=== PATIENT | male | born 1945 | race Caucasian/White ===

== ENCOUNTER 2018-02-04 16:03 | Outpatient (REF) | payer MEDICARE, SELFPAY, MEDICAID ==
[2018-02-04 16:42] LABS: HCT 38.8 % (40.0-50.0); HGB 13.2 g/dL (13.5-17.5); Mean Corpuscular Hemoglobin 33.8 pg (27.0-33.0); Mean Corpuscular Volume 99.5 fL (80-95); Mean Platelet Volume 11.8 fL (8.0-11.0); Platelet Count 159 x1000/uL (130-400); RBC Distribution Width 13.7 % (11.8-14.1); White Blood Cell Count 6.81 k/cumm (4.4-10.8)
[2018-02-04 17:08] LABS: ALT 32 U/L (12-78); AST 31 U/L (15-37); Albumin 3.7 g/dL (3.4-5.0); Alkaline Phosphatase 123 U/L (46-116); Anion Gap 11.8 mmol/L (3-11); BUN 21 mg/dL (7-18); Bilirubin, Total 0.4 mg/dL (0.2-1.0); CO2 23.2 mmol/L (21.0-32.0); CREATININE 1.23 mg/dL (0.70-1.30); Calcium 8.9 mg/dL (8.5-10.1); Chloride 101 mmol/L (98-107); Estimated GFR 58.01 (mL/min/1.73m2); Glucose 160 mg/dL (70-100); Magnesium 1.7 mg/dL (1.8-2.4); Potassium 4.3 mmol/L (3.5-5.1); Sodium 136 mmol/L (136-145)
[2018-02-04 17:47] LABS: Iron 99 ug/dL (50-175); Total Iron Binding Capacity 260 ug/dL (250-450); Transferrin Sat 38 % (20-55)
[2018-02-04 18:00] LABS: Ferritin 224 ng/mL (8-388)
== END 2018-02-04 16:23 ==
LOC: LBN 16:03
PROVIDERS: PCP Family Medicine; Visit Provider Family Medicine
DX: I10 Essential (primary) hypertension (principal); D50.9 Iron deficiency anemia, unspecified; E83.42 Hypomagnesemia; E43 Unspecified severe protein-calorie malnutrition; I48.1 Persistent atrial fibrillation; Z79.01 Long term (current) use of anticoagulants
CPT/HCPCS: 80053; 85027; 82728; 83540; 83550; 83735

== ENCOUNTER 2019-12-16 11:04 | Emergency (ER) | payer MEDICARE, SELFPAY ==
[2019-12-16] VITALS (14 sets, daily range): BP systolic 161–218; BP diastolic 56–116; PULSE 65–100; RESP 10–22; TEMP 36.5; O2SAT 96–100
--- NOTE | 2019-12-16 10:45 | RT.EKG_ITS ---
APPROVED REPORT Exam: Resting ECG Patient Location: E HR:80 bpm ECG Measurements Heart Rate 80 AXIS NH [id number] P [id number] QRSd 83 QRS 56 QT 373 T 33 QTc 429 Conclusion Atrial fibrillation...V-rate 64-113, irreg A-activity
[2019-12-16 12:03] LABS: Abs Immature Grans 0.02 10^3/uL (0.0-0.06); Absolute Basophil Count 0.03 10^3/uL (0.0-0.2); Absolute Eosinophil Count 0.27 10^3/uL (0.0-0.7); Absolute Lymphocyte Count 0.64 10^3/uL (1.2-3.4); Absolute Monocyte Count 0.76 10^3/uL (0.1-0.8); Absolute Neutrophil Count 7.33 10^3/uL (1.2-6.7); Basophils % 0.3; HCT 35.8 % (40.0-50.0); HGB 11.9 g/dL (13.5-17.5); Immature Grans % 0.2; Lymphocytes % 7.1; MCH 32.2 pg (27.0-33.0); MCHC 33.2 % (32.0-36.0); MCV 96.8 fL (80-95); MPV 10.5 fL (8.0-11.0); Monocytes % 8.4; Nucleated RBC 0 %; Platelet Count 238 10^3/uL (130-400); RDW 13.1 % (11.8-14.1); RDW-SD 46.7 fL; WBC 9.05 10^3/uL (4.4-10.8)
[2019-12-16 12:18] LABS: ALT 24 U/L (16-63); AST 30 U/L (15-37); Albumin 3.2 g/dL (3.4-5.0); Alkaline Phosphatase 119 U/L (46-116); Anion Gap 9.5 mmol/L (3-11); BUN 22 mg/dL (7-18); Bilirubin, Total 0.6 mg/dL (0.2-1.0); CO2 24.5 mmol/L (21.0-32.0); CREATININE 1.32 mg/dL (0.70-1.30); Calcium 9.5 mg/dL (8.5-10.1); Chloride 96 mmol/L (98-107); Estimated GFR 53.17 (mL/min/1.73m2); Glucose 100 mg/dL (74-106); Magnesium 2.1 mg/dL (1.8-2.4); Sodium 130 mmol/L (136-145); Total Protein 7.7 g/dL (6.4-8.2)
[2019-12-16 12:19] LABS: Troponin I < 0.05 ng/mL (<0.06)
--- NOTE | 2019-12-16 12:23 | W.ED.GENAD ---
Discharge Plan Disposition Patient Disposition: HOME Condition: Fair Discharge Details Clinical Impression: Weakness, Hyponatremia, Dehydration Primary Care Provider: Syeda Gayle ED Provider: Ashley Ascencio Home Meds and New Rx's Prescriptions: Continued oxycodone 5 MG tablet 5 mg PO Q4H PRN RF: 0 Allergy Relief (cetirizine) 10 mg capsule 10 mg PO DAILY Qty: 90 RF: 4 allopurinol [Zyloprim] 300 mg tablet 300 mg PO DAILY Qty: 90 RF: 4 pramipexole [Mirapex] 0.25 mg tablet 0.25 mg PO HS Qty: 90 RF: 4 pantoprazole 40 mg tablet,delayed release (DR/EC) 40 mg PO DAILY Qty: 90 RF: 4 tamsulosin 0.4 mg capsule 0.8 mg PO DAILY Qty: 60 RF: 6 finasteride 5 mg tablet 5 mg PO DAILY Qty: 90 RF: 4 metoprolol succinate 25 mg tablet extended release 24 hr 25 mg PO BID Qty: 60 RF: 12 metoprolol succinate 100 mg tablet extended release 24 hr 100 mg PO BID Qty: 60 RF: 12 lorazepam 1 mg tablet 1 mg PO HS PRN (Reason: anxiety) Qty: 30 RF: 2 fluticasone propionate 50 mcg/actuation spray,suspension 2 spray NS DAILY Qty: 1 RF: 6 aspirin [[place] Aspirin] 81 mg tablet,delayed release (DR/EC) 81 mg PO DAILY Qty: 90 RF: 1 penicillin V potassium 500 mg tablet 500 mg PO BID Qty: 60 RF: 6 Eliquis 5 mg tablet 5 mg PO BID Qty: 60 RF: 8 magnesium oxide 400 mg (241.3 mg magnesium) tablet 400 mg PO BID Qty: 90 RF: 4 Discharge Instructions Instructions: Dehydration (ED), Hyponatremia (ED), Weakness (ED) Additional Instructions: You are declining admission. You may return at any time for continued evaluation and continued treatment for your low sodium and dehydration. Please follow up this week with your primary care this week for reevaluation. If you develop fevers/chills, chest pain, shortness of breath, pain, increased weakness or other new/worsening sympoms please seek care urgently once again. Please follow up with podiatry. Please keep your feet as clean and protected as possible. Referrals: Syeda Gayle MD [Primary Care Provider] - Renato Chávez DPM [[facility] STAFF PHYSICIAN] - Discharge Data Discharge Date/Time-TO BE ENTERED AT DEPARTURE: 12/16/19 16:56 Medical Decision Making Patient is a pleasant 74 year old brought in via EMS with c/c of weakness. Patient reports that he fell yestreday but states that he, lowered myself to the floor and did not get injured. He did have to call EMS to assist him up. He denies striking his head. No loss of conscious. Has not fallen frequently. Patient reports he is unclear as to why he is here. States he did not call EMS but rather his family did. He states that he is here to appease them. On exam, patient appears disheveled and chronically ill. However, did not note any acute changes. Lungs are clear, normal cardiac exam. Abdominal exam reveals nontender abdomen. Does have some erythema over the right foot which patient reports is chronic. No tenderness outpatient, pulses. Patient would benefit from supervisor malted milk. Patient does appear disheveled and reports he often does not want to cleanse itself. Labs are reviewed. No leukocytosis. Patient hemoglobin is 11.9 patient's baseline anemic. His sodium is low at 130, he has been like this historically. His creatinine is elevated at 1.32 but she seems to be baseline for the patient. No evidence of chest urinary tract infection this point. Spoke with the patients daughter, Yolanda [phone], she reports that she and her siblings have been estranged x 15 years. just recently started to speak with him more. She does not sound to be clear about the change today. She did advise that her broth, Cristofer [phone], call the patiet this AM. It was Cristofer that called EMS after the patient reported he could not get out of bed. Patient was able to ambulate with walker. Ambulates with walker at baseline. He feels like he is at hisbaseline and is unclear why he is here today. Patient is requesting discharge home. I do remain concerned as the patient seems fairly limited with his responses and seems to be guarding against any real medical care. Unclear how compliant patient is at his baseline medical regimen. Therefore, I did discuss moving forward with imaging which she is in agreement with to rule out any other pathology particularly as he did fall yesterday. FINDINGS: Brain: Marked diffuse parenchymal atrophy has progressed since the prior exam. Stable periventricular low density areas consistent with chronic ischemic change. Stable large area of low density maira and left cerebellum consistent old infarct. Cerebral ventricles: No ventriculomegaly. Bones/joints: Degenerative arthritis visualized upper cervical spine at C1-C2 hypertrophic change. Paranasal sinuses: Visualized sinuses are unremarkable. No fluid levels. Mastoid air cells: Visualized mastoid air cells are well aerated. Vasculature: Dense intracranial arterial calcifications. Soft tissues: Unremarkable. IMPRESSION: 1. No acute findings. 2. Progression of marked diffuse parenchymal atrophy since 11/06/2016. 3. 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 FINDINGS: Lungs: Slight atelectasis or scarring in the left lung base. Pleural space: Unremarkable. No pleural effusion. No pneumothorax. Heart/Mediastinum: Unremarkable. No cardiomegaly. Vasculature: Very dense vascular calcifications. Bones/joints: Degenerative arthritis in the spine and shoulders. The bones are demineralized. IMPRESSION: 1. No acute findings. 2. Slight atelectasis or scarring in the left lung base. Chest findings with the patient. He and I discussed inpatient versus outpatient care and patient would prefer to go home. He feels like he continued to manage at home. His girlfriend is able to see him on a nightly basis. I did speak with her again as well and she does report that they have good set up at home to include a shower chair which she does not want to use. He is seen by his primary care routinely and I have asked that he see them within the next week for reevaluation. Return precautions were discussed. All of their questions and concerns were addressed and he is in agreement this plan. Patient's son will bring him home. Signficant other will be there nightly. He sounds to have good famililal support. FINDINGS: Brain: Marked diffuse parenchymal atrophy has progressed since the prior exam. Stable periventricular low density areas consistent with chronic ischemic change. Stable large area of low density maira and left cerebellum consistent old infarct. Cerebral ventricles: No ventriculomegaly. Bones/joints: Degenerative arthritis visualized upper cervical spine at C1-C2 hypertrophic change. Paranasal sinuses: Visualized sinuses are unremarkable. No fluid levels. Mastoid air cells: Visualized mastoid air cells are well aerated. Vasculature: Dense intracranial arterial calcifications. Soft tissues: Unremarkable. IMPRESSION: 1. No acute findings. 2. Progression of marked diffuse parenchymal atrophy since 11/06/2016. 3. 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 FINDINGS: Lungs: Slight atelectasis or scarring in the left lung base. Pleural space: Unremarkable. No pleural effusion. No pneumothorax. Heart/Mediastinum: Unremarkable. No cardiomegaly. Vasculature: Very dense vascular calcifications. Bones/joints: Degenerative arthritis in the spine and shoulders. The bones are demineralized. IMPRESSION: 1. No acute findings. 2. Slight atelectasis or scarring in the left lung base. HPI General Mode of arrival: EMS. Date/Time Provider Initiated Documentation: 12/16/19 11:30. Limitations to Documentation: no limitations. Information obtained by: patient, family (spoke with daughter, son, signiifcant other) and RN notes reviewed. HPI Narrative: Patient is a pleasant 74 year old male brought in via EMS with c/c of weakness. Patient states that he is feeling fine and that family called EMS because he was noted to have decreased energy and has been staying in bed more. He reports that he has just been tired and I dont work, so why do I need to get up?. He reports that he lives alone, unassisted. His significant other visits him daily which seems to make him happy. He denies any pain, headache, focal weakness, rashes, abdominal pain, decreased appetite. He has not taken his morning medications as of yet. Ambulates with a walker at baseline. Has deformities to bilateral hands at baseline. Related Data Home Medications Medication Instructions Recorded Confirmed oxycodone 5 mg PO Q4H PRN tab-cap 03/24/17 08/28/19 cetirizine 10 mg capsule 10 mg PO DAILY #90 cap 12/16/17 08/28/19 allopurinol 300 mg tablet 300 mg PO DAILY #90 tab 01/06/19 08/28/19 pramipexole 0.25 mg tablet 0.25 mg PO HS #90 tab 03/18/19 08/28/19 pantoprazole 40 mg tablet,delayed 40 mg PO DAILY #90 tab 04/25/19 08/28/19 release tamsulosin 0.4 mg capsule 0.8 mg PO DAILY #60 tab-cap 07/07/19 08/28/19 finasteride 5 mg tablet 5 mg PO DAILY #90 tab 07/26/19 08/28/19 metoprolol succinate 100 mg 100 mg PO BID #60 tab-cap 09/06/19 tablet,extended release 24 hr metoprolol succinate 25 mg 25 mg PO BID #60 tab 09/06/19 tablet,extended release 24 hr lorazepam 1 mg tablet 1 mg PO HS PRN #30 tab 10/06/19 fluticasone propionate 50 2 spray NS DAILY #1 script 10/15/19 mcg/actuation nasal spray,suspension aspirin 81 mg tablet,delayed 81 mg PO DAILY #90 tab-cap 11/10/19 release penicillin V potassium 500 mg 500 mg PO BID #60 tab 11/17/19 tablet apixaban 5 mg tablet 5 mg PO BID #60 tab 11/22/19 magnesium oxide 400 mg (241.3 mg 400 mg PO BID #90 tab-cap 12/07/19 magnesium) tablet Previous Rx's Medication Instructions Recorded cetirizine 10 mg capsule 10 mg PO DAILY #90 cap 12/16/17 allopurinol 300 mg tablet 300 mg PO DAILY #90 tab 01/06/19 pramipexole 0.25 mg tablet 0.25 mg PO HS #90 tab 03/18/19 pantoprazole 40 mg tablet,delayed 40 mg PO DAILY #90 tab 04/25/19 release tamsulosin 0.4 mg capsule 0.8 mg PO DAILY #60 tab-cap 07/07/19 finasteride 5 mg tablet 5 mg PO DAILY #90 tab 07/26/19 metoprolol succinate 100 mg 100 mg PO BID #60 tab-cap 09/06/19 tablet,extended release 24 hr metoprolol succinate 25 mg 25 mg PO BID #60 tab 09/06/19 tablet,extended release 24 hr lorazepam 1 mg tablet 1 mg PO HS PRN #30 tab 10/06/19 fluticasone propionate 50 2 spray NS DAILY #1 script 10/15/19 mcg/actuation nasal spray,suspension aspirin 81 mg tablet,delayed 81 mg PO DAILY #90 tab-cap 11/10/19 release penicillin V potassium 500 mg 500 mg PO BID #60 tab 11/17/19 tablet apixaban 5 mg tablet 5 mg PO BID #60 tab 11/22/19 magnesium oxide 400 mg (241.3 mg 400 mg PO BID #90 tab-cap 12/07/19 magnesium) tablet Allergies Allergy/AdvReac Type Severity Reaction Status Date / Time pravastatin AdvReac Severe MUSCLE Unverified 01/31/18 10:21 PAIN AND WEAKNESS lisinopril AdvReac HYPERKALEMI Unverified 01/31/18 10:21 A General Stated Complaint: GenMedical TOMEKA: 2 Review of Systems Constitutional Constitutional: Reports as per HPI, Denies chills, Denies fever(s), Denies frequent falls and Denies headache(s) ENT Ears, Nose, Mouth, and Throat: Denies abnormal hearing, Denies vertigo, Denies dizziness and Denies headache(s) Cardiovascular Cardiovascular: Reports as per HPI, Denies chest pain, Denies lightheadedness, Denies dyspnea and Denies dyspnea on exertion Respiratory Respiratory: Reports as per HPI, Denies cough, Denies dyspnea and Denies dyspnea on exertion Gastrointestinal Gastrointestinal: Denies abdominal pain, Denies change in bowel habits, Denies nausea and Denies vomiting Genitourinary Genitourinary: Denies oliguria, Denies dysuria, Denies testicular pain, Denies urinary frequency and Denies urinary urgency Integumentary/Breasts Skin/Breast: Reports erythema (chronic to right foot, he reports no recent change) Neurologic Neurologic: Denies abnormal hearing, Denies abnormal speech, Denies confusion, Denies vertigo, Denies dizziness, Denies frequent falls, Denies headache(s) and Denies paresthesias Psychiatric Psychiatric: Denies confusion [facility] Medical History (Updated 12/16/19 @ 15:44 by SHAUNA Quinones) Alcohol intake above recommended sensible limits 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) left great toe transmetatarsal amputation 05-02-2017 by - 05-12-2017 [facility] [place] Vasc.Sx.: site with large necrotic/scabbed area: tx above knee amputation but pt declines - fup with wound care until pt decides to proceed (Dr.Goodney Cisco Chiang [facility]) Benign prostatic hyperplasia with lower urinary tract symptoms PSA: 1.5 in Critical lower limb ischemia RIGHT [facility] [place] SHAUNA Parsons/ status post right iliofemoral endarterectomy and patch angioplasty/right EIA stenting/ stent graft to distal SFA and popliteal/ COMPLICATED BY INFECTION: # debridements - w LEFT ILIOFEMORAL ENDATERECTOMY WITH LEFT EXTERNAL ILIAC STENT - [facility] [place] Essential hypertension (11/16/12) Gastroesophageal reflux disease Gout Hyperlipidemia Hypomagnesemia Hyponatremia (09/06/13) serum electrophoresis normal 2009/ cortisol level normal: 2009 Osteomyelitis of right lower extremity 08/13/15- GREAT RIGHT TOE S/P AMPUTAION Osteomyelitis of toe Paroxysmal atrial fibrillation ADONIS score: 1/ on asa Peripheral vascular disease critical lower limb ischemia - [facility] [place]- 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 Restless leg syndrome, uncontrolled Sciatica Vitamin D deficiency (09/06/13) Surgical History Amputation 08/13/15-GREAT RIGHT TOE Status post amputation of great toe (08/13/15) (post osteomyelitis) Social History Smoking/Tobacco Use Status: Former Tobacco Use Smoking risk assessment performed?: Yes Drug use: Never Do you feel safe at home: Yes Do you feel safe in your relationship?: Yes Exam Const General: cooperative, comfortable, no acute distress, disheveled and ill appearing chronically Nutritional Appearance: average body habitus and well nourished Orientation: alert, awake and oriented x3 [facility] Head: normal to inspection, no palpable skull fracture, normocephalic and atraumatic Ears: hearing grossly normal bilaterally Face and sinus: normal facial exam and sinuses nontender Mouth: oral mucosae normal and mucous membranes dry Eyes General: appearance normal, both eyes and all related structures Neck Neck: normal visual inspection, full ROM, no lymphadenopathy and no meningeal signs Resp Effort & Inspection: normal respiratory effort, able to speak in complete sentences and no respiratory distress Auscultation: clear to auscultation bilaterally Cardio Rate: regular rate Rhythm: regular rhythm Heart Sounds: S1 normal and S2 normal GI Inspection: normal to inspection Palpation: soft, not rigid and nontender Percussion: normal to percussion Auscultation: normal bowel sounds Back/Spine/Pelvis Back: no CVA tenderness Cervical Spine: normal cervical lordosis, cervical ROM normal, No cervical spinal tenderness and No step off deformity Thoracic/Lumbar Spine: thoracic and lumbar spine normal to inspection, No thoracic spinal tenderness and No lumbar spinal tenderness Skin General skin exam: erythema (distal lateral right foot, he reports baseline) Neuro General: patient alert and patient awake Cognition: normal cognition Speech: speech normal Gait: gait assisted Method: walker (this is baseline for the patient) Motor: muscle tone normal throughout Sensory Exam: no sensory deficits noted Extrem General: no pedal edema, no calf tenderness and other (2+ distal pulses in all extremites) Ankle/foot/toe images: 1. Patient has resection of multiple toes, well healed incisions. He has erythema on dorsal lateral aspect which he states is normal. This is not warm or tender. Over area marked on drawing, he has a blistered area that is firm and dirty. Poorly cared for feet. Psych Appearance: grossly normal and well kempt Mental Status: mental status grossly normal Speech and Movement: speech and movement normal Course Vital Signs Vital signs: Vital Signs Temperature 36.5 C 12/16/19 11:05 Pulse 79 12/16/19 11:05 Respiratory Rate 20 12/16/19 11:05 Blood Pressure 161/88 H 12/16/19 11:05 Pulse Oximetry 98 12/16/19 11:05 Temperature 36.5 C 12/16/19 11:05 Temperature Source Temporal Artery Scan 12/16/19 11:05 Pulse 77 12/16/19 12:01 Pulse 82 12/16/19 12:10 Respiratory Rate 12 12/16/19 12:10 Respiratory Effort 12/16/19 11:58 Respiratory Depth Normal 12/16/19 11:15 Respiratory Pattern Normal 12/16/19 11:15 Blood Pressure 202/99 H 12/16/19 12:01 Blood Pressure Mean 124 12/16/19 12:01 Pulse Oximetry 97 12/16/19 12:10 Oxygen Delivery Method Room Air 12/16/19 11:05 Oxygen Flow Rate 0 12/16/19 11:05 Pain Level 0 12/16/19 11:05 Lab/Test Results Lab/Test Results: Laboratory Tests Range/Units 12/16/19 12/16/19 11:50 11:50 WBC (4.4-10.8) 10^3/uL 9.05 RBC (4.36-5.78) 10^6/uL 3.70 L Hgb (13.5-17.5) g/dL 11.9 L Hct (40.0-50.0) % 35.8 L MCV (80-95) fL 96.8 H MCH (27.0-33.0) pg 32.2 MCHC (32.0-36.0) % 33.2 RDW (11.8-14.1) % 13.1 Plt Count (130-400) 10^3/uL 238 MPV (8.0-11.0) fL 10.5 Immature Gran % 0.2 Neutrophils % 81.0 Lymphocytes % 7.1 Monocytes % 8.4 Eosinophils % 3.0 Basophils % 0.3 Nucleated RBC % % 0 Absolute Neutrophils (1.2-6.7) 10^3/uL 7.33 H Absolute Lymphocytes (1.2-3.4) 10^3/uL 0.64 L Absolute Monocytes (0.1-0.8) 10^3/uL 0.76 Absolute Eosinophils (0.0-0.7) 10^3/uL 0.27 Absolute Basophils (0.0-0.2) 10^3/uL 0.03 Sodium (136-145) mmol/L 130 L Potassium (3.5-5.1) mmol/L 4.0 Chloride (98-107) mmol/L 96 L Carbon Dioxide (21.0-32.0) mmol/L 24.5 Anion Gap (3-11) mmol/L 9.5 BUN (7-18) mg/dL 22 H Creatinine (0.70-1.30) mg/dL 1.32 H Estimated GFR/1.73 m2 (mL/min/1.73m2) 53.17 Glucose (74-106) mg/dL 100 Calcium (8.5-10.1) mg/dL 9.5 Magnesium (1.8-2.4) mg/dL 2.1 Total Bilirubin (0.2-1.0) mg/dL 0.6 AST (15-37) U/L 30 ALT (16-63) U/L 24 Alkaline Phosphatase (46-116) U/L 119 H Troponin I (<0.06) ng/mL < 0.05 Total Protein (6.4-8.2) g/dL 7.7 Albumin (3.4-5.0) g/dL 3.2 L
--- NOTE | 2019-12-16 12:30 | DI.CT_ITS ---
EXAM: CT HEAD WO CLINICAL HISTORY: weakness. TECHNIQUE: Imaging Protocol: Axial computed tomography images with coronal and sagittal reformatted images were created and reviewed COMPARISON: CT HEAD AND CSPINE W/O CONTRAST from 11/06/2016 FINDINGS: Ventricles and Extra axial spaces: Normal in size and morphology for the patient's age. Hemorrhage: None. Cerebral parenchyma: There are areas of decreased attenuation in the white matter most consistent wit h small vessel ischemic disease. No acute territorial infarct. Midline shift: None. Brainstem/Cerebellum: Normal. Calvarium: Normal. Visualized Paranasal sinuses/Mastoids: Clear. Soft Tissues: Unremarkable. IMPRESSION: No acute intracranial process. RADIATION DOSE DELIVERED: 747.15mGy.cm Total DLP DATA REPOSITORY: All CT scans at this facility are submitted to the National Radiology Data Registry (NRDR) Dose Index Registry (DIR) with the [employer] (ACR). RADIATION OPTIMIZATION: All CT scans at this facility use at least one of these dose optimization te chniques: automated exposure control; mA and/or kV adjustment per patient size (includes targeted exa ms where dose is matched to clinical indication); or iterative reconstruction.
--- NOTE | 2019-12-16 12:30 | DI.RAD_ITS ---
EXAM: XR CHEST 2V PA LATERAL CLINICAL HISTORY: weakness TECHNIQUE: 2D digital imaging was performed. COMPARISON: CR PORTABLE CHEST ONE VIEW from 05/11/2016 FINDINGS: MEDIASTINUM: Normal. HEART: Normal. PULMONARY VASCULATURE: Normal. LUNGS: Atelectasis or scarring in the left lung base. No focal consolidating infiltrates. PLEURAL SPACE: No pleural effusion or pneumothorax. BONE:Within normal limits for the patient's age. Degenerative changes in the shoulders right greater than left. OTHER FINDINGS:Atherosclerosis. IMPRESSION: No acute pulmonary findings. DATA REPOSITORY: RADIATION DOSE DELIVERED:
--- NOTE | 2019-12-16 12:54 | NUR.NOTE ---
ambulated pt with walker and gait belt. states he feels fine and doesnt need to be here. state he want to go home. provider aware:
[2019-12-16] MEDS: Metoprolol 25 MG TAB PO (13:20)
[2019-12-16] MEDS: Normal Saline 500 ML IV (13:20)
[2019-12-16] MEDS: Metoprolol 50 MG TAB 100 MG PO (13:20)
--- NOTE | 2019-12-16 14:55 | DI.VRAD_ITS ---
PROCEDURE INFORMATION: Exam: CT Head Without Contrast Exam date and time: 12/16/2019 12:31 PM Age: 74 years old Clinical indication: Other: Weakness TECHNIQUE: Imaging protocol: Computed tomography of the head without contrast. COMPARISON: CT HEAD AND CSPINE W/O CONTRAST 11/06/2016 9:10 AM FINDINGS: Brain: Marked diffuse parenchymal atrophy has progressed since the prior exam. Stable periventricular low density areas consistent with chronic ischemic change. Stable large area of low density maira and left cerebellum consistent old infarct. Cerebral ventricles: No ventriculomegaly. Bones/joints: Degenerative arthritis visualized upper cervical spine at C1-C2 hypertrophic change. Paranasal sinuses: Visualized sinuses are unremarkable. No fluid levels. Mastoid air cells: Visualized mastoid air cells are well aerated. Vasculature: Dense intracranial arterial calcifications. Soft tissues: Unremarkable. IMPRESSION: 1. No acute findings. 2. Progression of marked diffuse parenchymal atrophy since 11/06/2016. 3. 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 Dictated and Authenticated by: Danika Mccabe MD. Ordering:MARION Ramirez MD
--- NOTE | 2019-12-16 14:58 | DI.VRAD_ITS ---
PROCEDURE INFORMATION: Exam: XR Chest, 2 Views Exam date and time: 12/16/2019 2:36 PM Age: 74 years old Clinical indication: Other: Weakness TECHNIQUE: Imaging protocol: XR of the chest Views: 2 views. COMPARISON: No relevant prior studies available. FINDINGS: Lungs: Slight atelectasis or scarring in the left lung base. Pleural space: Unremarkable. No pleural effusion. No pneumothorax. Heart/Mediastinum: Unremarkable. No cardiomegaly. Vasculature: Very dense vascular calcifications. Bones/joints: Degenerative arthritis in the spine and shoulders. The bones are demineralized. IMPRESSION: 1. No acute findings. 2. Slight atelectasis or scarring in the left lung base. Dictated and Authenticated by: Danika Mccabe MD. Ordering:MARION Ramirez MD
[2019-12-16 15:11] LABS: Bilirubin Negative (Negative); Blood Negative (Negative); Clarity Clear (Clear); Glucose Negative (Negative); Ketones Negative (Negative); Leukocyte Esterase Negative (Negative); Nitrite Negative (Negative); Urobilinogen 0.2 EU/dL (Up TO 0.2)
[2019-12-16 15:25] LABS: Bacteria Negative HPF (Negative); C & S Indicated? No; Casts Negative LPF (Negative); Crystals Negative HPF (Negative); Epithelial Cells Rare HPF (Negative); Mucus Trace (Negative); RBC 0-2 HPF (0-2); WBC 0-2 HPF (0-5)
== END 2019-12-16 16:56 | disposition home or self-care (01) ==
PROVIDERS: Emergency Provider Physician Assistant; PCP Family Medicine
DX: R53.1 Weakness (principal); E87.1 Hypo-osmolality and hyponatremia; E86.0 Dehydration; I10 Essential (primary) hypertension
CPT/HCPCS: 80053; 93005; 96360; 99285; 70450; 71046; 81003; 81015; 83735; 84484; 85025; 93010; 99284

== ENCOUNTER 2020-06-09 09:21 | Emergency (ER) | payer MEDICARE, SELFPAY ==
[2020-06-09] VITALS (54 sets, daily range): BP systolic 127–208; BP diastolic 64–195; PULSE 52–84; RESP 9–23; TEMP 36.6; O2SAT 88–99
--- NOTE | 2020-06-09 09:30 | DI.CT_ITS ---
EXAM: CT HEAD WO CLINICAL HISTORY: fall, anticoagulated. TECHNIQUE: Imaging Protocol: Axial computed tomography images with coronal and sagittal reformatted images were created and reviewed COMPARISON: CT CT HEAD WO from 12/16/2019 FINDINGS: There are no skull fractures. Mucosal thickening right maxillary sinus is noted. No fluid level. Also some mucosal thickening in the sphenoid sinuses. There is no evidence of intracranial hemorrhage, mass effect, or shift of midline structures. No ext ra-axial fluid collections. Atrophy noted which is relatively symmetrical. There is moderate amount of bilateral periventricular hypodensity consistent with chronic small vessel disease. IMPRESSION: No acute intracranial findings on this noninfused CT scan of the brain. Atrophy noted. No intracranial hemorrhage. RADIATION DOSE DELIVERED: 721.81mGy.cm Total DLP DATA REPOSITORY: All CT scans at this facility are submitted to the National Radiology Data Registry (NRDR) Dose Index Registry (DIR) with the [employer] (ACR). RADIATION OPTIMIZATION: All CT scans at this facility use at least one of these dose optimization te chniques: automated exposure control; mA and/or kV adjustment per patient size (includes targeted exa ms where dose is matched to clinical indication); or iterative reconstruction.
--- NOTE | 2020-06-09 09:30 | RT.EKG_ITS ---
APPROVED REPORT Exam: Resting ECG Patient Location: E HR:70 bpm ECG Measurements Heart Rate 70 AXIS [place] [id number] P [id number] QRSd 83 QRS 55 QT 432 T 48 QTc 466 Conclusion Atrial fibrillation...V-rate 66- 74, irreg A-activity Physician: no stemi, peaked t waves are unchanged from prior EKG's
--- NOTE | 2020-06-09 09:33 | DI.RAD_ITS ---
EXAM: XR CHEST 1V IN DI DEPT CLINICAL HISTORY: fall. TECHNIQUE: 2D digital imaging was performed. COMPARISON: CR,XR XR CHEST 2V PA LATERAL from 12/16/2019 FINDINGS: Heart size is normal. The mediastinum is not widened. Lungs are clear. No infiltrates nor obvious pleural effusions. IMPRESSION: No acute pulmonary findings on this single AP portable view of the chest. DATA REPOSITORY: RADIATION DOSE DELIVERED: All CT scans at this facility use at least one of these dose optimization techniques: automated exposure control; mA and/or kV adjustment per patient size (includes targeted e xams where dose is matched to clinical indication); or iterative reconstruction.
[2020-06-09] MEDS: Normal Saline 250 ML 500 ML IV (10:41)
[2020-06-09 10:47] LABS: Bilirubin Negative (Negative); Blood Small (Negative); Clarity Clear (Clear); Glucose Negative (Negative); Ketones Negative (Negative); Leukocyte Esterase Negative (Negative); Nitrite Negative (Negative); Specific Gravity 1.025 (1.005-1.025); Urobilinogen 0.2 EU/dL (Up TO 0.2)
--- NOTE | 2020-06-09 10:47 | ED.GENADUL_ITS ---
Discharge Plan Disposition Patient Disposition: AGAINST MEDICAL ADVICE Condition: Serious Discharge Details Clinical Impression: Elevated troponin, Weakness, Fall, Elevated brain natriuretic peptide (BNP) level Primary Care Provider: Syeda Gayle ED Provider: Dann Awad Home Meds and New Rx's Prescriptions: Continued oxycodone 5 MG tablet 5 mg PO Q4H PRN RF: 0 Allergy Relief (cetirizine) 10 mg capsule 10 mg PO DAILY Qty: 90 RF: 4 pantoprazole 40 mg tablet,delayed release (DR/EC) 40 mg PO DAILY Qty: 90 RF: 4 finasteride 5 mg tablet 5 mg PO DAILY Qty: 90 RF: 4 metoprolol succinate 25 mg tablet extended release 24 hr 25 mg PO BID Qty: 60 RF: 12 metoprolol succinate 100 mg tablet extended release 24 hr 100 mg PO BID Qty: 60 RF: 12 penicillin V potassium 500 mg tablet 500 mg PO BID Qty: 60 RF: 6 Eliquis 5 mg tablet 5 mg PO BID Qty: 60 RF: 8 magnesium oxide 400 mg (241.3 mg magnesium) tablet 400 mg PO BID Qty: 90 RF: 4 aspirin [[place] Aspirin] 81 mg tablet,delayed release (DR/EC) 81 mg PO DAILY Qty: 90 RF: 1 tamsulosin 0.4 mg capsule 0.8 mg PO DAILY Qty: 60 RF: 6 pramipexole [Mirapex] 0.25 mg tablet 0.25 mg PO HS Qty: 90 RF: 4 lorazepam 0.5 mg tablet 0.5 - 1 mg PO DAILY PRN (Reason: anxiety) Qty: 60 RF: 0 allopurinol [Zyloprim] 300 mg tablet 300 mg PO DAILY Qty: 90 RF: 4 fluticasone propionate 50 mcg/actuation spray,suspension 2 spray NS DAILY Qty: 1 RF: 6 Discharge Instructions Instructions: Weakness (ED), High Troponin Levels (ED) Additional Instructions: At this time your troponin and BNP, cardiac enzymes, are both elevated. As I have discussed with you multiple times this is highly concerning for a cardiac event and I do not recommend you going home. Typically I would contact a toll operator at [facility] for their recommendation which you have declined. I have talked with your son Cristofer multiple times to make them aware of the situation and my concern that you are signing out AGAINST MEDICAL ADVICE. You are aware that this may lead to serious injury, permanent disability, and/or . You still wish to leave AGAINST MEDICAL ADVICE. Please return to the ER if you decide you would like to have medical treatment. I did reach out to the physician education nurse, I wanted them to be in touch with your primary care provider. Please contact your primary care provider tomorrow as well Medical Decision Making This is a chronically ill-appearing 74-year-old gentleman, reporting increased fall, generalized weakness, most recently falling this morning requiring him to press his Lifeline and presents to the ER via EMS. He denies any specific injuries from the fall today. He does report chronic low back pain which is no different than his baseline. He tells me he has been taking his medications as directed. This does mean that he takes apixaban daily. Given his multiple falls, I will obtain a CT imaging of his head. Given his generalized weakness, I will initiate a cardiac work-up as well with gentle hydration. Initial laboratory values reveal minimal nonspecific leukocytosis at 11.23 hemoglobin 14.4 hematocrit 42.6 platelet count 186. INR 1.1, D-dimer 7328. Sodium 134 potassium 4.1 creatinine 1.2 GFR 59.35 glucose 107 LFTs unremarkable. CK is not indicative of rhabdomyolysis at 255. Troponin 0.09. BNP 2371. Urinalysis without signs of obvious infection. Alcohol level less than 3. Negative rapid Covid. Chest x-ray negative per radiology. We will pursue CTA given his elevated D-dimer. Patient was given full dose aspirin. Patient continues to run hypertensive, will give 10 IV labetalol. He denies any chest pain whatsoever. I have made him aware of his initial elevated troponin and he tells me he does not want to stay in the hospital. He is agreeable to obtaining CTA, repeat troponin and EKG, and reassessment CTA of the chest is negative. Repeat EKG performed at 1413. Please see official report by Dr. Grullon. Atrial fibrillation, ventricular of 78. Prolonged QT interval with continuation of peaked T waves. No dynamic changes from previous EKG Repeat troponin is 0.15. I did discuss the case with Dr. Grullon. I had a very candid conversation with the patient regarding his elevated troponin, trending upward, typical standard of care and consultation with cardiology. Based upon that conversation we would then either transfer the patient or admit to our facility. Patient does not want any additional medications, cardiology int ervention, and would like his son contacted so he may go home. Patient denied discussed that he is likely having a cardiac event, NSTEMI, and this may result in . Patient has capacity to make his own decisions and continues to want to sign out AMA. I will contact his son and attempt to contact his primary care provider. Patient's son contacted the ER and spoke with RN regarding patient visit. He is the patient's ride home. I personally spoke with the patient's son Cristofer at 1445 and again at 1525. He agrees that his daughter has capacity and his father wants to go home and understands that he may he will take him home in his current condition. He does wonder if hospice will be appropriate for him. I reached out to the provider education nurse, Dr. Browning and made her aware of the situation. I also placed the patient on the care management list to make them aware of him leaving AMA, and the importance of outpatient follow-up and likely need for hospice. Patient appears clinically sober, is of sound mind, and based upon my clinical examination has the capacity to make their own decisions. We have offered treatment options and discussed the the risks and benefits of these options and refusing these options, including and/or disability specific to the patient's pathology. Pt is able to discuss and understands the risks and benefits and alternatives of treatment and refusing treatment. We have tried to involve the patient's family or support group that was present here or by contacting them on the phone. I had the patient's son Cristofer talk to his father on the phone and also relay his concerns and attempt to have him stay here in the hospital for admission. The patient still chooses to leave before evaluation and treatment can be completed AGAINST MEDICAL ADVICE. Medical Records Medical records reviewed: Yes I reviewed the patient's medical records. Imaging Data Radiologic Study: Attestation: I personally reviewed and interpreted this imaging study as follows: Imaging: X-Ray Radiologist's impression: Chest x-ray no acute findings Radiologic Study #2: Attestation: I personally reviewed and interpreted this imaging study as follows: Imaging: CT Scan Radiologist's impression: Head CT no acute findings. Diffuse parenchymal atrophy and chronic ischemic changes Radiologic Study #3: Attestation: I personally reviewed and interpreted this imaging study as follows: Imaging: CT Scan Radiologist's impression: Chest CTA read by radiology as no pulmonary embolism identified. Severe arthritic changes in the shoulder and sternoclavicular joints with bulky chondrocalcinosis. Diffuse vascular calcifications with cardiomegaly. Cirrhotic liver. Lab Data Lab results reviewed: Yes I reviewed the patient's lab results. Labs: Laboratory Tests Range/Units 06/09/20 06/09/20 06/09/20 10:00 10:00 10:00 WBC RBC Hgb Hct MCV MCH MCHC RDW Plt Count MPV Immature Gran % Neutrophils % Band Neutrophils % Lymphocytes % Atypical Lymphs % Monocytes % Eosinophils % Basophils % Metamyelocytes % Myelocytes % Promyelocytes % Other Cells % Nucleated RBC % Absolute Neutrophils Absolute Lymphocytes Absolute Monocytes Absolute Eosinophils Absolute Basophils RBC Morphology Polychromasia Hypochromasia Poikilocytosis Basophilic Stippling Anisocytosis Microcytosis Macrocytosis Spherocytes Tear Drop Cells Ovalocytes Stomatocytes [place] Bodies [place] Cells/Echinocytes Acanthocytes (Spur) Schistocytes PT Cancelled INR Cancelled APTT Cancelled D-Dimer (<500) ng/mlFEU Sodium Cancelled Potassium Cancelled Chloride Cancelled Carbon Dioxide Cancelled Anion Gap Cancelled BUN Cancelled Creatinine Cancelled Estimated GFR/1.73 m2 Cancelled Glucose Cancelled Calcium Cancelled Magnesium Cancelled Total Bilirubin Cancelled AST Cancelled ALT Cancelled Alkaline Phosphatase Cancelled Creatine Kinase Cancelled Troponin I Cancelled NT-Pro-B Natriuret Pep (<300) pg/mL Total Protein Cancelled Albumin Cancelled Urine Color (Yellow) Urine Clarity (Clear) Urine pH (5-8) Ur Specific [place] (1.005-1.025) Urine Protein (Negative) mg/dL Urine Ketones (Negative) mg/dL Urine Blood (Negative) Urine Nitrite (Negative) Urine Bilirubin (Negative) Urine Urobilinogen (Up TO 0.2) EU/dL Ur Leukocyte Esterase (Negative) Urine RBC (0-2) HPF Urine WBC (0-5) HPF Ur Epithelial Cells (Negative) HPF Urine Crystals (Negative) HPF Urine Bacteria (Negative) HPF Urine Casts (Negative) LPF Urine Mucus (Negative) Ur Culture Indicated? Urine Glucose (Negative) mg/dL Ethyl Alcohol (<3) mg/dL COVID-19 Source SARS-CoV-2 (PCR) (Negative) Range/Units 06/09/20 06/09/20 06/09/20 10:00 10:10 10:10 WBC Cancelled RBC Cancelled Hgb Cancelled Hct Cancelled MCV Cancelled MCH Cancelled MCHC Cancelled RDW Cancelled Plt Count Cancelled MPV Cancelled Immature Gran % Cancelled Neutrophils % Cancelled Band Neutrophils % Cancelled Lymphocytes % Cancelled Atypical Lymphs % Cancelled Monocytes % Cancelled Eosinophils % Cancelled Basophils % Cancelled Metamyelocytes % Cancelled Myelocytes % Cancelled Promyelocytes % Cancelled Other Cells % Cancelled Nucleated RBC % Cancelled Absolute Neutrophils Cancelled Absolute Lymphocytes Cancelled Absolute Monocytes Cancelled Absolute Eosinophils Cancelled Absolute Basophils Cancelled RBC Morphology Cancelled Polychromasia Cancelled Hypochromasia Cancelled Poikilocytosis Cancelled Basophilic Stippling Cancelled Anisocytosis Cancelled Microcytosis Cancelled Macrocytosis Cancelled Spherocytes Cancelled Tear Drop Cells Cancelled Ovalocytes Cancelled Stomatocytes Cancelled [place] Bodies Cancelled Lukasz Cells/Echinocytes Cancelled Acanthocytes (Spur) Cancelled Schistocytes Cancelled PT INR APTT D-Dimer (<500) ng/mlFEU Sodium 134 L Potassium 4.1 Chloride 97 L Carbon Dioxide 26.2 Anion Gap 10.8 BUN 13 Creatinine 1.2 Estimated GFR/1.73 m2 59.35 Glucose 107 H Calcium 9.7 Magnesium 1.8 Total Bilirubin 0.9 AST 26 ALT 24 Alkaline Phosphatase 115 Creatine Kinase 255 Troponin I 0.09 H* NT-Pro-B Natriuret Pep (<300) pg/mL Total Protein 7.5 Albumin 3.8 Urine Color (Yellow) Yellow Urine Clarity (Clear) Clear Urine pH (5-8) 8.0 Ur Specific [place] (1.005-1.025) 1.025 Urine Protein (Negative) mg/dL >=300 H Urine Ketones (Negative) mg/dL Negative Urine Blood (Negative) Small H Urine Nitrite (Negative) Negative Urine Bilirubin (Negative) Negative Urine Urobilinogen (Up TO 0.2) EU/dL 0.2 Ur Leukocyte Esterase (Negative) Negative Urine RBC (0-2) HPF 3-5 H Urine WBC (0-5) HPF 0-2 Ur Epithelial Cells (Negative) HPF Rare Urine Crystals (Negative) HPF Negative Urine Bacteria (Negative) HPF Rare Urine Casts (Negative) LPF Negative Urine Mucus (Negative) Negative Ur Culture Indicated? No Urine Glucose (Negative) mg/dL Negative Ethyl Alcohol (<3) mg/dL COVID-19 Source SARS-CoV-2 (PCR) (Negative) Range/Units 06/09/20 06/09/20 06/09/20 10:10 10:10 10:10 WBC 11.23 H RBC 4.36 Hgb 14.4 Hct 42.6 MCV 97.7 H MCH 33.0 MCHC 33.8 RDW 13.6 Plt Count 186 MPV 10.6 Immature Gran % 0.7 Neutrophils % 89.0 Band Neutrophils % Lymphocytes % 4.5 Atypical Lymphs % Monocytes % 4.7 Eosinophils % 0.6 Basophils % 0.5 Metamyelocytes % Myelocytes % Promyelocytes % Other Cells % Nucleated RBC % 0 Absolute Neutrophils 9.99 H Absolute Lymphocytes 0.51 L Absolute Monocytes 0.53 Absolute Eosinophils 0.07 Absolute Basophils 0.06 RBC Morphology Polychromasia Hypochromasia Poikilocytosis Basophilic Stippling Anisocytosis Microcytosis Macrocytosis Spherocytes Tear Drop Cells Ovalocytes Stomatocytes [place] Bodies Lukasz Cells/Echinocytes Acanthocytes (Spur) Schistocytes PT 11.0 INR 1.1 APTT 25.5 D-Dimer (<500) ng/mlFEU Sodium Potassium Chloride Carbon Dioxide Anion Gap BUN Creatinine Estimated GFR/1.73 m2 Glucose Calcium Magnesium Total Bilirubin AST ALT Alkaline Phosphatase Creatine Kinase Troponin I NT-Pro-B Natriuret Pep (<300) pg/mL Total Protein Albumin Urine Color (Yellow) Urine Clarity (Clear) Urine pH (5-8) Ur Specific [place] (1.005-1.025) Urine Protein (Negative) mg/dL Urine Ketones (Negative) mg/dL Urine Blood (Negative) Urine Nitrite (Negative) Urine Bilirubin (Negative) Urine Urobilinogen (Up TO 0.2) EU/dL Ur Leukocyte Esterase (Negative) Urine RBC (0-2) HPF Urine WBC (0-5) HPF Ur Epithelial Cells (Negative) HPF Urine Crystals (Negative) HPF Urine Bacteria (Negative) HPF Urine Casts (Negative) LPF Urine Mucus (Negative) Ur Culture Indicated? Urine Glucose (Negative) mg/dL Ethyl Alcohol (<3) mg/dL < 3.0 COVID-19 Source SARS-CoV-2 (PCR) (Negative) Range/Units 06/09/20 06/09/20 06/09/20 10:10 10:10 12:44 WBC RBC Hgb Hct MCV MCH MCHC RDW Plt Count MPV Immature Gran % Neutrophils % Band Neutrophils % Lymphocytes % Atypical Lymphs % Monocytes % Eosinophils % Basophils % Metamyelocytes % Myelocytes % Promyelocytes % Other Cells % Nucleated RBC % Absolute Neutrophils Absolute Lymphocytes Absolute Monocytes Absolute Eosinophils Absolute Basophils RBC Morphology Polychromasia Hypochromasia Poikilocytosis Basophilic Stippling Anisocytosis Microcytosis Macrocytosis Spherocytes Tear Drop Cells Ovalocytes Stomatocytes [place] Bodies Lukasz Cells/Echinocytes Acanthocytes (Spur) Schistocytes PT INR APTT D-Dimer (<500) ng/mlFEU 7328 H Sodium Potassium Chloride Carbon Dioxide Anion Gap BUN Creatinine Estimated GFR/1.73 m2 Glucose Calcium Magnesium Total Bilirubin AST ALT Alkaline Phosphatase Creatine Kinase Troponin I NT-Pro-B Natriuret Pep (<300) pg/mL 2371 H Total Protein Albumin Urine Color (Yellow) Urine Clarity (Clear) Urine pH (5-8) Ur Specific [place] (1.005-1.025) Urine Protein (Negative) mg/dL Urine Ketones (Negative) mg/dL Urine Blood (Negative) Urine Nitrite (Negative) Urine Bilirubin (Negative) Urine Urobilinogen (Up TO 0.2) EU/dL Ur Leukocyte Esterase (Negative) Urine RBC (0-2) HPF Urine WBC (0-5) HPF Ur Epithelial Cells (Negative) HPF Urine Crystals (Negative) HPF Urine Bacteria (Negative) HPF Urine Casts (Negative) LPF Urine Mucus (Negative) Ur Culture Indicated? Urine Glucose (Negative) mg/dL Ethyl Alcohol (<3) mg/dL COVID-19 Source Nasal/nares SARS-CoV-2 (PCR) (Negative) Negative Range/Units 06/09/20 13:35 WBC RBC Hgb Hct MCV MCH MCHC RDW Plt Count MPV Immature Gran % Neutrophils % Band Neutrophils % Lymphocytes % Atypical Lymphs % Monocytes % Eosinophils % Basophils % Metamyelocytes % Myelocytes % Promyelocytes % Other Cells % Nucleated RBC % Absolute Neutrophils Absolute Lymphocytes Absolute Monocytes Absolute Eosinophils Absolute Basophils RBC Morphology Polychromasia Hypochromasia Poikilocytosis Basophilic Stippling Anisocytosis Microcytosis Macrocytosis Spherocytes Tear Drop Cells Ovalocytes Stomatocytes [place] Bodies [place] Cells/Echinocytes Acanthocytes (Spur) Schistocytes PT INR APTT D-Dimer (<500) ng/mlFEU Sodium Potassium Chloride Carbon Dioxide Anion Gap BUN Creatinine Estimated GFR/1.73 m2 Glucose Calcium Magnesium Total Bilirubin AST ALT Alkaline Phosphatase Creatine Kinase Troponin I 0.15 H* NT-Pro-B Natriuret Pep (<300) pg/mL Total Protein Albumin Urine Color (Yellow) Urine Clarity (Clear) Urine pH (5-8) Ur Specific [place] (1.005-1.025) Urine Protein (Negative) mg/dL Urine Ketones (Negative) mg/dL Urine Blood (Negative) Urine Nitrite (Negative) Urine Bilirubin (Negative) Urine Urobilinogen (Up TO 0.2) EU/dL Ur Leukocyte Esterase (Negative) Urine RBC (0-2) HPF Urine WBC (0-5) HPF Ur Epithelial Cells (Negative) HPF Urine Crystals (Negative) HPF Urine Bacteria (Negative) HPF Urine Casts (Negative) LPF Urine Mucus (Negative) Ur Culture Indicated? Urine Glucose (Negative) mg/dL Ethyl Alcohol (<3) mg/dL COVID-19 Source SARS-CoV-2 (PCR) (Negative) ECG Data Attestation: I personally reviewed and interpreted this ECG (s) as follows: Interpretation: Please see official report by Dr. Grullon. Atrial fibrillation, ventricular of 70. No STEMI. Peak T waves HPI General Mode of arrival: EMS . Date/Time Provider Initiated Documentation: 06/09/20 09:32 . Limitations to Documentation: no limitations . Information obtained by: patient and EMS . HPI Narrative: This is a 74-year-old gentleman, past that includes hypertension, GERD, hypomagnesemia, hyponatremia, proximal atrial fibrillation, PVD, takes apixaban daily, reports drinking alcohol couple of beers 3 times a week, chronic back pain, presents to the ER today via EMS. Unfortunately he is a rather vague and poor historian. Patient states that sometime this morning, unsure exactly what time he was ambulating, not using his walker like he should be, his legs gave out, and he fell to the ground. He denies any injury. He reports generally over the past year increasing generalized weakness and falls. Patient states that he could not get up on his own so EMS was contacted. Patient denies any trauma from the fall or recent illness. He denies headache, neck pain, visual changes, chest pain, shortness of breath abdominal pain, nausea, vomiting, urinary, bowel incontinence or retention, numbness, tingling, focal weakness. He does report chronic back pain worse with movement. Patient states that he lives at home with his girlfriend, she has cancer, he is very concerned about her and plans to be discharged regardless of what his diagnosis is. Related Data Home Medications Medication Instructions Recorded Confirmed oxycodone 5 mg PO Q4H PRN tab-cap 03/24/17 08/28/19 cetirizine 10 mg capsule 10 mg PO DAILY #90 cap 12/16/17 08/28/19 pantoprazole 40 mg tablet,delayed 40 mg PO DAILY #90 tab 04/25/19 08/28/19 release finasteride 5 mg tablet 5 mg PO DAILY #90 tab 07/26/19 08/28/19 metoprolol succinate 100 mg 100 mg PO BID #60 tab-cap 09/06/19 tablet,extended release 24 hr metoprolol succinate 25 mg 25 mg PO BID #60 tab 09/06/19 tablet,extended release 24 hr penicillin V potassium 500 mg 500 mg PO BID #60 tab 11/17/19 tablet apixaban 5 mg tablet 5 mg PO BID #60 tab 11/22/19 magnesium oxide 400 mg (241.3 mg 400 mg PO BID #90 tab-cap 12/07/19 magnesium) tablet aspirin 81 mg tablet,delayed 81 mg PO DAILY #90 tab-cap 02/12/20 release tamsulosin 0.4 mg capsule 0.8 mg PO DAILY #60 tab-cap 02/13/20 lorazepam 0.5 mg tablet 0.5 - 1 mg PO DAILY PRN #60 tab 04/01/20 pramipexole 0.25 mg tablet 0.25 mg PO HS #90 tab 04/01/20 allopurinol 300 mg tablet 300 mg PO DAILY #90 tab 04/05/20 fluticasone propionate 50 2 spray NS DAILY #1 script 05/29/20 mcg/actuation nasal spray,suspension Previous Rx's Medication Instructions Recorded cetirizine 10 mg capsule 10 mg PO DAILY #90 cap 12/16/17 pantoprazole 40 mg tablet,delayed 40 mg PO DAILY #90 tab 04/25/19 release finasteride 5 mg tablet 5 mg PO DAILY #90 tab 07/26/19 metoprolol succinate 100 mg 100 mg PO BID #60 tab-cap 09/06/19 tablet,extended release 24 hr metoprolol succinate 25 mg 25 mg PO BID #60 tab 09/06/19 tablet,extended release 24 hr penicillin V potassium 500 mg 500 mg PO BID #60 tab 11/17/19 tablet apixaban 5 mg tablet 5 mg PO BID #60 tab 11/22/19 magnesium oxide 400 mg (241.3 mg 400 mg PO BID #90 tab-cap 12/07/19 magnesium) tablet aspirin 81 mg tablet,delayed 81 mg PO DAILY #90 tab-cap 02/12/20 release tamsulosin 0.4 mg capsule 0.8 mg PO DAILY #60 tab-cap 02/13/20 lorazepam 0.5 mg tablet 0.5 - 1 mg PO DAILY PRN #60 tab 04/01/20 pramipexole 0.25 mg tablet 0.25 mg PO HS #90 tab 04/01/20 allopurinol 300 mg tablet 300 mg PO DAILY #90 tab 04/05/20 fluticasone propionate 50 2 spray NS DAILY #1 script 05/29/20 mcg/actuation nasal spray,suspension Allergies Allergy/AdvReac Type Severity Reaction Status Date / Time pravastatin AdvReac Severe MUSCLE Unverified 06/09/20 09:41 PAIN AND WEAKNESS lisinopril AdvReac HYPERKALEMI Unverified 06/09/20 09:41 A General Stated Complaint: GenMedical TOMEKA: 3 Review of Systems Constitutional Constitutional: Reports fatigue, Denies fever(s) and Denies headache(s) Eyes Eyes: Denies change in vision ENT Ears, Nose, Mouth, and Throat: Denies headache(s) and Denies neck pain Cardiovascular Cardiovascular: Denies chest pain and Denies dyspnea Respiratory Respiratory: Denies cough and Denies dyspnea Gastrointestinal Gastrointestinal: Denies abdominal pain, Denies nausea and Denies vomiting Genitourinary Genitourinary: Denies dysuria Musculoskeletal Musculoskeletal: Reports back pain, Denies neck pain, Denies numbness and Denies tingling Integumentary/Breasts Skin/Breast: Denies rash Neurologic Neurologic: Denies headache(s), Denies numbness, Denies tingling and Reports weakness (General) Endocrine Endocrine: Reports fatigue Hematologic/Lymphatic Hematologic/Lymphatic: Reports easy bleeding and Reports easy bruising [facility] Medical History Alcohol intake above recommended sensible limits 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) left great toe transmetatarsal amputation 05-02-2017 by - 05-12-2017 [facility] Vasc.Sx.: site with large necrotic/scabbed area: tx above knee amputation but pt declines - fup with wound care until pt decides to proceed ( - 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 [employer]) Benign prostatic hyperplasia with lower urinary tract symptoms PSA: 1.5 in Critical lower limb ischemia RIGHT [facility] SHAUNA Parsons/ status post right iliofemoral endarterectomy and patch angioplasty/right EIA stenting/ stent graft to distal SFA and popliteal/ COMPLICATED BY INFECTION: # debridements - w LEFT ILIOFEMORAL ENDATERECTOMY WITH LEFT EXTERNAL ILIAC STENT - [facility] [place] Essential hypertension (11/16/12) Gastroesophageal reflux disease Gout Hyperlipidemia Hypomagnesemia Hyponatremia (09/06/13) serum electrophoresis normal 2009/ cortisol level normal: 2009 Osteomyelitis of right lower extremity 08/13/15- GREAT RIGHT TOE S/P AMPUTAION Osteomyelitis of toe Paroxysmal atrial fibrillation ADONIS score: 1/ on asa Peripheral vascular disease critical lower limb ischemia - [facility]- 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 Restless leg syndrome, uncontrolled Sciatica Vitamin D deficiency (09/06/13) Surgical History Amputation 08/13/15-GREAT RIGHT TOE Status post amputation of great toe (08/13/15) (post osteomyelitis) Social History Smoking/Tobacco Use Status: Former Tobacco Use Smoking risk assessment performed?: Yes Drug use: Never Do you feel safe at home: Yes Do you feel safe in your relationship?: Yes Exam Const General: cooperative, comfortable, no acute distress, disheveled and ill appearing (Chronic) Orientation: alert, awake and oriented x3 HENMT Head: normal to inspection, normocephalic and atraumatic Face and sinus: normal facial exam Mouth: moist mucous membranes abnormal (Slightly dry) Eyes General: appearance normal, both eyes and all related structures Alignment and Position: alignment normal Periorbital: periorbital findings normal Eyelids: eyelids normal Conjunctivae: conjunctivae normal Sclera: sclerae normal Cornea: corneas normal Pupils: PERRL EOM: EOM intact bilaterally Direct ophthalmoscopy: normal light reflex Neck Neck: normal visual inspection, full ROM, no meningeal signs, trachea midline, supple and nontender Chest Chest: normal palpation of entire chest wall Chest/axillae images: 1. Skin intact. What appears to be old, healing areas of ecchymosis. No crepitus, deformity, bony point tenderness. Diffuse mild discomfort Resp Effort & Inspection: normal respiratory effort and able to speak in complete sentences Auscultation: clear to auscultation bilaterally Cardio Rate: regular rate Rhythm: abnormal rhythm irregularly irregular GI Inspection: normal to inspection Palpation: soft, not firm, no guarding, no pulsatile masses and nontender Auscultation: normal bowel sounds Back/Spine/Pelvis Back: no CVA tenderness and back tenderness (Lumbar, diffuse, mild. No ecchymosis or midline tenderness) Skin General skin exam: no rashes or lesions noted Neuro General: patient alert, patient awake, patient oriented x3, moves all extremities and no focal motor deficits Cranial Nerves: CN's II-XI intact bilaterally Cognition: normal cognition Speech: speech normal Motor: muscle tone normal throughout Sensory Exam: no sensory deficits noted Extrem General: normal to inspection, full ROM, capillary refill normal, no pedal edema and no calf tenderness Psych Appearance: grossly normal Mental Status: mental status grossly normal Course Vital Signs Vital signs: Vital Signs Temperature 36.6 C 06/09/20 09:28 Pulse 72 06/09/20 09:28 Respiratory Rate 16 06/09/20 09:28 Blood Pressure 147/84 H 06/09/20 09:28 Pulse Oximetry 96 06/09/20 09:28 Temperature 36.6 C 06/09/20 09:28 Temperature Source Skin 06/09/20 09:28 Pulse 69 06/09/20 10:31 Pulse 73 06/09/20 10:40 Respiratory Rate 12 06/09/20 10:40 Respiratory Effort Non-Labored 06/09/20 09:40 Blood Pressure 185/89 H 06/09/20 10:31 Blood Pressure Mean 111 06/09/20 10:31 Blood Pressure Position Supine 06/09/20 09:28 Pulse Oximetry 97 06/09/20 10:40 Oxygen Delivery Method Room Air 06/09/20 09:28 Oxygen Flow Rate 0 06/09/20 09:28 Pain Level 9 06/09/20 09:28 Critical Care Time Critical Care Time Critical Care Time: Yes Total Critical Care Time: 35 Attestation: Upon my evaluation, this patient had a high probability of clinically significant, life-threatening deterioration due to their current medical conditions, which required my direct attention, intervention, and personal management. I have personally provided greater than 30 minutes of critical care time exclusive of the time spend on separately billable procedures. Time includes obtaining a history, examining the patient, pulse oximetry, review of laboratory data, radiology results, discussion with consultants, arranging urgent treatment with development of a management plan, evaluation of patient's response to treatment, and monitoring for potential decompensation. Interventions were performed as documented above.
[2020-06-09 11:07] LABS: Abs Immature Grans 0.08 10^3/uL (0.0-0.06); Absolute Basophil Count 0.06 10^3/uL (0.0-0.2); Absolute Eosinophil Count 0.07 10^3/uL (0.0-0.7); Absolute Lymphocyte Count 0.51 10^3/uL (1.2-3.4); Absolute Monocyte Count 0.53 10^3/uL (0.1-0.8); Basophils % 0.5; Eosinophils % 0.6; HCT 42.6 % (40.0-50.0); HGB 14.4 g/dL (13.5-17.5); Immature Grans % 0.7; Lymphocytes % 4.5; MCHC 33.8 % (32.0-36.0); MCV 97.7 fL (80-95); MPV 10.6 fL (8.0-11.0); Monocytes % 4.7; Nucleated RBC 0 %; Platelet Count 186 10^3/uL (130-400); RBC 4.36 10^6/uL (4.36-5.78); RDW 13.6 % (11.8-14.1); RDW-SD 49.5 fL; WBC 11.23 10^3/uL (4.4-10.8)
[2020-06-09 11:08] LABS: Absolute Neutrophil Count 9.99 10^3/uL (1.2-6.7)
[2020-06-09 11:09] LABS: Bacteria Rare HPF (Negative); C & S Indicated? No; Casts Negative LPF (Negative); Crystals Negative HPF (Negative); Epithelial Cells Rare HPF (Negative); Mucus Negative (Negative); WBC 0-2 HPF (0-5)
[2020-06-09 11:24] LABS: INR 1.1 (0.9-1.1); PTT Activated 25.5 sec (21.0-27.5)
[2020-06-09 11:25] LABS: ALT 24 U/L (16-63); AST 26 U/L (15-37); Albumin 3.8 g/dL (3.4-5.0); Alkaline Phosphatase 115 U/L (46-116); Anion Gap 10.8 mmol/L (3-11); BUN 13 mg/dL (7-18); Bilirubin, Total 0.9 mg/dL (0.2-1.0); CO2 26.2 mmol/L (21.0-32.0); CREATININE 1.2 mg/dL (0.70-1.30); Calcium 9.7 mg/dL (8.5-10.1); Chloride 97 mmol/L (98-107); Creatine Kinase 255 U/L (39-308); Estimated GFR 59.35 (mL/min/1.73m2); Glucose 107 mg/dL (74-106); Magnesium 1.8 mg/dL (1.8-2.4); Potassium 4.1 mmol/L (3.5-5.1); Sodium 134 mmol/L (136-145); Total Protein 7.5 g/dL (6.4-8.2)
[2020-06-09 11:26] LABS: Troponin I 0.09 ng/mL (<0.06)
--- NOTE | 2020-06-09 11:27 | DI.VRAD_ITS ---
PROCEDURE INFORMATION: Exam: CT Head Without Contrast Exam date and time: 06/09/2020 11:08 AM Age: 74 years old Clinical indication: Other: Fall, anticoagulated TECHNIQUE: Imaging protocol: Computed tomography of the head without contrast. Radiation optimization: All CT scans at this facility use at least one of these dose optimization techniques: automated exposure control; mA and/or kV adjustment per patient size (includes targeted exams where dose is matched to clinical indication); or iterative reconstruction. COMPARISON: CT HEAD WO 12/16/2019 2:21 PM FINDINGS: Brain: Diffuse parenchymal atrophy. Areas of low-density in the periventricular and deep white matter of both cerebral hemispheres and in the maira in a pattern consistent with chronic small vessel ischemic change. Areas of encephalomalacia in frontal parietal lobes. No intra-axial or extra-axial mass or hemorrhage. No midline shift. Cerebral ventricles: No ventriculomegaly. Bones/joints: Unremarkable. No acute fracture. Paranasal sinuses: Fluid and membrane thickening in the paranasal sinuses. Mastoid air cells: Visualized mastoid air cells are well aerated. Vasculature: Vascular calcifications. Soft tissues: Unremarkable. IMPRESSION: 1. No acute findings. 2. Diffuse parenchymal atrophy and chronic ischemic changes Dictated and Authenticated by: Danika Mccabe MD. Ordering:MICHELLE Quigley MD
--- NOTE | 2020-06-09 11:28 | DI.VRAD_ITS ---
PROCEDURE INFORMATION: Exam: XR Chest Exam date and time: 06/09/2020 11:16 AM Age: 74 years old Clinical indication: Other: Fall TECHNIQUE: Imaging protocol: XR of the chest. Views: 1 view. COMPARISON: CR XR CHEST 2V PA LATERAL 12/16/2019 2:30 PM FINDINGS: Lungs: Atelectasis or fibrosis in the lung base. Pleural spaces: Unremarkable. No pleural effusion. No pneumothorax. Heart/Mediastinum: Unremarkable. No cardiomegaly. Vasculature: Vascular calcifications. Bones/joints: Severe arthritic changes in both shoulders. IMPRESSION: No acute findings. Dictated and Authenticated by: Danika Mccabe MD. Ordering:MICHELLE Quigley MD
[2020-06-09] MEDS: Aspirin 325 MG TAB PO (11:34)
[2020-06-09 11:52] LABS: ETHANOL BLOOD < 3.0 mg/dL (<3)
[2020-06-09 12:13] LABS: D-Dimer 7328 ng/mlFEU (<500)
[2020-06-09 12:51] LABS: Source Nasal/Nares
[2020-06-09 13:09] LABS: NT-proBNP 2371 pg/mL (<300)
--- NOTE | 2020-06-09 13:30 | RT.EKG_ITS ---
APPROVED REPORT Exam: Resting ECG Patient Location: E HR:78 bpm ECG Measurements Heart Rate 78 [place] [id number] P [id number] QRSd 95 QRS 58 QT 441 T 48 QTc 503 Conclusion Atrial fibrillation...V-rate 63- 96, irreg A-activity Prolonged QT interval...QTc >500mS Physician: peaking t waves, unchanged from earlier today
[2020-06-09 13:48] LABS: COVID-19 PCR Negative (Negative)
[2020-06-09] MEDS: Normal Saline - Diluent 50 ML VIAL IV (13:48)
--- NOTE | 2020-06-09 13:54 | DI.CT_ITS ---
EXAM: CT CHEST PE CTA CLINICAL HISTORY: elevated trop and dimer. TECHNIQUE: Imaging Protocol: CT angiography of the chest was performed using pulmonary embolus amaya col. Multi planar reconstructions were performed. CONTRAST MATERIAL: Intravenous: Omnipaque 350 Contrast volume: 100 cc COMPARISON: CT ABD PELVIS WITH CONTRAST from 11/06/2016 FINDINGS: CHEST: PULMONARY ARTERIES: There are no intraluminal filling defects to suggest acute pulmonary emboli. LUNGS: There are no infiltrates nor evidence of pulmonary infarction.. There are no pleural effusions . MEDIASTINUM: There is no hilar nor mediastinal adenopathy. Visualized thyroid unremarkable. CARDIAC: Heart size is slightly prominent. There is no pericardial effusion.Caliber of the thoracic aorta is within normal limits. There is no significant shift of the interventricular septum. PARTIALLY VISUALIZED UPPERMOST ABDOMEN: No obvious findings OSSEOUS: No significant osseous lesions.T12 compression fracture age indeterminate. Also slight loss of height of the superior endplate of T9. IMPRESSION: 1. No evidence of acute pulmonary emboli. No evidence of pulmonary infarction.No pleural effusions. 2. Mild cardiomegaly. No pericardial effusion. No aortic dissection. RADIATION DOSE DELIVERED: 418.8mGy.cm Total DLP DATA REPOSITORY: All CT scans at this facility are submitted to the National Radiology Data Registry (NRDR) Dose Index Registry (DIR) with the [employer] (ACR). RADIATION OPTIMIZATION: All CT scans at this facility use at least one of these dose optimization te chniques: automated exposure control; mA and/or kV adjustment per patient size (includes targeted exa ms where dose is matched to clinical indication); or iterative reconstruction.
[2020-06-09 14:01] LABS: Troponin I 0.15 ng/mL (<0.06)
--- NOTE | 2020-06-09 14:44 | DI.VRAD_ITS ---
PROCEDURE INFORMATION: Exam: CTA Chest With Contrast Exam date and time: 06/09/2020 1:46 PM Age: 74 years old Clinical indication: Abnormal findings; Other: Pos d-dimer TECHNIQUE: Imaging protocol: Computed tomographic angiography of the chest with contrast. 3D rendering (Not supervised by radiologist): MIP and/or 3D reconstructed images were created by the technologist. Radiation optimization: All CT scans at this facility use at least one of these dose optimization techniques: automated exposure control; mA and/or kV adjustment per patient size (includes targeted exams where dose is matched to clinical indication); or iterative reconstruction. Contrast material: VISIPAQUE; Contrast volume: 100 ml; Contrast route: INTRAVENOUS (IV); COMPARISON: CT CHEST/ABD WO 11/06/2016 9:16 AM FINDINGS: Pulmonary arteries: Normal. No pulmonary emboli. Aorta: Unremarkable. No aortic aneurysm. No aortic dissection. Lungs: Unremarkable. No consolidation. No masses. Pleural spaces: Unremarkable. No pneumothorax. No pleural effusion. Heart: Vascular calcifications including coronary artery calcifications. Cardiomegaly. Lymph nodes: Unremarkable. No enlarged lymph nodes. Liver: Cirrhotic liver. Bones/joints: Advanced arthritic changes in the shoulders and sternoclavicular joints with bulky chondrocalcinosis. Bones are demineralized. Stable benign compression deformities of several thoracic vertebral bodies. Soft tissues: Unremarkable. IMPRESSION: 1. No pulmonary embolism identified. 2. 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 Diffuse vascular calcifications with cardiomegaly. 4. Cirrhotic liver Dictated and Authenticated by: Danika Mccabe MD. Ordering:MICHELLE Quigley MD
--- NOTE | 2020-06-09 15:35 | NUR.NOTE ---
Nursing Note: Notified CM of AMA, MG,
[2020-06-09] MEDS: Labetalol 100 MG/20 ML VIAL 10 MG IVP (15:46)
== END 2020-06-09 16:22 | disposition left against medical advice (07) ==
PROVIDERS: Emergency Provider Physician Assistant; PCP Family Medicine
DX: R79.89 Other specified abnormal findings of blood chemistry (principal); R29.6 Repeated falls; R53.1 Weakness; Z53.29 Procedure and treatment not carried out because of patient's decision for other reasons; Z20.822 Contact with and (suspected) exposure to COVID-19; I10 Essential (primary) hypertension
CPT/HCPCS: 71275; 80053; 82550; 87635; 93005; 96360; 96374; 99291; 70450; 71045; 80320; 81003; 81015; 83735; 83880; 84484; 85025; 85379; 85610; 85730; 93010

== ENCOUNTER 2020-07-07 21:42 | Inpatient (IN) | payer MEDICARE, SELFPAY ==
[2020-07-07] VITALS (20 sets, daily range): BP systolic 107–169; BP diastolic 64–109; PULSE 70–192; RESP 10–21; TEMP 36.6–37.3; O2SAT 94–99
--- NOTE | 2020-07-07 21:30 | RT.EKG_ITS ---
APPROVED REPORT Exam: Resting ECG Reason for Exam: weakness Patient Location: E HR:80 bpm ECG Measurements Heart Rate 80 [place] [id number] P [id number] QRSd 88 QRS 30 QT 426 T 26 QTc 493 Conclusion Atrial fibrillation...V-rate 66- 89, irreg A-activity Physician: Rate 80, atrial fibrillation, no significant ST elevation or depression, Q waves present in leads III . No significant changes from prior EKG on 06/09/2020 aside for the Q-wave in lead III which is now n ew
--- NOTE | 2020-07-07 21:45 | DI.CT_ITS ---
Exam(s) CT HEAD NECK WO EXAM: CT HEAD NECK WO CLINICAL HISTORY: multiple falls, on blood thinners, bruised face. TECHNIQUE: Imaging Protocol: Axial computed tomography images with coronal and sagittal reformatted images were created and reviewed COMPARISON: No exams were available for comparison FINDINGS: CT Head: There is mild atrophy. Again noted are white matter changes consistent with small vessel disease. there are small old left frontal and parietal infarcts. Ventricles are normal in size and unchanged. There is no evidence of skull fracture, intracranial hemorrhage or mass. There is mild mucosal thi ckening in the left sphenoid sinus. The mastoid air cells are clear. CT Cervical Spine: The exam is limited by patient motion. There is hardware seen in the upper cervical spine posteriorl y. Severe degenerative changes are noted inferior to this level. Bones: No acute fracture or subluxation. Soft Tissues: Unremarkable. Lung Apices: Clear. IMPRESSION: 1. No acute intracranial process. 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 2. No acute fracture or subluxation in the cervical spine. Upper cervical fusion. Degenerative callejas es. RADIATION DOSE DELIVERED: 1,940.97mGy.cm Total DLP DATA REPOSITORY: All CT scans at this facility are submitted to the National Radiology Data Registry (NRDR) Dose Index Registry (DIR) with the [employer] (ACR). RADIATION OPTIMIZATION: All CT scans at this facility use at least one of these dose optimization te chniques: automated exposure control; mA and/or kV adjustment per patient size (includes targeted exa ms where dose is matched to clinical indication); or iterative reconstruction.
--- NOTE | 2020-07-07 21:45 | DI.CT_ITS ---
Exam(s) CT CHEST/ABD/PEL WO EXAM: CT CHEST/ABD/PEL WO CLINICAL HISTORY: multiple falls, bruise over chest/abd, on thinners. TECHNIQUE: Imaging Protocol: Axial computed tomography images with coronal and sagittal reformatted images were created and reviewed CONTRAST MATERIAL: Intravenous: none Oral: None COMPARISON: CT scan 06/09/2020 FINDINGS: CHEST: Study degraded by respiratory motion artifact. LUNGS: No confluent infiltrates nor pleural effusions. No obvious concerning pulmonary nodules. There is density in the right side of the trachea which is probably mucus. No findings in the mainstem bro nchi. MEDIASTINUM: No obvious hilar nor mediastinal adenopathy. Visualized thyroid unremarkable. CARDIAC: Heart size upper normal. No pericardial effusion. Prominent coronary artery calcification is noted.Caliber of the thoracic aorta is within normal limits. OSSEOUS: Degenerative changes in glenohumeral joint right side more so than left.. ABDOMEN: Study degraded by motion artifact. There is no ascites. LIVER: There are no obvious focal hepatic lesions evident of this noninfused study. GALLBLADDER/BILIARY: No obvious gallbladder pathology. CBD is not dilated. PANCREAS: No evidence of obvious pancreatic mass nor dilatation of the pancreatic duct. SPLEEN: Spleen is not enlarged. No obvious intrasplenic lesions. ADRENALS: There are no significant adrenal masses. KIDNEYS: No calculi nor hydronephrosis. No obvious solid renal masses. No cysts evident. ABDOMINAL AORTA: Heavily calcified but not enlarged. Common iliac arteries are also heavily calcified . Endovascular stents are seen in the external iliac arteries. LYMPH NODES: There is no retroperitoneal nor para-aortic adenopathy. ABDOMINAL WALL/GI: No evidence of signature anterior abdominal wall hernia. No bowel obstruction. PELVIS: LYMPH NODES: There is no intrapelvic nor inguinal adenopathy. GI: No evidence of appendicitis.No evidence of sigmoid diverticulitis. URINARY BLADDER: Bladder wall thickening either due to under distension or pathology such as chronic cystitis. REPRODUCTIVE: Prostate is slightly enlarged. OSSEOUS: No significant osseous lesions. IMPRESSION: 1. There is density in the trachea which is probably mucus. No other intrathoracic findings realize i n the at the quality is study is limited by motion artifact. 2. Possible urinary bladder cystitis. 3. Endovascular stents are noted in both external iliac arteries. RADIATION DOSE DELIVERED: 1,468.83mGy.cm Total DLP DATA REPOSITORY: All CT scans at this facility are submitted to the National Radiology Data Registry (NRDR) Dose Index Registry (DIR) with the [employer] (ACR). RADIATION OPTIMIZATION: All CT scans at this facility use at least one of these dose optimization te chniques: automated exposure control; mA and/or kV adjustment per patient size (includes targeted exa ms where dose is matched to clinical indication); or iterative reconstruction.
[2020-07-07 21:59] LABS: Abs Immature Grans 0.06 10^3/uL (0.0-0.06); Absolute Basophil Count 0.04 10^3/uL (0.0-0.2); Absolute Eosinophil Count 0.26 10^3/uL (0.0-0.7); Absolute Lymphocyte Count 0.78 10^3/uL (1.2-3.4); Absolute Monocyte Count 0.65 10^3/uL (0.1-0.8); Absolute Neutrophil Count 8.35 10^3/uL (1.2-6.7); Basophils % 0.4; Eosinophils % 2.6; HCT 38.4 % (40.0-50.0); HGB 12.9 g/dL (13.5-17.5); Immature Grans % 0.6; Lymphocytes % 7.7; MCH 32.7 pg (27.0-33.0); MCHC 33.6 % (32.0-36.0); MCV 97.2 fL (80-95); Monocytes % 6.4; Neutrophils % 82.3; Nucleated RBC 0 %; Platelet Count 206 10^3/uL (130-400); RBC 3.95 10^6/uL (4.36-5.78); RDW 13.6 % (11.8-14.1); RDW-SD 49.1 fL; WBC 10.14 10^3/uL (4.4-10.8)
--- NOTE | 2020-07-07 22:06 | W.ED.GENAD ---
Discharge Plan Disposition Patient Disposition: [facility] INPATIENT Condition: Stable Discharge Details Clinical Impression: Adult failure to thrive, Skin breakdown, Skin yeast infection, REYNA (acute kidney injury), Acute dehydration, Weakness Primary Care Provider: Syeda Gayle ED Provider: Dilip Grullon Home Meds and New Rx's Prescriptions: No Action oxycodone 5 MG tablet 5 mg PO Q4H PRN RF: 0 Allergy Relief (cetirizine) 10 mg capsule 10 mg PO DAILY Qty: 90 RF: 4 pantoprazole 40 mg tablet,delayed release (DR/EC) 40 mg PO DAILY Qty: 90 RF: 4 finasteride 5 mg tablet 5 mg PO DAILY Qty: 90 RF: 4 metoprolol succinate 25 mg tablet extended release 24 hr 25 mg PO BID Qty: 60 RF: 12 metoprolol succinate 100 mg tablet extended release 24 hr 100 mg PO BID Qty: 60 RF: 12 Eliquis 5 mg tablet 5 mg PO BID Qty: 60 RF: 8 aspirin [Dixie Aspirin] 81 mg tablet,delayed release (DR/EC) 81 mg PO DAILY Qty: 90 RF: 1 tamsulosin 0.4 mg capsule 0.8 mg PO DAILY Qty: 60 RF: 6 pramipexole [Mirapex] 0.25 mg tablet 0.25 mg PO HS Qty: 90 RF: 4 allopurinol [Zyloprim] 300 mg tablet 300 mg PO DAILY Qty: 90 RF: 4 fluticasone propionate 50 mcg/actuation spray,suspension 2 spray NS DAILY Qty: 1 RF: 6 lorazepam 0.5 mg tablet 0.5 - 1 mg PO DAILY PRN (Reason: anxiety) Qty: 60 RF: 0 penicillin V potassium 500 mg tablet 500 mg PO BID Qty: 60 RF: 6 magnesium oxide 400 mg (241.3 mg magnesium) tablet 400 mg PO BID Qty: 90 RF: 4 Medical Decision Making This is a 74-year-old male with a past medical history of a chronically elevated troponin, paroxysmal A. fib on Eliquis anticoagulation, BPH, GERD, hypertension, peripheral vascular disease, COPD, who presents today for failure to thrive. Patient lives at home alone, and has been to the ER a few times recently in the past few months, for generalized weakness and failure to thrive. Multiple attempts have been made to admit the patient, get home health, or have the patient spend some time at a rehab facility. All of which she has refused. He has maintained a sound mind and continues to live alone at home with assistance from his family. EMS has been visiting his home weekly for falls, however today EMS was again called for fall but they noticed a notable decline in both the patient's capabilities, and also the status and cleanliness of the home. Patient did agree to come to the ER for further assessment. Aside from multiple falls the patient has been noncompliant with his medications, and admits to worsening weakness. He denies any focal pain. He denies any focal dizziness. No other complaints at this time. No other modifying factors. Exam demonstrates dry mucous membranes, bruises over the chest and shoulders, but no focal tenderness. Notable yeast infection among the panel folds of his abdomen and his groin. Patient has stooled himself. Weakness throughout but the patient is able to move all extremities well otherwise and demonstrates 4-5 strength in all extremities. No focal neurologic deficits. Patient is notably aware of the date time and location. EKG shows no acute changes, Q waves are present in lead III. Suspect that his troponin will be elevated as it previously has been. In a change of normal perspective, the patient is agreeable to admission here, but refuses transfer to an outlying facility including [facility]. We will gently rehydrate the patient, get a CT scan to evaluate for acute fractures, intercranial bleeds, or infectious etiology. We will monitor closely evaluate for rhabdo and electrolyte abnormalities, apply barrier cream to his groin, monitor closely and reassess. Anticipate need for admission for failure to thrive. 12:03 AM Laboratory work-up has returned, does demonstrate an acute kidney injury, troponin normal, proBNP is at the patient's baseline, not suggestive of new heart strain. Electrolytes stable. No white count. CPK stable at 577, not suggestive of true rhabdomyolysis. Thyroid function normal. Urinalysis shows no infection. Symptoms at this time are concerning for dehydration, failure to thrive, and generalized weakness secondary to it. In addition to notable skin breakdown on his panel folds secondary to a yeast infection. Discussed the case with the patient and he agrees on admission, discussed the case with the hospitalist Dr. Fitzgerald, and he agrees. I will place bridging orders on his behalf. CT scans negative for acute process otherwise. I did try contacting the patient's son Cristofer, no one picked up. I did leave a message. I have extensively reviewed the treatment plan with the patient. I have addressed all patient concerns at this time. I have also discussed the plan with the admitting physician and they agree with the current assessment and plan and have agreed to assume responsibility for the patient. All parties demonstrate verbal understanding and agreement with our assessment and plan at this time. The documentation in this chart was dictated using [employer] dictation software. Please excuse any dictation errors. EKG 21: 53 Rate 80, atrial fibrillation, no significant ST elevation or depression, Q waves present in leads III. 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 There are areas of diminished density in the white matter bilaterally consistent with chronic small vessel ischemic changes. Generalized atrophy. Cerebral ventricles: No ventriculomegaly. Bones/joints: Unremarkable. No acute fracture. Paranasal sinuses: Mild mucosal thickening in left sphenoid sinus. No fluid levels. Mastoid air cells: Visualized mastoid air cells are well aerated. Soft tissues: Unremarkable. IMPRESSION: 1. 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 2. Chronic ischemic changes bilaterally. 3. Generalized atrophy. 4. No evidence of acute pathology FINDINGS: Bones/joints: No fracture or dislocation. Significant chronic callus formations at bilateral sternoclavicular joints. Discs/Spinal canal/Neural foramina: Surgical changes for posterior fusion at C2-C4 level. Significant degenerative changes at C4-C7 level. Lungs: Lung apices are normal. Soft tissues: Unremarkable. IMPRESSION: No fracture or dislocation. Surgical changes with significant chronic degenerative changes in cervical spine. Thank you for allowing us to participate in the care of your patient. Dictated and Authenticated by: Silvia Danielle MD 07/07/2020 11:09 PM Eastern Time ([place] & [place]) FINDINGS: Liver: Normal. No mass. Gallbladder and bile ducts: Normal. No calcified stones. No ductal dilation. Pancreas: Normal. No ductal dilation. Spleen: Normal. No splenomegaly. Adrenal glands: Normal. No mass. Kidneys and ureters: Normal. No hydronephrosis. Stomach and bowel: Unremarkable. No obstruction. No mucosal thickening. Appendix: No evidence of appendicitis. Intraperitoneal space: Unremarkable. No free air. No significant fluid collection. Vasculature: Unremarkable. No abdominal aortic aneurysm. Lymph nodes: Unremarkable. No enlarged lymph nodes. Urinary bladder: The urinary bladder is questionably thickwalled. This may reflect incomplete distention. However correlation with UA is recommended to exclude cystitis. Reproductive: Unremarkable as visualized. Bones/joints: Unremarkable. No acute fracture. Soft tissues: Unremarkable. IMPRESSION: Equivocal cystitis. Thank you for allowing us to participate in the care of your patient. Dictated and Authenticated by: Remigio Interiano MD 07/07/2020 11:20 PM Eastern Time ([place] & [place]) FINDINGS: Lungs: Unremarkable. No consolidation. No masses. Pleural spaces: Unremarkable. No pneumothorax. No pleural effusion. Heart: Unremarkable. No cardiomegaly. No pericardial effusion. Aorta: Unremarkable. No aortic aneurysm. Lymph nodes: Unremarkable. No enlarged lymph nodes. Bones/joints: Extensive bilateral shoulder region and sternoclavicular calcifications may reflect adhesive capsulitis. Old T12 compression fracture deformity Soft tissues: Unremarkable IMPRESSION: Extensive bilateral shoulder region and sternoclavicular calcifications may reflect adhesive capsulitis. HPI General Date/Time Provider Initiated Documentation: 07/07/20 21:47. HPI Narrative: This is a 74-year-old male with a past medical history of a chronically elevated troponin, paroxysmal A. fib on Eliquis anticoagulation, BPH, GERD, hypertension, peripheral vascular disease, COPD, who presents today for failure to thrive. Patient lives at home alone, and has been to the ER a few times recently in the past few months, for generalized weakness and failure to thrive. Multiple attempts have been made to admit the patient, get home health, or have the patient spend some time at a rehab facility. All of which she has refused. He has maintained a sound mind and continues to live alone at home with assistance from his family. EMS has been visiting his home weekly for falls, however today EMS was again called for fall but they noticed a notable decline in both the patient's capabilities, and also the status and cleanliness of the home. Patient did agree to come to the ER for further assessment. Aside from multiple falls the patient has been noncompliant with his medications, and admits to worsening weakness. He denies any focal pain. He denies any focal dizziness. No other complaints at this time. No other modifying factors. Related Data Home Medications Medication Instructions Recorded Confirmed oxycodone 5 mg PO Q4H PRN tab-cap 03/24/17 07/07/20 cetirizine 10 mg capsule 10 mg PO DAILY #90 cap 12/16/17 07/07/20 pantoprazole 40 mg tablet,delayed 40 mg PO DAILY #90 tab 04/25/19 07/07/20 release finasteride 5 mg tablet 5 mg PO DAILY #90 tab 07/26/19 07/07/20 metoprolol succinate 100 mg 100 mg PO BID #60 tab-cap 09/06/19 07/07/20 tablet,extended release 24 hr metoprolol succinate 25 mg 25 mg PO BID #60 tab 09/06/19 07/07/20 tablet,extended release 24 hr apixaban 5 mg tablet 5 mg PO BID #60 tab 11/22/19 07/07/20 aspirin 81 mg tablet,delayed 81 mg PO DAILY #90 tab-cap 02/12/20 07/07/20 release tamsulosin 0.4 mg capsule 0.8 mg PO DAILY #60 tab-cap 02/13/20 07/07/20 pramipexole 0.25 mg tablet 0.25 mg PO HS #90 tab 04/01/20 07/07/20 allopurinol 300 mg tablet 300 mg PO DAILY #90 tab 04/05/20 07/07/20 fluticasone propionate 50 2 spray NS DAILY #1 script 05/29/20 07/07/20 mcg/actuation nasal spray,suspension lorazepam 0.5 mg tablet 0.5 - 1 mg PO DAILY PRN #60 tab 06/10/20 07/07/20 penicillin V potassium 500 mg 500 mg PO BID #60 tab 06/28/20 07/07/20 tablet magnesium oxide 400 mg (241.3 mg 400 mg PO BID #90 tab-cap 07/05/20 07/07/20 magnesium) tablet Previous Rx's Medication Instructions Recorded cetirizine 10 mg capsule 10 mg PO DAILY #90 cap 12/16/17 pantoprazole 40 mg tablet,delayed 40 mg PO DAILY #90 tab 04/25/19 release finasteride 5 mg tablet 5 mg PO DAILY #90 tab 07/26/19 metoprolol succinate 100 mg 100 mg PO BID #60 tab-cap 09/06/19 tablet,extended release 24 hr metoprolol succinate 25 mg 25 mg PO BID #60 tab 09/06/19 tablet,extended release 24 hr apixaban 5 mg tablet 5 mg PO BID #60 tab 11/22/19 aspirin 81 mg tablet,delayed 81 mg PO DAILY #90 tab-cap 02/12/20 release tamsulosin 0.4 mg capsule 0.8 mg PO DAILY #60 tab-cap 02/13/20 pramipexole 0.25 mg tablet 0.25 mg PO HS #90 tab 04/01/20 allopurinol 300 mg tablet 300 mg PO DAILY #90 tab 04/05/20 fluticasone propionate 50 2 spray NS DAILY #1 script 05/29/20 mcg/actuation nasal spray,suspension lorazepam 0.5 mg tablet 0.5 - 1 mg PO DAILY PRN #60 tab 06/10/20 penicillin V potassium 500 mg 500 mg PO BID #60 tab 06/28/20 tablet magnesium oxide 400 mg (241.3 mg 400 mg PO BID #90 tab-cap 07/05/20 magnesium) tablet Allergies Allergy/AdvReac Type Severity Reaction Status Date / Time pravastatin AdvReac Severe MUSCLE Unverified 07/07/20 21:50 PAIN AND WEAKNESS lisinopril AdvReac HYPERKALEMI Unverified 07/07/20 21:50 A General Stated Complaint: [employer] TOMEKA: 3 Review of Systems All systems reviewed & are unremarkable except as noted in HPI and below PFSH Medical History Alcohol intake above recommended sensible limits 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) left great toe transmetatarsal amputation 05-02-2017 by - 05-12-2017 [facility] [place] Vasc.Sx.: site with large necrotic/scabbed area: tx above knee amputation but pt declines - fup with wound care until pt decides to proceed (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) Benign prostatic hyperplasia with lower urinary tract symptoms PSA: 1.5 in Critical lower limb ischemia RIGHT [facility] Alice RodriguezPA/ status post right iliofemoral endarterectomy and patch angioplasty/right EIA stenting/ stent graft to distal SFA and popliteal/ COMPLICATED BY INFECTION: # debridements - w LEFT ILIOFEMORAL ENDATERECTOMY WITH LEFT EXTERNAL ILIAC STENT - [facility] [place] Essential hypertension (11/16/12) Gastroesophageal reflux disease Gout Hyperlipidemia Hypomagnesemia Hyponatremia (09/06/13) serum electrophoresis normal 2009/ cortisol level normal: 2009 Osteomyelitis of right lower extremity 08/13/15- GREAT RIGHT TOE S/P AMPUTAION Osteomyelitis of toe Paroxysmal atrial fibrillation ADONIS score: 1/ on asa Peripheral vascular disease critical lower limb ischemia - [facility]- 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 Restless leg syndrome, uncontrolled Sciatica Vitamin D deficiency (09/06/13) Surgical History Amputation 08/13/15-GREAT RIGHT TOE Status post amputation of great toe (08/13/15) (post osteomyelitis) Social History Smoking/Tobacco Use Status: Former Tobacco Use Smoking risk assessment performed?: Yes Drug use: Never Do you feel safe at home: Yes Do you feel safe in your relationship?: Yes Exam Narrative Exam Narrative: 1.Const: Well-nourished, Well-developed, appearing stated age 2.Eyes: PERRL, no conjunctival injection, and symmetrical lids. 3.ENT: Atraumatic external nose and ears. Dry MM. Neck: Symmetric, trachea midline, No thyromegaly. There is no evidence of raccoon eyes, roper sign, CSF rhinorrhea, mastoid tenderness, cranial crepitus, hemotympanum, exophthalmos, or hyphema. Patient demonstrates intact dentition with no signs of tooth avulsion or fracture, no signs of jaw deformity, no evidence of a LeFort's fracture, with an intact palate, nose and orbital region. There is no evidence of a nasal septal hematoma. No proptosis. Jaw closes symmetrically. Airway is clear. 4.CVS: +S1/S2, No murmurs or gallops. Peripheral pulses 2+ and equal in all extremities. Brisk capillary refill in all extremities. 5.RESP: Unlabored respiratory effort. Clear to auscultation bilaterally. No wheezes rales or rhonchi 6.GI: Soft, Nontender/Nondistended, No hepatosplenomegaly. No guarding or rebound. Bruises noted just below the ribs. No abdominal tenderness though. Notable yeast rash below the patient's pannus in his groin and abdominal panel folds. Redness extends down towards his groin to the genitals however the genitals have no redness or tenderness. No evidence of foreign years gangrene. Buttocks demonstrates no large pressure ulcer, the patient has stooled himself. 7.MSK: Bruises over the patient's face is present. Extremities w/o deformity or ttp, however bruises are present. Patient is missing some toes from previous amputations, no redness to suggest cellulitis though. No cyanosis or clubbing, Normal movement of all extremities however the patient does demonstrate some mild weakness in all extremities. Muscle strength is about 4 out of 5 in all extremities. No midline cervical thoracic or lumbar spine tenderness. 8.Skin: Warm, Dry. Patient demonstrates bruises noted on the chest, below the ribs bilaterally, and on the shoulders bilaterally. No reproducible rib or abdominal tenderness. 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 Sensation grossly intact, no focal neurologic deficits. 10.Psych: (AAO) x3. Appropriate mood and affect, he is well aware of the date, time and location. Course Vital Signs Vital signs: Vital Signs Temperature 36.6 C 07/07/20 21:39 Pulse 75 07/07/20 21:39 Respiratory Rate 21 07/07/20 21:39 Blood Pressure 169/109 H 07/07/20 21:39 Pulse Oximetry 99 07/07/20 21:39 Temperature 36.6 C 07/07/20 21:39 Temperature Source Skin 07/07/20 21:39 Pulse 75 07/07/20 21:39 Respiratory Rate 21 07/07/20 21:39 Blood Pressure 169/109 H 07/07/20 21:39 Pulse Oximetry 99 07/07/20 21:39 Pain Level 0 07/07/20 21:39 Lab/Test Results Lab/Test Results: Laboratory Tests Range/Units 07/07/20 21:50 WBC (4.4-10.8) 10^3/uL 10.14 RBC (4.36-5.78) 10^6/uL 3.95 L Hgb (13.5-17.5) g/dL 12.9 L Hct (40.0-50.0) % 38.4 L MCV (80-95) fL 97.2 H MCH (27.0-33.0) pg 32.7 MCHC (32.0-36.0) % 33.6 RDW (11.8-14.1) % 13.6 Plt Count (130-400) 10^3/uL 206 MPV (8.0-11.0) fL 10.0 Immature Gran % 0.6 Neutrophils % 82.3 Lymphocytes % 7.7 Monocytes % 6.4 Eosinophils % 2.6 Basophils % 0.4 Nucleated RBC % % 0 Absolute Neutrophils (1.2-6.7) 10^3/uL 8.35 H Absolute Lymphocytes (1.2-3.4) 10^3/uL 0.78 L Absolute Monocytes (0.1-0.8) 10^3/uL 0.65 Absolute Eosinophils (0.0-0.7) 10^3/uL 0.26 Absolute Basophils (0.0-0.2) 10^3/uL 0.04
[2020-07-07 22:16] LABS: INR 1.2 (0.9-1.1); PTT Activated 35.4 sec (21.0-27.5); Prothrombin Time 12.4 sec (9.3-11.0)
[2020-07-07 22:21] LABS: Bilirubin Small (Negative); Blood Negative (Negative); Clarity Clear (Clear); Glucose Negative (Negative); Ketones Trace mg/dL (Negative); Leukocyte Esterase Negative (Negative); Nitrite Negative (Negative); pH 5.5 (5-8)
[2020-07-07 22:23] LABS: ALT 26 U/L (16-63); AST 44 U/L (15-37); Albumin 3.5 g/dL (3.4-5.0); Alkaline Phosphatase 199 U/L (46-116); Anion Gap 10.3 mmol/L (3-11); BUN 30 mg/dL (7-18); Bilirubin, Total 0.7 mg/dL (0.2-1.0); CO2 26.7 mmol/L (21.0-32.0); CREATININE 1.9 mg/dL (0.70-1.30); Calcium 9.3 mg/dL (8.5-10.1); Chloride 98 mmol/L (98-107); Estimated GFR 34.92 (mL/min/1.73m2); Glucose 126 mg/dL (74-106); NT-proBNP 2882 pg/mL (<300); Potassium 3.8 mmol/L (3.5-5.1); Sodium 135 mmol/L (136-145); Total Protein 7.6 g/dL (6.4-8.2)
[2020-07-07 22:24] LABS: Creatine Kinase 577 U/L (39-308); TSH (W/Ref FT4) 0.64 uIU/mL (0.36-3.74); Troponin I < 0.05 ng/mL (<0.06)
[2020-07-07 22:25] LABS: Source Nasal/Nares
[2020-07-07 22:28] LABS: Bacteria Rare HPF (Negative); C & S Indicated? No; Crystals Negative HPF (Negative); Epithelial Cells Few HPF (Negative); Mucus Heavy (Negative); RBC 0-2 HPF (0-2); WBC 0-2 HPF (0-5)
[2020-07-07 22:29] LABS: Casts 3-5 Hyaline LPF (Negative)
[2020-07-07] MEDS: Normal Saline 500 ML IV (22:46)
--- NOTE | 2020-07-07 23:09 | DI.VRAD_ITS ---
PROCEDURE INFORMATION: Exam: CT Head Without Contrast Exam date and time: 07/07/2020 9:50 PM Age: 74 years old Clinical indication: Pain; Other: On blood thinners; Other: Bruise over chest abd TECHNIQUE: Imaging protocol: Computed tomography of the head without contrast. 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 There are areas of diminished density in the white matter bilaterally consistent with chronic small vessel ischemic changes. Generalized atrophy. Cerebral ventricles: No ventriculomegaly. Bones/joints: Unremarkable. No acute fracture. Paranasal sinuses: Mild mucosal thickening in left sphenoid sinus. No fluid levels. Mastoid air cells: Visualized mastoid air cells are well aerated. Soft tissues: Unremarkable. IMPRESSION: 1. 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 2. Chronic ischemic changes bilaterally. 3. Generalized atrophy. 4. No evidence of acute pathology. PROCEDURE INFORMATION: Exam: CT Cervical Spine Without Contrast Exam date and time: 07/07/2020 9:50 PM Age: 74 years old Clinical indication: Pain; Other: On blood thinners; Other: Bruise over chest abd TECHNIQUE: Imaging protocol: Computed tomography images of the cervical spine without contrast. COMPARISON: CT HEAD WO 06/09/2020 10:29 AM FINDINGS: Bones/joints: No fracture or dislocation. Significant chronic callus formations at bilateral sternoclavicular joints. Discs/Spinal canal/Neural foramina: Surgical changes for posterior fusion at C2-C4 level. Significant degenerative changes at C4-C7 level. Lungs: Lung apices are normal. Soft tissues: Unremarkable. IMPRESSION: No fracture or dislocation. Surgical changes with significant chronic degenerative changes in cervical spine. Dictated and Authenticated by: Silvia Danielle MD. Ordering:GEORGE Cherry MD
--- NOTE | 2020-07-07 23:20 | DI.VRAD_ITS ---
Addendum created by Remigio Interiano MD on 07/07/2020 11:46:04 PM EDT: S1 superior endplate fracture noted. This fracture is age indeterminate and clinical correlation recommended to assess for upper sacral pain/tenderness. Initial report created on 07/07/2020 11:20:03 PM EDT: PROCEDURE INFORMATION: Exam: CT Chest Without Contrast; Diagnostic Exam date and time: 07/07/2020 10:41 PM Age: 74 years old Clinical indication: Pain; Other: Multiple falls bruise over abd; Other: Multiple falls on blood thinners TECHNIQUE: Imaging protocol: Diagnostic computed tomography of the chest without contrast. Radiation optimization: All CT scans at this facility use at least one of these dose optimization techniques: automated exposure control; mA and/or kV adjustment per patient size (includes targeted exams where dose is matched to clinical indication); or iterative reconstruction. COMPARISON: CT CHEST PE CTA 06/09/2020 1:45 PM FINDINGS: Lungs: Unremarkable. No consolidation. No masses. Pleural spaces: Unremarkable. No pneumothorax. No pleural effusion. Heart: Unremarkable. No cardiomegaly. No pericardial effusion. Aorta: Unremarkable. No aortic aneurysm. Lymph nodes: Unremarkable. No enlarged lymph nodes. Bones/joints: Extensive bilateral shoulder region and sternoclavicular calcifications may reflect adhesive capsulitis. Old T12 compression fracture deformity Soft tissues: Unremarkable. IMPRESSION: Extensive bilateral shoulder region and sternoclavicular calcifications may reflect adhesive capsulitis. PROCEDURE INFORMATION: Exam: CT Abdomen And Pelvis Without Contrast Exam date and time: 07/07/2020 10:41 PM Age: 74 years old Clinical indication: Pain; Other: Multiple falls bruise over abd; Other: Multiple falls on blood thinners TECHNIQUE: Imaging protocol: Computed tomography of the abdomen and pelvis without contrast. COMPARISON: CT CHEST PE CTA 06/09/2020 1:45 PM FINDINGS: Liver: Normal. No mass. Gallbladder and bile ducts: Normal. No calcified stones. No ductal dilation. Pancreas: Normal. No ductal dilation. Spleen: Normal. No splenomegaly. Adrenal glands: Normal. No mass. Kidneys and ureters: Normal. No hydronephrosis. Stomach and bowel: Unremarkable. No obstruction. No mucosal thickening. Appendix: No evidence of appendicitis. Intraperitoneal space: Unremarkable. No free air. No significant fluid collection. Vasculature: Unremarkable. No abdominal aortic aneurysm. Lymph nodes: Unremarkable. No enlarged lymph nodes. Urinary bladder: The urinary bladder is questionably thickwalled. This may reflect incomplete distention. However correlation with UA is recommended to exclude cystitis. Reproductive: Unremarkable as visualized. Bones/joints: Unremarkable. No acute fracture. Soft tissues: Unremarkable. IMPRESSION: Equivocal cystitis. Dictated and Authenticated by: Remigio Interiano MD. Ordering:GEORGE Cherry MD
[2020-07-07 23:54] LABS: COVID-19 PCR Negative (Negative)
[2020-07-08] VITALS (7 sets, daily range): BP systolic 162–182; BP diastolic 79–98; PULSE 60–82; RESP 12–19; TEMP 35.6–36.9; O2SAT 95–99
[2020-07-08] MEDS: Normal Saline 500 ML IV (00:23)
[2020-07-08 01:01] LABS: Troponin I < 0.05 ng/mL (<0.06)
[2020-07-08] MEDS: Nystatin POWDER 60 GM JAR TP ×3 (02:02→19:24)
[2020-07-08] MEDS: Acetaminophen 325 MG TAB 650 MG PO (02:02)
--- NOTE | 2020-07-08 06:36 | W.PM.HP.N ---
Date of service: 07/08/20 Time of Service: 06:36 Assessment and Plan Assessment and plan (1) Weakness: Status: Acute Assessment and plan: this is an ongoing problem. It appears he needs to be in another environment for his living situation. (2) Fall: Status: Acute Assessment and plan: He has had recurrent falls. (3) Adult failure to thrive: Status: Acute Assessment and plan: We will have palliative care consult done. (4) Skin yeast infection: Status: Acute (5) REYNA (acute kidney injury): Status: Acute Assessment and plan: He was given hydration in the emergency department. He still appears dry. We will give him IV fluids and recheck his labs this morning. History of Present Illness History of Present Illness Chief Complaint: Weakness Narrative: this 74-year-old male came to the emergency department because of weakness. He was found down and brought to the emergency department. He was unable to get up by himself. He had a full evaluation in the emergency department including a head and neck CT, abdominal chest and pelvic CT, and labs. The emergency doctor attempted to contact his son Cristofer but that was not successful. He has had multiple ED visits and frequent visits by EMS. It has been noticed that there has been a general decline in his condition and he agreed to come to the emergency department. It is not clear if he is compliant with his medical regimen. He has multiple medical problems listed in his record. I did have a bit of difficulty waking him up this morning and he said he felt confused. He denies any pain at the present time. Review of Systems Constitutional Constitutional: Denies body ache(s), Denies chills, Denies fever(s), Reports frequent falls, Denies headache(s) and Reports weakness Eyes Eyes: Denies change in vision ENT Ears, Nose, Mouth, and Throat: Denies headache(s) Cardiovascular Cardiovascular: Denies chest pain with activity, Denies leg edema and Denies dyspnea on exertion Respiratory Respiratory: Denies cough and Denies dyspnea on exertion Gastrointestinal Gastrointestinal: Denies change in bowel habits and Denies vomiting Neurologic Neurologic: Reports frequent falls, Denies headache(s), Denies tremor(s) and Reports weakness [facility] Medical History Alcohol intake above recommended sensible limits 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) left great toe transmetatarsal amputation 05-02-2017 by - 05-12-2017 [facility] [place] Vasc.Sx.: site with large necrotic/scabbed area: tx above knee amputation but pt declines - fup with wound care until pt decides to proceed ( - 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) Benign prostatic hyperplasia with lower urinary tract symptoms PSA: 1.5 in Critical lower limb ischemia RIGHT [facility] [place] SHAUNA Parsons/ status post right iliofemoral endarterectomy and patch angioplasty/right EIA stenting/ stent graft to distal SFA and popliteal/ COMPLICATED BY INFECTION: # debridements - w LEFT ILIOFEMORAL ENDATERECTOMY WITH LEFT EXTERNAL ILIAC STENT - [facility] [place] Essential hypertension (11/16/12) Gastroesophageal reflux disease Gout Hyperlipidemia Hypomagnesemia Hyponatremia (09/06/13) serum electrophoresis normal 2009/ cortisol level normal: 2009 Osteomyelitis of right lower extremity 08/13/15- GREAT RIGHT TOE S/P AMPUTAION Osteomyelitis of toe Paroxysmal atrial fibrillation ADONIS score: 1/ on asa Peripheral vascular disease critical lower limb ischemia - [facility] [place]- 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 Restless leg syndrome, uncontrolled Sciatica Vitamin D deficiency (09/06/13) Surgical History Amputation 08/13/15-GREAT RIGHT TOE Status post amputation of great toe (08/13/15) (post osteomyelitis) Social History Smoking/Tobacco Use Status: Former Tobacco Use Smoking risk assessment performed?: Yes Drug use: Never Do you feel safe at home: Yes Do you feel safe in your relationship?: Yes Meds Allergies and Home Medications Allergies Allergy/AdvReac Type Severity Reaction Status Date / Time pravastatin AdvReac Severe MUSCLE Unverified 07/07/20 21:50 PAIN AND WEAKNESS lisinopril AdvReac HYPERKALEMI Unverified 07/07/20 21:50 A Home Medications Medication Instructions Recorded Confirmed Type oxycodone 5 mg PO Q4H PRN tab-cap 03/24/17 07/07/20 History cetirizine 10 mg capsule 10 mg PO DAILY #90 cap 12/16/17 07/07/20 Rx pantoprazole 40 mg tablet,delayed 40 mg PO DAILY #90 tab 04/25/19 07/07/20 Rx release finasteride 5 mg tablet 5 mg PO DAILY #90 tab 07/26/19 07/07/20 Rx metoprolol succinate 100 mg 100 mg PO BID #60 tab-cap 09/06/19 07/07/20 Rx tablet,extended release 24 hr metoprolol succinate 25 mg 25 mg PO BID #60 tab 09/06/19 07/07/20 Rx tablet,extended release 24 hr apixaban 5 mg tablet 5 mg PO BID #60 tab 11/22/19 07/07/20 Rx aspirin 81 mg tablet,delayed 81 mg PO DAILY #90 tab-cap 02/12/20 07/07/20 Rx release tamsulosin 0.4 mg capsule 0.8 mg PO DAILY #60 tab-cap 02/13/20 07/07/20 Rx pramipexole 0.25 mg tablet 0.25 mg PO HS #90 tab 04/01/20 07/07/20 Rx allopurinol 300 mg tablet 300 mg PO DAILY #90 tab 04/05/20 07/07/20 Rx fluticasone propionate 50 2 spray NS DAILY #1 script 05/29/20 07/07/20 Rx mcg/actuation nasal spray,suspension lorazepam 0.5 mg tablet 0.5 - 1 mg PO DAILY PRN #60 tab 06/10/20 07/07/20 Rx penicillin V potassium 500 mg 500 mg PO BID #60 tab 06/28/20 07/07/20 Rx tablet magnesium oxide 400 mg (241.3 mg 400 mg PO BID #90 tab-cap 07/05/20 07/07/20 Rx magnesium) tablet Exam Narrative Exam Narrative: I saw him this morning at 6:30 AM. He was a bit difficult to arouse. He does seem confused. He did not know the president but did say it was summer. I asked him where he was he says I think I presume I am in [facility]. He did not know the day of the week, year, or month. Const General: cooperative and no acute distress Nutritional Appearance: average body habitus Orientation: awake and confused HENIN Head: normal to inspection Face and sinus: dry mucous membranes Eyes General: appearance normal, both eyes and all related structures Eyelids: eyelids normal EOM: EOM intact bilaterally Neck Neck: normal visual inspection and no lymphadenopathy Chest Chest: normal inspection of the chest Other: There is an ecchymosis of his left lateral lower chest which is nontender. It measures about 5 x 3 cm in size. Resp Effort & Inspection: normal respiratory effort Auscultation: no rales, no rhonchi and no wheezes Cardio Rate: regular rate Heart Sounds: murmur (There is a 3/6 murmur at the left lateral sternal border) systolic GI Inspection: normal to inspection, no abdominal wall ecchymosis and non-distended Palpation: soft and no hepatosplenomegaly Skin General skin exam: no jaundice Neuro General: patient awake and moves all extremities Extrem Other: There is a mass of the left volar wrist which is nontender. It is about 3 x 3 cm in size. It has a consistency of a benign lipoma. Results Labs Result diagrams: 07/07/20 21:50 07/07/20 21:50 Labs: Laboratory Results - last 24 hr 07/07/20 07/07/20 07/07/20 21:50 21:50 21:50 WBC 10.14 RBC 3.95 L Hgb 12.9 L Hct 38.4 L MCV 97.2 H MCH 32.7 MCHC 33.6 RDW 13.6 Plt Count 206 MPV 10.0 Immature Gran % 0.6 Neutrophils % 82.3 Lymphocytes % 7.7 Monocytes % 6.4 Eosinophils % 2.6 Basophils % 0.4 Nucleated RBC % 0 Absolute Neutrophils 8.35 H Absolute Lymphocytes 0.78 L Absolute Monocytes 0.65 Absolute Eosinophils 0.26 Absolute Basophils 0.04 PT INR APTT Sodium 135 L Potassium 3.8 Chloride 98 Carbon Dioxide 26.7 Anion Gap 10.3 BUN 30 H Creatinine 1.9 H Estimated GFR/1.73 m2 34.92 Glucose 126 H Calcium 9.3 Total Bilirubin 0.7 AST 44 H ALT 26 Alkaline Phosphatase 199 H Creatine Kinase 577 H Troponin I < 0.05 NT-Pro-B Natriuret Pep 2882 H Total Protein 7.6 Albumin 3.5 TSH 0.64 Urine Color Urine Clarity Urine pH Ur Specific [place] Urine Protein Urine Ketones Urine Blood Urine Nitrite Urine Bilirubin Urine Urobilinogen Ur Leukocyte Esterase Urine RBC Urine WBC Ur Epithelial Cells Urine Crystals Urine Bacteria Urine Casts Urine Mucus Ur Culture Indicated? Urine Glucose COVID-19 Source SARS-CoV-2 (PCR) 07/07/20 07/07/20 07/07/20 21:50 22:10 22:20 WBC RBC Hgb Hct MCV MCH MCHC RDW Plt Count MPV Immature Gran % Neutrophils % Lymphocytes % Monocytes % Eosinophils % Basophils % Nucleated RBC % Absolute Neutrophils Absolute Lymphocytes Absolute Monocytes Absolute Eosinophils Absolute Basophils PT 12.4 H INR 1.2 H APTT 35.4 H Sodium Potassium Chloride Carbon Dioxide Anion Gap BUN Creatinine Estimated GFR/1.73 m2 Glucose Calcium Total Bilirubin AST ALT Alkaline Phosphatase Creatine Kinase Troponin I NT-Pro-B Natriuret Pep Total Protein Albumin TSH Urine Color Yellow Urine Clarity Clear Urine pH 5.5 Ur Specific [place] 1.020 Urine Protein 30 H Urine Ketones Trace H Urine Blood Negative Urine Nitrite Negative Urine Bilirubin Small H Urine Urobilinogen 1.0 H Ur Leukocyte Esterase Negative Urine RBC 0-2 Urine WBC 0-2 Ur Epithelial Cells Few Urine Crystals Negative Urine Bacteria Rare Urine Casts 3-5 hyaline Urine Mucus Heavy Ur Culture Indicated? No Urine Glucose Negative COVID-19 Source Nasal/nares SARS-CoV-2 (PCR) Negative 07/07/20 07/08/20 23:35 00:40 WBC RBC Hgb Hct MCV MCH MCHC RDW Plt Count MPV Immature Gran % Neutrophils % Lymphocytes % Monocytes % Eosinophils % Basophils % Nucleated RBC % Absolute Neutrophils Absolute Lymphocytes Absolute Monocytes Absolute Eosinophils Absolute Basophils PT INR APTT Sodium Potassium Chloride Carbon Dioxide Anion Gap BUN Creatinine Estimated GFR/1.73 m2 Glucose Calcium Total Bilirubin AST ALT Alkaline Phosphatase Creatine Kinase Troponin I < 0.05 NT-Pro-B Natriuret Pep Total Protein Albumin TSH Urine Color Urine Clarity Urine pH Ur Specific [place] Urine Protein Urine Ketones Urine Blood Urine Nitrite Urine Bilirubin Urine Urobilinogen Ur Leukocyte Esterase Urine RBC Urine WBC Ur Epithelial Cells Urine Crystals Urine Bacteria Urine Casts Urine Mucus Ur Culture Indicated? Urine Glucose COVID-19 Source Cancelled SARS-CoV-2 (PCR) Cancelled Last Vital Signs Temp 36.2 C L 07/08/20 01:08 Pulse 65 07/08/20 01:08 Resp 12 07/08/20 01:08 BP 167/84 H 07/08/20 01:08 Pulse Ox 98 07/08/20 01:08 COVID-19 Screening Have you, or household traveled for leisure in last 14 days?: No Had IN PERSON contact w/suspected or confirmed C-19 person: No
[2020-07-08 07:14] LABS: Anion Gap 11.1 mmol/L (3-11); BUN 22 mg/dL (7-18); CO2 23.9 mmol/L (21.0-32.0); CREATININE 1.4 mg/dL (0.70-1.30); Calcium 8.9 mg/dL (8.5-10.1); Chloride 102 mmol/L (98-107); Creatine Kinase 275 U/L (39-308); Estimated GFR 49.68 (mL/min/1.73m2); Glucose 95 mg/dL (74-106); Potassium 3.7 mmol/L (3.5-5.1); Sodium 137 mmol/L (136-145)
--- NOTE | 2020-07-08 08:35 | W.PALLCONSUL ---
Date of service: 07/08/20 Time of Service: 08:35 History of Present Illness Narrative: From H and P: History of Present Illness History of Present Illness?Chief Complaint: Weakness?Narrative:? this 74-year-old male came to the emergency department because of weakness.? He was found down and brought to the emergency department.? He was unable to get up by himself.? He had a full evaluation in the emergency department including a head and neck CT, abdominal chest and pelvic CT, and labs.? The emergency doctor attempted to contact his son Cristofer but that was not successful.? He has had multiple ED visits and frequent visits by EMS.? It has been noticed that there has been a general decline in his condition and he agreed to come to the emergency department.? It is not clear if he is compliant with his medical regimen.? He has multiple medical problems listed in his record.? I did have a bit of difficulty waking him up this morning and he said he felt confused.? He denies any pain at the present time. Interim Hx: I went to see Denton in the a.m. and he was obtunded. I was not able to speak to him and have him respond. His breathing was normal and his blood pressure etc. were acceptable. I went back in the p.m. and abdomen was sitting in his chair. I talked to him and he was giving responses but not always to the questions I asked. He did not know where he was. I had spoken with staff and his son Cristofer who both state that he has been going downhill rapidly for the last 2 weeks. Consults Consult date: 07/08/20 Requesting physician: Mark Dumont Assessment and Plan Assessment and plan (1) Weakness: Status: Acute (2) Fall: Status: Acute (3) Adult failure to thrive: Status: Acute (4) Alcohol intake above recommended sensible limits: Status: Acute (5) Paroxysmal atrial fibrillation: Status: Acute (6) Primary malignant neoplasm of glottis: Status: Acute (7) Chronic back pain: Status: Acute (8) Palliative care encounter: Status: Acute Assessment and plan: I spoke with son Cristofer who is on his Advanced Directive form. Cristofer stated that he and his sister have discussed his father's wishes and that his dad would not want CPR or a feeding tube at this time. This is in keeping with his AD. Recommended not have capacity to make the decision regarding his CODE STATUS when I saw him either in the morning or in the evening. I am concerned with his most recent numerous falls and being on anticoagulation. I think that the risk of anticoagulation is now greater than the benefit. I would recommend discontinuing this ALso sister Hilda is not on Denton's Hippa, but when I went to see Denton this evening he stated that it was fine for Hilda to discuss his health with the Hospitalist team. Unfortunately Cristofer didn't have her number when we spoke, but will call [employer] in the AM with Hilda's number. 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 Denton was obtunded this AM when I saw him and was not clear this evening to discuss his illness and plans after discharge. He has refused penitentiary placement in the past. 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) Benign prostatic hyperplasia with lower urinary tract symptoms PSA: 1.5 in Critical lower limb ischemia RIGHT [facility] [place] SHAUNA Parsons/ status post right iliofemoral endarterectomy and patch angioplasty/right EIA stenting/ stent graft to distal SFA and popliteal/ COMPLICATED BY INFECTION: # debridements - w LEFT ILIOFEMORAL ENDATERECTOMY WITH [place] [facility] [place] hypertension (11/16/12) Gastroesophageal reflux disease Gout Hyperlipidemia Hypomagnesemia Hyponatremia (09/06/13) serum electrophoresis normal 2009/ cortisol level normal: 2009 Osteomyelitis of right lower extremity 08/13/15- GREAT RIGHT TOE S/P AMPUTAION Osteomyelitis of toe Paroxysmal atrial fibrillation ADONIS score: 1/ on asa Peripheral vascular disease critical lower limb ischemia - [facility] [place]- 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 Restless leg syndrome, uncontrolled Sciatica Vitamin D deficiency (09/06/13) Surgical History Amputation 08/13/15-GREAT RIGHT TOE Status post amputation of great toe (08/13/15) (post osteomyelitis) Social History Smoking/Tobacco Use Status: Former Tobacco Use Smoking risk assessment performed?: Yes Drug use: Never Do you feel safe at home: Yes Do you feel safe in your relationship?: Yes Exam Narrative Exam Narrative: Laboratory Tests 06/09/20 07/07/20 07/07/20 10:10 21:50 21:50 Hct 38.4 L BUN 30 H Creatinine Creatine Kinase Troponin I Ethyl Alcohol < 3.0 SARS-CoV-2 (PCR) 07/07/20 07/08/20 07/08/20 22:20 00:40 06:58 Hct BUN 22 H D Creatinine 1.4 H Creatine Kinase 275 Troponin I < 0.05 Ethyl Alcohol SARS-CoV-2 (PCR) Negative C/A/P CT CT:CT chest/abd/pel wo Exam(s) CT CHEST/ABD/PEL WO EXAM: ? CT CHEST/ABD/PEL WO? CLINICAL HISTORY: ? multiple falls, bruise over chest/abd, on thinners. ? TECHNIQUE:? Imaging Protocol: Axial computed tomography images with coronal and sagittal reformatted images were created and reviewed CONTRAST MATERIAL:? Intravenous: none Oral: None COMPARISON:? CT scan 06/09/2020 FINDINGS: CHEST: Study degraded by respiratory motion artifact. LUNGS: No confluent infiltrates nor pleural effusions. No obvious concerning pulmonary nodules. There is density in the right side of the trachea which is probably mucus. No findings in the mainstem bronchi. MEDIASTINUM: No obvious hilar nor mediastinal adenopathy. Visualized thyroid unremarkable. CARDIAC: Heart size upper normal. No pericardial effusion. Prominent coronary artery calcification is noted.Caliber of the thoracic aorta is within normal limits. OSSEOUS: Degenerative changes in glenohumeral joint right side more so than left.. ABDOMEN: Study degraded by motion artifact. There is no ascites. LIVER: There are no obvious focal hepatic lesions evident of this noninfused study.? GALLBLADDER/BILIARY: No obvious gallbladder pathology.? CBD is not dilated. PANCREAS: No evidence of obvious pancreatic mass nor dilatation of the pancreatic duct.? SPLEEN: Spleen is not enlarged.? No obvious intrasplenic lesions.? ADRENALS: There are no significant adrenal masses. KIDNEYS: No calculi nor hydronephrosis. No obvious solid renal masses. No cysts evident. ABDOMINAL AORTA: Heavily calcified but not enlarged. Common iliac arteries are also heavily calcified. Endovascular stents are seen in the external iliac arteries. LYMPH NODES: There is no retroperitoneal nor para-aortic adenopathy. ABDOMINAL WALL/GI: No evidence of signature anterior abdominal wall hernia.? No bowel obstruction. PELVIS:? LYMPH NODES: There is no intrapelvic nor inguinal adenopathy. GI: No evidence of appendicitis.No evidence of sigmoid diverticulitis. URINARY BLADDER: Bladder wall thickening either due to under distension or pathology such as chronic cystitis. REPRODUCTIVE: Prostate is slightly enlarged. OSSEOUS: No significant osseous lesions. IMPRESSION: 1. There is density in the trachea which is probably mucus. No other intrathoracic findings realize in the at the quality is study is limited by motion artifact. 2. Possible urinary bladder cystitis. 3. Endovascular stents are noted in both external iliac arteries. CT Head and Neck FINDINGS: CT Head: There is mild atrophy.? Again noted are white matter changes consistent with small vessel disease. ? there are small old left frontal and parietal infarcts.? Ventricles are normal in size and unchanged.? There is no evidence of skull fracture, intracranial hemorrhage or mass.? There is mild mucosal thickening in the left sphenoid sinus.? The mastoid air cells are clear. CT Cervical Spine: The exam is limited by patient motion.? There is hardware seen in the upper cervical spine posteriorly.? Severe degenerative changes are noted inferior to this level. Bones: No acute fracture or subluxation. Soft Tissues: Unremarkable. Lung Apices: Clear. IMPRESSION: 1. No acute intracranial process.? 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 2. No acute fracture or subluxation in the cervical spine. Upper cervical fusion.? Degenerative changes. Eyes Pupils: PERRL Resp Effort & Inspection: normal respiratory effort Auscultation: abnormal I/E ratio and diminished lung sounds Cardio Rate: regular rate Results Last Vital Signs Temp 96.1 F L 07/08/20 08:04 Pulse 63 07/08/20 08:04 Resp 16 07/08/20 08:04 BP 182/98 H 07/08/20 08:04 Pulse Ox 98 07/08/20 08:04 Labs Result diagrams: 07/07/20 21:50 07/08/20 06:58 Labs: Laboratory Results - last 24 hr 07/07/20 07/07/20 07/07/20 21:50 21:50 21:50 WBC 10.14 RBC 3.95 L Hgb 12.9 L Hct 38.4 L MCV 97.2 H MCH 32.7 MCHC 33.6 RDW 13.6 Plt Count 206 MPV 10.0 Immature Gran % 0.6 Neutrophils % 82.3 Lymphocytes % 7.7 Monocytes % 6.4 Eosinophils % 2.6 Basophils % 0.4 Nucleated RBC % 0 Absolute Neutrophils 8.35 H Absolute Lymphocytes 0.78 L Absolute Monocytes 0.65 Absolute Eosinophils 0.26 Absolute Basophils 0.04 PT INR APTT Sodium 135 L Potassium 3.8 Chloride 98 Carbon Dioxide 26.7 Anion Gap 10.3 BUN 30 H Creatinine 1.9 H Estimated GFR/1.73 m2 34.92 Glucose 126 H Calcium 9.3 Total Bilirubin 0.7 AST 44 H ALT 26 Alkaline Phosphatase 199 H Creatine Kinase 577 H Troponin I < 0.05 NT-Pro-B Natriuret Pep 2882 H Total Protein 7.6 Albumin 3.5 TSH 0.64 Urine Color Urine Clarity Urine pH Ur Specific [place] Urine Protein Urine Ketones Urine Blood Urine Nitrite Urine Bilirubin Urine Urobilinogen Ur Leukocyte Esterase Urine RBC Urine WBC Ur Epithelial Cells Urine Crystals Urine Bacteria Urine Casts Urine Mucus Ur Culture Indicated? Urine Glucose COVID-19 Source SARS-CoV-2 (PCR) 07/07/20 07/07/20 07/07/20 21:50 22:10 22:20 WBC RBC Hgb Hct MCV MCH MCHC RDW Plt Count MPV Immature Gran % Neutrophils % Lymphocytes % Monocytes % Eosinophils % Basophils % Nucleated RBC % Absolute Neutrophils Absolute Lymphocytes Absolute Monocytes Absolute Eosinophils Absolute Basophils PT 12.4 H INR 1.2 H APTT 35.4 H Sodium Potassium Chloride Carbon Dioxide Anion Gap BUN Creatinine Estimated GFR/1.73 m2 Glucose Calcium Total Bilirubin AST ALT Alkaline Phosphatase Creatine Kinase Troponin I NT-Pro-B Natriuret Pep Total Protein Albumin TSH Urine Color Yellow Urine Clarity Clear Urine pH 5.5 Ur Specific [place] 1.020 Urine Protein 30 H Urine Ketones Trace H Urine Blood Negative Urine Nitrite Negative Urine Bilirubin Small H Urine Urobilinogen 1.0 H Ur Leukocyte Esterase Negative Urine RBC 0-2 Urine WBC 0-2 Ur Epithelial Cells Few Urine Crystals Negative Urine Bacteria Rare Urine Casts 3-5 hyaline Urine Mucus Heavy Ur Culture Indicated? No Urine Glucose Negative COVID-19 Source Nasal/nares SARS-CoV-2 (PCR) Negative 07/07/20 07/08/20 07/08/20 23:35 00:40 06:58 WBC RBC Hgb Hct MCV MCH MCHC RDW Plt Count MPV Immature Gran % Neutrophils % Lymphocytes % Monocytes % Eosinophils % Basophils % Nucleated RBC % Absolute Neutrophils Absolute Lymphocytes Absolute Monocytes Absolute Eosinophils Absolute Basophils PT INR APTT Sodium 137 Potassium 3.7 Chloride 102 Carbon Dioxide 23.9 Anion Gap 11.1 H BUN 22 H D Creatinine 1.4 H Estimated GFR/1.73 m2 49.68 Glucose 95 Calcium 8.9 Total Bilirubin AST ALT Alkaline Phosphatase Creatine Kinase 275 Troponin I < 0.05 NT-Pro-B Natriuret Pep Total Protein Albumin TSH Urine Color Urine Clarity Urine pH Ur Specific [place] Urine Protein Urine Ketones Urine Blood Urine Nitrite Urine Bilirubin Urine Urobilinogen Ur Leukocyte Esterase Urine RBC Urine WBC Ur Epithelial Cells Urine Crystals Urine Bacteria Urine Casts Urine Mucus Ur Culture Indicated? Urine Glucose COVID-19 Source Cancelled SARS-CoV-2 (PCR) Cancelled
[2020-07-08] MEDS: Apixaban 5 MG TAB PO ×2 (09:05→19:23)
[2020-07-08] MEDS: Aspirin E.C. 81 MG TABEC PO (09:05)
[2020-07-08] MEDS: Metoprolol CR 25 MG TABCR PO ×2 (09:05→19:23)
[2020-07-08] MEDS: Cetirizine 10 MG TAB PO (09:05)
[2020-07-08] MEDS: Pantoprazole 40 MG TABCR PO (09:05)
[2020-07-08] MEDS: Finasteride 5 MG TAB PO (09:05)
[2020-07-08] MEDS: Metoprolol CR 100 MG TABCR PO ×2 (09:06→19:23)
[2020-07-08] MEDS: Normal Saline Flush 10 ML SYR IVP ×2 (09:06→18:31)
[2020-07-08] MEDS: Tamsulosin 0.4 MG CAPCR 0.8 MG PO (09:06)
[2020-07-08] MEDS: Magnesium Oxide 400 MG TAB PO ×2 (09:06→19:23)
[2020-07-08] MEDS: Allopurinol 300 MG TAB PO (09:06)
--- NOTE | 2020-07-08 09:25 | PDOC.CMIN ---
- If Service Date Differs Date of service: 07/08/20 Time of Service: 09:25 Care Management Initial Assess REASON FOR HOSPITALIZATION:: Failure to Thrive PAST MEDICAL HISTORY/PAST SURGICAL HISTORY:: Alcohol intake above recommended sensible limits. 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). left great toe transmetatarsal amputation 05-02-2017 by -. 05-12-2017 [facility] [place] Vasc.Sx.: site with large necrotic/scabbed area: tx above knee amputation but pt declines - fup with wound care until pt decides to proceed ( - 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 REGISTERED NURSE MATERNITY). Benign prostatic hyperplasia with lower urinary tract symptoms. PSA: 1.5 in . Critical lower limb ischemia. RIGHT. [facility] [place] SHAUNA Parsons/ status post right iliofemoral endarterectomy and patch angioplasty/right EIA stenting/ stent graft to distal SFA and popliteal/ COMPLICATED BY INFECTION: # debridements - w. LEFT. ILIOFEMORAL ENDATERECTOMY WITH LEFT EXTERNAL [place]IAC STENT - [facility] [place]. Essential hypertension (11/16/12). Gastroesophageal reflux disease. Gout. Hyperlipidemia. Hypomagnesemia. Hyponatremia (09/06/13). serum electrophoresis normal 2009/. cortisol level normal: 2009. Osteomyelitis of right lower extremity. 08/13/15- GREAT RIGHT TOE S/P AMPUTAION. Osteomyelitis of toe. Paroxysmal atrial fibrillation. ADONIS score: 1/ on asa. Peripheral vascular disease. critical lower limb ischemia - [facility] [place] . 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 surgery/ radiation/ no chemo. Restless leg syndrome, uncontrolled. Sciatica. Vitamin D deficiency (09/06/13). Amputation. 08/13/15-GREAT RIGHT TOE. Status post amputation of great toe (08/13/15). (post osteomyelitis) PREVIOUS FUNCTIONAL STATUS/SOCIAL/FAMILY SUPPORTS:: Ed resides alone in [place], [place]. He is and has a significant other, but she is dealing with her own health issues at this time. His son, Cristofer is his main support person and resides in [place], but Cristofer is employed daytime caregiver and unable to provide daytime caregiver support. Ed's daughters, Yolanda and, Hilda also reside locally and are supportive. Denton has been failing for some time at home and presents to [facility] with multiple bruises and wounds, per reports, appears that he refuses additional supports. CURRENT FUNCTIONAL STATUS:: Denton is lying in bed when CM meets with him, he has garbled speech but is fully engaged and pleasant in interaction; laughing at communication difficulties and joking with staff consultant present in room. He states no rehab sharing that he has been there before and does not wish to return. He agrees to this keno writer speaking with his son, Cristofer regarding discharge planning. He is tired and closes his eyes; consistent with RN reports that he is weak and sleepy. ADVANCE DIRECTIVES:: [employer] on file; Cristofer listed as agent. Has patient been provided with info about the portal/API?: No Did the patient sign up for the portal?: No CODE STATUS:: DNR/DNI INSURANCE COVERAGE / FINANCIAL ISSUES:: Medicare. Medicaid CURRENT HOME/COMMUNITY SERVICES/EQUIPMENT:: [facility] as CM at [facility]. Her direct line was not accepting messages at this time, CM spoke with Paul of [facility] who reported [facility], and prior to that in March. No additional services noted at this time. PRIMARY CARE PHYSICIAN:: Randa Gayle POTENTIAL DISCHARGE NEEDS:: Consults: PT/OT/Nutrition/Palliative/Wound RN PATIENT/FAMILY EDUCATION NEEDS:: Review of discharge instructions, barriers to placement including patient self determination, discussion central to self care needs and recommended services upon discharge. ANTICIPATED BARRIERS TO DISCHARGE:: Patient willingness to discharge to SNF in relation to current level of functioning. TRANSPORTATION:: TBD by disposition. PLAN:: Denton will be evaluated by wound nurse, PT/OT/nutrition and will be followed by Palliative Care. Anticipate he will require SNF or SWB1 due to unwillingness to transfer to rehab. CM will continue to attempt to connect with community resources to support increased services in home setting prior to discharge, and continue to follow and support discharge planning considerations.
[2020-07-08 09:27] LABS: Magnesium 1.7 mg/dL (1.8-2.4)
[2020-07-08] MEDS: Lactated Ringers 1,000 ML 100 ML IV ×2 (10:47→22:48)
[2020-07-08] MEDS: amLODIPine 5 MG TAB PO (11:03)
--- NOTE | 2020-07-08 14:45 | IN_ITS ---
Date of service: 07/08/20 Time of Service: 14:45 PT Notes Visit Reasons: FAILURE TO THRIVE Physical Therapy Inpatient Initial Evaluation Date: 07/08/2020 Referring Doctor: Lamin Barnes MD PT Orders: PT CONSULT: Eval/treat. Precautions: Fall. Standard. Activity as tolerated. Patient Profile/Admitting Diagnosis: Denton is a 74-year-old male who presented to the ED on 07/08/2019 122 adult failure to thrive, medication none compliance, and falls. Patient fall, failure to thrive, skin knees cute kidney, and EtOH intake above commended sensible limits, PAF, neoplasm of glottis, and chronic low back pain. PMHX: Medical History? Alcohol intake above recommended sensible limits 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) left great toe transmetatarsal amputation 05-02-2017 by - 05-12-2017 [facility] [place] Vasc.Sx.: site with large necrotic/scabbed area: tx above knee amputation but pt declines - fup with wound care until pt decides to proceed ( - 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 PROCESS DEVELOPMENT CHEMIST) Benign prostatic hyperplasia with lower urinary tract symptoms PSA: 1.5 in Critical lower limb ischemia RIGHT ? [facility] [place] SHAUNA Parsons/ status post right iliofemoral endarterectomy and patch angioplasty/right EIA stenting/ stent graft to distal SFA and popliteal/ COMPLICATED BY INFECTION: # debridements - w LEFT ? ? 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 Restless leg syndrome, uncontrolled Sciatica Vitamin D deficiency (09/06/13) Surgical History?(Reviewed 05/23/21 @ 22:09 by GINA Mccall Amputation 08/13/15-GREAT RIGHT TOEStatus post amputation of great toe (08/13/15) ? (post osteomyelitis) Social History/Home Situation: Lives alone in a private home. Has been receiving support from family and home health personnel. 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 Equipment Owned/DME: Front-wheeled walker Subjective: Reports discomfort and weakness in B LE. Agreeable to transferring out of bed despite feeling unsure of how much he is going to do. Objective: General Observation: IV in the left ureter. Bilateral amputation great toes. Patient seen in right lumbar and lateral trunk area over the right side. Inflamed right groin area. Fixed flexion deformity of fingers. Mental Status: Alert. Able to pay attention, focus, and respond appropriately but speech not fully discernible everytime. Pain:Reported discomfort on the low back area Vital Signs: WNL as taken by CHRISTINA Campos prior to mobility assessment ROM: Right Upper Extremity: Unable to flex at the shoulder beyond 90 degrees with empty end feel. Unable to abduct beyond 80 degrees due to discomfort. Elbows flexion WFL. Elbow extension WFL. Wrist flexion about 10 degrees. Wrist extension 10 degrees. Fixed wrist flexion contracture in the IP joints. Left Upper Extremity: Unable to flex at the shoulder beyond 80 degrees with empty end feel. Unable to abduct beyond 60 degrees due to discomfort. Elbows flexion WFL. Elbow extension WFL. Wrist flexion about 20 degrees. Finger flexion Right Lower Extremity: Hip flexion lacking the last 45 degrees. Hip abduction limited to 10 degrees. Knee flexion WFL. Knee extension. Ankle dorsiflexion/eversion to neutral only. Ankle plantarflexion/inversion WFL. Left Lower Extremity: Hip flexion lacking the last 45 degrees. Hip abduction limited to 10 degrees. Knee flexion WFL. Knee extension. Ankle dorsiflexion/eversion to neutral only. Ankle plantarflexion/inversion WFL. Strength: Right Upper Extremity: Shoulder flexors 3-/5. Shoulder abductors 3-/5. Shoulder ER 3-/5. Elbow flexors 4-/5. Elbow extensors 4-/5. Executive Cyber Leader weakn but functional. Left Upper Extremity: Shoulder flexors 3-/5. Shoulder abductors 3-/5. Shoulder ER 3-/5. Elbow flexors 4-/5. Elbow extensors 4-/5. Executive Cyber Leader absent. Right Lower Extremity: Hip flexors 3-/5. Hip abductors 3-/5. Hip external rotators 3-/5. Knee flexors 4-/5. Knee extensors 4-/5. Ankle dorsiflexors/evertors 3-/5. Ankle plantarflexors/invertors 4-/5. Left Lower Extremity: Hip flexors 3-/5. Hip abductors 3-/5. Hip external rotators 3-/5. Knee flexors 4-/5. Knee extensors 4-/5. Ankle dorsiflexors/evertors 3-/5. Ankle plantarflexors/invertors 4-/5. Bed Mobility/Transfers: Rolling moderate assist to Supine to sit minimal assist of 2 with HOB at 45 degrees Sit to supine minimal assist of 2 Sit to stand minimal assist of 2 Stand to sit minimal assist of 2 Bed to chair minimal assist of 2 Gait: Distance of 6 steps requiring minimal assist of 2 and having for safety. Decreased dorsiflexion bilaterally. Wide BUS. Excessive trunk flexion. Absent deputy fire chief on left side due to chronic finger flexion contracture. Balance: Static Sitting: Good Dynamic Sitting: Fair Static Standing: Poor Dynamic Standing: Poor Special Tests: Mobility Limitations Standardized Measure [facility] 6 clicks Basic Mobility Inpatient Short Form: Raw Score: 11 CMS Score: 73% deficit Informed Consent/Education: Patient was instructed in purpose of PT consult and plan of care. Agreeable to proceed with established PT POC to achieve personal goals. Assessment: Denton demonstrates significant functional mobility decline requiring assistance of 2 people for all transfer and ambulation task performance, generalized weakness to bilateral lower extremities, decreased activity tolerance, and high risk for falls and the skin breakdown due to admitting diagnoses and comorbidities. Patient will benefit from penitentiary facility placement for continued skilled physical therapy services in order to progress mobility level, strength, and balance in preparation for a safe discharge to home. Patient presents with clinical signs and symptoms consistent with current/admitting diagnoses that have resulted to mobility limitations, gait instability, generalized weakness, and impairment of motor control as demonstrated by the following impairment level findings: 1. Decreased strength to B UE/LE major muscle groups 2. Impaired sitting/standing balance 3. Impaired activity tolerance 4. Limitation of joint range of motion in B shoulders and B ankles Impairments are contributing to the following functional limitations: 1. Dependent bed mobility skills 2. Increased dependence with transfers 3. Inability to safely ambulate without assistive device and physical assistance 4. Increase completion time for mobility ADL performance 5. Increased fall risk 6. Inability to negotiate steps alone safely 7. Inability to return to prior living environment at this time Patient is assessed as a 12854 moderate complexity based on the following: History: 74-year-old male with past medical history as indicated above Examination: Demonstrable impairment in strength, balance, and mobility level with underlying impairments and functional limitations as exhibited above as well as deficit score of 73% utilizing the [facility] Mobility Inpatient Short Form Presentation: Evolving Decision Makin moderate complexity Goals: Goals X1 week 1. Supine-Sit independent 2. Sit-Supine independent 3. Sit-Stand standby assist 4. Stand-Sit standby assist 5. Bed-Chair standby assist 6. Chair-Bed standby assist 7. Standby assist gait on level surface with use of [] for at least [] feet without report of pain nor dyspnea 9. Fair static and dynamic standing balance/tolerance Plan of Care/Treatment Plan: 1-2x/day, 7 days/week x 1 week. Plan of care has been reviewed with the PERSONAL BANKING OFFICER providing the service under Physical Therapy direction. Initiate Physical Therapy intervention for pain management as needed, strengthening, bed mobility, transfers, gait, stairs, balance training, and use of assistive device. DISCHARGE RECOMMENDATIONS: Patient will benefit from penitentiary facility placement for continued skilled physical therapy services in order to progress mobility level, strength, and balance in preparation for a safe discharge to home. TREATMENT CODE/TIME: 9716 2 x 20 minutes, 9753 0 x 25 minutes beginning at 14:45 PM. Thank you for the opportunity to participate in the care of this patient. Mariann Murray PT, DPT, CLT [facility] [place], [place]
[2020-07-08] MEDS: Pramipexole 0.25 MG TAB PO (21:15)
[2020-07-09] MEDS: LORazepam 0.5 MG TAB PO (00:09)
[2020-07-09] MEDS: Acetaminophen 325 MG TAB 650 MG PO (00:09)
[2020-07-09] MEDS: Lactated Ringers 1,000 ML 100 ML IV ×2 (06:05→17:01)
--- NOTE | 2020-07-09 07:47 | OTIE_ITS ---
Occupational Therapy Notes Inpatient Occupational Therapy Evaluation Date: 07/09/20 Referring Doctor: Lamin Barnes MD OT Orders: Non Urgent Precautions: Fall, standard, DNR/DNI PATIENT PROFILE/ADMITTING DIAGNOSIS: Pt is a 74 year old male who presented through the ED and was admitted to Med Surg with the following dx elevated troponin, weakness, fall, elevated brain natriuretic peptide, adult failure to thrive, skin breakdown, skin yeast infection, REYNA, essential HTN, benign prostatic hyperlasia with lower urinary tract symptoms, alcohol intake above recommended sensible limits, gout, hyperlipidemia, primary malignant neoplasm of glottis, restless leg syndrome, vitamin D deficiency, chronic back pain. Past Medical History: Medical History? Alcohol intake above recommended sensible limits 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) left great toe transmetatarsal amputation 05-02-2017 by - 05-12-2017 [facility] [place] Vasc.Sx.: site with large necrotic/scabbed area: tx above knee amputation but pt declines - fup with wound care until pt decides to proceed ( - 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 GLOBAL VP CREATIVE + CONTENT MARKETING) Benign prostatic hyperplasia with lower urinary tract symptoms PSA: 1.5 in Critical lower limb ischemia RIGHT ? [facility] [place] SHAUNA Parsons/ status post right iliofemoral endarterectomy and patch angioplasty/right EIA stenting/ stent graft to distal SFA and popliteal/ COMPLICATED BY INFECTION: # debridements - w LEFT ? ? 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 Restless leg syndrome, uncontrolled Sciatica Vitamin D deficiency (09/06/13) Surgical History? Amputation 08/13/15-GREAT RIGHT TOEStatus post amputation of great toe (08/13/15) ? (post osteomyelitis) Social History/Home Situation: Pt states that he lives alone, he does not that he has services come in to (A) With laundry and grocery shopping. He reports that prior he was (I) with his ADLs and reports that he has family that checks in on him every once in a while. He states that he is discouraged that he has to live alone but that he does his best. SUBJECTIVE: Pt was sitting in bed when OT arrived, he notes that he is agreeable to OT consult. OBJECTIVE: General Observation: Pt is pleasant and agreeable to OT session. Mental Status: A&Ox3 Pain: pain in pannus and nba area due to wounds ROM: RUE digits decreased ROM, elbow WNL, shoulder limitations L UE digits decreased ROM, elbow WNL, shoulder limitations STRENGTH: RUE 3-/5 throughout LUE 2+/5 throughout FUNCTIONAL MOBILITY/ADLS: BATHING sitting in bed with mod vc Bathing UE Able to wash face, (B) UE and abdomen but requires (A) as he has decreased strength with minimal control of digits. Bathing LE Max (A) DRESSING sitting in bed Dressing UE Mod (A) [facility] gown Dressing LE Max (A) GROOMING Pt is able to perform ROM enough to touch top of head but with decreased strength is unable to perform his grooming (I). TOILETING Use of urinal with max (A) from RN EATING NT BALANCE: Static sitting Good Dynamic Sitting Good SPECIAL TESTS: Daily Activity Limitations Standardized Measure [facility] AM -PAC ?6 clicks? Daily Activity Inpatient Short Form: Raw score: 11 Standardized score: 29.04 CMS score: 70.42% INFORMED CONSENT/EDUCATION: Pt instructed in purpose of OT Consult and plan of care. ASSESSMENT: Patient is a 74-year-old male referred to occupational therapy services with diagnosis of elevated troponin, weakness, fall, elevated brain natriuretic peptide, adult failure to thrive, skin breakdown, skin yeast infection, REYNA, essential HTN, benign prostatic hyperlasia with lower urinary tract symptoms, alcohol intake above recommended sensible limits, gout, hyperlipidemia, primary malignant neoplasm of glottis, restless leg syndrome, vitamin D deficiency, chronic back pain . Patient presents with clinical signs and symptoms consistent with dx, as demonstrated by the following impairment level findings/functional limitations: Impairment in ADL/IADL and leisure activities, decreased gross motor ROM, decreased fine motor ROM, infection to nba area, decreased (I) in hygiene, decreased UE hygiene, decreased functional activity tolerance, decreased (B) UE use, inability to perform LE dressing and bathing. AMPAC score 11 Patient is assessed as a high 48790 complexity based on the following: History: see above Examination: see functional limitations as noted above Presentation: evolving Decision Making: AMPAC score 11 GOALS Goals x1 week 1. Grooming- sitting in chair (I) brushing hair, min (A) brushing teeth 2. Dressing- sitting in chair mod (A) UE and mod (I) LE 3. Bathing- sitting in chair (I) UE and mod (A) LE 4. Toileting- on commode min (A) 5. Eating- (I) PLAN OF CARE/TREATMENT PLAN: 1x/day, 5 days/ week x 1week Initiate Occupational Therapy Services for bathing, dressing, grooming, lorenzo leting, eating, transfer training. DISCHARGE RECOMMENDATIONS Based on pts functional impairments and limitations, OT recommends that go SNF when medically cleared by MD. TREATMENT TIME/MINUTES/CODES 58695, 32138, 20 minutes (07:15) Veronique Almaguer OTR/[facility]
[2020-07-09 08:04] VITALS: BP 190/82; PULSE 59; RESP 14; TEMP 36.7; O2SAT 98
[2020-07-09] MEDS: Fluticasone NASAL SPRAY 16 GM BTL NS (08:42)
[2020-07-09] MEDS: Allopurinol 300 MG TAB PO (08:45)
[2020-07-09] MEDS: Magnesium Oxide 400 MG TAB PO ×2 (08:45→21:10)
[2020-07-09] MEDS: Pantoprazole 40 MG TABCR PO (08:45)
[2020-07-09] MEDS: Aspirin E.C. 81 MG TABEC PO (08:45)
[2020-07-09] MEDS: Tamsulosin 0.4 MG CAPCR 0.8 MG PO (08:45)
[2020-07-09] MEDS: amLODIPine 5 MG TAB PO (08:46)
[2020-07-09] MEDS: Finasteride 5 MG TAB PO (08:46)
[2020-07-09] MEDS: Metoprolol CR 25 MG TABCR PO ×2 (08:46→21:10)
[2020-07-09] MEDS: Cetirizine 10 MG TAB PO (08:47)
[2020-07-09] MEDS: Metoprolol CR 100 MG TABCR PO ×2 (08:47→21:10)
[2020-07-09] MEDS: Nystatin POWDER 60 GM JAR TP ×3 (08:47→21:18)
--- NOTE | 2020-07-09 09:07 | NS.NUTBLAN_ITS ---
Date of service: 07/09/20 Time of Service: 09:08 Nutritional Consult ASSESSMENT: 74 year old male admitted with weakness, decline with REYNA, Adult Failure to Thrive with PMH: PVD, HLD, HTN, hx of amputation of great toe. Following regular diet and meeting nutrient and fluid needs at this time. BMI indicates overweight, stable > 1 year. Attempted to meet with [place] today but he was asleep at this time. Estimated Needs: [id number] kcal, 60-70 g protein At nutritional risk in view of poor self care abilities in home setting Per chart review, does not wish for aggressive nutrition therapy or nutrition support NUTRITIONAL DIAGNOSIS: Inability or lack of desire to manage self care INTERVENTION: continue regular meal plan and monitor po intake MONITORING AND EVALUATION: labs, po intake, weight Time Spent in Nutritional Counseling and Treatment: 0
--- NOTE | 2020-07-09 10:37 | PT.INTREAT ---
PT Notes Visit Reasons: FAILURE TO THRIVE Inpatient Physical Therapy Treatment Note [facility] Date: 07/09/2020 PRECAUTIONS: Fall SUBJECTIVE: Denton is pleasant and agreeable to participating in PT. He indicates that he does not want to go to a SNF because he has had a previous negative experience. He does state that he does not feel that he can function at home at his current level of function. OBJECTIVE: PAIN: No c/o pain BED MOBILITY/TRANSFERS Sit-stand: Min A x2 in a.m.; CGA x2 in p.m. Stand-sit: Min A x2 in a.m.; Min A + CGA in p.m. GAIT Assistive Device: FWW Weight bearing: Full Assist: Min A x2 in a.m.; CGA + Min A in p.m. Distance: 10' in a.m.; 15' in p.m. Deviation: Minimal DF in B ankles, wide ALAN, excessive trunk flexion, assist with FWW mechanics THEREX: Patient was instructed in a seated LE strengthening program in a.m., and a seated UE and LE strengthening program in p.m., as per flow sheet. ASSESSMENT: Patient demonstrates significant weakness and fall risk, requiring Min A x2 for all transfers and ambulation with FWW at this time. PLAN: PT recommends patient discharge to SNF for continued functional progression for improved safety and ability, upon discharge from acute medical facility. TREATMENT CODE/TIME: Session 1: 30 minutes; 37968, 54157 (09:50) Session 2: 30 minutes; 08538, 01705 (13:10)
[2020-07-09 11:20] VITALS: BP 173/75; PULSE 53; RESP 17; TEMP 37.7; O2SAT 97
--- NOTE | 2020-07-09 11:30 | WOUNDCONS ---
- If Service Date Differs Date of service: 07/09/20 Time of Service: 11:30 Wound Initial Evaluation Narrative: Pt seen at bedside, agreeable to consult. Pt is A&Ox3. H&P, labs and pertinent information r/t wound care reviewed. PMH includes 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), Benign prostatic hyperplasia with lower urinary tract symptoms, Critical lower limb ischemia RIGHT [facility] [place] Alice RodriguezPA/ status post right iliofemoral endarterectomy and patch angioplasty/right EIA stenting/ stent graft to distal SFA and popliteal/ COMPLICATED BY INFECTION: # debridements - w LEFT ILIOFEMORAL ENDATERECTOMY WITH LEFT EXTERNAL ILIAC STENT - [facility] [place] Essential hypertension (11/16/12) Gastroesophageal reflux disease Gout Hyperlipidemia Hypomagnesemia Hyponatremia (09/06/13) serum electrophoresis normal 2009/ cortisol level normal: 2009 Osteomyelitis of right lower extremity 08/13/15- GREAT RIGHT TOE S/P AMPUTAION Osteomyelitis of toe Paroxysmal atrial fibrillation ADONIS score: 1/ on asa Peripheral vascular disease critical lower limb ischemia - [facility] – [place]- 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 Restless leg syndrome, uncontrolled Sciatica Vitamin D deficiency (09/06/13) Surgical History Amputation 08/13/15-GREAT RIGHT TOE Status post amputation of great toe (08/13/15) (post osteomyelitis) Pt has full thickness abrasions to bilateral knees from self reported fall at home in bathroom. Bleeds easily. Pt was on eliquis (d/c'd by provider this AM) Wounds cleansed, skin prep applied to amanda wound, Anasept gel applied, covered with Mepilex w/border. Right 2nd toe has scab, no fluctuation noted. Erythema noted to edges, warm, not hot to touch. D/t Hx of non-healing wounds and amputation of toes as well as impaired vascular status I do not recommend removing scab @ this time. Leave in place @ this time. Will watch for increasing redness and signs of infection. severe yeast infection present on pannus and groin d/t self care deficit. Pt is very limited in his ability to clean his amanda area (deformities to hands). Nursing reports improvement overnight with hygine, use of nystatin and interdry sheets. slit to right and left groin, Pt reports pain @ times. Area at time of assessment dry, no open areas aside from groin slits. Pt will need amanda care TID along with Nystatin powder application and interdry sheet to pannus and groin folds. Gluteal cleft has blanchable redness and linear slit. Pt incontinent of stool @ times. Unable to reach area to cleanse on his own. Ryan applied @ this time vs mepilex d/t fecal incontinence. (no measurement taken @ this time d/t Pt unable to stand long enough to measure.) Left mid back has partial thickness wound, eitology unknown, possibly from fall given pt's Hx. Wound bleeds easily. Difficult to tell from photo but wound is raised about 0.2 cm from skin surface, with slightly irregular shape. Pt does have CA Hx. notified. Wound cleansed and covered w/Mepilex. - Wound Right knee Wound Length: 2.5 cm Wound Width: 2.5 cm Wound Depth: 0.1 cm Left Knee Wound Length: 2.8 cm Wound Width: 1.5 cm Wound Depth: 0.1 cm right 2nd toe Wound Length: 0.5 cm Wound Width: 0.6 cm Wound Depth: 0 cm Amanda Area Wound Type: Other (yeast rash) Gluteal cleft Wound Type: Partial Thickness (slit) Left back Wound Type: Partial Thickness Wound Length: 2 cm Wound Width: 1 cm Wound Depth: 0 cm (raised 0.2 cm) - Circulation, Sensation, Motion Peripheral Pulse Strength: Absent (unable to palpate pedal pulses, heard with doppler) Sensation Description: Numbness - Recomendation Recomendation:: Recommendations: Bilateral knees- Cleanse wounds with wound cleanser, apply skin prep to amanda wound, apply anasept gel to wound bed, cover with Mepilex w/border. Change every 3 days and PRN. Right 2nd toe- Assess Q shift for increasing redness, S/Sx of infection. Pannus/Groin- Wash area with soap and water and dry thoroughly prior to nystatin powder application, TID.Apply interdry sheets to pannus and groin folds. Change when soiled and PRN. Gluteal cleft- Apply Ryan to buttocks and gluteal cleft after incontinent episodes. Left mid back-Cleanse wound with wound cleanser. Cover w/Mepilex. Change every 3 days and PRN.
--- NOTE | 2020-07-09 12:38 | W.PM.PROGNOT ---
Date of Service Date of service: 07/09/20 Time of Service: 12:38 Assessment and Plan Assessment and plan (1) Adult failure to thrive: Status: Acute Assessment and plan: Lives alone. EMS reports they have been in his home intermittently and the living conditions have deteriorated. His son states he has been declining. Appears to be unsafe to d/c back to his home w/o significant oversight / in-home help (2) Skin breakdown: Status: Acute Assessment and plan: See wound care evaluation. Areas of breakdown: Dorsum of R great toe, proximal gluteal cleft. Follow recommendations. (3) Skin yeast infection: Status: Acute Assessment and plan: nystatin poweder to groin and skin folds that are affected. Diminish moisture of effective areas. (4) REYNA (acute kidney injury): Status: Acute Assessment and plan: Creatinine 1.9 > 1.4 > pending. Maintain adequate hydration. (5) Hypomagnesemia: Status: Acute Assessment and plan: Oral replacement. Monitor. (6) Essential hypertension: Status: Acute Assessment and plan: BP elevated. Cont current metoprolol dosing. Added amlodipine 5 mg daily. PRN clonidine for SBP >180. Subjective Subjective Patient reports: tolerating a regular diet and afebrile; denies nausea, vomiting and shortness of breath Interval history since last seen: When asked if he feels better he stated I guess so. Exam Const General: cooperative and no acute distress Nutritional Appearance: overweight Orientation: alert, oriented to person and oriented to place [facility] Head: normocephalic and atraumatic Resp Effort & Inspection: normal respiratory effort Auscultation: clear to auscultation bilaterally Cardio Rate: regular rate Rhythm: regular rhythm Heart Sounds: S1 normal, S2 normal and murmur GI Palpation: soft and nontender Neuro General: patient awake and no focal motor deficits Speech: speech normal Extrem General: no calf tenderness Objective Last Vital Signs Temp 37.7 C H 07/09/20 11:20 Pulse 53 L 07/09/20 11:20 Resp 17 07/09/20 11:20 BP 173/75 H 07/09/20 11:20 Pulse Ox 97 07/09/20 11:20
[2020-07-09 14:30] VITALS: BP 166/76; PULSE 60; TEMP 37.4; O2SAT 94
[2020-07-09 15:48] VITALS: BP 153/71; PULSE 64; RESP 17; TEMP 37; O2SAT 96
[2020-07-09 16:41] LABS: Anion Gap 7.5 mmol/L (3-11); BUN 22 mg/dL (7-18); CO2 24.5 mmol/L (21.0-32.0); CREATININE 1.4 mg/dL (0.70-1.30); Calcium 8.6 mg/dL (8.5-10.1); Chloride 102 mmol/L (98-107); Estimated GFR 49.68 (mL/min/1.73m2); Glucose 99 mg/dL (74-106); Potassium 4.3 mmol/L (3.5-5.1); Sodium 134 mmol/L (136-145)
--- NOTE | 2020-07-09 18:13 | PDOC.CMPRO ---
Care Management Progress Note S/O: Denton was sitting up in his chair when CM met with him. He again expressed he did not want to go to a SNF upon discharge. When CM discussed current level of functioning he stated I'm not too worried. CM spoke with interdisciplinary team who were all in agreement that SNF placement should be pursued for safety. CM discussed with Ed's son Cristofer who stated his father often refuses services or will tell him what he thinks he wants to hear. Ed reported he would be open to increased services including PT/OT/RN, COA Options and applying for LTM. CM continues to await contact from his employment case manager in the community; Smiley Pavon. A: 74 year old male admitted to [facility] 07/07/20 for Failure to Thrive P: Denton will likely transfer to [facility] for continued rehab and wound management, awaiting disposition plans. His son will clean out his home and prepare for increased services supports while also supporting Ed to accept SNF placement if he does not advance to a higher functioning baseline. CM will continue to follow and support.
[2020-07-09 20:42] VITALS: BP 165/68; PULSE 60; RESP 16; TEMP 36.6; O2SAT 95
[2020-07-09] MEDS: Pramipexole 0.25 MG TAB PO (21:10)
[2020-07-10] MEDS: Lactated Ringers 1,000 ML 100 ML IV (03:58)
[2020-07-10 04:26] VITALS: BP 120/72; PULSE 70; RESP 16; TEMP 37.1; O2SAT 96
[2020-07-10 07:11] LABS: Magnesium 1.4 mg/dL (1.8-2.4)
[2020-07-10 08:00] VITALS: BP 186/74; PULSE 62; RESP 12; TEMP 36.8; O2SAT 97
[2020-07-10] MEDS: Tamsulosin 0.4 MG CAPCR 0.8 MG PO (08:35)
[2020-07-10] MEDS: Finasteride 5 MG TAB PO (08:35)
[2020-07-10] MEDS: Nystatin POWDER 60 GM JAR TP ×3 (08:35→21:16)
[2020-07-10] MEDS: amLODIPine 5 MG TAB PO (08:35)
[2020-07-10] MEDS: Magnesium Oxide 400 MG TAB PO ×2 (08:35→21:15)
[2020-07-10] MEDS: Allopurinol 300 MG TAB PO (08:35)
[2020-07-10] MEDS: Aspirin E.C. 81 MG TABEC PO (08:35)
[2020-07-10] MEDS: Metoprolol CR 100 MG TABCR PO ×2 (08:36→21:15)
[2020-07-10] MEDS: Cetirizine 10 MG TAB PO (08:36)
[2020-07-10] MEDS: Metoprolol CR 25 MG TABCR PO ×2 (08:36→21:15)
[2020-07-10] MEDS: Pantoprazole 40 MG TABCR PO (08:36)
--- NOTE | 2020-07-10 11:30 | PTTR_ITS ---
Date of service: 07/10/20 Time of Service: 11:30 PT Notes Visit Reasons: FAILURE TO THRIVE Inpatient Physical Therapy Treatment Note Date: 07/10/2020 PRECAUTIONS: Fall. Activity as tolerated SUBJECTIVE: Denton admittedly says that there has been significant decline in his ability to move about and states that he does not feel safe right now to go home. OBJECTIVE:? PAIN: None reported ? BED MOBILITY/TRANSFERS? Sit-stand: Contact-guard assist from recliner, minimal assist from wheelchair? Stand- sit: Contact-guard assist from recliner, minimal assist from wheelchair? ? Reclining chair to wheelchair contact-guard assist with cues required for hand placement and trunk positioning? ? Wheelchair to reclining chair minimal assist with cues required for hand placement and trunk positioning? GAIT? Assistive Device: FWW? Weight bearing: Full Assist: Minimal assist ? Distance: 25 feet +15 feet ? Deviation: Decreased DF in bilateral ankles. Wide POS. Minimal to moderate verbal cues needed for hand placement and walker management. Excessive trunk flexion.? ASSESSMENT: Fatigues easily. Excessive trunk flexion during walking increases risk for falling forward. Patient continues to require physical assistance and moderate to verbal cueing for correct sit to stand movement transition, hand placement while using walker, and walker handling during ambulation activity. PLAN: Patient will benefit from home health PT services in order to progress mobility level using least restrictive assistive ambulatory device, assess home safety, identify additional equipment needs, and establish a functional maintenance program that will increase ability of patient to remain at home. TREATMENT CODE/TIME: 9753 0 x 32 minutes beginning at 11:30 AM.
--- NOTE | 2020-07-10 11:56 | OT.INNT ---
Date of service: 07/10/20 Time of Service: 08:20 Occupational Therapy Notes 07/10/20 OT attempted to see pt who was eating max (A) With nursing at the time. OT will attempt to resume services tomorrow. Veronique Almaguer OTR/[facility]
[2020-07-10] MEDS: Losartan 25 MG TAB PO (12:19)
--- NOTE | 2020-07-10 14:18 | PT.INTREAT ---
Date of service: 07/10/20 Time of Service: 14:18 PT Notes Visit Reasons: FAILURE TO THRIVE 07/10/2020 SUBJECTIVE: Feeling sluggish. Does not really want to get up but eventually does agree. Is refusing custodial stating he will be going home. OBJECTIVE: TRANSFERS Sit to stand: CGA/min A from low wheel chair Stand to sit: CGA/Min A to low wheel chair GAIT Device: FWW Weight bearing: Full Assist: Min A Distance 10'x2 Deviation: Wheel chair follow, walker out too far in front of him despite cues, forward flexed at the trunk ASSESSMENT: Continues to refuse custodial. Pt only tolerates short distance ambulation today and sits to wheel chair that I am pulling behind him without warning. PLAN: Continue to work on gait training and transfers. Treatment time: [id number] Krystle Singh PTA Clinic location: [facility] [place], [place]
[2020-07-10 15:25] VITALS: BP 150/78; PULSE 53; RESP 14; TEMP 36.6; O2SAT 93
--- NOTE | 2020-07-10 16:23 | W.PM.PROGNOT ---
Date of Service Date of service: 07/10/20 Time of Service: 16:23 Assessment and Plan Assessment and plan (1) Adult failure to thrive: Status: Acute Assessment and plan: Lives alone. Difficulty with BUE dexterity; creating issues with eating, self-care; OT working with Pt. PT working with pt. Planning to change to swingbed for ongoing rehab efforts with goal of improvement for safe return to home; he is adamant about not going to a rehab facility or LTC facility. (2) Skin breakdown: Status: Acute Assessment and plan: Cont with current wound care. (3) Skin yeast infection: Status: Acute Assessment and plan: Nystatin. Improving discomfort in effected areas. (4) REYNA (acute kidney injury): Status: Acute Assessment and plan: Creatinine stable. (5) Essential hypertension: Status: Acute Assessment and plan: Conts to be elevated on his home dose of Metoprolol, addition of amlodipine. Added losartan 25mg daily. Subjective Subjective Patient reports: tolerating a regular diet and afebrile; denies nausea and shortness of breath Interval history since last seen: Patient is more confused this afternnon but cooperative. He is sitting in reclining but looking around for his cane; can't tell me where he is planning to go with his cane. Exam Const General: cooperative and no acute distress Nutritional Appearance: overweight Orientation: alert and oriented to person Resp Effort & Inspection: normal respiratory effort Auscultation: clear to auscultation bilaterally Cardio Rate: regular rate Rhythm: regular rhythm Heart Sounds: S1 normal and S2 normal GI Palpation: soft and nontender Skin General skin exam: no rashes or lesions noted Extrem General: no pedal edema and no calf tenderness Objective Last Vital Signs Temp 36.6 C 07/10/20 15:25 Pulse 53 L 07/10/20 15:25 Resp 14 07/10/20 15:25 BP 150/78 H 07/10/20 15:25 Pulse Ox 93 07/10/20 15:25 Laboratory Results - last 24 hr 07/09/20 07/10/20 16:31 06:28 Sodium 134 L Potassium 4.3 Chloride 102 Carbon Dioxide 24.5 Anion Gap 7.5 BUN 22 H Creatinine 1.4 H Estimated GFR/1.73 m2 49.68 Glucose 99 Calcium 8.6 Magnesium 1.4 L
--- NOTE | 2020-07-10 17:51 | PDOC.CMPRO ---
Care Management Progress Note S/O: Denton remains inpatient at this time. Plan reviewed; he will enter [facility] for continued rehab and service coordination planning. Ed reports being open to increased services including PT/OT/RN, COA Options and applying for LTM. CM continues to await contact from his top case assembler in the community; Smiley Pavon. Conversation for SNF placement continues. A: 74 year old male admitted to [facility] 07/07/20 for Failure to Thrive P: Denton will likely transfer to [facility] for continued rehab and wound management, awaiting disposition plans. His son will clean out his home and prepare for increased services supports while also supporting Ed to accept SNF placement if he does not advance to a higher functioning baseline. CM will continue to follow and support.
[2020-07-10] MEDS: Pramipexole 0.25 MG TAB PO (21:15)
[2020-07-11 01:00] VITALS: BP 166/93; PULSE 86; RESP 16; TEMP 36.5; O2SAT 96
[2020-07-11 07:25] VITALS: BP 167/89; PULSE 54; RESP 17; TEMP 36.7; O2SAT 98
[2020-07-11 07:35] LABS: Magnesium 1.5 mg/dL (1.8-2.4)
[2020-07-11] MEDS: Metoprolol CR 25 MG TABCR PO (09:23)
[2020-07-11] MEDS: Losartan 25 MG TAB PO (09:23)
[2020-07-11] MEDS: Tamsulosin 0.4 MG CAPCR 0.8 MG PO (09:23)
[2020-07-11] MEDS: Nystatin POWDER 60 GM JAR TP ×2 (09:23→13:12)
[2020-07-11] MEDS: Pantoprazole 40 MG TABCR PO (09:23)
[2020-07-11] MEDS: Cetirizine 10 MG TAB PO (09:23)
[2020-07-11] MEDS: amLODIPine 5 MG TAB PO (09:23)
[2020-07-11] MEDS: Finasteride 5 MG TAB PO (09:23)
[2020-07-11] MEDS: Magnesium Oxide 400 MG TAB PO (09:23)
[2020-07-11] MEDS: Aspirin E.C. 81 MG TABEC PO (09:24)
[2020-07-11] MEDS: Metoprolol CR 100 MG TABCR PO (09:24)
[2020-07-11] MEDS: Allopurinol 300 MG TAB PO (09:24)
--- NOTE | 2020-07-11 11:21 | INDS_ITS ---
Date of service: 07/11/20 Time of Service: 10:21 PT Notes Visit Reasons: FAILURE TO THRIVE Physical Therapy Inpatient Discharge Summary Date: 07/11/2020 Dates of service: 07/08/2020 through 07/11/2020 Referring Doctor: Lamin Barnes MD PT Orders: PT CONSULT: Eval/treat. Precautions: Fall. Standard. Activity as tolerated. Patient Profile/Admitting Diagnosis: Admitted converts to swing bed level 1 as of 07/11/2020 and will be re-evaluated for continued physical therapy services once another referral is received from hospitalistMichele Chawla is a 74-year-old male who presented to the ED on 07/08/2019 122 adult failure to thrive, medication none compliance, and falls.? Patient fall, failure to thrive, skin knees cute kidney, and EtOH intake above commended sensible limits, PAF, neoplasm of glottis, and chronic low back pain. PMHX: Medical History? Alcohol intake above recommended sensible limits 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) left great toe transmetatarsal amputation 05-02-2017 by - 05-12-2017 [facility] [place] Vasc.Sx.: site with large necrotic/scabbed area: tx above knee amputation but pt? declines - fup with wound care until pt decides to proceed ( - 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 [employer]) Benign prostatic hyperplasia with lower urinary tract symptoms PSA: 1.5 in Critical lower limb ischemia RIGHT ? [facility] [place] SHAUNA Parsons/ status post right iliofemoral endarterectomy and patch angioplasty/right? EIA stenting/ stent graft to distal SFA and popliteal/ COMPLICATED BY INFECTION: # debridements - w LEFT ? ? 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 Restless leg syndrome, uncontrolled Sciatica Vitamin D deficiency (09/06/13) Surgical History? Amputation 08/13/15-GREAT RIGHT TOEStatus post amputation of great toe (08/13/15) ? (post osteomyelitis) Social History/Home Situation: Lives alone in a private home.? Has been receiving support from family and home health personnel.? 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 Equipment Owned/DME: Front-wheeled walker Subjective: Agreeable to PT session. Doubtful about how he will do today. Remains unwavering about decision to not go to a SNF. Objective: General Observation: IV access in the left UE.? Bilateral amputation of great toes.? Contusion seen in right lumbar and lateral trunk area on the right side.? Inflamed right groin area.? Fixed flexion deformity of fingers on the left side. Mental Status: Alert.? Able to pay attention, focus, and respond appropriately but speech not fully discernible everytime. Pain:Reported discomfort on the low back area ROM: Right Upper Extremity: ? Unable to flex at the shoulder beyond 90 degrees with empty end feel. Unable to abduct beyond 80 degrees due to discomfort. Elbows flexion WFL. Elbow extension WFL. Wrist flexion about 10 degrees. Wrist extension 10 degrees. Fixed wrist flexion contracture in the IP joints. Left Upper Extremity:? Unable to flex at the shoulder beyond 80 degrees with empty end feel. Unable to abduct beyond 60 degrees due to discomfort. Elbows flexion WFL. Elbow extension WFL. Wrist flexion about 20 degrees. Finger flexion Right Lower Extremity: Hip flexion lacking the last 45 degrees. Hip abduction limited to 10 degrees. Knee flexion WFL. Knee extension. Ankle dorsiflexion/eversion to neutral only. Ankle plantarflexion/inversion WFL. Left Lower Extremity: Hip flexion lacking the last 45 degrees. Hip abduction limited to 10 degrees. Knee flexion WFL. Knee extension. Ankle dorsiflexion/eversion to neutral only. Ankle plantarflexion/inversion WFL. Strength: Right Upper Extremity: Shoulder flexors 3-/5. Shoulder abductors 3-/5. Shoulder ER 3-/5. Elbow flexors 4-/5. Elbow extensors 4-/5. Marriage Therapist? weakn but functional. Left Upper Extremity: Shoulder flexors 3-/5. Shoulder abductors 3-/5. Shoulder ER 3-/5. Elbow flexors 4-/5. Elbow extensors 4-/5. Marriage Therapist? absent. Right Lower Extremity: Hip flexors 3-/5. Hip abductors 3-/5. Hip external rotators 3-/5. Knee flexors 4-/5. Knee extensors 4-/5. Ankle dorsiflexors/evertors 3-/5. Ankle plantarflexors/invertors 4-/5. Left Lower Extremity: Hip flexors 3-/5. Hip abductors 3-/5. Hip external rotators 3-/5. Knee flexors 4-/5. Knee extensors 4-/5. Ankle dorsiflexors/evertors 3-/5. Ankle plantarflexors/invertors 4-/5. Bed Mobility/Transfers: Sit to stand contact-guard assist Stand to sit contact-guard assist Bed to chair contact-guard assist Gait: Tolerated a distance of up to 25 feet since start of care using front wheeled walker with moderate to maximal verbal cueing for walker management, overall safety, and hand placement. Balance: Static Sitting: Normal Dynamic Sitting: Good Static Standing: Fair Dynamic Standing: Poor Assessment: Denton may require longer time to achieve BUE/LE strengthening, balance, and functional mobility goals and thus will require SNF placement for at least 3 to 4 weeks prior to going home. His transfer skills as well as ambulation skills are markedly decreased making him at high risk for falls at this time. He continues to demonstrate significant functional mobility decline requiring assistance of 2 people for all transfer and ambulation task performance, generalized weakness to bilateral lower extremities, decreased activity tolerance, and high risk for falls and the skin breakdown due to admitting diagnoses and co-morbidities.? Patient continues to present instability, generalized weakness, and impairment of motor control as demonstrated by the following impairment level findings: 1.? Decreased strength to B UE/LE major muscle groups 2.? Impaired sitting/standing balance 3.? Impaired activity tolerance 4.? Limitation of joint range of motion in B shoulders and B ankles Impairments are continuing to contribute to the following functional limitations: 1.? Dependent bed mobility skills 2.? Increased dependence with transfers 3.? Inability to safely ambulate without assistive device and physical assistance 4.? Increase completion time for mobility ADL performance 5.? Increased fall risk 6.? Inability to negotiate steps alone safely 7.? Inability to return to prior living environment at this time Goals: Goals X1 week 1. Supine-Sit independent NOT MET 2. Sit-Supine independent NOT MET 3. Sit-Stand standby assist NOT MET 4. Stand-Sit standby assist NOT MET 5. Bed-Chair standby assist NOT MET 6. Chair-Bed standby assist NOT MET 7.? Standby assist gait on level surface with use of front wheeled walker for at least 50 feet without report of pain nor dyspnea NOT MET 9.? Fair static and dynamic standing balance/tolerance NOT MET DISCHARGE RECOMMENDATIONS: PT re-evaluation once swing bed level 1 referral is received from hospitalist. Patient will benefit from senior care facility placement for continued skilled physical therapy services in order to progress mobility level, strength, and balance in preparation for a safe discharge to home. TREATMENT CODE/TIME: 06523 x 15 minutes beginning at 11:21 PM. Thank you for the opportunity to participate in the care of this patient. Mariann Murray PT, DPT, CLT [facility] [place], [place]
[2020-07-11 11:43] LABS: Anion Gap 9.4 mmol/L (3-11); BUN 19 mg/dL (7-18); CO2 25.6 mmol/L (21.0-32.0); Calcium 9.3 mg/dL (8.5-10.1); Chloride 101 mmol/L (98-107); Glucose 101 mg/dL (74-106); Potassium 4.1 mmol/L (3.5-5.1); Sodium 136 mmol/L (136-145)
--- NOTE | 2020-07-11 12:31 | PDOC.CMPRO ---
Care Management Progress Note Denton will transfer to [facility] for continued rehab and wound management, awaiting disposition plans. His son will clean out his home and prepare for increased services supports while also supporting Ed to accept SNF placement if he does not advance to a higher functioning baseline. CM will continue to follow and support.
--- NOTE | 2020-07-11 12:56 | W.PM.DS.N ---
Date of service: 07/11/20 Time of Service: 12:58 DS: Diagnosis Discharge Diagnosis (1) Adult failure to thrive: Status: Acute (2) Skin breakdown: Status: Acute (3) Skin yeast infection: Status: Acute (4) REYNA (acute kidney injury): Status: Acute (5) Essential hypertension: Status: Acute Discharge Plan Disposition Patient Disposition: [facility] SWING BED LEVEL 1 Condition: Stable Discharge Details Reason For Visit: FAILURE TO THRIVE Admit Date/Time: 07/07/20 23:57 Admit Provider: Mark Dumont Attending Provider: Mark Dumont Primary Care Provider: [facility] Hospital Course: This 74-year-old male came to the emergency department because of weakness.? He was found down and brought to the emergency department.? He was unable to get up by himself.? He had a full evaluation in the emergency department including a head and neck CT, abdominal chest and pelvic CT, and labs.? The emergency doctor attempted to contact his son Cristofer but that was not successful.? He has had multiple ED visits and frequent visits by EMS.? It has been noticed that there has been a general decline in his condition and he agreed to come to the emergency department.? It is not clear if he is compliant with his medical regimen.? He has multiple medical problems listed in his record.? I did have a bit of difficulty waking him up this morning and he said he felt confused.? He denies any pain at the present time. His WBC count was 11.32; it normalized w/o antibiotic intervention. CT abd/pelvis unremarkable other than possible finding of cystitis. Endovascular stents of both external iliac arteries was noted. UA was negative for evidence of infection. Blood cultures obtained and were negative. Initial Na was 134; corrected to 136. K+ normal. Mg+ 1.4 > 1.5. His Mg supplementation was changed from Mg Oxide to Mg Gluconate. Troponin negative. PT/OT consulted. Palliative consulted. Given slowed movements, contractures of fingers of both hands and ptosis, neurology consulted and is pending. Care managment working closely with patient and family. Patient is very keen on returning home and is adamant about not wanting to go to a nursing facility. His prognosis for improving adequately to care for himself at home with considerable assistance. He is changing to swingbed status and will continue with PT/OT. Home Meds and New Rx's Prescriptions: New acetaminophen [Tylenol] 325 mg Tablet 650 mg PO Q6H PRN PRNQty: 0 RF: 0 amlodipine 5 mg Tablet 5 mg PO DAILY Qty: 0 RF: 0 losartan 25 mg Tablet 25 mg PO DAILY Qty: 0 RF: 0 lidocaine HCl [Glydo] 2 % Jelly In Applicator 6 ml topical DIRECTED Qty: 0 RF: 0 nystatin 100,000 unit/gram Powder 0 g topical TID Qty: 0 RF: 0 magnesium gluconate 27 mg magnesium (500 mg) Tablet 500 mg PO BID Qty: 0 RF: 0 Continued Allergy Relief (cetirizine) 10 mg capsule 10 mg PO DAILY Qty: 90 RF: 4 pantoprazole 40 mg tablet,delayed release (DR/EC) 40 mg PO DAILY Qty: 90 RF: 4 finasteride 5 mg tablet 5 mg PO DAILY Qty: 90 RF: 4 metoprolol succinate 25 mg tablet extended release 24 hr 25 mg PO BID Qty: 60 RF: 12 metoprolol succinate 100 mg tablet extended release 24 hr 100 mg PO BID Qty: 60 RF: 12 aspirin [[place] Aspirin] 81 mg tablet,delayed release (DR/EC) 81 mg PO DAILY Qty: 90 RF: 1 tamsulosin 0.4 mg capsule 0.8 mg PO DAILY Qty: 60 RF: 6 pramipexole [Mirapex] 0.25 mg tablet 0.25 mg PO HS Qty: 90 RF: 4 allopurinol [Zyloprim] 300 mg tablet 300 mg PO DAILY Qty: 90 RF: 4 fluticasone propionate 50 mcg/actuation spray,suspension 2 spray NS DAILY Qty: 1 RF: 6 lorazepam 0.5 mg tablet 0.5 - 1 mg PO DAILY PRN (Reason: anxiety) Qty: 60 RF: 0 Discontinued oxycodone 5 MG tablet 5 mg PO Q4H PRN RF: 0 Eliquis 5 mg tablet 5 mg PO BID Qty: 60 RF: 8 penicillin V potassium 500 mg tablet 500 mg PO BID Qty: 60 RF: 6 magnesium oxide 400 mg (241.3 mg magnesium) tablet 400 mg PO BID Qty: 90 RF: 4 Discharge Instructions Activity:: Activity as Tolerated Equipment/Supplies:: No Equipment Needed Diet:: Normal Diet Discharge Orders Discharge Orders: Discharge Order (Routine); Ordered 07/11/20 Ordered By: Lamin Barnes DS: Summary Time Spent with Patient providing and/or coordinating discharge services: Greater than 30 minutes Status at Discharge Functional status at discharge: uses cane/walker (2 person assist) Overall status at discharge: patient is not back to baseline Mental Status: other (intermittently confused) Speech and Movement: slowed movement Mood: congruent mood Affect: blunted Exam Const General: cooperative and no acute distress Nutritional Appearance: overweight Orientation: alert, oriented to person and oriented to place [facility] Head: normocephalic and atraumatic Eyes Sclera: sclerae normal Pupils: PERRL Resp Effort & Inspection: normal respiratory effort Auscultation: clear to auscultation bilaterally Cardio Rate: regular rate Rhythm: regular rhythm Heart Sounds: S1 normal and S2 normal GI Palpation: soft and nontender Extrem General: no pedal edema and no calf tenderness Right upper extremity: hand (Bilateral flexion deformities of digits; thumbs spared.) Psych Speech and Movement: slowed movement Mood: congruent mood Affect: blunted DS: Data Vitals/I&O Vitals and I&O: Vital Signs Temperature 36.7 C 07/11/20 07:25 Temperature Source Tympanic 07/11/20 07:25 Pulse 54 L 07/11/20 07:25 Pulse Rhythm Irregular 07/11/20 10:14 Pulse 81 07/08/20 00:32 Respiratory Rate 17 07/11/20 07:25 Respiratory Effort Non-Labored 07/11/20 10:14 Respiratory Depth Normal 07/11/20 10:14 Respiratory Pattern Normal 07/11/20 10:14 Blood Pressure 167/89 H 07/11/20 07:25 Blood Pressure Mean 95 07/08/20 00:32 Pulse Oximetry 98 07/11/20 07:25 Oxygen Delivery Method Room Air 07/11/20 07:25 Oxygen Flow Rate 0 07/11/20 07:25 Pain Level 0 07/11/20 07:25 Comment 07/08/20 23:28 Intake & Output 07/10/20 07/11/20 07/11/20 23:59 11:59 23:59 Intake Total 1380 / 2500 Output Total 425 / 425 800 / 800 Balance 955 / 2075 -800 / -800 Weight 83.4 kg Intake: IV 999 Oral 380 / 480 Output: Urine 425 / 425 800 / 800 Other: Urine Color Yellow Yellow Urine Appearance Clear Clear Urine Odor Normal Normal Comment pT urniated in the urinal, he was also incontinent in brief. Voiding Methods Urinal Urinal Diaper Diaper Incontinent Incontinent Data Completed and Pending Labs on day of discharge: Labs from last 24 hours 07/11/20 07/11/20 07/11/20 Unknown 06:40 06:40 Sodium 136 Potassium 4.1 Chloride 101 Carbon Dioxide 25.6 Anion Gap 9.4 BUN 19 H Creatinine 1.0 Estimated GFR/1.73 m2 >= 60.00 Glucose 101 Calcium 9.3 Magnesium 1.5 L Ammonia Pending Preliminary micro results at discharge 07/07/20 22:55 Blood Culture - Preliminary Blood NO GROWTH 72 HOURS 07/07/20 23:20 Blood Culture - Preliminary Blood NO GROWTH 72 HOURS [facility] Medical History Alcohol intake above recommended sensible limits 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) left great toe transmetatarsal amputation 05-02-2017 by - 05-12-2017 [facility] [place] Vasc.Sx.: site with large necrotic/scabbed area: tx above knee amputation but pt declines - fup with wound care until pt decides to proceed ( - 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 [employer] SCI[employer]IST) Benign prostatic hyperplasia with lower urinary tract symptoms PSA: 1.5 in Critical lower limb ischemia RIGHT [facility] [place] SHAUNA Parsons/ status post right iliofemoral endarterectomy and patch angioplasty/right EIA stenting/ stent graft to distal SFA and popliteal/ COMPLICATED BY INFECTION: # debridements - w LEFT ILIOFEMORAL ENDATERECTOMY WITH [place] [facility] [place]ential hypertension (11/16/12) Gastroesophageal reflux disease Gout Hyperlipidemia Hypokalemia Hypomagnesemia Hypomagnesemia (01/01/15) Hypomagnesemia (01/01/15) Hyponatremia (09/06/13) serum electrophoresis normal 2009/ cortisol level normal: 2009 Osteomyelitis of right lower extremity 08/13/15- GREAT RIGHT TOE S/P AMPUTAION Osteomyelitis of toe Paroxysmal atrial fibrillation ADONIS score: 1/ on asa Peripheral vascular disease critical lower limb ischemia - [facility] [place]- 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 Restless leg syndrome, uncontrolled Sciatica Vitamin D deficiency (09/06/13) Weakness Surgical History Amputation 08/13/15-GREAT RIGHT TOE Status post amputation of great toe (08/13/15) (post osteomyelitis) Social History Smoking/Tobacco Use Status: Former Tobacco Use Smoking risk assessment performed?: Yes Drug use: Never Do you feel safe at home: Yes Do you feel safe in your relationship?: Yes
--- NOTE | 2020-07-11 13:10 | NUR.NOTE ---
pt being discharged from acute to swingbed. Nursing Note:
--- NOTE | 2020-07-18 17:20 | PDOC.CMDIS ---
- If Service Date Differs Date of service: 07/18/20 Time of Service: 17:20 LACE Index Scoring Tool - Questions: Length of Stay (in days): 7 - 13 Acuity (Admit via E.D.?): No Comorbidities: Mild Liver/Renal Disease E.D. Visits: 3 - Answers: Total Score: 10 Risk of Readmission: High Risk Care Management Discharge Reason for Hospitalization: Failure to Thrive Discharge Plan: Denton will go to the [facility] today, coordinated by DESIREE. He is agreeable to this placement, as he is not making progress as quickly as he had hoped. He was transported via ambulance, coordinated by DESIREE. He will follow up with his PCP and discharge plan of care. Patient/Family Education Needs: Review discharge instructions with pt and staff, discussion of self care needs and goals of care. Services Needed at Discharge: Residential Facility ([facility]), Transportation (EMS)
== END 2020-07-11 13:53 | disposition swing bed (61) | DRG 684 ==
LOC: ER 07-08 00:41 → MS 07-08 00:59
PROVIDERS: Family Medicine; Admitting Provider Family Medicine; Emergency Provider Student in an Organized Health Care Education/Training Program; PCP Family Medicine; Visit Provider Family Medicine
DX: N17.9 Acute kidney failure, unspecified (principal); R53.1 Weakness; E86.0 Dehydration; R62.7 Adult failure to thrive; Z79.01 Long term (current) use of anticoagulants; I48.0 Paroxysmal atrial fibrillation; K21.9 Gastro-esophageal reflux disease without esophagitis; I10 Essential (primary) hypertension; I73.9 Peripheral vascular disease, unspecified; J44.9 Chronic obstructive pulmonary disease, unspecified; B37.2 Candidiasis of skin and nail; R41.0 Disorientation, unspecified; N40.1 Benign prostatic hyperplasia with lower urinary tract symptoms; Z89.412 Acquired absence of left great toe; M10.9 Gout, unspecified; E83.42 Hypomagnesemia; G25.81 Restless legs syndrome; E55.9 Vitamin D deficiency, unspecified; M54.30 Sciatica, unspecified side; Z87.891 Personal history of nicotine dependence; W19.XXXA Unspecified fall, initial encounter; R29.6 Repeated falls; Z91.81 History of falling; S20.212A Contusion of left front wall of thorax, initial encounter; M54.9 Dorsalgia, unspecified; G89.29 Other chronic pain; Z85.21 Personal history of malignant neoplasm of larynx; S80.212A Abrasion, left knee, initial encounter; S80.211A Abrasion, right knee, initial encounter; S91.105A Unspecified open wound of left lesser toe(s) without damage to nail, initial encounter; S21.202A Unspecified open wound of left back wall of thorax without penetration into thoracic cavity, initial encounter
CPT/HCPCS: 36415; 51701; 71250; 80048; 80053; 82550; 87040; 87635; 93005; 96360; 96361; 97162; 97167; 97530; 99285; 70450; 70490; 74176; 81003; 81015; 83735; 83880; 84443; 84484; 85025; 85610; 85730; 93010; 99222; 99232; 99233; 99239

== ENCOUNTER 2020-07-11 13:31 | Inpatient (IN) | payer MEDICARE, SELFPAY ==
--- NOTE | 2020-07-11 13:43 | HPE_ITS ---
Date of service: 07/11/20 Time of Service: 13:43 Assessment and Plan Assessment and plan (1) Palliative care encounter: Status: Acute Assessment and plan: Ongoing discussion with patient regarding goals of care. DNR/DNI (2) Weakness: Status: Acute Assessment and plan: Generalized. Working with PT/OT. LIkely had poor nutritional intake at home; has hand contractures and was eating unassisted. (3) Adult failure to thrive: Status: Acute Assessment and plan: Encouraging adequate oral intake. (4) Skin yeast infection: Status: Acute Assessment and plan: Nystatin powder. (5) Alcohol intake above recommended sensible limits: Status: Acute Assessment and plan: Uncertain of the amount of previous alcohol intake or the duration; no longer drinking alcohol. Could conceivably have some degree of cognitive decline d/t alcohol abuse. Hand contractures could be Dupuytren's. (6) Discharge planning issues: Status: Acute Assessment and plan: Pt would like to return home but that appears unrealistic unless he has an inhome caregiver and he improves enough to require a one person assist or no assist. History of Present Illness History of Present Illness Chief Complaint: Weakness, FTT Narrative: This 74-year-old male came to the emergency department because of weakness.? He was found down and brought to the emergency department.? He was unable to get up by himself.? He had a full evaluation in the emergency department including a head and neck CT, abdominal chest and pelvic CT, and labs.? The emergency doctor attempted to contact his son Cristofer but that was not successful.? He has had multiple ED visits and frequent visits by EMS.? It has been noticed that there has been a general decline in his condition and he agreed to come to the emergency department.? It is not clear if he is compliant with his medical regimen.? He has multiple medical problems listed in his record.? I did have a bit of difficulty waking him up this morning and he said he felt confused.? He denies any pain at the present time. His WBC count was 11.32; it normalized w/o antibiotic intervention.? CT abd/pelvis unremarkable other than possible finding of cystitis.? Endovascular stents of both external iliac arteries was noted. UA was negative for evidence of infection.? Blood cultures obtained and were negative.? Initial Na was 134; corrected to 136.? K+ normal.? Mg+ 1.4 > 1.5.? His Mg supplementation was changed from Mg Oxide to Mg Gluconate.? Troponin negative. PT/OT consulted.? Palliative consulted.? Given slowed movements, contractures of fingers of both hands and ptosis, neurology consulted and is pending. Care managmeent working closely with patient and family.? Patient is very keen on returning home and is adamant about not wanting to go to a nursing facility.? His prognosis for improving adequately to care for himself at home with considerable assistance.? He is changing to swingbed status and will continue with PT/OT. He has been evaluated by palliative care. They suggested neurology consult given findings of dysphonia, slowed movements. 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) Benign prostatic hyperplasia with lower urinary tract symptoms PSA: 1.5 in Critical lower limb ischemia RIGHT [facility] SHAUNA Parsons/ status post right iliofemoral endarterectomy and patch angioplasty/right EIA stenting/ stent graft to distal SFA and popliteal/ COMPLICATED BY INFECTION: # debridements - w LEFT ILIOFEMORAL [place]ATERECTOM[place] [facility] [place] hypertension (11/16/12) Gastroesophageal reflux disease Gout Hyperlipidemia Hypokalemia Hypomagnesemia Hypomagnesemia (01/01/15) Hypomagnesemia (01/01/15) Hyponatremia (09/06/13) serum electrophoresis normal 2009/ cortisol level normal: 2010 Osteomyelitis of right lower extremity 08/13/15- GREAT RIGHT TOE S/P AMPUTAION Osteomyelitis of toe Paroxysmal atrial fibrillation ADONIS score: 1/ on asa Peripheral vascular disease critical lower limb ischemia - [facility] [place]- 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 Restless leg syndrome, uncontrolled Sciatica Vitamin D deficiency (09/06/13) Weakness Surgical History Amputation 08/13/15-GREAT RIGHT TOE Status post amputation of great toe (08/13/15) (post osteomyelitis) Social History Smoking/Tobacco Use Status: Former Tobacco Use Smoking risk assessment performed?: Yes Drug use: Never Do you feel safe at home: Yes Do you feel safe in your relationship?: Yes Meds Allergies and Home Medications Allergies Allergy/AdvReac Type Severity Reaction Status Date / Time pravastatin AdvReac Severe MUSCLE Unverified 07/07/20 21:50 PAIN AND WEAKNESS lisinopril AdvReac HYPERKALEMI Unverified 07/07/20 21:50 A Home Medications Medication Instructions Recorded Confirmed Type cetirizine 10 mg capsule 10 mg PO DAILY #90 cap 12/16/17 07/07/20 Rx pantoprazole 40 mg tablet,delayed 40 mg PO DAILY #90 tab 04/25/19 07/07/20 Rx release finasteride 5 mg tablet 5 mg PO DAILY #90 tab 07/26/19 07/07/20 Rx metoprolol succinate 100 mg 100 mg PO BID #60 tab-cap 09/06/19 07/07/20 Rx tablet,extended release 24 hr metoprolol succinate 25 mg 25 mg PO BID #60 tab 09/06/19 07/07/20 Rx tablet,extended release 24 hr aspirin 81 mg tablet,delayed 81 mg PO DAILY #90 tab-cap 02/12/20 07/07/20 Rx release tamsulosin 0.4 mg capsule 0.8 mg PO DAILY #60 tab-cap 02/13/20 07/07/20 Rx pramipexole 0.25 mg tablet 0.25 mg PO HS #90 tab 04/01/20 07/07/20 Rx allopurinol 300 mg tablet 300 mg PO DAILY #90 tab 04/05/20 07/07/20 Rx fluticasone propionate 50 2 spray NS DAILY #1 script 05/29/20 07/07/20 Rx mcg/actuation nasal spray,suspension lorazepam 0.5 mg tablet 0.5 - 1 mg PO DAILY PRN #60 tab 06/10/20 07/07/20 Rx acetaminophen [Tylenol] 650 mg PO Q6H PRN PRN #0 tab 07/11/20 Rx amlodipine 5 mg PO DAILY #0 tab 07/11/20 Rx lidocaine HCl [Glydo] 6 ml TOPICAL DIRECTED #0 ml 07/11/20 Rx losartan 25 mg PO DAILY #0 tab 07/11/20 Rx magnesium gluconate 500 mg PO BID #0 tab 07/11/20 Rx nystatin 0 g TOPICAL TID #0 g 07/11/20 Rx Exam Const General: cooperative and no acute distress Nutritional Appearance: overweight Orientation: alert, oriented to person and oriented to place Neck Neck: full ROM and no JVD Resp Effort & Inspection: normal respiratory effort Auscultation: clear to auscultation bilaterally Cardio Rate: regular rate Rhythm: regular rhythm Heart Sounds: S1 normal and S2 normal GI Palpation: soft and nontender Skin General skin exam: no rashes or lesions noted Extrem General: no pedal edema, no calf tenderness and other (BUE; flexion deformities of all fingers but thumbs that are spared.) Psych Speech and Movement: speech clear (slowed) and slowed movement COVID-19 Screening Have you, or household traveled for leisure in last 14 days?: No
--- NOTE | 2020-07-11 14:10 | PT.INIE ---
Date of service: 07/11/20 Time of Service: 14:10 PT Notes Visit Reasons: Failure to thrive Physical Therapy Inpatient Initial Evaluation Date: 07/11/2020 Referring Doctor: Lamin Barnes MD PT Orders: PT CONSULT: Eval/treat. Precautions: Fall. Standard. Activity as tolerated. Patient Profile/Admitting Diagnosis: Denton is a 74-year-old male who presented to the ED on 07/08/2019 122 adult failure to thrive, medication none compliance, and falls.? Patient fall, failure to thrive, skin knees cute kidney, and EtOH intake above commended sensible limits, PAF, neoplasm of glottis, and chronic low back pain. PMHX: Medical History? 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 [facility] SHAUNA Parsons/ status post right iliofemoral endarterectomy and patch angioplasty/right EIA stenting/ stent graft to distal SFA and popliteal/ COMPLICATED BY INFECTION: # debridements - w LEFT ? ? 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 Restless leg syndrome, uncontrolled Sciatica Vitamin D deficiency (09/06/13) Surgical History? Amputation 08/13/15-GREAT RIGHT TOEStatus post amputation of great toe (08/13/15) ? (post osteomyelitis) Social History/Home Situation: Lives alone in a private home.? Has been receiving support from family and home health personnel.? 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 Equipment Owned/DME: Front-wheeled walker Subjective: Agreeable to PT session. Doubtful about how he will do today. Remains unwavering about decision to not go to a SNF. Objective: General Observation: IV access in the left UE.? Bilateral amputation of great toes.? Contusion seen in right lumbar and lateral trunk area on the right side.? Inflamed right groin area.? Fixed flexion deformity of fingers on the left side. Mental Status: Alert.? Able to pay attention, focus, and respond appropriately but speech not fully discernible everytime. Pain: Reported discomfort on the low back area ROM: Right Upper Extremity: ? Unable to flex at the shoulder beyond 90 degrees with empty end feel. Unable to abduct beyond 80 degrees due to discomfort. Elbows flexion WFL. Elbow extension WFL. Wrist flexion about 10 degrees. Wrist extension 10 degrees. Fixed wrist flexion contracture in the IP joints. Left Upper Extremity:? Unable to flex at the shoulder beyond 80 degrees with empty end feel. Unable to abduct beyond 60 degrees due to discomfort. Elbows flexion WFL. Elbow extension WFL. Wrist flexion about 20 degrees. Finger flexion Right Lower Extremity: Hip flexion lacking the last 45 degrees. Hip abduction limited to 10 degrees. Knee flexion WFL. Knee extension. Ankle dorsiflexion/eversion to neutral only. Ankle plantarflexion/inversion WFL. Left Lower Extremity: Hip flexion lacking the last 45 degrees. Hip abduction limited to 10 degrees. Knee flexion WFL. Knee extension. Ankle dorsiflexion/eversion to neutral only. Ankle plantarflexion/inversion WFL. Strength: Right Upper Extremity: Shoulder flexors 3-/5. Shoulder abductors 3-/5. Shoulder ER 3-/5. Elbow flexors 4-/5. Elbow extensors 4-/5. Put In Beat Adjuster? weakn but functional. Left Upper Extremity: Shoulder flexors 3-/5. Shoulder abductors 3-/5. Shoulder ER 3-/5. Elbow flexors 4-/5. Elbow extensors 4-/5. Put In Beat Adjuster? absent. Right Lower Extremity: Hip flexors 3-/5. Hip abductors 3-/5. Hip external rotators 3-/5. Knee flexors 4-/5. Knee extensors 4-/5. Ankle dorsiflexors/evertors 3-/5. Ankle plantarflexors/invertors 4-/5. Left Lower Extremity: Hip flexors 3-/5. Hip abductors 3-/5. Hip external rotators 3-/5. Knee flexors 4-/5. Knee extensors 4-/5. Ankle dorsiflexors/evertors 3-/5. Ankle plantarflexors/invertors 4-/5. Bed Mobility/Transfers: Sit to stand contact-guard assist coming from reclining chair; minimal assist coming from wheelchair Stand to sit contact-guard assist Bed to chair contact-guard assist coming from reclining chair; minimal assist coming from wheelchair Gait: Tolerated a distance of up to 20 feet +15 feet +10 feet using front wheeled walker with moderate to maximal verbal cueing for walker management, overall safety, and hand placement. Wheelchair follow needed for safety. Mild S OB after activity. Left thumb able to latch onto walker handle on the left due to flexion contracture of the left fingers. Right hand has poor grasp but is able to hold onto walker handle however frequently slides down and requires moderate verbal cueing for hand repositioning. Balance: Static Sitting: Normal Dynamic Sitting: Good Static Standing: Fair Dynamic Standing: Poor Assessment: Denton may require longer time to achieve BUE/LE strength, balance, and functional mobility goals and thus will require SNF placement for at least 3 to 4 weeks prior to going home.? His transfer skills as well as ambulation skills are markedly decreased making him at high risk for falls at this time.? He continues to demonstrate significant functional mobility decline requiring assistance of 2 people for all transfer and ambulation task performance, generalized weakness to bilateral lower extremities, decreased activity tolerance, and high risk for falls and the skin breakdown due to admitting diagnoses and co-morbidities.? Patient continues to present instability, generalized weakness, and impairment of motor control as demonstrated by the following impairment level findings: 1.? Decreased strength to B UE/LE major muscle groups 2.? Impaired sitting/standing balance 3.? Impaired activity tolerance 4.? Limitation of joint range of motion in B shoulders and B ankles Impairments are continuing to contribute to the following functional limitations: 1.? Dependent bed mobility skills 2.? Increased dependence with transfers 3.? Inability to safely ambulate without assistive device and physical assistance 4.? Increase completion time for mobility ADL performance 5.? Increased fall risk 6.? Inability to negotiate steps alone safely 7.? Inability to return to prior living environment at this time Goals: Goals X1 week 1. Supine-Sit independent 2. Sit-Supine independent 3. Sit-Stand standby assist 4. Stand-Sit standby assist 5. Bed-Chair standby assist 6. Chair-Bed standby assist 7.? Standby assist gait on level surface with use of front wheeled walker for at least 50 feet without report of pain nor dyspnea 9.? Fair static and dynamic standing balance/tolerance Plan of Care/Treatment Plan: 1-2x/day, 7 days/week x 1 week. Plan of care has been reviewed with the OPERATIONS INTELLIGENCE SUPERINTENDENT providing the service under Physical Therapy direction. Initiate Physical Therapy intervention for pain management as needed, strengthening, bed mobility, transfers, gait, stairs, balance training, and use of assistive device. DISCHARGE RECOMMENDATIONS: Patient will benefit from fpc facility placement for continued skilled physical therapy services in order to progress mobility level, strength, and balance in preparation for a safe discharge to home. TREATMENT CODE/TIME: 42580 x 25 minutes, 99658 x 10 minutes, 44342 x 10 minutes beginning at 14:10 PM. Thank you for the opportunity to participate in the care of this patient. Mariann Murray PT, DPT, CLT [facility] [place], [place]
--- NOTE | 2020-07-11 14:13 | PCNE_ITS ---
Date of service: 07/11/20 Time of Service: 16:37 History of Present Illness History of Present Illness Chief Complaint: generalized weakness with contractures, ptosis, abnl speech Narrative: I was asked by Dr Barnes to evaluate Mr Cisneros's ability to understand his current condition. I met with Denton in his room. He was in a recliner. His fists were notably clenched and contracted. He has bilateral ptosis. His speech is somewhat garbled and his voice hypophonic. He has very flat facies. His nasolabial folds are flattened bilaterally. He has a syndromic look to him. His deficits are bilateral throughout. Denton has been consistently refusing to go anywhere but home. He was changed to swing bed status today. He is a 2 person assist. He needs help being repositioned in his recliner. I suggested that he will likely be on swing bed 1 for the maximal amount of time allowed, about 2 weeks. I said I wasn't sure that he would be strong enough to go home at the end of that time. He said he thought he would be able to walk on his own in 4 or 5 more [address] I called Dr Mcdonald to ensure that she has never seen him before. I think he would benefit from her expertise. Dr Barnes will put in a consult request to her, he said. Consults Consult date: 07/11/20 Requesting physician: Lamin Barnes Assessment and Plan Assessment and plan (1) Palliative care patient: Status: Acute Assessment and plan: Seen by Dr Chauhan when he was on acute status. She was able to fill out his COLST form with him then. (2) Discharge planning issues: Status: Acute Assessment and plan: Unlikely that he will be able to get strong enough and mobile enough to go home safely alone. He is not open to discussing SNF placement at this time. (3) Weakness: Status: Acute Assessment and plan: Unable to reposition himself in the recliner when I was with him. Struggles with holding a cup with a handle. Needs to be fed due to his severe hand contractures. (4) Frequent falls: Status: Acute Assessment and plan: Working with PT and OT. Unlikely to be able to prevent falls with walker alone. Needs supervision, likely . (5) Ptosis of both upper eyelids: Status: Acute Assessment and plan: He says he has had a harder time opening his eyes over the last 6 months or so. ? myasthenia gravis? He seems to have some sort of neurological degenerative disease. Could be secondary to heavy etoh use. Unable to quantify life long usage. Not a very clear historian. (6) Adult failure to thrive: Status: Acute (7) Flexion contractures: Status: Chronic Assessment and plan: Unclear about length of time present, but likely wit hin the last few months given his rapid decline in self-care. He really cannot care for himself with his hands as they are now. Review of Systems Constitutional Constitutional: Reports fatigue, Reports frequent falls, Reports lethargy and Reports weakness Eyes Eyes: Reports blurry vision, Reports dry eyes and Reports loss of vision ENT Ears, Nose, Mouth, and Throat: Reports abnormal hearing, Reports change in voice, Reports dysphagia, Reports dizziness, Reports dry mouth, Reports hearing loss and Reports disequilibrium Cardiovascular Cardiovascular: Reports dyspnea on exertion and Reports orthopnea Respiratory Respiratory: Reports dyspnea on exertion Gastrointestinal Gastrointestinal: Reports constipation and Reports dysphagia Genitourinary Genitourinary: Reports difficulty urinating and Reports urinary incontinence Musculoskeletal Musculoskeletal: Reports abnormal gait, Reports atrophy, Reports deformity, Reports limited range of motion, Reports muscle cramps, Reports muscle weakness, Reports numbness and Reports stiffness Integumentary/Breasts Skin/Breast: Reports dry skin Neurologic Neurologic: Reports abnormal hearing, Reports abnormal speech, Reports abnormal gait, Reports dizziness, Reports frequent falls, Reports loss of vision, Reports memory loss, Reports numbness, Reports disequilibrium and Reports weakness Psychiatric Psychiatric: Reports difficulty concentrating and Reports memory loss Endocrine Endocrine: Reports fatigue Hematologic/Lymphatic Hematologic/Lymphatic: Reports easy bruising [facility] Medical History (Updated 07/11/20 @ 17:53 by Precious Rodriguez MD) Alcohol intake above recommended sensible limits 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) left great toe transmetatarsal amputation 05-02-2017 by - 05-12-2017 [facility] [place] Vasc.Sx.: site with large necrotic/scabbed area: tx above knee amputation but pt declines - fup with wound care until pt decides to proceed (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) Benign prostatic hyperplasia with lower urinary tract symptoms PSA: 1.5 in Critical lower limb ischemia RIGHT [facility] SHAUNA Parsons/ status post right iliofemoral endarterectomy and patch angioplasty/right EIA stenting/ stent graft to distal SFA and popliteal/ COMPLICATED BY INFECTION: # debridements - w LEFT ILIOFEMORAL ENDATERECTOMY WITH LEFT EXTERNAL ILIAC STENT - [facility] [place] Essential hypertension (11/16/12) Flexion contractures both hands, all fingers, thumbs somewhat spared Frequent falls Gastroesophageal reflux disease Gout Hyperlipidemia Hypokalemia Hypomagnesemia Hypomagnesemia (01/01/15) Hypomagnesemia (01/01/15) Hyponatremia (09/06/13) serum electrophoresis normal 2010/ cortisol level normal: 2010 Osteomyelitis of right lower extremity 08/13/15- GREAT RIGHT TOE S/P AMPUTAION Osteomyelitis of toe Palliative care patient Paroxysmal atrial fibrillation ADONIS score: 1/ on asa Peripheral vascular disease critical lower limb ischemia - [facility] [place]- 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 Ptosis of both upper eyelids Restless leg syndrome, uncontrolled Sciatica Vitamin D deficiency (09/06/13) Weakness Surgical History Amputation 08/13/15-GREAT RIGHT TOE Status post amputation of great toe (08/13/15) (post osteomyelitis) Family History (Updated 07/11/20 @ 17:55 by Precious Rodriguez MD) Son No problems noted. Daughter No problems noted. Daughter No problems noted. 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 Current gender identity: male What is your relationship status?: How often do you talk on the phone with friends or family?: three or more times per week How often do you get together with friends or relatives?: three or more times per week Panel score (0-1 are the most socially isolated patients): 1 What type of physical activity do you participate in: assisted ambulation Duration: < 15 minutes/day Frequency: daily Special annemarie needs: No Seatbelt use: sometimes Working smoke detector in home: Yes Fire extinguisher in home: Yes Do you feel safe at home: Yes Do you feel safe in your relationship?: Yes Additional Social history: Denton lives alone, falls frequently, in the ER in May and June 2020, admitted at second visit. Reports that falling is new. 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 has tried to contact son today; no call back yet. Dr Chauhan from [facility] tried to reach him too during her visit; she had no luck. Denton told that he has people caring for him twice a day. Son Cristofer clarified that neighbors check to see if he is alive twice a day, but provide no care. Denton told me that his daughter Hilda lives in [place] and his daughter Shikha lives in another world. Exam Const General: cooperative, no acute distress, frail appearing and ill appearing Nutritional Appearance: overweight Orientation: awake, oriented to person and oriented to place [facility] Head: normocephalic and atraumatic Ears: hearing grossly impaired General nose exam: external nose normal Face and sinus: other (ptosis of both eyelids, flat facies) Eyes Eyelids: eyelid abnormality Conjunctivae: conjunctivae normal Sclera: sclerae normal Neck Neck: no lymphadenopathy and no JVD Resp Effort & Inspection: normal respiratory effort Auscultation: clear to auscultation bilaterally and diminished lung sounds Cardio Rate: regular rate Rhythm: regular rhythm Heart Sounds: S1 normal and S2 normal GI Palpation: soft and nontender Auscultation: normal bowel sounds Skin General skin exam: no rashes or lesions noted and dry skin Nails: clubbing and dystrophic Neuro General: patient awake and gait abnormal Cognition: abnormal cognition Speech: abnormal speech Gait: gait assisted Method: walker Extrem General: no pedal edema, no calf tenderness, clubbing and other (BUE; flexion deformities of all fingers but thumbs are spared.) Right upper extremity: hand Details: abnormal to inspection Left upper extremity: hand Details: abnormal to inspection Psych Appearance: disheveled Speech and Movement: speech clear (slowed, hypophonic), delayed speech and slowed movement Mood: dysthymic mood Affect: dysphoric affect and blunted Attitude: cooperative Thought Process: confabulating, illogical and impoverished Insight: poor Judgment: poor Other: He does not have an accurate sense of his limitations and inability to take care of himself. He would not be safe to go home on his own.
--- NOTE | 2020-07-11 14:14 | NUR.NOTE ---
pt admitted to [facility] from acute. See account [id number] for shift assessments and other documentation from earlier today.Nursing Note:
--- NOTE | 2020-07-11 15:01 | CHAPLAIN ---
Denton was up in his chair when visited. He talked mostly about wanting to go home from here, and being concerned that he might not be able to go home because he can't do much for himself. He said he has three children. He seemed interested in talking about himself and answering questions.
[2020-07-11 15:03] VITALS: BP 159/97; PULSE 73; RESP 16; TEMP 36.6; O2SAT 93
--- NOTE | 2020-07-11 16:44 | NCONE_ITS ---
Date of service: 07/11/20 Time of Service: 16:44 Assessment and Plan Assessment and plan (1) Cervical myelopathy: Status: Acute (2) Flexion contractures: Status: Chronic (3) Frequent falls: Status: Acute Assessment and plan: Mr. Cisneros is a 74 year-old, ambidextrous man who was admitted with failure to thrive. #1. Gait imbalance and falls. He has chronic imbalance secondary to cervical myelopathy and complicated by toe amputations, ?peripheral neuropathy. He has a difficult exam due to his many medical issues. No obvious evidence of recurrent myelopathy. #2. Hand contractures. These are chronic and felt to be due to OA/Dupuytrens. I don't know if there is any role for intervention this late. Consider discussion with ortho. #3. Memory loss complicated by cerebrovascular disease, alcohol abuse. He appears to have some memory loss. Full memory testing not completed today. I recommend checking a vitamin B12 level. Continue aspirin 81mg daily. History of Present Illness History of Present Illness Chief Complaint: failure to thrive Narrative: Handedness: ambidextrous. HPI: Mr. Cisneros is a 74 year-old man with paroxysmal atrial fibrillation, hypertension, peripheral vascular disease s/p previous amputations, COPD, BPH, gout, laryngeal cancer, cervical myelopathy, ETOH abuse, osteomyelitis, and glaucoma. Mr. Cisneros was admitted on 07/07/20 for failure to thrive and inability to care for himself at home. Over the last 1 year, he has had a particular decline. He cannot tell me why he is in the hospital. He said they sent me. Because I was sick. He couldn't tell me how he was sick. In review of his PCP notes, he has had only sporadic medical care over the years. In 2009, he underwent cervical fusion for severe cervical myelopathy managed by generalized weakness. He has some improvement after surgery, but per prior neurology records, he continued to have a mild quadriparesis along with sensory loss in all extremities after. He was dependent on a cane. A 2017 note indicates a diagnosis of ataxia with frequent falls. PCP notes from 2018 indicate that he was using a walker at that time. He has had noted contractures of the hands documented as far back as 2014. These were attributed to Dupuytrens. He has documented chronic dysphonia since laryngeal cancer ablation/XRT in the . He underwent toe amputations due to osteomyelitis in 2015 and 2016. CTH (07/07/20): moderate-severe generalized atrophy. 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 I reviewed his previous images. This infarct occurred some time between 2009 and 2016 based on prior imaging. 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) Benign prostatic hyperplasia with lower urinary tract symptoms PSA: 1.5 in Critical lower limb ischemia RIGHT [facility] SHAUNA Parsons/ status post right iliofemoral endarterectomy and patch angioplasty/right EIA stenting/ stent graft to distal SFA and popliteal/ COMPLICATED BY INFECTION: # debridements - w LEFT ILIOFEMORAL ENDATERECTOMY [place] [facility] [place] Essential hypertension (11/16/12) Flexion contractures both hands, all fingers, thumbs somewhat spared Frequent falls Gastroesophageal reflux disease Gout Hyperlipidemia Hypokalemia Hypomagnesemia Hypomagnesemia (01/01/15) Hypomagnesemia (01/01/15) Hyponatremia (09/06/13) serum electrophoresis normal 2009/ cortisol level normal: 2010 Osteomyelitis of right lower extremity 08/13/15- GREAT RIGHT TOE S/P AMPUTAION Osteomyelitis of toe Palliative care patient Paroxysmal atrial fibrillation ADONIS score: 1/ on asa Peripheral vascular disease critical lower limb ischemia [place] [facility] 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 Ptosis of both upper eyelids Restless leg syndrome, uncontrolled Sciatica Vitamin D deficiency (09/06/13) Weakness Surgical History Amputation 6/28/16-GREAT RIGHT TOE Status post amputation of great toe (08/13/15) (post osteomyelitis) Family History (Updated 07/11/20 @ 17:55 by Precious Rodriguez MD) Son No problems noted. Daughter No problems noted. Daughter No problems noted. 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 Current gender identity: male What is your relationship status?: How often do you talk on the phone with friends or family?: three or more times per week How often do you get together with friends or relatives?: three or more times per week Panel score (0-1 are the most socially isolated patients): 1 What type of physical activity do you participate in: assisted ambulation Duration: < 15 minutes/day Frequency: daily Special annemarie needs: No Seatbelt use: sometimes Working smoke detector in home: Yes Fire extinguisher in home: Yes Do you feel safe at home: Yes Do you feel safe in your relationship?: Yes Additional Social history: Denton lives alone, falls frequently, in the ER in May and June 2020, admitted at second visit. Reports that falling is new. Not a reliable orthotic/prosthetic practitioner. has tried to contact son today; no call back yet. Dr Cici harris from [facility] tried to reach him too during her visit; she had no luck. Denton told CM that he has people caring for him twice a day. Thomas Cleveland clarified that neighbors check to see if he is alive twice a day, but provide no care. Denton told me that his daughter Hilda lives in [place] and his daughter Shikha lives in another world. Visit Medication and Allergies Active Medications Generic Name Dose Route Start Last Admin Trade Name Freq PRN Reason Stop Dose Admin Acetaminophen 650 mg 07/11/20 13:11 Acetaminophen 325 Mg Tab PO Q6H PRN PRN Allopurinol 300 mg 07/12/20 08:30 Allopurinol 300 Mg Tab PO DAILY [facility] Amlodipine Besylate 5 mg 07/12/20 08:30 Amlodipine 5 Mg Tab PO DAILY [facility] Aspirin 81 mg 07/12/20 08:30 Aspirin E.C. 81 Mg Tabec PO DAILY [facility] Cetirizine HCl 10 mg 07/12/20 08:30 Cetirizine 10 Mg Tab PO DAILY [facility] Clonidine 0.1 mg 07/11/20 13:13 Clonidine 0.1 Mg Tab PO Q6H PRN PRN Dimethicone/Zinc Oxide 0 gm 07/11/20 13:31 Ryan Protect Cream 142 Gm Tube TP PRN PRN Finasteride 5 mg 07/12/20 08:30 Finasteride 5 Mg Tab PO DAILY [facility] Fluticasone Propionate 0 gm 07/12/20 08:30 Fluticasone Nasal [place] 16 Gm Btl NS DAILY [facility] Lidocaine HCl 6 ml 07/11/20 13:15 Lidocaine 2% Jelly 6 Ml Syr TP DIRECTED [facility] Lorazepam 0.5 - 1 mg 07/11/20 13:22 Lorazepam 0.5 Mg Tab PO HS PRN PRN anxiety Losartan Potassium 25 mg 07/12/20 08:30 Losartan 25 Mg Tab PO DAILY [facility] Magnesium Gluconate 500 mg 07/11/20 20:00 Magnesium Gluconate 500 Mg Tab PO BID [facility] Metoprolol Succinate 100 mg 07/11/20 20:00 Metoprolol Cr 100 Mg Tabcr PO BID [facility] Metoprolol Succinate 25 mg 07/11/20 20:00 Metoprolol Cr 25 Mg Tabcr PO BID [facility] Nystatin 0 gm 07/11/20 20:00 Nystatin Powder 60 Gm Jar TP TID [facility] Pantoprazole Sodium 40 mg 07/12/20 07:30 Pantoprazole 40 Mg Tabcr PO DAILY@0730 [facility] Pramipexole Dihydrochloride 0.25 mg 07/11/20 22:00 Pramipexole 0.25 Mg Tab PO HS [facility] Tamsulosin HCl 0.8 mg 07/12/20 08:30 Tamsulosin 0.4 Mg Capcr PO DAILY [facility] Allergies pravastatin Adverse Reaction (Severe, Unverified 07/07/20 21:50) MUSCLE PAIN AND WEAKNESS lisinopril Adverse Reaction (Unverified 07/07/20 21:50) HYPERKALEMIA Exam Narrative Exam Narrative: Physical Exam: Gen: Patient of apparent stated age, NAD Head and face: no facial or cranial abnormalities, adentulous Neck: Supple, no meningismus, no occipital tenderness CV: + S1, S2, RRR, +murmur Resp: CTA B/L Abd: soft, nontender, nondistended Ext: No edema. No clubbing or cyanosis. Bilateral great toe amputations. Neuro Exam: Language: fluency, naming, repetition, and comprehension intact; Mental Status: AAO to person and place; said year was 2019; knew it was June but not date/day; could not come up with town name but when asked for hosptial name said [facility]; current events and fund of knowledge limited; Speech: mild dysarthria and hypophonia Cranial nerves: Funduscopy: not performed CN II: visual mcclelland intact CN III, IV, : extraocular movements intact, no nystagmus, pupils symmetric and reactive to light CN V: face sensation intact to PP CN VII: bilateral ptosis seems related to age CN VIII: hearing intact bilaterally CN IX, X: palate rises symmetrically CN XI: trapezius/SCM 5/5 bilaterally CN XII: protrudes tongue symmetrically Sensory: intact to PP in all extremities Motor: Fixed contractures of fingers in L>R hand c/w Dupuytrens along with wrist bony OA changes. No pronator drift. Strength 4/5 throughout, weaker in the distal legs 4-/5 ankle dorsiflexion. Reflexes: 2+ at the biceps, triceps, and brachioradialis; hyporeflexic at the patella and achilles tendons bilaterally; no great toes to test plantar reflex; unable to test Arguello/Tromner due to hand contractures Coordination: no ataxia Gait: unable to test safely at this time Results Last Vital Signs Temp 36.6 C 07/11/20 15:03 Pulse 73 07/11/20 15:03 Resp 16 07/11/20 15:03 BP 159/97 H 07/11/20 15:03 Pulse Ox 93 07/11/20 15:03
--- NOTE | 2020-07-11 17:42 | PTTR_ITS ---
Date of service: 07/10/20 Time of Service: 11:30 PT Notes Visit Reasons: Failure to thrive Inpatient Physical Therapy Treatment Note [facility] Date: 07/10/2020 PRECAUTIONS: Fall. Activity as tolerated SUBJECTIVE: Denton admittedly says that there has been significant decline in his ability to move about and states that he does not feel safe right now to go home. OBJECTIVE:? PAIN: None reported ? BED MOBILITY/TRANSFERS? Sit-stand: Contact-guard assist from recliner, minimal assist from wheelchair? Stand- sit: Contact-guard assist from recliner, minimal assist from wheelchair? ? Reclining chair to wheelchair contact-guard assist with cues required for hand placement and trunk positioning? ? Wheelchair to reclining chair minimal assist with cues required for hand placement and trunk positioning? GAIT? Assistive Device: FWW? Weight bearing: Full Assist: Minimal assist ? Distance: 25 feet +15 feet ? Deviation: Decreased DF in bilateral ankles. Wide POS. Minimal to moderate verbal cues needed for hand placement and walker management. Excessive trunk flexion.? ASSESSMENT: Fatigues easily. Excessive trunk flexion during walking increases risk for falling forward. Patient continues to require physical assistance and moderate to verbal cueing for correct sit to stand movement transition, hand placement while using walker, and walker handling during ambulation activity. PLAN: Patient will benefit from home health PT services in order to progress mobility level using least restrictive assistive ambulatory device, assess home safety, identify additional equipment needs, and establish a functional maintenance program that will increase ability of patient to remain at home. TREATMENT CODE/TIME: 9753 0 x 32 minutes beginning at 11:30 AM.
--- NOTE | 2020-07-11 18:47 | CMSA_ITS ---
- If Service Date Differs Date of service: 07/11/20 Time of Service: 14:00 SB Psychosocial/Act.Assessment - Hospital Admission Admission Date: 07/07/20 Admission From:: Home Diagnosis:: Failure to Thrive - Swing Bed Admission Swing Bed Admit Date:: 07/11/20 Swing Bed Level of Care: Level 1/SNF - Social Supports PREVIOUS FUNCTIONAL STATUS/SOCIAL/FAMILY SUPPORTS:: Ed resides alone in [place], [place]. He is and has a significant other, but she is dealing with her own health issues at this time. His son, Cristofer is his main support person and resides in [place], but Cristofer is employed lining machine tender and unable to provide lining machine tender support. Ed's daughters, Yolanda and, Hilda also reside locally and are supportive. Denton has been failing for some time at home and presents to [facility] with multiple bruises and wounds, per reports, appears that he refuses additional supports. - : No [place]'s Spouse: No - Benefits Financial: Medicare, Medicaid - Voodoo Active Orthodoxy Member:: No Will Orthodoxy Members or Fertilizing Machine Operator Visit:: No - Advance Directives for Healthcare Advance Directives for Healthcare: Advance Directives (COLST) - Present Functional Status Physical Abilities:: Flexion contractures; Fists notably clenched and contracted, bilateral ptosis. His speech is somewhat garbled and his voice hypophonic. He has very flat facies. His nasolabial folds are flattened bilaterally. He has a syndromic look to him. His deficits are bilateral throu ghout. Unable to reposition himself in the recliner when I was with him. Struggles with holding a cup with a handle. Needs to be fed due to his severe hand contractures. Working with PT and OT. Unlikely to be able to prevent falls with walker alone. Needs supervision, likely .. Cognitive:: Memory loss complicated by cerebrovascular disease, alcohol abuse. Communication:: Garbled speech. Behavior:: Cooperative, utilizes good humor. - Medical History PAST MEDICAL HISTORY/PAST SURGICAL HISTORY:: Alcohol intake above recommended sensible limits. 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). left great toe transmetatarsal 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 Benign prostatic hyperplasia with lower urinary tract symptoms. PSA: 1.5 in . Critical lower limb ischemia. RIGHT[place] [facility] [place]NA Parsons/ status post right iliofemoral endarterectomy and patch angioplasty/right EIA stenting/ stent graft to distal SFA and popliteal/ COMPLICATED BY INFECTION: # debridements - w. LEFT. ILIOFEMORAL ENDATERECTOMY WITH LEFT EXTERNAL [place]IAC STENT [place] [facility] [place]. Essential hypertension (11/16/12). Gastroesophageal reflux disease. Gout. Hyperlipidemia. Hypomagnesemia. Hyponatremia (09/06/13). serum electrophoresis normal 2009/. cortisol level normal: 2009. Osteomyelitis of right lower extremity. 08/13/15- GREAT RIGHT TOE S/P AMPUTAION. Osteomyelitis of toe. Paroxysmal atrial fibrillation. ADONIS score: 1/ on asa. Peripheral vascular disease. critical [place] limb ischemia [place] [facility] [place] . 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 surgery/ radiation/ no chemo. Restless leg syndrome, uncontrolled. Sciatica. Vitamin D deficiency (09/06/13). Amputation. 08/13/15-GREAT RIGHT TOE. Status post amputation of great toe (08/13/15). (post osteomyelitis) - Admission Data Reason for Swing Bed Admission:: Failure to Thrive; not agreeable to SNF placement; no safe discharge disposition currently. Discharge Plan:: Likely SNF, once agreeable, patient feels with SWB1 he will be able to bounce back in 7-10 days, he will be provided opportunity. Assessment: S/T swing bed to SNF-vs-Home with increased services. Plunger Machine Operator: Yocasta Alcaraz Date Assessment was completed:: 07/11/20
--- NOTE | 2020-07-11 18:47 | CM.SWINGPC ---
- If Service Date Differs Date of service: 07/12/20 Time of Service: 16:22 Swingbed Plan of Care Plan of care: SWING BED PROGRAM ACTIVITIES/DISCHARGE PLAN OF CARE ACTIVITIES PLAN Date: 07/11/20 Identified Need: Life enrichment during extended hospitalization Intervention/Plan: Offering visitation for vaccinated individuals, television, activity cart Initials: ALYCE DISCHARGE PLAN Date: 07/11/20 Identified Need: Progression to functional baseline. Intervention/Plan: PT/OT/Wound Care, Neurology, Palliative Initials: ALYCE
[2020-07-11] MEDS: Magnesium Gluconate 500 MG TAB PO (19:51)
[2020-07-11] MEDS: Metoprolol CR 25 MG TABCR PO (19:52)
[2020-07-11] MEDS: Metoprolol CR 100 MG TABCR PO (19:52)
[2020-07-11] MEDS: Nystatin POWDER 60 GM JAR TP (19:53)
[2020-07-11] MEDS: Pramipexole 0.25 MG TAB PO (21:57)
[2020-07-12 07:02] LABS: Ammonia < 10 umol/L (11-32)
[2020-07-12 07:13] VITALS: BP 177/88; PULSE 91; RESP 14; TEMP 36; O2SAT 98
--- NOTE | 2020-07-12 08:47 | OT.INTREAT ---
Date of service: 07/12/20 Time of Service: 07:35 Occupational Therapy Notes Occupational Therapy Inpatient Treatment Note Date: 07/12/20 PRECAUTIONS: Fall, standard, DNR/DNI SUBJECTIVE: Pt was sitting in chair when OT arrived. He was agreeable to OT session and notes that he is (I) at home and is happy to do whatever he needs to at todays session. OBJECTIVE: PAIN:no c/o pain BATHING: sitting in bed with max (A) set up/clean up min vc throughout Upper Body: (I) face with help with positioning his wash clothe on his hand. Mod (A) (B) UE for arms Lower Body: Max (A) DRESSING: Lying in bed Upper Extremity: Mod (A) [facility] gown Lower Extremity: Max (A) EATING: Pt was able to demonstrate increased (I) with his eating routines, he is (I) with food to mouth and stabbing his fork into his food. OT provided pt with brown foam and cup with cover which he tolerated well. He is able to grasp his cup with handles (I) and drink through the straw. He is also able to rotate his fork with his (B) UE as needed for positioning. OT will continue to monitor this. ASSESSMENT/PLAN: Pt made increased (I) in his eating routines, he is able to demonstrate increased (I) in his (B) UE. Functionally he is limited in his hand ROM his (L) is totally contracted, his (R) is improving and passively OT is able to to extend his digits fully. TREATMENT CODES/TIME: [id number], 35 minutes (07:35) Veronique Almaguer OTR/[facility]
[2020-07-12] MEDS: Fluticasone NASAL SPRAY 16 GM BTL NS (08:57)
[2020-07-12] MEDS: Metoprolol CR 25 MG TABCR PO ×2 (08:57→20:02)
[2020-07-12] MEDS: Nystatin POWDER 60 GM JAR TP ×3 (08:57→20:02)
[2020-07-12] MEDS: Metoprolol CR 100 MG TABCR PO ×2 (08:58→20:01)
[2020-07-12] MEDS: Allopurinol 300 MG TAB PO (08:58)
[2020-07-12] MEDS: Pantoprazole 40 MG TABCR PO (08:58)
[2020-07-12] MEDS: Finasteride 5 MG TAB PO (08:58)
[2020-07-12] MEDS: Magnesium Gluconate 500 MG TAB PO ×2 (08:58→20:01)
[2020-07-12] MEDS: Aspirin E.C. 81 MG TABEC PO (08:58)
[2020-07-12] MEDS: amLODIPine 5 MG TAB PO (08:58)
[2020-07-12] MEDS: Tamsulosin 0.4 MG CAPCR 0.8 MG PO (08:59)
[2020-07-12] MEDS: Cetirizine 10 MG TAB PO (08:59)
[2020-07-12] MEDS: Losartan 25 MG TAB PO (08:59)
--- NOTE | 2020-07-12 10:58 | PTTR_ITS ---
Date of service: 07/12/20 Time of Service: 10:58 PT Notes Visit Reasons: Failure to thrive Physical Therapy Treatment Note Date: 07/12/2020 Precautions: Fall. Standard. Activity as tolerated. Subjective: Reports abdominal discomfort. Toileting assistance provided for bowel movement. Complained of fatigue. Did verbalize that he does not know how he will be able to manage well at home in this condition. Objective: General Observation: IV access in the left UE. Bilateral amputation of great toes. Contusion fading in right lumbar and lateral trunk area on the right side. Inflamed right groin area. Fixed flexion deformity of fingers on the left side. Mental Status: Alert. Able to pay attention, focus, and respond appropriately but speech is not fully discernible due to dysphonia Pain: Reported discomfort on the low back area Bed Mobility/Transfers: Sit to stand minimal assist Stand to sit contact-guard assist Bed to chair minimal assist Gait: Tolerated a distance of up to 15 feet +12 feet using front-wheeled walker with moderate to maximal verbal cueing for walker management, overall safety, and hand placement. Wheelchair follow needed for safety. Moderate SOB after activity. Left thumb able to latch onto walker handle on the left, other fingers are not able due to flexion contracture of the left fingers at both PIP and DIP joints. Right hand has poor grasp but is able to hold onto walker handle however frequently slides down and requires moderate verbal cueing for hand repositioning. Balance: Static Sitting: Normal Dynamic Sitting: Good Static Standing: Fair Dynamic Standing: Poor Assessment: Converted to swing bed level 1 as of 07/11/2020 and awaiting SNF placement. Abdominal pain limited today's ambulation distance compared to yesterday. Continues to require assistance of 2 people and wheelchair follow for safety. Showing some signs of fatigue from improved activity level. May take time to achieve highest mobility level and will therefore require SNF placement. Per OT, patient is able to feed self with right feeding utensils. Needs more work with strength, gait stability/balance, walker management, coastal/harbor defense officer strength on R side. Prognosis for achieving mobility goals is poor at this time. DISCHARGE RECOMMENDATIONS: Patient will benefit from nursing home facility placement for continued skilled physical therapy services in order to progress mobility level, strength, and balance in preparation for a safe discharge to home. TREATMENT CODE/TIME: 40804 x 32 minutes beginning at 10:58 AM.
[2020-07-12] MEDS: Mylanta Suspension 30 ML CUP PO ×2 (13:24→17:17)
--- NOTE | 2020-07-12 14:17 | PTTR_ITS ---
PT Notes Visit Reasons: Failure to thrive 07/12/2020 SUBJECTIVE: [place] stating he is quite tired this afternoon. He does not want to walk but he does agree to do some strengthening in his chair. OBJECTIVE: TRANSFERS/GAIT: Pt refuses THEREX: Seated resisted UE/LE strengthening activities as noted on flow sheet. Unable to utilize weights in the L UE due to contractures. See flow sheet for details. ASSESSMENT: Low energy noted this afternoon. Requires significant amount of verbal cues throughout for appropriate completion of his exercises. PLAN: Continue per POC, progressing gait as he is willing. Treatment time: [id number] Krystle Singh PTA Clinic location: [facility] [place], [place]
[2020-07-12 15:22] VITALS: BP 128/67; PULSE 81; RESP 22; TEMP 36.5; O2SAT 91
[2020-07-12] MEDS: Acetaminophen 325 MG TAB 650 MG PO (15:27)
[2020-07-12 19:42] VITALS: BP 97/55; PULSE 71; RESP 20; TEMP 36.6; O2SAT 96
[2020-07-12] MEDS: Pramipexole 0.25 MG TAB PO (21:48)
[2020-07-12 23:31] VITALS: BP 160/84; PULSE 64; RESP 17; TEMP 36.5; O2SAT 93
[2020-07-13] MEDS: Acetaminophen 325 MG TAB 650 MG PO ×2 (05:26→17:14)
[2020-07-13 07:45] VITALS: BP 171/72; PULSE 63; RESP 19; TEMP 36.5; O2SAT 93
[2020-07-13] MEDS: Fluticasone NASAL SPRAY 16 GM BTL NS (09:16)
[2020-07-13] MEDS: Magnesium Gluconate 500 MG TAB PO ×2 (09:17→20:33)
[2020-07-13] MEDS: Allopurinol 300 MG TAB PO (09:17)
[2020-07-13] MEDS: Aspirin E.C. 81 MG TABEC PO (09:17)
[2020-07-13] MEDS: Metoprolol CR 100 MG TABCR PO ×2 (09:17→20:32)
[2020-07-13] MEDS: Metoprolol CR 25 MG TABCR PO ×2 (09:17→20:33)
[2020-07-13] MEDS: Tamsulosin 0.4 MG CAPCR 0.8 MG PO (09:17)
[2020-07-13] MEDS: Pantoprazole 40 MG TABCR PO (09:18)
[2020-07-13] MEDS: Senna TAB 1 TAB PO (09:19)
[2020-07-13] MEDS: amLODIPine 5 MG TAB PO (09:19)
[2020-07-13] MEDS: Cetirizine 10 MG TAB PO (09:19)
[2020-07-13] MEDS: Losartan 25 MG TAB PO (09:19)
[2020-07-13] MEDS: Bisacodyl 5 MG TABEC PO (09:19)
[2020-07-13] MEDS: Finasteride 5 MG TAB PO (09:19)
[2020-07-13] MEDS: Docusate Sodium 100 MG/10 ML CUP PO ×2 (09:20→20:32)
--- NOTE | 2020-07-13 12:30 | PT.INTREAT ---
Date of service: 07/13/20 Time of Service: 10:20 PT Notes Visit Reasons: Failure to thrive Inpatient Physical Therapy Treatment Note 07/13/2020 [facility] Date: 07/13/2020 PRECAUTIONS: Activity as tolerated SUBJECTIVE: Stated he is willing walk and do exercises today. OBJECTIVE: PAIN: No complaints of pain with mobility. BED MOBILITY/TRANSFERS Sit-stand: Min tactile assist and verbal cueing Stand-sit: Min tactile assist and verbal cueing GAIT Assistive Device: FWW Weight bearing: FWB Assist: CGA of 2 Distance: 15ft THEREX: LAQs, seated hip flexion and hip abd/ adduction with 3# ankle weights for 10 reps each. Performed UE rows, shoulder flexion and elbow flex/ extension with 2# on right and 0# on left. ASSESSMENT: Tolerated session well with good effort given throughout session. PLAN: Continue with current plan of care, advancing program as able to tolerate. Continue to encourage mobility. TREATMENT CODE/TIME: [id number], 10:20 to 10:40 am (20')
[2020-07-13] MEDS: Nystatin POWDER 60 GM JAR TP ×2 (15:43→20:33)
[2020-07-13 15:50] VITALS: BP 118/53; PULSE 62; RESP 18; TEMP 36.6; O2SAT 98
[2020-07-13 19:59] VITALS: BP 157/70; PULSE 53; RESP 17; TEMP 36.4; O2SAT 93
[2020-07-13] MEDS: Pramipexole 0.25 MG TAB PO (21:39)
[2020-07-13 23:31] VITALS: BP 133/63; PULSE 60; RESP 16; TEMP 36.4; O2SAT 91
[2020-07-14 03:21] VITALS: BP 139/76; PULSE 57; RESP 17; TEMP 36.3; O2SAT 96
[2020-07-14] MEDS: Acetaminophen 325 MG TAB 650 MG PO ×2 (03:43→08:48)
[2020-07-14] MEDS: Pantoprazole 40 MG TABCR PO (07:43)
[2020-07-14 08:00] VITALS: BP 167/68; BP 174/87; PULSE 62; RESP 18; TEMP 36.9; O2SAT 99
[2020-07-14] MEDS: Aspirin E.C. 81 MG TABEC PO (08:47)
[2020-07-14] MEDS: Docusate Sodium 100 MG/10 ML CUP PO (08:47)
[2020-07-14] MEDS: Cetirizine 10 MG TAB PO (08:47)
[2020-07-14] MEDS: Mylanta Suspension 30 ML CUP PO ×2 (08:47→14:23)
[2020-07-14] MEDS: Fluticasone NASAL SPRAY 16 GM BTL NS (08:47)
[2020-07-14] MEDS: Tamsulosin 0.4 MG CAPCR 0.8 MG PO (08:47)
[2020-07-14] MEDS: Metoprolol CR 25 MG TABCR PO ×2 (08:48→21:29)
[2020-07-14] MEDS: Finasteride 5 MG TAB PO (08:48)
[2020-07-14] MEDS: Magnesium Gluconate 500 MG TAB PO ×2 (08:48→21:29)
[2020-07-14] MEDS: Metoprolol CR 100 MG TABCR PO ×2 (08:48→21:29)
[2020-07-14] MEDS: Losartan 25 MG TAB PO (08:48)
[2020-07-14] MEDS: amLODIPine 5 MG TAB PO (08:48)
[2020-07-14] MEDS: Allopurinol 300 MG TAB PO (08:48)
[2020-07-14] MEDS: Nystatin POWDER 60 GM JAR TP ×3 (08:49→21:31)
[2020-07-14] MEDS: Milk of Magnesia 30 ML CUP PO (09:18)
[2020-07-14] MEDS: Bisacodyl 10 MG SUPP PR (10:31)
--- NOTE | 2020-07-14 11:06 | PTTR_ITS ---
Date of service: 07/14/20 Time of Service: 09:30 PT Notes Visit Reasons: Failure to thrive Inpatient Physical Therapy Treatment Note [facility] Date: 07/14/2020 PRECAUTIONS:Activity as tolerated SUBJECTIVE: Stated he is doing well today. Wants to go home. OBJECTIVE: PAIN: Complained of left heel pinching irritation. Upon visual inspection skin a ppeared non irritated and shoe was checked for anything abnormal. Once walking he did not complain of this again. BED MOBILITY/TRANSFERS Sit-stand: Min tactile assist and verbal cueing Stand-sit: Min tactile assist and verbal cueing GAIT Assistive Device: FWW Weight bearing: FWB Assist: CGA of 2, w/c behind patient while walking Distance: 18ft THEREX: LAQs, seated hip flexion and hip abd/ adduction with 3# ankle weights for 15 reps each. Performed UE rows, shoulder flexion and elbow flex/ extension with 2# on right and 0# on left. Also, able to perform bilateral shoulder abd /adduction x 10 reps without resistance. ASSESSMENT: Tolerated session well, with good effort given throughout session. PLAN: Continue with current plan of care, advancing program as able to tolerate. Continue to encourage mobility. TREATMENT CODE/TIME: 72789x2, 9:30 to 10:00 am (30')
[2020-07-14 11:56] VITALS: BP 106/61; PULSE 60; RESP 16; TEMP 37; O2SAT 98
[2020-07-14 15:22] VITALS: BP 106/61; PULSE 60; RESP 16; TEMP 37; O2SAT 98
[2020-07-14 21:15] VITALS: BP 132/60; PULSE 64; RESP 17; TEMP 36.7; O2SAT 96
[2020-07-14] MEDS: Pramipexole 0.25 MG TAB PO (21:29)
[2020-07-15] MEDS: Acetaminophen 325 MG TAB 650 MG PO ×2 (06:14→17:02)
[2020-07-15 07:36] VITALS: BP 148/85; PULSE 45; RESP 19; TEMP 36.3; O2SAT 95
[2020-07-15] MEDS: Metoprolol CR 100 MG TABCR PO ×2 (08:34→20:10)
[2020-07-15] MEDS: Docusate Sodium 100 MG/10 ML CUP PO (08:34)
[2020-07-15] MEDS: Fluticasone NASAL SPRAY 16 GM BTL NS (08:34)
[2020-07-15] MEDS: Nystatin POWDER 60 GM JAR TP ×3 (08:34→20:10)
[2020-07-15] MEDS: Cetirizine 10 MG TAB PO (08:34)
[2020-07-15] MEDS: Pantoprazole 40 MG TABCR PO (08:34)
[2020-07-15] MEDS: Allopurinol 300 MG TAB PO (08:35)
[2020-07-15] MEDS: Losartan 25 MG TAB PO (08:35)
[2020-07-15] MEDS: Metoprolol CR 25 MG TABCR PO ×2 (08:35→20:10)
[2020-07-15] MEDS: Aspirin E.C. 81 MG TABEC PO (08:35)
[2020-07-15] MEDS: Magnesium Gluconate 500 MG TAB PO ×2 (08:35→20:10)
[2020-07-15] MEDS: Tamsulosin 0.4 MG CAPCR 0.8 MG PO (08:35)
[2020-07-15] MEDS: amLODIPine 5 MG TAB PO (08:35)
[2020-07-15] MEDS: Finasteride 5 MG TAB PO (08:35)
--- NOTE | 2020-07-15 11:16 | PT.INTREAT ---
Date of service: 07/15/20 Time of Service: 10:15 PT Notes Visit Reasons: Failure to thrive Inpatient Physical Therapy Treatment Note [facility] Date: 07/15/2020 PRECAUTIONS: Activity as Tolerated SUBJECTIVE: Denton is pleasant although is upset that he hasn't heard from his son. OBJECTIVE: Spoke with Adelaida from regarding patient's concern about not hearing from his son. PAIN: No c/o pain BED MOBILITY/TRANSFERS/GAIT: Refused out of chair activities THEREX: Patient was instructed in a resisted, seated UE and LE strengthening program, as per flow sheet. ASSESSMENT: Patient tolerated session well without complaint He was able to tolerate a slight progression in ther ex program, tolerating increased reps. PLAN: Continue with global strengthening and conditioning for improved activity tolerance. TREATMENT CODE/TIME: 15 minutes; 50876 (10:15)
--- NOTE | 2020-07-15 11:24 | CMPROGNOTE_ITS ---
- If Service Date Differs Date of service: 07/15/20 Time of Service: 11:24 Care Management Progress Note S/O: Denton requests to meet with CM. He asks what the plan for him is and wants to know what he needs to do to get out of the hospital. CM advises him the plan is for him to go to the [facility] and my hope is that he will get to go in a few days. He shares his fear that he will never be able to return home. We talk a bit about the events that led to him coming to [facility] and how scary it must have been for him to lay on the floor and not be able to get up. CM tells him that everyone wants him to be safe and well taken care of, to which he replies that he doesn't really want to return to the [facility] but he will if he has to. Denton also states that he has not talked to his son, Cristofer, in several days. CM offers to help him call Cristofer but patient declines, saying he will call him later. CM does leave a message for Cristofer, asking he call his father at his earliest convenience. CM will continue to follow. A: Denton is a 74 year old male admitted to [facility] for failure to thrive. P: Anticipate Denton will discharge to the [facility] sometime this week. CM will continue to support patient and discharge planning needs.
[2020-07-15 15:16] LABS: Bilirubin Small (Negative); Blood Small (Negative); Clarity Cloudy (Clear); Glucose Negative (Negative); Ketones Trace mg/dL (Negative); Leukocyte Esterase Large (Negative); Nitrite Negative (Negative); Urobilinogen 0.2 EU/dL (Up TO 0.2)
[2020-07-15 15:27] LABS: Bacteria Packed HPF (Negative); Epithelial Cells Few HPF (Negative); WBC >50 HPF (0-5)
[2020-07-15 15:28] LABS: C & S Indicated? Yes; Casts Negative LPF (Negative); Crystals Negative HPF (Negative); Mucus Negative (Negative)
[2020-07-15 19:55] VITALS: BP 131/81; PULSE 68; RESP 20; TEMP 36.1; O2SAT 97
[2020-07-15] MEDS: Pramipexole 0.25 MG TAB PO (21:03)
[2020-07-15 23:02] VITALS: BP 119/59; PULSE 64; RESP 18; TEMP 36.1; O2SAT 97
[2020-07-16] MEDS: Acetaminophen 325 MG TAB 650 MG PO ×2 (02:16→08:37)
[2020-07-16 07:40] VITALS: BP 161/71; PULSE 54; RESP 19; TEMP 37; O2SAT 97
[2020-07-16] MEDS: Pantoprazole 40 MG TABCR PO (07:45)
[2020-07-16] MEDS: Fluticasone NASAL SPRAY 16 GM BTL NS (08:37)
[2020-07-16] MEDS: Aspirin E.C. 81 MG TABEC PO (08:37)
[2020-07-16] MEDS: Magnesium Gluconate 500 MG TAB PO ×2 (08:37→20:27)
[2020-07-16] MEDS: Allopurinol 300 MG TAB PO (08:37)
[2020-07-16] MEDS: Metoprolol CR 100 MG TABCR PO ×2 (08:37→20:27)
[2020-07-16] MEDS: Cetirizine 10 MG TAB PO (08:37)
[2020-07-16] MEDS: Nystatin POWDER 60 GM JAR TP ×3 (08:37→20:28)
[2020-07-16] MEDS: amLODIPine 5 MG TAB PO (08:37)
[2020-07-16] MEDS: Tamsulosin 0.4 MG CAPCR 0.8 MG PO (08:37)
[2020-07-16] MEDS: Losartan 25 MG TAB PO (08:38)
[2020-07-16] MEDS: Finasteride 5 MG TAB PO (08:38)
[2020-07-16] MEDS: Metoprolol CR 25 MG TABCR PO ×2 (08:38→20:27)
--- NOTE | 2020-07-16 09:57 | W.NUTRFU ---
Date of service: 07/16/20 Time of Service: 09:57 Nutritional Follow up NOTE: 74 year old male awaiting SNF placement after admission with Adult Failure to Thrive. Following regular meal plan with adequate intake to meet nutrient and fluid needs. Weight wnl. Not at nutritional risk at this time. Will continue to follow. Time Spent in Nutritional Counseling and Treatment: 0
--- NOTE | 2020-07-16 10:07 | OTTR_ITS ---
Date of service: 07/16/20 Time of Service: 07:15 Occupational Therapy Notes Occupational Therapy Inpatient Treatment Note Date: 07/16/20 PRECAUTIONS: Fall, standard, DNR/DNI SUBJECTIVE: Pt was lying in bed when OT arrived. He was agreeable to OT session and states that his (L) hand is contracted and his nails are digging into his palm. He reports that he is unable to get his hand open. OT does attempt this and is also not successful. OT will continue to work on this. OBJECTIVE: PAIN:no c/o pain BATHING: sitting in bed with max (A) set up/clean up min vc throughout Upper Body: (I) face with help with positioning his wash cloth on his hand. Mod (A) (B) UE for arms, min (A) abdomen Lower Body: Max (A) DRESSING: sitting in bed Upper Extremity: Min (A) [facility] gown Lower Extremity: Max (A) ASSESSMENT/PLAN: Pt is making progress in his functional (I) in his ADLs. He is limited by the contractures in his (B) hands. OT recommends that pt go outpatient rehabilitation for his (B) UE when medically cleared per MD. OT will work on pts digits at next session as his (L) UE is contracted so bad that OT is unable to extend his digits. TREATMENT CODES/TIME: [id number], 25 minutes (07:15) Veronique Almaguer OTR/L [facility]
[2020-07-16 11:15] LABS: Source Nasal/Nares
[2020-07-16 12:14] LABS: COVID-19 PCR Negative (Negative)
[2020-07-16] MEDS: Mylanta Suspension 30 ML CUP PO (13:24)
--- NOTE | 2020-07-16 15:01 | PT.INTREAT ---
Date of service: 07/16/20 Time of Service: 11:40 PT Notes Visit Reasons: Failure to thrive Inpatient Physical Therapy Treatment Note [facility] Date: 07/16/2020 PRECAUTIONS: Activity as Tolerated SUBJECTIVE: Denton is pleasant although is upset that he still hasn't heard from his son. He reports that he has not been feeling well because his stomach has been upset for the past several days. OBJECTIVE: PAIN: Patient c/o stomach pain BED MOBILITY/TRANSFERS: Refused out of chair activities in a.m. Sit-stand: CGA x2 Stand-sit: CGA x2 GAIT: Assistive Device: FWW Weight Bearing: Full Assist: Min A + CGA Distance: 3' x2 Deviation: Min A for FWW management, my feet don't want to move THEREX: Patient was instructed in a resisted, seated UE and LE strengthening program, as per flow sheet. He completes [id number] exercise x4 from elevated chair surface in p.m. TOILETING: Patient was incontinent of stool requiring Max A ASSESSMENT: Patient tolerated session with complaint of increased fatigue with gait training. He demonstrates need for continued rehab for improved mobility and activity tolerance, and would benefit from discharging to SNF when ready for continued functional progression. PLAN: Continue with global strengthening and conditioning for improved activity tolerance. TREATMENT CODE/TIME: Session 1: 15 minutes; 14023 (11:40) Session 2: 35 minutes; [id number] x2 (12:55)
[2020-07-16] MEDS: Docusate Sodium 100 MG/10 ML CUP PO (20:28)
[2020-07-16] MEDS: Pramipexole 0.25 MG TAB PO (21:34)
[2020-07-16 23:45] VITALS: BP 158/64; PULSE 54; RESP 20; TEMP 37.1; O2SAT 98
[2020-07-17 07:59] VITALS: BP 119/74; PULSE 58; RESP 13; TEMP 37; O2SAT 99
[2020-07-17] MEDS: Magnesium Gluconate 500 MG TAB PO ×2 (08:38→20:01)
[2020-07-17] MEDS: Metoprolol CR 25 MG TABCR PO ×2 (08:38→20:01)
[2020-07-17] MEDS: Cetirizine 10 MG TAB PO (08:38)
[2020-07-17] MEDS: Losartan 25 MG TAB PO (08:38)
[2020-07-17] MEDS: Finasteride 5 MG TAB PO (08:38)
[2020-07-17] MEDS: amLODIPine 5 MG TAB PO (08:38)
[2020-07-17] MEDS: Pantoprazole 40 MG TABCR PO (08:38)
[2020-07-17] MEDS: Fluticasone NASAL SPRAY 16 GM BTL NS (08:38)
[2020-07-17] MEDS: Allopurinol 300 MG TAB PO (08:38)
[2020-07-17] MEDS: Nystatin POWDER 60 GM JAR TP ×3 (08:39→20:01)
[2020-07-17] MEDS: Acetaminophen 325 MG TAB 650 MG PO ×2 (08:39→14:14)
[2020-07-17] MEDS: Metoprolol CR 100 MG TABCR PO ×2 (08:39→20:01)
[2020-07-17] MEDS: Aspirin E.C. 81 MG TABEC PO (08:39)
[2020-07-17] MEDS: Tamsulosin 0.4 MG CAPCR 0.8 MG PO (08:39)
--- NOTE | 2020-07-17 09:15 | PTTR_ITS ---
Date of service: 07/17/20 Time of Service: 09:15 PT Notes Visit Reasons: Failure to thrive Inpatient Physical Therapy Treatment Note [facility] Date: 07/17/2020 PRECAUTIONS: Activity as Tolerated. SUBJECTIVE: Reported minimal to moderate SOB during ambulation activity. Agreeable to going to a SNF for continued rehabilitation. Unsure of how much walking he can do this morning. OBJECTIVE: PAIN: None reported BED MOBILITY/TRANSFERS: Refused out of chair activities in a.m. Sit-stand: Minimal assist of 2 Stand-sit: Contact-guard assist GAIT: Assistive Device: FWW Weight Bearing: Full Assist: Minimal assist with wheelchair follow by CHRISTINA Valladares and CHRISTINA trainee Distance: 15 feet +10 feet Deviation: Minimal to moderate shortness of breath towards the end of the ambulation, moderate to maximal verbal cueing provided to ensure that right hand does not slide back on the walker handle and to remind patient not to lag it too far from his walker ASSESSMENT: Continued cueing provided for hand placement and walker management. Activity tolerance for ambulation continues to fluctuate due to her persistent impairments in strength, balance, and activity tolerance. PLAN: Pursue activities that will increase strength, balance, and activity layne ance with plan for continued rehabitation in the SNF setting once accepted TREATMENT CODE/TIME: Session 41829 x 14 minutes beginning at 9:15 AM.
--- NOTE | 2020-07-17 09:15 | PT.INDS ---
Date of service: 07/17/20 Time of Service: 09:15 PT Notes Visit Reasons: Failure to thrive Physical Therapy Inpatient Discharge Summary Date: 07/17/2020 Dates of service: 07/11/2020 through 07/17/2020 Referring Doctor: Lamin Barnes MD PT Orders: PT CONSULT: Eval/treat. Precautions: Fall. Standard. Activity as tolerated. Patient Profile/Admitting Diagnosis: Denton is a 74-year-old male who presented to the ED on 07/08/2019 122 adult failure to thrive, medication none compliance, and falls. Patient fall, failure to thrive, skin knees cute kidney, and EtOH intake above commended sensible limits, PAF, neoplasm of glottis, and chronic low back pain. PMHX: Medical History Alcohol intake above recommended sensible limits 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) left great toe transmetatarsal amputation 05-02-2017 by 05-12-2017 [facility] [place] Vasc.Sx.: site with large necrotic/scabbed area: tx above knee amputation but pt declines - fup with wound care until pt decides to proceed ( - 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 SORT MANAGER) Benign prostatic hyperplasia with lower urinary tract symptom PSA: 1.5 in Critical lower limb ischem RIGHT [facility] [place] SHAUNA Parsons/ status post right iliofemoral endarterectomy and patch angioplasty/right EIA stenting/ stent graft to distal SFA and popliteal/ COMPLICATED BY INFECTION: # debridements - w LEFT ILIOFEMORAL ENDATERECTOMY WITH LEFT EXTERNAL ILIAC STENT - [facility] [place] Essential hypertension (11/16/12) Gastroesophageal reflux disease Gout Hyperlipidemia Hypomagnesemia Hyponatremia (09/06/13) serum electrophoresis normal 2010/ cortisol level normal: 2010 Osteomyelitis of right lower extremity 08/13/15- GREAT RIGHT TOE S/P AMPUTAION Osteomyelitis of toe Paroxysmal atrial fibrillation ADONIS score: 1/ on asa Peripheral vascular disease critical lower limb ischemia - [facility] [place]- 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 Restless leg syndrome, uncontrolled Sciatica Vitamin D deficiency (09/06/13) Surgical History Amputation 08/13/15-GREAT RIGHT TOEStatus post amputation of great toe (08/13/15) (post osteomyelitis) Social History/Home Situation: Lives alone in a private home. Has been receiving support from family and home health personnel. 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 Equipment Owned/DME: Front-wheeled walker Subjective: NT. See most recent SAFETY GROOVING MACHINE OPERATOR notes. Objective: General Observation: NT. See most recent SAFETY GROOVING MACHINE OPERATOR notes. Mental Status: NT. See most recent SAFETY GROOVING MACHINE OPERATOR notes. Pain: NT. See most recent SAFETY GROOVING MACHINE OPERATOR notes. ROM: Right Upper Extremity: Unable to flex at the shoulder beyond 90 degrees with empty end feel. Unable to abduct beyond 80 degrees due to discomfort. Elbows flexion WFL. Elbow extension WFL. Wrist flexion about 10 degrees. Wrist extension 10 degrees. Fixed wrist flexion contracture in the IP joints. Left Upper Extremity: Unable to flex at the shoulder beyond 80 degrees with empty end feel. Unable to abduct beyond 60 degrees due to discomfort. Elbows flexion WFL. Elbow extension WFL. Wrist flexion about 20 degrees. Finger flexion Right Lower Extremity: Hip flexion lacking the last 45 degrees. Hip abduction limited to 10 degrees. Knee flexion WFL. Knee extension. Ankle dorsiflexion/eversion to neutral only. Ankle plantarflexion/inversion WFL. Left Lower Extremity: Hip flexion lacking the last 45 degrees. Hip abduction limited to 10 degrees. Knee flexion WFL. Knee extension. Ankle dorsiflexion/eversion to neutral only. Ankle plantarflexion/inversion WFL. Strength: Right Upper Extremity: Shoulder flexors 3-/5. Shoulder abductors 3-/5. Shoulder ER 3-/5. Elbow flexors 4-/5. Elbow extensors 4-/5. Ovens Supervisor weakn but functional. Left Upper Extremity: Shoulder flexors 3-/5. Shoulder abductors 3-/5. Shoulder ER 3-/5. Elbow flexors 4-/5. Elbow extensors 4-/5. Ovens Supervisor absent. Right Lower Extremity: Hip flexors 3-/5. Hip abductors 3-/5. Hip external rotators 3-/5. Knee flexors 4-/5. Knee extensors 4-/5. Ankle dorsiflexors/evertors 3-/5. Ankle plantarflexors/invertors 4-/5. Left Lower Extremity: Hip flexors 3-/5. Hip abductors 3-/5. Hip external rotators 3-/5. Knee flexors 4-/5. Knee extensors 4-/5. Ankle dorsiflexors/evertors 3-/5. Ankle plantarflexors/invertors 4-/5. Bed Mobility/Transfers: Sit to stand minimal assist coming from wheelchair Stand to sit contact-guard assist Bed to chair minimal assist of 2 Gait: Tolerated a distance of up to 15 feet +10 feet using front wheeled walker with minimal assist stand and with moderate to maximal verbal cueing for walker management, overall safety, and hand placement. Wheelchair follow needed for safety. Mild SOB after activity. Left thumb able to latch onto walker handle on the left due to flexion contracture of the left fingers. Right hand has poor grasp but is able to hold onto walker handle however frequently slides down and requires moderate verbal cueing for hand repositioning. Balance: Static Sitting: Normal Dynamic Sitting: Good Static Standing: Fair Dynamic Standing: Poor Assessment: Denton requires longer time to achieve BUE/LE strength, balance, and functional mobility goals and thus will require SNF placement for at least 3 to 4 weeks prior to going home. His transfer skills as well as ambulation skills are markedly decreased making him at high risk for falls at this time. He continues to demonstrate significant functional mobility decline requiring assistance of 2 people for all transfer and ambulation task performance, generalized weakness to bilateral lower extremities, decreased activity tolerance, and high risk for falls and the skin breakdown due to admitting diagnoses and co-morbidities. Patient continues to present instability, generalized weakness, and impairment of motor control as demonstrated by the following impairment level findings: 1. Decreased strength to B UE/LE major muscle groups 2. Impaired sitting/standing balance 3. Impaired activity tolerance 4. Limitation of joint range of motion in B shoulders and B ankles Impairments are continuing to contribute to the following functional limitations: 1. Dependent bed mobility skills 2. Increased dependence with transfers 3. Inability to safely ambulate without assistive device and physical assistance 4. Increase completion time for mobility ADL performance 5. Increased fall risk 6. Inability to negotiate steps alone safely 7. Inability to return to prior living environment at this time Goals: Goals X1 week 1. Supine-Sit independent NOT MET 2. Sit-Supine independent NOT MET 3. Sit-Stand standby assist NOT MET 4. Stand-Sit standby assist NOT MET 5. Bed-Chair standby assist NOT MET 6. Chair-Bed standby assist NOT MET 7. Standby assist gait on level surface with use of front wheeled walker for at least 50 feet without report of pain nor dyspnea NOT MET 9. Fair static and dynamic standing balance/tolerance NOT MET DISCHARGE RECOMMENDATIONS: Unable to do meet above goals. Patient will benefit from halfway facility placement for continued skilled physical therapy services in order to progress mobility level, strength, and balance in preparation for a safe discharge to home. TREATMENT CODE/TIME: 75421 x 14 minutes beginning at 9:15 AM. Thank you for the opportunity to participate in the care of this patient. Mariann Murray PT, DPT, CLT [facility] [place], [place]
[2020-07-17] MEDS: Mylanta Suspension 30 ML CUP PO (12:14)
--- NOTE | 2020-07-17 12:16 | OT.INTREAT ---
Date of service: 07/17/20 Time of Service: 07:30 Occupational Therapy Notes Occupational Therapy Inpatient Treatment Note Date: 07/17/20 PRECAUTIONS: Fall, standard, DNR/DNI SUBJECTIVE: Pt was sitting in chair when OT arrived, he states that his hand hurts. He states that he would like to get his nails cut which RN states they are working. OBJECTIVE: Manual Therapy [id number]: OT performed AP joint mobs and PROM of digits into extension with low load long duration holds to (B) UE and digits. (R) UE OT was able to achieve full extension with Rock tape applied to the dorsal digits. (L) hand is contracted into flexed position, OT was able to achieve increased extension, no increased pain and tapes pts dorsal digits for assist which he tolerated well. Once open into a slightly extended position, OT placed foam on pts palm and will monitor this at tomorrows session. ASSESSMENT/PLAN: Pts hand was so contracted that it was causing him pain in his palm as his finger nails were digging into his palm. Pt tolerated PROM to digits and rock tape well, OT will continue to monitor this and progress pts (B) hands as pt can tolerate. TREATMENT CODES/TIME: [id number], 20 minutes (07:30) Veronique Almaguer, MYRANDAR/[facility]
--- NOTE | 2020-07-17 14:38 | WOUNDCONS_ITS ---
- If Service Date Differs Date of service: 07/17/20 Time of Service: 13:50 Wound Initial Evaluation Narrative: 07/17/20- PMH includes 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), Benign prostatic hyperplasia with lower urinary tract symptoms, Critical lower limb ischemia RIGHT [facility] [place] SHAUNA Parsons/ status post right iliofemoral endarterectomy and patch angioplasty/right EIA stenting/ stent graft to distal SFA and popliteal/ COMPLICATED BY INFECTION: # debridements - w LEFT ILIOFEMORAL [place]ATERECTOMY [place] [facility] [place]ential hypertension (11/16/12) Gastroesophageal reflux disease Gout Hyperlipidemia Hypomagnesemia Hyponatremia (09/06/13) serum electrophoresis normal 2009/ cortisol level normal: 2009 Osteomyelitis of right lower extremity 08/13/15- GREAT RIGHT TOE S/P AMPUTAION Osteomyelitis of toe Paroxysmal atrial fibrillation ADONIS score: 1/ on asa Peripheral vascular disease critical lower limb ischemia - [facility] [place]- 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 Restless leg syndrome, uncontrolled Sciatica Vitamin D deficiency (09/06/13) Surgical History Amputation 08/13/15-GREAT RIGHT TOE Status post amputation of great toe (08/13/15) (post osteomyelitis) Reconsult on previous wounds. Original wound consult on acute chart for this visit. Pt gives verbal consent for photos and wound dressing changes. Wound o n l knee measures 3 cm x 1 cm x 0.1 cm. Wound bed is pink with minimal serous drainage. Periphery has firmly adhered edges with light pink periphery. No increased warmth or induration noted. Right knee wound measures 2 cm x 1.7 cm x 0.1 cm. Wound bed is dark pink with firmly adhered edges and a pink periphery. No increased warmth or induration noted. Right second toe has an intact scab measuring 0.7 cm x 0.7 cm and is slightly raised (approx 0.2 cm ). Periphery is pink with slight increased warmth noted, not hot. No drainage noted and scab has no fluctuance to it. The left back wound measures 2.5 cm x 0.5 cm x 0.1 cm and has minimal serosanguinous drainage. Periphery is normal skin color, no induration noted. Pannus/ groin/ gluteal cleft all look improved with no redness or open areas noted. - Wound Right Knee Wound Type: Full Thickness Wound General Appearance: Unapproximated Wound Bed Greatest Portion: Red (Granulation) Wound Surrounding Tissue Appearance: [place] Percent of Wound Bed Granulated/Red: 100 Wound Length: 2 cm Wound Width: 1.7 cm Wound Depth: 0.1 cm Wound Drainage Amount: Minimal Wound Drainage Odor: None/Absent Wound Drainage Description: Sero Sanguineous Left Knee Wound Type: Full Thickness Wound General Appearance: Unapproximated Wound Bed Greatest Portion: Pale [place] Wound Bed Lesser Portion: Dusky Red Wound Surrounding Tissue Appearance: [place] Percent of Wound Bed Granulated/Red: 25 Wound Length: 3 cm Wound Width: 1 cm Wound Depth: 0.1 cm Wound Drainage Amount: Minimal Wound Drainage Description: Serous left back Wound General Appearance: Unapproximated Wound Bed Greatest Portion: Red (Granulation) Wound Surrounding Tissue Appearance: [place], Normal/Healthy Percent of Wound Bed Granulated/Red: 100 Wound Length: 2.5 cm Wound Width: 0.5 cm Wound Depth: 0.1 cm Wound Drainage Amount: Minimal Wound Drainage Description: Sero Sanguineous Right second toe Wound Length: 0.7 cm Wound Width: 0.7 cm Wound Drainage Amount: None - Pain Pain Level: 0 - Recomendation Recomendation:: Current orders : Bilateral knees- Cleanse wounds with wound cleanser, apply skin prep to nba wound, apply anasept gel to wound bed, cover with Mepilex w/border. Change every 3 days and PRN. Right 2nd toe- Assess Q shift for increasing redness, S/Sx of infection. Pannus/Groin- Wash area with soap and water and dry thoroughly prior to nystatin powder application, TID.Apply interdry sheets to pannus and groin folds. Change when soiled and PRN. Gluteal cleft- Apply Ryan to buttocks and gluteal cleft after incontinent episodes. Left mid back-Cleanse wound with wound cleanser. Cover w/Mepilex. Change every 3 days and PRN. Recommend: Continuing all dressings as currently ordered except groin/ pannus/ gluteal cleft which should be made PRN. Physcian/Nurse Practioner Notified: Yes (Meseret Worthy NP)
--- NOTE | 2020-07-17 16:03 | PT.INNT ---
Date of service: 07/17/20 Time of Service: 16:03 PT Notes Visit Reasons: Failure to thrive 07/17/2020 Patient refused afternoon PT session reporting that he has a significant headache and would like to rest.
[2020-07-17] MEDS: Cephalexin 500 MG CAP PO ×2 (17:03→23:53)
--- NOTE | 2020-07-17 17:29 | PDOC.CMPRO ---
- If Service Date Differs Date of service: 07/17/20 Time of Service: 17:30 Care Management Progress Note Denton will discharge to [facility], tomorrow, 07/18/20. [facility] will transport at 1100, to confirm transport time in the morning. CM reviewed plan with Ed's son, Cristofer, who reported feeling this is the only safe disposition for his father at this time.
[2020-07-17] MEDS: Docusate Sodium 100 MG/10 ML CUP PO (20:01)
[2020-07-17] MEDS: Pramipexole 0.25 MG TAB PO (21:36)
[2020-07-18 07:19] VITALS: BP 152/81; PULSE 64; RESP 19; TEMP 36.7; O2SAT 95
[2020-07-18] MEDS: Tamsulosin 0.4 MG CAPCR 0.8 MG PO (07:44)
[2020-07-18] MEDS: amLODIPine 5 MG TAB PO (07:44)
[2020-07-18] MEDS: Allopurinol 300 MG TAB PO (07:44)
[2020-07-18] MEDS: Metoprolol CR 100 MG TABCR PO (07:44)
[2020-07-18] MEDS: Aspirin E.C. 81 MG TABEC PO (07:44)
[2020-07-18] MEDS: Cephalexin 500 MG CAP PO (07:44)
[2020-07-18] MEDS: Docusate Sodium 100 MG/10 ML CUP PO (07:44)
[2020-07-18] MEDS: Finasteride 5 MG TAB PO (07:44)
[2020-07-18] MEDS: Pantoprazole 40 MG TABCR PO (07:44)
[2020-07-18] MEDS: Cetirizine 10 MG TAB PO (07:44)
[2020-07-18] MEDS: Losartan 25 MG TAB PO (07:44)
[2020-07-18] MEDS: Metoprolol CR 25 MG TABCR PO (07:44)
[2020-07-18] MEDS: Senna TAB 1 TAB PO (07:44)
[2020-07-18] MEDS: Magnesium Gluconate 500 MG TAB PO (07:44)
[2020-07-18] MEDS: Nystatin POWDER 60 GM JAR TP (07:45)
[2020-07-18] MEDS: Fluticasone NASAL SPRAY 16 GM BTL NS (07:45)
--- NOTE | 2020-07-18 10:00 | DSE_ITS ---
Date of service: 07/18/20 Time of Service: 10:01 DS: Diagnosis Discharge Diagnosis (1) Cervical myelopathy: Status: Acute (2) Flexion contractures: Status: Chronic (3) Frequent falls: Status: Acute Discharge Plan Disposition Patient Disposition: SNF (LEVEL 1) [facility] Condition: Fair Discharge Details Reason For Visit: Failure to thrive Admit Date/Time: 07/11/20 13:31 Admit Provider: Lamin Barnes Attending Provider: Lamin Barnes Primary Care Provider: [facility] Hospital Course: This 74-year-old male who presented to the emergency department because of weakness. He was found down and brought to the emergency department. He had a full evaluation in the emergency department including a head and neck CT, abdominal chest and pelvic CT, and labs. He has had multiple ED visits and frequent visits by EMS. It has been noticed that there has been a general decline in his condition. It was not clear if he is compliant with his medical regimen and does not appear to be able to take care of himself. His WBC count was 11.32; it normalized w/o antibiotic intervention. CT abd/pelvis unremarkable other than possible finding of cystitis. Endovascular stents of both external iliac arteries was noted. UA was negative for evidence of infection. Blood cultures obtained and were negative. Initial Na was 134; corrected to 136. K+ normal. Mg+ 1.4 > 1.5. His Mg supplementation was changed from Mg Oxide to Mg Gluconate. Troponin negative. PT/OT consulted. Palliative consulted and a COLST form was completed with Dr Chauhan.. Given slowed movements, contractures of fingers of both hands and ptosis, neurology was consulted who sees no obvious evidence of recurrent myelopathy and thinks chronic imbalance complicated by toe amputations and possible peripheral neuropathy. 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 She doubts there is any role for intervention this late. Consider discussion with orthopedics. Memory loss complicated by cerebrovascular disease, alcohol abuse. He appears to have some memory loss. Full memory testing not completed. Recommended checking a vitamin B12 level and continue aspirin 81mg daily. Care management working closely with patient and family. His prognosis for improving adequately to care for himself at home is thought to be unlikely. He was placed on swingbed status to continue with PT/OT. He requires feeding d/t severe hand contractures, and has been requiring max assist of 2 for mobilization. He was found to have a UTI, which grew klebsiella oxytoca sensitive to keflex and will complete a 7 day course. Post void bladder scan showed approx [address] Maya. Home Meds and New Rx's Prescriptions: New cephalexin 500 mg Capsule 500 mg PO Q8H Qty: 17 RF: 0 Continued Allergy Relief (cetirizine) 10 mg capsule 10 mg PO DAILY Qty: 90 RF: 4 pantoprazole 40 mg tablet,delayed release (DR/EC) 40 mg PO DAILY Qty: 90 RF: 4 finasteride 5 mg tablet 5 mg PO DAILY Qty: 90 RF: 4 metoprolol succinate 25 mg tablet extended release 24 hr 25 mg PO BID Qty: 60 RF: 12 metoprolol succinate 100 mg tablet extended release 24 hr 100 mg PO BID Qty: 60 RF: 12 aspirin [Powderly Aspirin] 81 mg tablet,delayed release (DR/EC) 81 mg PO DAILY Qty: 90 RF: 1 tamsulosin 0.4 mg capsule 0.8 mg PO DAILY Qty: 60 RF: 6 pramipexole [Mirapex] 0.25 mg tablet 0.25 mg PO HS Qty: 90 RF: 4 allopurinol [Zyloprim] 300 mg tablet 300 mg PO DAILY Qty: 90 RF: 4 fluticasone propionate 50 mcg/actuation spray,suspension 2 spray NS DAILY Qty: 1 RF: 6 lorazepam 0.5 mg tablet 0.5 - 1 mg PO DAILY PRN (Reason: anxiety) Qty: 60 RF: 0 acetaminophen [Tylenol] 325 mg Tablet 650 mg PO Q6H PRN PRNQty: 0 RF: 0 amlodipine 5 mg Tablet 5 mg PO DAILY Qty: 0 RF: 0 losartan 25 mg Tablet 25 mg PO DAILY Qty: 0 RF: 0 lidocaine HCl [Glydo] 2 % Jelly In Applicator 6 ml topical DIRECTED Qty: 0 RF: 0 nystatin 100,000 unit/gram Powder 0 g topical TID Qty: 0 RF: 0 magnesium gluconate 27 mg magnesium (500 mg) Tablet 500 mg PO BID Qty: 0 RF: 0 Discharge Instructions Instructions: Urinary Tract Infection in Men (DC) Additional Instructions: complete 5 more days of antibiotics to complete a 7 day course. Referrals: Syeda Gayle MD [Primary Care Provider] - Activity:: with assist, fall precaut Equipment/Supplies:: No Equipment Needed Diet:: As Tolerated Discharge Orders Discharge Orders: Discharge Order (Routine); Ordered 07/18/20 Ordered By: Katherine Worthy Discharge Data Discharge Date/Time-TO BE ENTERED AT DEPARTURE: 07/18/20 11:05 DS: Summary Time Spent with Patient providing and/or coordinating discharge services: Greater than 30 minutes Status at Discharge Functional status at discharge: independent ambulation Overall status at discharge: patient is not back to baseline Mental Status: mental status grossly normal Speech and Movement: speech and movement normal Mood: congruent mood Affect: blunted Exam Const General: cooperative, no acute distress, frail appearing and ill appearing chronically Orientation: awake, oriented to person and oriented to place HENMN Head: normocephalic and atraumatic Ears: hearing grossly impaired General nose exam: external nose normal Face and sinus: other (ptosis of both eyelids, flat facies) Eyes Eyelids: eyelid abnormality Conjunctivae: conjunctivae normal Sclera: sclerae normal Resp Effort & Inspection: normal respiratory effort (even and unlabored) GI Auscultation: normal bowel sounds Skin General skin exam: no rashes or lesions noted and dry skin Neuro General: patient awake Cognition: abnormal cognition Speech: abnormal speech Extrem General: no pedal edema, clubbing and other (BUE; flexion deformities of all fingers but thumbs are spared.) Right upper extremity: hand Details: abnormal to inspection (contractures) Left upper extremity: hand Details: abnormal to inspection Psych Mental Status: mental status grossly normal Speech and Movement: speech and movement normal Mood: congruent mood Affect: blunted Attitude: cooperative DS: Data Vitals/I&O Vitals and I&O: Vital Signs Temperature 36.7 C 07/18/20 07:19 Temperature Source Temporal Artery Scan 07/18/20 07:19 Pulse 64 07/18/20 07:19 Pulse Rhythm Irregular 07/18/20 04:57 Respiratory Rate 19 07/18/20 07:19 Respiratory Effort Non-Labored 07/18/20 04:57 Respiratory Depth Shallow 07/18/20 04:57 Respiratory Pattern Normal 07/18/20 04:57 Blood Pressure 152/81 H 07/18/20 07:19 Pulse Oximetry 95 07/18/20 07:19 Oxygen Delivery Method Room Air 07/18/20 07:19 Oxygen Flow Rate 0 07/18/20 07:19 Pain Level 0 07/18/20 07:19 Intake & Output 07/17/20 07/17/20 07/18/20 11:59 23:59 11:59 Intake Total 120 / 480 360 / 480 150 / 150 Output Total 300 / 500 200 / 500 675 / 675 Balance -180 / -20 160 / -20 -525 / -525 Weight 81.1 kg Intake: Oral 120 / 480 360 / 480 150 / 150 Output: Urine 300 / 500 200 / 500 675 / 675 Other: Urine Color Yellow Yellow Yellow Urine Appearance Clear Clear Clear Urine Odor Normal Normal None Comment voiding frequently in urinal 50-100 cc. mixed with stool Stool Size Large Stool Characteristics Soft Formed Brown Voiding Methods Urinal Urinal Bedside Commode Diaper [facility] Medical History (Updated 07/11/20 @ 20:42 by Emily Mcdonald MD) Alcohol intake above recommended sensible limits 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) left great toe transmetatarsal [place] 05-02-2017 [place] [facility] [place] site with large necrotic/scabbed area: tx above knee amputation but pt declines - fup with wound care until pt decides to proceed ( - 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 [facility] [facility]) Benign prostatic hyperplasia with lower urinary tract symptoms PSA: 1.5 in Critical lower limb ischemia RIGHT [facility] [place]AUNA Parsons/ status post right iliofemoral endarterectomy and patch angioplasty/right EIA stenting/ stent graft to distal SFA and popliteal/ COMPLICATED BY INFECTION: # debridements - w LEFT ILIOFEMORAL ENDATERECTOMY WITH LEFT EXTERNAL ILIAC STENT - [facility] [place] Essential hypertension (11/16/12) Flexion contractures both hands, all fingers, thumbs somewhat spared Frequent falls Gastroesophageal reflux disease Gout Hyperlipidemia Hypokalemia Hypomagnesemia Hypomagnesemia (01/01/15) Hypomagnesemia (01/01/15) Hyponatremia (09/06/13) serum electrophoresis normal 2010/ cortisol level normal: 2009 Osteomyelitis of right lower extremity 08/13/15- GREAT RIGHT TOE S/P AMPUTAION Osteomyelitis of toe Palliative care patient Paroxysmal atrial fibrillation ADONIS score: 1/ on asa Peripheral vascular disease critical lower limb ischemia [place] [facility] [place] 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 Ptosis of both upper eyelids Restless leg syndrome, uncontrolled Sciatica Vitamin D deficiency (09/06/13) Weakness Surgical History Amputation 08/13/15-GREAT RIGHT TOE Status post amputation of great toe (08/13/15) (post osteomyelitis) Family History (Updated 07/11/20 @ 17:55 by Precious Rodriguez MD) Son No problems noted. Daughter No problems noted. Daughter No problems noted. 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 Current gender identity: male What is your relationship status?: How often do you talk on the phone with friends or family?: three or more times per week How often do you get together with friends or relatives?: three or more times per week Panel score (0-1 are the most socially isolated patients): 1 What type of physical activity do you participate in: assisted ambulation Duration: < 15 minutes/day Frequency: daily Special annemarie needs: No Seatbelt use: sometimes Working smoke detector in home: Yes Fire extinguisher in home: Yes Do you feel safe at home: Yes Do you feel safe in your relationship?: Yes Additional Social history: Denton lives alone, falls frequently, in the ER in May and June 2020, admitted at second visit. Reports that falling is new. 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 has tried to contact son today; no call back yet. Dr Chauhan from [facility] tried to reach him too during her visit; she had no luck. Denton told that he has people caring for him twice a day. Son Cristofer clarified that neighbors check to see if he is alive twice a day, but provide no care. Denton told me that his daughter Hilda lives in [place] and his daughter Shikha lives in another world.
--- NOTE | 2020-07-18 10:13 | OTTR_ITS ---
Date of service: 07/18/20 Time of Service: 08:15 Occupational Therapy Notes Occupational Therapy Inpatient Treatment Note Date: 07/18/20 PRECAUTIONS: Fall, standard, DNR/DNI SUBJECTIVE: Pt was sitting in chair when OT arrived, he states that his (L) hand feels better, he is not sure if the tape helped or the foam but he states that he has less pain in his palm. OBJECTIVE: Manual Therapy [id number]: OT performed AP joint mobs and PROM of digits into extension with low load long duration holds to (B) UE and digits. (R) UE OT was able to achieve full extension no tape applied today. (L) hand is contracted into flexed position, OT was able to achieve increased extension, no increased pain and tapes pts dorsal digits for assist which he tolerated well. Once open into a slightly extended position, OT placed foam on pts palm again with increased extension although still limited due to contractures. ASSESSMENT/PLAN: Pts hand was so contracted that it was causing him pain in his palm as his finger nails were digging into his palm. Pt tolerated PROM to digits and rock tape well, OT will continue to monitor this and progress pts (B) hands as pt can tolerate. TREATMENT CODES/TIME: [id number], 20 minutes (07:30) Veronique Almaguer OTR/[facility] CC:
--- NOTE | 2020-07-19 07:15 | OT.INDS ---
Date of service: 07/19/20 Time of Service: 07:15 Occupational Therapy Notes Occupational Therapy Inpatient Discharge Summary Date: 07/19/20 Dates of Service: 07/09/20-07/18/20 Referring Doctor: Lamin Barnes MD OT Orders: Non Urgent Precautions: Fall, standard, DNR/DNI PATIENT PROFILE/ADMITTING DIAGNOSIS: Pt is a 74 year old male who presented through the ED and was admitted to Med Surg with the following dx elevated troponin, weakness, fall, elevated brain natriuretic peptide, adult failure to thrive, skin breakdown, skin yeast infection, REYNA, essential HTN, benign prostatic hyperlasia with lower urinary tract symptoms, alcohol intake above recommended sensible limits, gout, hyperlipidemia, primary malignant neoplasm of glottis, restless leg syndrome, vitamin D deficiency, chronic back pain. Past Medical History: Medical History Alcohol intake above recommended sensible limits 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) left great toe transmetatarsal [place] 05-02-2017 [place] [facility] [place] site with large necrotic/scabbed area: tx above knee amputation but pt declines - fup with wound care until pt decides to proceed ( - 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 [employer]) Benign prostatic hyperplasia with lower urinary tract symptoms PSA: 1.5 in Critical lower limb ischemia RIGHT [facility] [place] Parsons/ status post right iliofemoral endarterectomy and patch angioplasty/right EIA stenting/ stent graft to distal SFA and popliteal/ COMPLICATED BY INFECTION: # debridements - w LEFT ILIOFEMORAL ENDATERECTOMY [place] [facility] [place]ential hypertension (11/16/12) Gastroesophageal reflux disease Gout Hyperlipidemia Hypomagnesemia Hyponatremia (09/06/13) serum electrophoresis normal 2009/ cortisol level normal: 2009 Osteomyelitis of right lower extremity 08/13/15- GREAT RIGHT TOE S/P AMPUTAION Osteomyelitis of toe Paroxysmal atrial fibrillation ADONIS score: 1/ on asa Peripheral vascular disease critical lower limb ischemia [place] [facility] 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 Restless leg syndrome, uncontrolled Sciatica Vitamin D deficiency (09/06/13) Surgical History Amputation 08/13/15-GREAT RIGHT TOEStatus post amputation of great toe (08/13/15) (post osteomyelitis) Social History/Home Situation: Pt states that he lives alone, he does not that he has services come in to (A) With laundry and grocery shopping. He reports that prior he was (I) with his ADLs and reports that he has family that checks in on him every once in a while. He states that he is discouraged that he has to live alone but that he does his best. SUBJECTIVE: NT OBJECTIVE: ROM: RUE digits decreased ROM, elbow WNL, shoulder limitations L UE digits decreased ROM, elbow WNL, shoulder limitations STRENGTH: RUE 3-/5 throughout LUE 2+/5 throughout FUNCTIONAL MOBILITY/ADLS: BATHING: sitting in bed with max (A) set up/clean up min vc throughout Upper Body: (I) face with help with positioning his wash cloth on his hand. Mod (A) (B) UE for arms, min (A) abdomen Lower Body: Max (A) DRESSING: sitting in bed Upper Extremity: Min (A) [facility] Lower Extremity: Max (A) Eating- (I) with with min vc throughout, is able to bring food to mouth and machine pecan picker food from plate without (A). BALANCE: Static sitting Good Dynamic Sitting Good ASSESSMENT: Patient is a 74-year-old male referred to occupational therapy services with diagnosis of elevated troponin, weakness, fall, elevated brain natriuretic peptide, adult failure to thrive, skin breakdown, skin yeast infection, REYNA, essential HTN, benign prostatic hyperlasia with lower urinary tract symptoms, alcohol intake above recommended sensible limits, gout, hyperlipidemia, primary malignant neoplasm of glottis, restless leg syndrome, vitamin D deficiency, chronic back pain . Pt was able to demonstrate increased (I) with his ADLs. He went from max (A) to (I) for most of his ADLs with his hand contracted limiting his fine motor control. He overall although was not able to perform his ADLs at his baseline he made improvements with his functional activity tolerance. The decreased fine motor control does limit his ability to pull his socks up, hold a pen, put on a shirt (I), put on pants and button them (I). GOALS 1. Grooming- sitting in chair (I) brushing hair, min (A) brushing teeth- met 2. Dressing- sitting in chair mod (A) UE and mod (I) LE- not met 3. Bathing- sitting in chair (I) UE and mod (A) LE- not met for LE 4. Toileting- on commode min (A)- met 5. Eating- (I)- met PLAN OF CARE/TREATMENT PLAN: Pt was discharged to SNF when medically cleared per MD DISCHARGE RECOMMENDATIONS Based on pts functional impairments and limitations, OT recommends that go SNF when medically cleared by MD. TREATMENT TIME/MINUTES/CODES N/A Veronique Almaguer OTR/[facility]
== END 2020-07-18 11:05 | disposition skilled nursing facility (03) | DRG 948 ==
PROVIDERS: Internal Medicine; Nurse Practitioner Acute Care; Admitting Provider Family Medicine; PCP Family Medicine; Visit Provider Family Medicine
DX: R53.1 Weakness (principal); L97.828 Non-pressure chronic ulcer of other part of left lower leg with other specified severity; L97.818 Non-pressure chronic ulcer of other part of right lower leg with other specified severity; L98.428 Non-pressure chronic ulcer of back with other specified severity; L97.518 Non-pressure chronic ulcer of other part of right foot with other specified severity; G95.89 Other specified diseases of spinal cord; N39.0 Urinary tract infection, site not specified; Z51.5 Encounter for palliative care; B37.2 Candidiasis of skin and nail; R29.6 Repeated falls; N40.1 Benign prostatic hyperplasia with lower urinary tract symptoms; I73.9 Peripheral vascular disease, unspecified; I10 Essential (primary) hypertension; K21.9 Gastro-esophageal reflux disease without esophagitis; M10.9 Gout, unspecified; E78.5 Hyperlipidemia, unspecified; Z89.412 Acquired absence of left great toe; I48.0 Paroxysmal atrial fibrillation; G25.81 Restless legs syndrome; M54.30 Sciatica, unspecified side; E55.9 Vitamin D deficiency, unspecified; Z87.891 Personal history of nicotine dependence; R47.1 Dysarthria and anarthria; Z85.21 Personal history of malignant neoplasm of larynx; M72.0 Palmar fascial fibromatosis [Dupuytren]; R29.2 Abnormal reflex; Z66 Do not resuscitate; B96.1 Klebsiella pneumoniae [K. pneumoniae] as the cause of diseases classified elsewhere
CPT/HCPCS: 87077; 87635; 97110; 97140; 97162; 97530; 97535; 99305; 99306; 99316; 81003; 81015; 82140; 82607; 87086; 87186

== ENCOUNTER 2020-07-29 18:55 | Outpatient (REF) | payer SELFPAY ==
[2020-07-29 20:25] LABS: ALT 27 U/L (16-63); AST 25 U/L (15-37); Alkaline Phosphatase 149 U/L (46-116); Magnesium 1.6 mg/dL (1.8-2.4)
[2020-07-29 21:06] LABS: Folate 15.7 ng/mL (8.6-20.0); Vitamin B12 484 pg/mL (193-986)
== END 2020-07-29 18:56 | disposition home or self-care (01) ==
LOC: LBN 18:55
PROVIDERS: PCP Family Medicine; Visit Provider Family Medicine
DX: R53.1 Weakness (principal); E78.5 Hyperlipidemia, unspecified; I10 Essential (primary) hypertension; R62.7 Adult failure to thrive; M10.9 Gout, unspecified; R26.89 Other abnormalities of gait and mobility
CPT/HCPCS: 82607; 82746; 83735; 84075; 84450; 84460

== ENCOUNTER 2020-08-01 17:37 | Emergency (ER) | payer MEDICARE, SELFPAY ==
[2020-08-01 17:32] VITALS: BP 146/66; PULSE 70; RESP 20; TEMP 37.4; O2SAT 95
[2020-08-01 18:35] LABS: Bilirubin Negative (Negative); Blood Negative (Negative); Clarity Clear (Clear); Glucose Negative (Negative); Ketones Negative (Negative); Leukocyte Esterase Small (Negative); Nitrite Negative (Negative)
--- NOTE | 2020-08-01 18:36 | ED.GENADUL_ITS ---
Discharge Plan Disposition Patient Disposition: SNF (LEVEL 1) [facility] Condition: Stable Discharge Details Clinical Impression: Adjustment disorder, Suicidal thoughts, UTI (urinary tract infection) Primary Care Provider: Syeda Gayle ED Provider: Adama Valero [place] and New Rx's Prescriptions: New sulfamethoxazole-trimethoprim [Bactrim DS] 800-160 mg tablet 1 tab PO BID Qty: 14 RF: 0 Continued Allergy Relief (cetirizine) 10 mg capsule 10 mg PO DAILY Qty: 90 RF: 4 pantoprazole 40 mg tablet,delayed release (DR/EC) 40 mg PO DAILY Qty: 90 RF: 4 finasteride 5 mg tablet 5 mg PO DAILY Qty: 90 RF: 4 metoprolol succinate 25 mg tablet extended release 24 hr 25 mg PO BID Qty: 60 RF: 12 metoprolol succinate 100 mg tablet extended release 24 hr 100 mg PO BID Qty: 60 RF: 12 aspirin [[place] Aspirin] 81 mg tablet,delayed release (DR/EC) 81 mg PO DAILY Qty: 90 RF: 1 tamsulosin 0.4 mg capsule 0.8 mg PO DAILY Qty: 60 RF: 6 pramipexole [Mirapex] 0.25 mg tablet 0.25 mg PO HS Qty: 90 RF: 4 allopurinol [Zyloprim] 300 mg tablet 300 mg PO DAILY Qty: 90 RF: 4 fluticasone propionate 50 mcg/actuation spray,suspension 2 spray NS DAILY Qty: 1 RF: 6 lorazepam 0.5 mg tablet 0.5 - 1 mg PO DAILY PRN (Reason: anxiety) Qty: 60 RF: 0 acetaminophen [Tylenol] 325 mg Tablet 650 mg PO Q6H PRN PRNQty: 0 RF: 0 amlodipine 5 mg Tablet 5 mg PO DAILY Qty: 0 RF: 0 losartan 25 mg Tablet 25 mg PO DAILY Qty: 0 RF: 0 lidocaine HCl [Glydo] 2 % Jelly In Applicator 6 ml topical DIRECTED Qty: 0 RF: 0 nystatin 100,000 unit/gram Powder 0 g topical TID Qty: 0 RF: 0 magnesium gluconate 27 mg magnesium (500 mg) Tablet 500 mg PO BID Qty: 0 RF: 0 cyanocobalamin (vitamin B-12) 1,000 mcg Tablet 1,000 mcg PO DAILY RF: 0 magnesium chloride 64 mg Tablet Extended Release 64 mg PO BID RF: 0 Discontinued cephalexin 500 mg Capsule 500 mg PO Q8H Qty: 17 RF: 0 Discharge Instructions Additional Instructions: Seen and evaluated by mental health and cleared for return to [facility]. They will call and check on him later today. Still evidence of UTI. Recommend Bactrim DS twice daily for 1 week. Should have repeat urinalysis once antibiotic completed. Recommend removing sharp objects from patient's belongings. Return to ED for worsening depression, active suicidal thoughts, mental status changes, vomiting, other concerns. Discharge Data Discharge Date/Time-TO BE ENTERED AT DEPARTURE: 08/02/20 08:37 Medical Decision Making <SHAUNA Cantu - Last Filed: 08/02/20 13:25> This is a 75-year-old gentleman, multiple morbidities, seen in our facility on 07-07-20 and was living fairly independently up until that point. Subsequently discharged from our facility on 07-18-[address] [facility] and since that time has been very unhappy. Patient does not like living at the [facility] and would like to be released from there and go home. Today he made some self harming statements to staff. Patient does not denies the statements to me but does not admit to suicidal ideations to me either. He is a rather vague and elusive historian. Will obtain medical screening laboratory values for a psychiatric eval. Given his thoughts of self-harm, he is a fall risk, will also initiate a CPSO and interim care plan Laboratory values reveal a white blood cell count of 7.73 hemoglobin 12.1 hematocrit 36.2 platelet count 154. Potassium 4.4 creatinine 1.3 with a GFR of 53.96 glucose 108, urinalysis small leuk esterase, 20-50 white cells. No laboratory values reveal emergent process that would inhibit a mental health evaluation. Patient discontinued his oral antibiotics on July 23, continues to have leukoesterase and white cells in his urine. When reviewing his most recent urine culture appears susceptible to Bactrim, will provide p.o. dose of Bactrim DS now. Patient reports mild headache, 650 p.o. Tylenol given. He was also given d inner, able to tolerate p.o. intake without difficulty. Mental health has been consulted and awaiting eval Patient was given his nightly medications. Awaiting mental health consultation Medical Records Medical records reviewed: Yes I reviewed the patient's medical records. Lab Data Lab results reviewed: Yes I reviewed the patient's lab results. Labs: 08/01/20 18:21 Urine - Reflex from Ua Urine Culture - Pending Laboratory Tests Range/Units 08/01/20 08/01/20 08/01/20 16:40 16:40 16:40 WBC (4.4-10.8) 10^3/uL 7.73 RBC (4.36-5.78) 10^6/uL 3.74 L Hgb (13.5-17.5) g/dL 12.1 L Hct (40.0-50.0) % 36.2 L MCV (80-95) fL 96.8 H MCH (27.0-33.0) pg 32.4 MCHC (32.0-36.0) % 33.4 RDW (11.8-14.1) % 13.4 Plt Count (130-400) 10^3/uL 154 MPV (8.0-11.0) fL 11.4 H Immature Gran % 0.1 Neutrophils % 73.5 Lymphocytes % 12.5 Monocytes % 8.0 Eosinophils % 5.4 Basophils % 0.5 Nucleated RBC % % 0 Absolute Neutrophils (1.2-6.7) 10^3/uL 5.67 Absolute Lymphocytes (1.2-3.4) 10^3/uL 0.97 L Absolute Monocytes (0.1-0.8) 10^3/uL 0.62 Absolute Eosinophils (0.0-0.7) 10^3/uL 0.42 Absolute Basophils (0.0-0.2) 10^3/uL 0.04 Sodium (136-145) mmol/L 139 Potassium (3.5-5.1) mmol/L 4.4 Chloride (98-107) mmol/L 104 Carbon Dioxide (21.0-32.0) mmol/L 22.7 Anion Gap (3-11) mmol/L 12.3 H BUN (7-18) mg/dL 32 H Creatinine (0.70-1.30) mg/dL 1.3 Estimated GFR/1.73 m2 (mL/min/1.73m2) 53.96 Glucose (74-106) mg/dL 108 H Calcium (8.5-10.1) mg/dL 9.6 Total Bilirubin (0.2-1.0) mg/dL 0.4 AST (15-37) U/L 19 ALT (16-63) U/L 21 Alkaline Phosphatase (46-116) U/L 147 H Total Protein (6.4-8.2) g/dL 7.6 Albumin (3.4-5.0) g/dL 3.7 TSH (0.36-3.74) uIU/mL 1.10 Urine Color (Yellow) Urine Clarity (Clear) Urine pH (5-8) Ur Specific Hubbell (1.005-1.025) Urine Protein (Negative) mg/dL Urine Ketones (Negative) mg/dL Urine Blood (Negative) Urine Nitrite (Negative) Urine Bilirubin (Negative) Urine Urobilinogen (Up TO 0.2) EU/dL Ur Leukocyte Esterase (Negative) Urine RBC (0-2) HPF Urine WBC (0-5) HPF Ur Epithelial Cells (Negative) HPF Urine Crystals (Negative) HPF Urine Bacteria (Negative) HPF Urine Casts (Negative) LPF Urine Mucus (Negative) Urine Other (Negative) Ur Culture Indicated? Urine Glucose (Negative) mg/dL Salicylates (<2.8) mg/dL < 2.8 Urine Opiates Screen (Negative) Urine Methadone Screen (Negative) Acetaminophen (10-30) ug/mL < 2 Ur Barbiturates Screen (Negative) Ur Tricyclics Screen (Negative) Ur Amphetamines Screen (Negative) U Benzodiazepines Scrn (Negative) Urine Cocaine Screen (Negative) Ur THC Screen (Negative) Ethyl Alcohol (<3) mg/dL < 3.0 COVID-19 Source SARS-CoV-2 (PCR) (Negative) Range/Units 08/01/20 08/01/20 08/01/20 18:21 18:21 20:45 WBC (4.4-10.8) 10^3/uL RBC (4.36-5.78) 10^6/uL Hgb (13.5-17.5) g/dL Hct (40.0-50.0) % MCV (80-95) fL MCH (27.0-33.0) pg MCHC (32.0-36.0) % RDW (11.8-14.1) % Plt Count (130-400) 10^3/uL MPV (8.0-11.0) fL Immature Gran % Neutrophils % Lymphocytes % Monocytes % Eosinophils % Basophils % Nucleated RBC % % Absolute Neutrophils (1.2-6.7) 10^3/uL Absolute Lymphocytes (1.2-3.4) 10^3/uL Absolute Monocytes (0.1-0.8) 10^3/uL Absolute Eosinophils (0.0-0.7) 10^3/uL Absolute Basophils (0.0-0.2) 10^3/uL Sodium (136-145) mmol/L Potassium (3.5-5.1) mmol/L Chloride (98-107) mmol/L Carbon Dioxide (21.0-32.0) mmol/L Anion Gap (3-11) mmol/L BUN (7-18) mg/dL Creatinine (0.70-1.30) mg/dL Estimated GFR/1.73 m2 (mL/min/1.73m2) Glucose (74-106) mg/dL Calcium (8.5-10.1) mg/dL Total Bilirubin (0.2-1.0) mg/dL AST (15-37) U/L ALT (16-63) U/L Alkaline Phosphatase (46-116) U/L Total Protein (6.4-8.2) g/dL Albumin (3.4-5.0) g/dL TSH (0.36-3.74) uIU/mL Urine Color (Yellow) Yellow Urine Clarity (Clear) Clear Urine pH (5-8) 6.0 Ur Specific Hubbell (1.005-1.025) 1.020 Urine Protein (Negative) mg/dL Negative Urine Ketones (Negative) mg/dL Negative Urine Blood (Negative) Negative Urine Nitrite (Negative) Negative Urine Bilirubin (Negative) Negative Urine Urobilinogen (Up TO 0.2) EU/dL 1.0 H Ur Leukocyte Esterase (Negative) Small H Urine RBC (0-2) HPF Negative Urine WBC (0-5) HPF 20-50 H Ur Epithelial Cells (Negative) HPF Few Urine Crystals (Negative) HPF Negative Urine Bacteria (Negative) HPF Negative Urine Casts (Negative) LPF Negative Urine Mucus (Negative) Negative Urine Other (Negative) Negative Ur Culture Indicated? Yes Urine Glucose (Negative) mg/dL Negative Salicylates (<2.8) mg/dL Urine Opiates Screen (Negative) Negative Urine Methadone Screen (Negative) Negative Acetaminophen (10-30) ug/mL Ur Barbiturates Screen (Negative) Negative Ur Tricyclics Screen (Negative) Negative Ur Amphetamines Screen (Negative) Negative U Benzodiazepines Scrn (Negative) Negative Urine Cocaine Screen (Negative) Negative Ur THC Screen (Negative) Negative Ethyl Alcohol (<3) mg/dL COVID-19 Source Nasal/nares SARS-CoV-2 (PCR) (Negative) Negative <Adama Valero MD - Last Filed: 08/02/20 23:12> Patient had been sent in for mental health exam after expressing suicidal ideation at [facility]. Patient recently placed at [facility]. He is very unhappy there and wants to be back home. However, he is at this point unable to take care of hims elf. He has been without issue here. He is medically cleared except for continued evidence of UTI despite being treated with Keflex. He will be started on Bactrim. He was evaluated by mental health. While he admits to occasional SI he denies having any intention of acting on this. He is mostly frustrated with where he is currently living. He has been cleared by mental health to return to [facility]. Unfortunately no way to get him back there tonight. We will hold him here until morning to make arrangements for transfer back. Lab Data Lab results reviewed: Yes I reviewed the patient's lab results. HPI <SHAUNA Cantu - Last Filed: 08/02/20 13:25> General Mode of arrival: EMS . Date/Time Provider Initiated Documentation: 08/01/20 18:02 . Limitations to Documentation: no limitations . Information obtained by: patient and EMS . HPI Narrative: This is a 75-year-old gentleman, past medical history that includes BPH, hypertension, flexion contractures, GERD, palliative care patient, proximal atrial fibrillation, PVD, presenting to the ER via EMS with thoughts of self-harm. Patient was evaluated in our ER on 07-07-20, subsequently admitted to our facility and then discharged to the [facility] on 07-18-20. Patient was living independently up until that time. Patient states that he does not like living at the [facility], it is loud, busy, too many people, and all the people are old. Patient had thoughts of self-harm this evening, had access to scissors and a cord from a call vazquez. Patient is a rather vague and elusive historian. Patient denies recent illness or trauma. He reports no recent falls since going to the [facility]. He typically ambulates with a walker or cane. He states that he does not want to go back to the [facility] he would rather go home. When reviewing his most recent discharge summary it appears as though he had a UTI, cultured to do that he revealed sensitivity to Keflex and placed on for 7 days. He specifically denies any fever, chest pain, shortness of breath, headache, abdominal pain, nausea, vomiting, dysuria, urinary frequency, diarrhea. Related Data Home Medications Medication Instructions Recorded Confirmed cetirizine 10 mg capsule 10 mg PO DAILY #90 cap 12/16/17 08/01/20 pantoprazole 40 mg tablet,delayed 40 mg PO DAILY #90 tab 04/25/19 08/01/20 release finasteride 5 mg tablet 5 mg PO DAILY #90 tab 07/26/19 08/01/20 metoprolol succinate 100 mg 100 mg PO BID #60 tab-cap 09/06/19 08/01/20 tablet,extended release 24 hr metoprolol succinate 25 mg 25 mg PO BID #60 tab 09/06/19 08/01/20 tablet,extended release 24 hr aspirin 81 mg tablet,delayed 81 mg PO DAILY #90 tab-cap 02/12/20 08/01/20 release tamsulosin 0.4 mg capsule 0.8 mg PO DAILY #60 tab-cap 02/13/20 08/01/20 pramipexole 0.25 mg tablet 0.25 mg PO HS #90 tab 04/01/20 08/01/20 allopurinol 300 mg tablet 300 mg PO DAILY #90 tab 04/05/20 08/01/20 fluticasone propionate 50 2 spray NS DAILY #1 script 05/29/20 08/01/20 mcg/actuation nasal spray,suspension lorazepam 0.5 mg tablet 0.5 - 1 mg PO DAILY PRN #60 tab 06/10/20 08/01/20 acetaminophen [Tylenol] 650 mg PO Q6H PRN PRN #0 tab 07/11/20 08/01/20 amlodipine 5 mg PO DAILY #0 tab 07/11/20 08/01/20 lidocaine HCl [Glydo] 6 ml TOPICAL DIRECTED #0 ml 07/11/20 07/11/20 losartan 25 mg PO DAILY #0 tab 07/11/20 08/01/20 magnesium gluconate 500 mg PO BID #0 tab 07/11/20 07/11/20 nystatin 0 g TOPICAL TID #0 g 07/11/20 07/11/20 cyanocobalamin (vitamin B-12) 1,000 mcg PO DAILY 08/01/20 08/01/20 magnesium chloride 64 mg PO BID 08/01/20 08/01/20 sulfamethoxazole-trimethoprim 1 tab PO BID #14 tab 08/02/20 [Bactrim DS] Previous Rx's Medication Instructions Recorded cetirizine 10 mg capsule 10 mg PO DAILY #90 cap 12/16/17 pantoprazole 40 mg tablet,delayed 40 mg PO DAILY #90 tab 04/25/19 release finasteride 5 mg tablet 5 mg PO DAILY #90 tab 07/26/19 metoprolol succinate 100 mg 100 mg PO BID #60 tab-cap 09/06/19 tablet,extended release 24 hr metoprolol succinate 25 mg 25 mg PO BID #60 tab 09/06/19 tablet,extended release 24 hr aspirin 81 mg tablet,delayed 81 mg PO DAILY #90 tab-cap 02/12/20 release tamsulosin 0.4 mg capsule 0.8 mg PO DAILY #60 tab-cap 02/13/20 pramipexole 0.25 mg tablet 0.25 mg PO HS #90 tab 04/01/20 allopurinol 300 mg tablet 300 mg PO DAILY #90 tab 04/05/20 fluticasone propionate 50 2 spray NS DAILY #1 script 05/29/20 mcg/actuation nasal spray,suspension lorazepam 0.5 mg tablet 0.5 - 1 mg PO DAILY PRN #60 tab 06/10/20 acetaminophen [Tylenol] 650 mg PO Q6H PRN PRN #0 tab 07/11/20 amlodipine 5 mg PO DAILY #0 tab 07/11/20 lidocaine HCl [Glydo] 6 ml TOPICAL DIRECTED #0 ml 07/11/20 losartan 25 mg PO DAILY #0 tab 07/11/20 magnesium gluconate 500 mg PO BID #0 tab 07/11/20 nystatin 0 g TOPICAL TID #0 g 07/11/20 sulfamethoxazole-trimethoprim 1 tab PO BID #14 tab 08/02/20 [Bactrim DS] Allergies Allergy/AdvReac Type Severity Reaction Status Date / Time pravastatin AdvReac Severe MUSCLE Unverified 08/01/20 18:51 PAIN AND WEAKNESS lisinopril AdvReac HYPERKALEMI Unverified 08/01/20 18:51 A General Stated Complaint: PsychEval TOMEKA: 2 Review of Systems <SHAUNA Cantu - Last Filed: 08/02/20 13:25> Constitutional Constitutional: Denies chills, Denies fatigue, Denies fever(s) and Denies headache(s) ENT Ears, Nose, Mouth, and Throat: Denies headache(s) and Denies neck pain Cardiovascular Cardiovascular: Denies chest pain and Denies dyspnea Respiratory Respiratory: Denies cough and Denies dyspnea Gastrointestinal Gastrointestinal: Denies abdominal pain, Denies nausea and Denies vomiting Genitourinary Genitourinary: Denies dysuria Musculoskeletal Musculoskeletal: Denies back pain and Denies neck pain Integumentary/Breasts Skin/Breast: Denies rash Neurologic Neurologic: Denies headache(s) Psychiatric Psychiatric: Denies homicidal ideation and Reports suicidal ideation Endocrine Endocrine: Denies fatigue Hematologic/Lymphatic Hematologic/Lymphatic: Denies easy bleeding and Denies easy bruising PFSH <SHAUNA Cantu - Last Filed: 08/02/20 13:25> Medical History Alcohol intake above recommended sensible limits 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) left great toe transmetatarsal amputation 05-02-2017 [place] [facility]Sx.: site with large necrotic/scabbed area: tx above knee amputation but pt declines - fup with wound care until pt decides to proceed (Dr.Goodney [employer] Chiang [employer] REPRESENTATIVE) Benign prostatic hyperplasia with lower urinary tract symptoms PSA: 1.5 in Critical lower limb ischemia RIGHT [facility] [place]AUNA [place]ons/ status post right iliofemoral endarterectomy and patch angioplasty/right EIA stenting/ stent graft to distal SFA and popliteal/ COMPLICATED BY INFECTION: # debridements - w LEFT ILIOFEMORAL ENDATERECTOMY WITH LEFT EXTERNAL ILIAC STENT - [facility] [place] Essential hypertension (11/16/12) Flexion contractures both hands, all fingers, thumbs somewhat spared Frequent falls Gastroesophageal reflux disease Gout Hyperlipidemia Hypokalemia Hypomagnesemia Hypomagnesemia (01/01/15) Hypomagnesemia (01/01/15) Hyponatremia (09/06/13) serum electrophoresis normal 2009/ cortisol level normal: 2010 Osteomyelitis of right lower extremity 08/13/15- GREAT RIGHT TOE S/P AMPUTAION Osteomyelitis of toe Palliative care patient Paroxysmal atrial fibrillation ADONIS score: 1/ on asa Peripheral vascular disease critical lower limb ischemia [place] [facility] [place] 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 Daughter No problems noted. Daughter No problems noted. 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 Current gender identity: male What is your relationship status?: How often do you talk on the phone with friends or family?: three or more times per week How often do you get together with friends or relatives?: three or more times per week Panel score (0-1 are the most socially isolated patients): 1 What type of physical activity do you participate in: assisted ambulation Duration: < 15 minutes/day Frequency: daily Special annemarie needs: No Seatbelt use: sometimes Working smoke detector in home: Yes Fire extinguisher in home: Yes Do you feel safe at home: Yes Do you feel safe in your relationship?: Yes Additional Social history: Denton lives at the [facility]. his daughter Hilda lives in [place]. Exam <SHAUNA Cantu - Last Filed: 08/02/20 13:25> Const General: cooperative, healthy appearing, comfortable and no acute distress Orientation: alert, awake, oriented to person, oriented to place and confused (Unsure of exact date) [facility] Head: normal to inspection, normocephalic and atraumatic Face and sinus: normal facial exam Mouth: moist mucous membranes Throat: posterior oropharynx normal Eyes General: appearance normal, both eyes and all related structures Alignment and Position: alignment normal Periorbital: periorbital findings normal Eyelids: eyelids normal Conjunctivae: conjunctivae normal Sclera: sclerae normal Cornea: corneas normal Pupils: PERRL EOM: EOM intact bilaterally Direct ophthalmoscopy: normal light reflex Neck Neck: normal visual inspection, full ROM, trachea midline and supple Resp Effort & Inspection: normal respiratory effort and able to speak in complete sentences Auscultation: diminished lung sounds bilaterally in the lower lung mcclelland Cardio Rate: regular rate Rhythm: regular rhythm GI Palpation: soft and nontender Back/Spine/Pelvis Back: No back tenderness Skin General skin exam: no rashes or lesions noted Neuro General: patient alert, patient awake, moves all extremities and no focal motor deficits Cognition: normal cognition Speech: speech normal Motor: muscle tone normal throughout Sensory Exam: no sensory deficits noted Extrem General: full ROM (Other than baseline flexion contracture) and capillary refill normal Psych Appearance: grossly normal Mental Status: mental status grossly normal Speech and Movement: speech and movement normal Mood: dysthymic mood Affect: sad Attitude: cooperative Thought Process: normal Thought Content: suicidality (Follow-up of self-harm but has not admitted to to me) Insight: fair Judgment: fair Course <SHAUNA Cantu - Last Filed: 08/02/20 13:25> Vital Signs Vital signs: Vital Signs Temperature 37.4 C 08/01/20 17:32 Pulse 70 08/01/20 17:32 Respiratory Rate 20 08/01/20 17:32 Blood Pressure 146/66 H 08/01/20 17:32 Pulse Oximetry 95 08/01/20 17:32 Temperature 37.4 C 08/01/20 17:32 Temperature Source Tympanic 08/01/20 17:32 Pulse 70 08/01/20 17:32 Respiratory Rate 20 08/01/20 17:32 Blood Pressure 146/66 H 08/01/20 17:32 Blood Pressure Position Supine 08/01/20 17:32 Pulse Oximetry 95 08/01/20 17:32 Oxygen Delivery Method Room Air 08/01/20 17:32 Oxygen Flow Rate 0 08/01/20 17:32 Pain Level 0 08/01/20 17:32 Sign Out <SHAUNA Cantu - Last Filed: 08/02/20 13:25> Sign Out Data: Sign Out Comment: Patient resides at the [facility], does not want to be there. Made vague self harming statements to staff, subsequently sent to the ER. Still has 25-50 white cells and leuk esterase in his urine, given a single dose of Bactrim DS and all of his nightly medications. Awaiting mental health evaluation Last updated by Dann Awad PA at 08/01/20 23:29
[2020-08-01 19:08] LABS: Abs Immature Grans 0.01 10^3/uL (0.0-0.06); Absolute Basophil Count 0.04 10^3/uL (0.0-0.2); Absolute Eosinophil Count 0.42 10^3/uL (0.0-0.7); Absolute Lymphocyte Count 0.97 10^3/uL (1.2-3.4); Absolute Monocyte Count 0.62 10^3/uL (0.1-0.8); Absolute Neutrophil Count 5.67 10^3/uL (1.2-6.7); Basophils % 0.5; Eosinophils % 5.4; HCT 36.2 % (40.0-50.0); HGB 12.1 g/dL (13.5-17.5); Immature Grans % 0.1; Lymphocytes % 12.5; MCH 32.4 pg (27.0-33.0); MCHC 33.4 % (32.0-36.0); MCV 96.8 fL (80-95); MPV 11.4 fL (8.0-11.0); Neutrophils % 73.5; Nucleated RBC 0 %; Platelet Count 154 10^3/uL (130-400); RBC 3.74 10^6/uL (4.36-5.78); RDW 13.4 % (11.8-14.1); RDW-SD 48.1 fL; WBC 7.73 10^3/uL (4.4-10.8)
[2020-08-01 19:09] LABS: Epithelial Cells Few HPF (Negative); RBC Negative HPF (0-2); WBC 20-50 HPF (0-5)
[2020-08-01 19:10] LABS: Bacteria Negative HPF (Negative); C & S Indicated? Yes; Casts Negative LPF (Negative); Crystals Negative HPF (Negative); Mucus Negative (Negative); Other Cells Negative (Negative)
[2020-08-01 19:14] LABS: *AMPHETAMINES SCREEN URINE Negative (Negative); *BARBITURATES SCREEN URINE Negative (Negative); *BENZODIAZEPINES SCREEN URINE Negative (Negative); Cannabinoids THC Negative (Negative); Cocaine Screen,Urine Negative (Negative); METHADONE URINE SCREEN Negative (Negative); OPIATES URINE SCREEN Negative (Negative)
[2020-08-01 19:14] LABS: ALT 21 U/L (16-63); AST 19 U/L (15-37); Albumin 3.7 g/dL (3.4-5.0); Alkaline Phosphatase 147 U/L (46-116); Anion Gap 12.3 mmol/L (3-11); BUN 32 mg/dL (7-18); Bilirubin, Total 0.4 mg/dL (0.2-1.0); CO2 22.7 mmol/L (21.0-32.0); CREATININE 1.3 mg/dL (0.70-1.30); Calcium 9.6 mg/dL (8.5-10.1); Chloride 104 mmol/L (98-107); Estimated GFR 53.96 (mL/min/1.73m2); Glucose 108 mg/dL (74-106); Potassium 4.4 mmol/L (3.5-5.1); Sodium 139 mmol/L (136-145); Total Protein 7.6 g/dL (6.4-8.2)
[2020-08-01 19:20] LABS: Tricyclic Antidepressants Negative (Negative)
[2020-08-01 19:36] LABS: ETHANOL BLOOD < 3.0 mg/dL (<3)
[2020-08-01 19:40] LABS: Salicylate < 2.8 mg/dL (<2.8)
[2020-08-01 19:42] LABS: Acetaminophen < 2 ug/mL (10-30)
[2020-08-01 20:52] LABS: Source Nasal/Nares
[2020-08-01 21:55] LABS: COVID-19 PCR Negative (Negative)
[2020-08-01] MEDS: Acetaminophen 325 MG TAB 650 MG PO (22:42)
[2020-08-01 23:24] VITALS: BP 145/68; PULSE 79; RESP 18; TEMP 37.3; O2SAT 91
[2020-08-01] MEDS: Metoprolol 25 MG TAB PO (23:33)
[2020-08-01] MEDS: Pramipexole 0.25 MG TAB PO (23:33)
[2020-08-01] MEDS: Magnesium Chloride 64 MG TABCR PO (23:33)
[2020-08-01] MEDS: Sulfameth/Trimeth DS TAB 1 TAB PO (23:33)
[2020-08-01] MEDS: Metoprolol 50 MG TAB 100 MG PO (23:33)
--- NOTE | 2020-08-02 02:10 | PDOC.MHCN ---
Date of service: 08/02/20 Time of Service: 02:11 Mental Health Crisis Note Presenting Issue How did you arrive at the ED and why did you come: Pt arrived via [facility] after he was reported to have access to his call [employer] and scissors and threatening to kill himself. Precipitating Factors Pt stated that he has fleeting thoughts of SI because he does not want to live at the [facility] he wants to live at his own home. He denied HI and there are no signs of delusions. Disposition BEHAVIOR: Pt is cooperative and engaged. He is difficult to understand at times due to him not having any dentures however, he is cooperative enough to repeat himself if he did not understand. EYE CONTACT: Fair MOOD: Sad that he is not living in his home and is not happy to be where he is at especially since they have moved his room per his report. AFFECT: Unremarkable APPETITE: Pt reported not bad it could improve. SLEEP(trouble falling/staying asleep: Pt reported good sleep. Plan The Pt appears to be having a hard time adjusting to his living environment. He reported that he is not happy that he is being moved again within his living arrangement and he wants to be back in hi own home. Pt agreed to a check in call later today 08.02.2020 via phone and would like to have a conversation with his son and family about the possibility of going home again. Pt does not meet any criteria for hospitalization at this time. Signature Clinician's Name/Title: Ana Diaz MS, [facility] Emergency Services Clinician, [facility]
[2020-08-02] MEDS: Acetaminophen 325 MG TAB 650 MG PO (06:24)
== END 2020-08-02 08:37 | disposition skilled nursing facility (03) ==
PROVIDERS: Physician Assistant; Emergency Provider Emergency Medicine; PCP Family Medicine
DX: F43.20 Adjustment disorder, unspecified (principal); N39.0 Urinary tract infection, site not specified; R45.851 Suicidal ideations
CPT/HCPCS: 36415; 80053; 80307; 87635; 99285; 80320; 80329; 81003; 81015; 84443; 85025; 87086; 99283

== ENCOUNTER 2020-08-26 15:19 | Outpatient (REF) | payer SELFPAY ==
[2020-08-26 17:03] LABS: Abs Immature Grans 0.02 10^3/uL (0.0-0.06); Absolute Basophil Count 0.05 10^3/uL (0.0-0.2); Absolute Eosinophil Count 0.31 10^3/uL (0.0-0.7); Absolute Lymphocyte Count 1.01 10^3/uL (1.2-3.4); Absolute Monocyte Count 0.69 10^3/uL (0.1-0.8); Absolute Neutrophil Count 7.17 10^3/uL (1.2-6.7); Basophils % 0.5; Eosinophils % 3.4; HCT 34.5 % (40.0-50.0); HGB 11.2 g/dL (13.5-17.5); Immature Grans % 0.2; Lymphocytes % 10.9; MCH 32.9 pg (27.0-33.0); MCHC 32.5 % (32.0-36.0); MCV 101.5 fL (80-95); Monocytes % 7.5; Neutrophils % 77.5; Nucleated RBC 0 %; Platelet Count 167 10^3/uL (130-400); RDW 14.1 % (11.8-14.1); RDW-SD 51.7 fL; WBC 9.25 10^3/uL (4.4-10.8)
[2020-08-26 18:07] LABS: Anion Gap 12.2 mmol/L (3-11); BUN 26 mg/dL (7-18); CO2 23.8 mmol/L (21.0-32.0); CREATININE 1.4 mg/dL (0.70-1.30); Chloride 103 mmol/L (98-107); Estimated GFR 49.54 (mL/min/1.73m2); Glucose 92 mg/dL (74-106); Magnesium 1.4 mg/dL (1.8-2.4); Potassium 5.2 mmol/L (3.5-5.1); Sodium 139 mmol/L (136-145); Vitamin B12 691 pg/mL (193-986)
== END 2020-08-26 15:20 | disposition home or self-care (01) ==
LOC: LBN 15:19
PROVIDERS: PCP Family Medicine; Visit Provider Nurse Practitioner Gerontology
DX: R62.7 Adult failure to thrive (principal); I10 Essential (primary) hypertension; R60.0 Localized edema; M62.81 Muscle weakness (generalized); I69.314 Frontal lobe and executive function deficit following cerebral infarction; G25.81 Restless legs syndrome; I48.0 Paroxysmal atrial fibrillation; R26.89 Other abnormalities of gait and mobility
CPT/HCPCS: 80048; 82607; 83735; 85025

== ENCOUNTER 2020-08-29 14:12 | Outpatient (REF) | payer SELFPAY ==
[2020-08-29 15:18] LABS: Anion Gap 8.5 mmol/L (3-11); CO2 24.5 mmol/L (21.0-32.0); Chloride 107 mmol/L (98-107); Potassium 4.6 mmol/L (3.5-5.1); Sodium 140 mmol/L (136-145)
== END 2020-08-29 14:13 | disposition home or self-care (01) ==
LOC: LBN 14:12
PROVIDERS: PCP Family Medicine; Visit Provider Nurse Practitioner Gerontology
DX: E87.8 Other disorders of electrolyte and fluid balance, not elsewhere classified (principal)
CPT/HCPCS: 80051

== ENCOUNTER 2020-09-08 12:37 | Emergency (ER) | payer MEDICARE, SELFPAY ==
[2020-09-08 12:34] VITALS: BP 182/83; PULSE 57; RESP 19; TEMP 36.4; O2SAT 95
--- NOTE | 2020-09-08 13:02 | W.ED.GENAD ---
Discharge Plan Disposition Patient Disposition: SNF (LEVEL 1) [facility] Condition: Stable Discharge Details Clinical Impression: Depression Primary Care Provider: Syeda Gayle ED Provider: Dann Awad Reeders Meds and New Rx's Prescriptions: Continued Allergy Relief (cetirizine) 10 mg capsule 10 mg PO DAILY Qty: 90 RF: 4 pantoprazole 40 mg tablet,delayed release (DR/EC) 40 mg PO DAILY Qty: 90 RF: 4 finasteride 5 mg tablet 5 mg PO DAILY Qty: 90 RF: 4 metoprolol succinate 25 mg tablet extended release 24 hr 25 mg PO BID Qty: 60 RF: 12 metoprolol succinate 100 mg tablet extended release 24 hr 100 mg PO BID Qty: 60 RF: 12 aspirin [[place] Aspirin] 81 mg tablet,delayed release (DR/EC) 81 mg PO DAILY Qty: 90 RF: 1 tamsulosin 0.4 mg capsule 0.8 mg PO DAILY Qty: 60 RF: 6 pramipexole [Mirapex] 0.25 mg tablet 0.25 mg PO HS Qty: 90 RF: 4 allopurinol [Zyloprim] 300 mg tablet 300 mg PO DAILY Qty: 90 RF: 4 fluticasone propionate 50 mcg/actuation spray,suspension 2 spray NS DAILY Qty: 1 RF: 6 acetaminophen [Tylenol] 325 mg Tablet 650 mg PO Q6H PRN PRNQty: 0 RF: 0 amlodipine 5 mg Tablet 5 mg PO DAILY Qty: 0 RF: 0 losartan 25 mg Tablet 25 mg PO DAILY Qty: 0 RF: 0 nystatin 100,000 unit/gram Powder 0 g topical TID Qty: 0 RF: 0 magnesium gluconate 27 mg magnesium (500 mg) Tablet 500 mg PO BID Qty: 0 RF: 0 magnesium chloride 64 mg Tablet Extended Release 64 mg PO BID RF: 0 pramipexole 1 mg Tablet 5 mg PO HS RF: 0 gabapentin 300 mg Tablet 300 mg PO HS RF: 0 B12 Active 1,000 mcg Tablet,Chewable 1,000 mcg PO DAILY RF: 0 Discharge Instructions Instructions: Depression (ED) Additional Instructions: At this time he were given a medical screening examination here in the ER and then evaluated by mental health team. Plan is for you to be discharged back to the [facility] facility. Please watch for new or worsening symptoms and return to the ER for any concerns. Otherwise I do recommend reaching out your primary care provider tomorrow to discuss your ER visit and need for outpatient reevaluation Medical Decision Making This is a 75-year-old gentleman presenting to the ER via EMS from the [facility] for question of suicidal ideations. Patient denies any suicidal ideations whatsoever. Openly admits that he is depressed and does not want to be at the [facility], would like to live independently at home. He currently has no medical concerns or complaints. Denies recent illness or trauma. I do not see a reason to reflexively obtain laboratory values in a awake, alert, 75-year-old gentleman without any medical concerns or complaints. I will request a mental health evaluation Mental health evaluation completed, determined he does not meet inpatient criteria and recommends transfer back to his facility. [facility] requesting to know what happened here in the ER and wanted to confirm that the desire was to transfer the patient back to his facility. I explained to her that he was offered a medical screening examination and then was evaluated by mental health team. She plans to speak with her childcare center administrator again and discuss our conversation. I encouraged her to have their childcare center administrator reach out to me directly if there are any questions or concerns. Received another call from the [facility] at 1520, they have accepted transfer back to their facility and have arranged transport. Medical Records Medical records reviewed: Yes I reviewed the patient's medical records. HPI General Mode of arrival: EMS. Date/Time Provider Initiated Documentation: 09/08/20 12:58. Limitations to Documentation: no limitations. Information obtained by: patient and EMS. 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 presenting to the ER today for mental health evaluation, concern for depression and suicidal ideations. The long-term facility states that he stated he was suicidal last night and had a plastic bag at bedside. Patient openly admits that he is depressed, wants to live independently again and does not want to reside at the [facility] but denies any suicidal ideations. Patient states that he feels safe and does not want to hurt himself or anyone else. He states that he soiled his underwear last night and wanted to put his underwear in a plastic bag in order to save himself from any embarrassment. He denies recent illness or trauma. Denies headache, fever, neck pain, chest pain, shortness of breath, abdominal pain, nausea, vomiting, change in bowel or bladder function, numbness, tingling, weakness. Related Data Home Medications Medication Instructions Recorded Confirmed cetirizine 10 mg capsule 10 mg PO DAILY #90 cap 12/16/17 09/08/20 pantoprazole 40 mg tablet,delayed 40 mg PO DAILY #90 tab 04/25/19 09/08/20 release finasteride 5 mg tablet 5 mg PO DAILY #90 tab 07/26/19 09/08/20 metoprolol succinate 100 mg 100 mg PO BID #60 tab-cap 09/06/19 09/08/20 tablet,extended release 24 hr metoprolol succinate 25 mg 25 mg PO BID #60 tab 09/06/19 09/08/20 tablet,extended release 24 hr aspirin 81 mg tablet,delayed 81 mg PO DAILY #90 tab-cap 02/12/20 09/08/20 release tamsulosin 0.4 mg capsule 0.8 mg PO DAILY #60 tab-cap 02/13/20 09/08/20 pramipexole 0.25 mg tablet 0.25 mg PO HS #90 tab 04/01/20 09/08/20 allopurinol 300 mg tablet 300 mg PO DAILY #90 tab 04/05/20 09/08/20 fluticasone propionate 50 2 spray NS DAILY #1 script 05/29/20 09/08/20 mcg/actuation nasal spray,suspension acetaminophen [Tylenol] 650 mg PO Q6H PRN PRN #0 tab 07/11/20 09/08/20 amlodipine 5 mg PO DAILY #0 tab 07/11/20 09/08/20 losartan 25 mg PO DAILY #0 tab 07/11/20 09/08/20 magnesium gluconate 500 mg PO BID #0 tab 07/11/20 09/08/20 nystatin 0 g TOPICAL TID #0 g 07/11/20 09/08/20 magnesium chloride 64 mg PO BID 08/01/20 09/08/20 B12 Active 1,000 mcg PO DAILY 09/08/20 09/08/20 gabapentin 300 mg PO HS 09/08/20 09/08/20 pramipexole 5 mg PO HS 09/08/20 09/08/20 Previous Rx's Medication Instructions Recorded cetirizine 10 mg capsule 10 mg PO DAILY #90 cap 12/16/17 pantoprazole 40 mg tablet,delayed 40 mg PO DAILY #90 tab 04/25/19 release finasteride 5 mg tablet 5 mg PO DAILY #90 tab 07/26/19 metoprolol succinate 100 mg 100 mg PO BID #60 tab-cap 09/06/19 tablet,extended release 24 hr metoprolol succinate 25 mg 25 mg PO BID #60 tab 09/06/19 tablet,extended release 24 hr aspirin 81 mg tablet,delayed 81 mg PO DAILY #90 tab-cap 02/12/20 release tamsulosin 0.4 mg capsule 0.8 mg PO DAILY #60 tab-cap 02/13/20 pramipexole 0.25 mg tablet 0.25 mg PO HS #90 tab 04/01/20 allopurinol 300 mg tablet 300 mg PO DAILY #90 tab 04/05/20 fluticasone propionate 50 2 spray NS DAILY #1 script 05/29/20 mcg/actuation nasal spray,suspension acetaminophen [Tylenol] 650 mg PO Q6H PRN PRN #0 tab 07/11/20 amlodipine 5 mg PO DAILY #0 tab 07/11/20 losartan 25 mg PO DAILY #0 tab 07/11/20 magnesium gluconate 500 mg PO BID #0 tab 07/11/20 nystatin 0 g TOPICAL TID #0 g 07/11/20 Allergies Allergy/AdvReac Type Severity Reaction Status Date / Time pravastatin AdvReac Severe MUSCLE Unverified 09/08/20 12:50 PAIN AND WEAKNESS lisinopril AdvReac HYPERKALEMI Unverified 09/08/20 12:50 A General Stated Complaint: PsychEval TOMEKA: 2 Review of Systems Constitutional Constitutional: Denies fatigue, Denies fever(s) and Denies headache(s) Eyes Eyes: Denies change in vision ENT Ears, Nose, Mouth, and Throat: Denies headache(s) and Denies neck pain Cardiovascular Cardiovascular: Denies chest pain and Denies dyspnea Respiratory Respiratory: Denies cough and Denies dyspnea Gastrointestinal Gastrointestinal: Denies abdominal pain, Denies nausea and Denies vomiting Genitourinary Genitourinary: Denies dysuria Musculoskeletal Musculoskeletal: Denies back pain and Denies neck pain Integumentary/Breasts Skin/Breast: Denies rash Neurologic Neurologic: Denies headache(s) Psychiatric Psychiatric: Reports depression, Denies homicidal ideation and Denies suicidal ideation Endocrine Endocrine: Denies fatigue [facility] Medical History Alcohol intake above recommended sensible limits 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) left great toe transmetatarsal amputation 05-02-2017 [place] [facility] [place] site with large necrotic/scabbed area: tx above knee amputation but pt declines - fup with wound care until pt decides to proceed ( - 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) Benign prostatic hyperplasia with lower urinary tract symptoms PSA: 1.5 in Critical lower limb ischemia RIGHT [facility] [place]ons/ status post right iliofemoral endarterectomy and patch angioplasty/right EIA stenting/ stent graft to distal SFA and popliteal/ COMPLICATED BY INFECTION: # debridements - w LEFT ILIOFEMORAL ENDATERECTOMY WITH LEFT EXTERNAL ILIAC STENT - [facility] [place] Essential hypertension (11/16/12) Flexion contractures both hands, all fingers, thumbs somewhat spared Frequent falls Gastroesophageal reflux disease Gout Hyperlipidemia Hypokalemia Hypomagnesemia Hypomagnesemia (01/01/15) Hypomagnesemia (01/01/15) Hyponatremia (09/06/13) serum electrophoresis normal 2009/ cortisol level normal: 2009 Osteomyelitis of right lower extremity 08/13/15- GREAT RIGHT TOE S/P AMPUTAION Osteomyelitis of toe Palliative care patient Paroxysmal atrial fibrillation ADONIS score: 1/ on asa Peripheral vascular disease critical lower limb ischemia [place] [facility] [place] 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 Daughter No problems noted. Daughter No problems noted. 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 [employer] Current gender identity: male What is your relationship status?: How often do you talk on the phone with friends or family?: three or more times per week How often do you get together with friends or relatives?: three or more times per week Panel score (0-1 are the most socially isolated patients): 1 What type of physical activity do you participate in: assisted ambulation Duration: < 15 minutes/day Frequency: daily Special annemarie needs: No Seatbelt use: sometimes Working smoke detector in home: Yes Fire extinguisher in home: Yes Do you feel safe at home: Yes Do you feel safe in your relationship?: Yes Additional Social history: [place] lives at the [facility]. his daughter Hilda lives in [place]. Exam Const General: cooperative, healthy appearing, comfortable and no acute distress Orientation: alert, awake, oriented to person, oriented to place and other (Patient unsure of the exact date) [facility] Head: normal to inspection, normocephalic and atraumatic Mouth: moist mucous membranes Eyes General: appearance normal, both eyes and all related structures Conjunctivae: conjunctivae normal Neck Neck: normal visual inspection, trachea midline, supple and nontender Resp Effort & Inspection: normal respiratory effort and able to speak in complete sentences Auscultation: clear to auscultation bilaterally Cardio Rate: regular rate Rhythm: regular rhythm GI Palpation: soft and nontender Back/Spine/Pelvis Back: No back tenderness Skin General skin exam: no rashes or lesions noted Neuro General: patient alert, patient awake, moves all extremities and no focal motor deficits Cognition: normal cognition Speech: speech normal Sensory Exam: no sensory deficits noted Extrem General: capillary refill normal Other: Patient with bilateral hand contractures, patient reports this is baseline. Otherwise extremities are unremarkable. Psych Appearance: grossly normal Mental Status: mental status grossly normal Course Vital Signs Vital signs: Vital Signs Temperature 36.4 C 09/08/20 12:34 Pulse 57 L 09/08/20 12:34 Respiratory Rate 19 09/08/20 12:34 Blood Pressure 182/83 H 09/08/20 12:34 Pulse Oximetry 95 09/08/20 12:34 Temperature 36.4 C 09/08/20 12:34 Temperature Source Temporal Artery Scan 09/08/20 12:34 Pulse 57 L 09/08/20 12:34 Respiratory Rate 19 09/08/20 12:34 Respiratory Effort Non-Labored 09/08/20 12:41 Blood Pressure 182/83 H 09/08/20 12:34 Blood Pressure Position Sitting 09/08/20 12:34 Pulse Oximetry 95 09/08/20 12:34 Oxygen Delivery Method Room Air 09/08/20 12:34 Oxygen Flow Rate 0 09/08/20 12:34 Pain Level 6 09/08/20 12:34
--- NOTE | 2020-09-08 13:51 | PDOC.MHCN_ITS ---
Date of service: 09/08/20 Time of Service: 13:35 Mental Health Crisis Note Presenting Issue How did you arrive at the ED and why did you come: Patient arrived at the ED depressed and sad about living [place] [facility]. Precipitating Factors Patient denies SI/HI. Patient stated everyone thinks I want to kill myself and I don't Patient shared that he is frustrated that he has to live at [place] [facility] and just wants to go back to his home. Patient shared that he is worried about his girlfriend because she has cancer and wants to see her. Patient shared that he is supposed to be able to go home once he is walking good again. Patient shared that he has never walked good so he doesn't understand why he cant just be home. Disposition BEHAVIOR: cooperative EYE CONTACT: good MOOD: frusterated AFFECT: broad APPETITE: okay SLEEP(trouble falling/staying asleep: okay Plan Patient will return [place] the [facility] once medically cleared. This life underwriter and ER doctor spoke and agree that patient is clear to go back to the [facility]. Signature Clinician's Name/Title: Odin CHARLES
== END 2020-09-08 15:44 | disposition skilled nursing facility (03) ==
PROVIDERS: Emergency Provider Physician Assistant; PCP Family Medicine
DX: F32.9 Major depressive disorder, single episode, unspecified (principal)
CPT/HCPCS: 99285; 99283

== ENCOUNTER 2020-11-26 17:53 | Outpatient (REF) | payer MEDICARE, SELFPAY ==
[2020-11-26 18:36] LABS: Anion Gap 9.8 mmol/L (3-11); BUN 16 mg/dL (7-18); CO2 23.2 mmol/L (21.0-32.0); CREATININE 1.1 mg/dL (0.70-1.30); Calcium 8.9 mg/dL (8.5-10.1); Chloride 100 mmol/L (98-107); Glucose 128 mg/dL (74-106); Potassium 4.1 mmol/L (3.5-5.1); Sodium 133 mmol/L (136-145)
== END 2020-11-26 17:54 | disposition home or self-care (01) ==
LOC: LBN 17:53
PROVIDERS: PCP Family Medicine; Visit Provider Family Medicine
DX: R62.7 Adult failure to thrive (principal)
CPT/HCPCS: 80048

== ENCOUNTER 2020-12-17 13:38 | Outpatient (REF) | payer MEDICARE, SELFPAY | END 2020-12-17 13:39 | disposition home or self-care (01) | LOC: LBN 13:38 | PROVIDERS: PCP Family Medicine; Visit Provider Family Medicine | DX: S91.115D Laceration without foreign body of left lesser toe(s) without damage to nail, subsequent encounter (principal); X58.XXXA Exposure to other specified factors, initial encounter | CPT/HCPCS: 87077; 87070; 87186; 87205 ==

== ENCOUNTER 2020-12-24 13:23 | Outpatient (REF) | payer MEDICARE, SELFPAY ==
[2020-12-25 00:13] LABS: Anion Gap 10.5 mmol/L (3-11); BUN 28 mg/dL (7-18); CO2 24.5 mmol/L (21.0-32.0); CREATININE 1.5 mg/dL (0.70-1.30); Calcium 8.8 mg/dL (8.5-10.1); Chloride 92 mmol/L (98-107); Estimated GFR 45.75 (mL/min/1.73m2); Glucose 121 mg/dL (74-106); Potassium 4.2 mmol/L (3.5-5.1); Sodium 127 mmol/L (136-145)
[2020-12-25 12:37] LABS: COVID-19 RT-PCR UVMMC Result Negative (Negative)
== END 2020-12-24 13:24 | disposition home or self-care (01) ==
LOC: LBN 13:23
PROVIDERS: PCP Family Medicine; Visit Provider Family Medicine
DX: R62.7 Adult failure to thrive (principal); Z20.822 Contact with and (suspected) exposure to COVID-19
CPT/HCPCS: 80048; U0003; U0005

== ENCOUNTER 2020-12-26 14:20 | Outpatient (REF) | payer MEDICARE, SELFPAY ==
[2020-12-27 08:21] LABS: BUN 30 mg/dL (7-18); CREATININE 1.4 mg/dL (0.70-1.30); Calcium 9.2 mg/dL (8.5-10.1); Estimated GFR 49.54 (mL/min/1.73m2); Glucose 88 mg/dL (74-106); Sodium 126 mmol/L (136-145)
[2020-12-27 08:22] LABS: Anion Gap 7.6 mmol/L (3-11); CO2 26.4 mmol/L (21.0-32.0); Chloride 92 mmol/L (98-107); Potassium 4.4 mmol/L (3.5-5.1)
== END 2020-12-26 14:21 | disposition home or self-care (01) ==
LOC: LBN 14:20
PROVIDERS: PCP Family Medicine; Visit Provider Nurse Practitioner Family
DX: E87.1 Hypo-osmolality and hyponatremia (principal)
CPT/HCPCS: 80048

== ENCOUNTER 2021-01-01 18:53 | Outpatient (REF) | payer SELFPAY ==
[2021-01-01 19:21] LABS: Abs Immature Grans 0.02 10^3/uL (0.0-0.06); Absolute Basophil Count 0.06 10^3/uL (0.0-0.2); Absolute Eosinophil Count 0.29 10^3/uL (0.0-0.7); Absolute Lymphocyte Count 0.99 10^3/uL (1.2-3.4); Absolute Neutrophil Count 5.45 10^3/uL (1.2-6.7); Basophils % 0.8; Eosinophils % 3.9; HCT 38.8 % (40.0-50.0); HGB 12.4 g/dL (13.5-17.5); Immature Grans % 0.3; Lymphocytes % 13.4; MCH 32.5 pg (27.0-33.0); MCV 101.6 fL (80-95); MPV 10.7 fL (8.0-11.0); Monocytes % 8.1; Neutrophils % 73.5; Nucleated RBC 0 %; Platelet Count 181 10^3/uL (130-400); RBC 3.82 10^6/uL (4.36-5.78); RDW 13.7 % (11.8-14.1); RDW-SD 51.3 fL; WBC 7.41 10^3/uL (4.4-10.8)
[2021-01-01 19:39] LABS: ALT 22 U/L (16-63); AST 20 U/L (15-37); Albumin 3.8 g/dL (3.4-5.0); Alkaline Phosphatase 101 U/L (46-116); Anion Gap 9.8 mmol/L (3-11); BUN 36 mg/dL (7-18); Bilirubin, Total 0.5 mg/dL (0.2-1.0); CO2 28.2 mmol/L (21.0-32.0); CREATININE 1.5 mg/dL (0.70-1.30); Chloride 101 mmol/L (98-107); Estimated GFR 45.75 (mL/min/1.73m2); Glucose 104 mg/dL (74-106); Sodium 139 mmol/L (136-145)
[2021-01-02 01:06] LABS: Vitamin D 25 Total 54.6 ng/mL (30-100)
== END 2021-01-01 18:54 | disposition home or self-care (01) ==
LOC: LBN 18:53
PROVIDERS: PCP Family Medicine; Visit Provider Family Medicine
DX: I10 Essential (primary) hypertension (principal); M62.81 Muscle weakness (generalized)
CPT/HCPCS: 80053; 82306; 85025

== ENCOUNTER 2021-01-26 22:48 | Inpatient (IN) | payer MEDICARE, MEDICAID, SELFPAY ==
[2021-01-26] VITALS (7 sets, daily range): BP systolic 109–184; BP diastolic 76–93; PULSE 72–84; RESP 10–15; TEMP 36.3; O2SAT 82–97
--- NOTE | 2021-01-26 22:30 | RT.EKG_ITS ---
APPROVED REPORT Exam: Resting ECG Reason for Exam: SOB Patient Location: E HR:63 bpm ECG Measurements Heart Rate 63 AXIS MS [id number] P [id number] QRSd 110 QRS 130 QT 428 T 140 QTc 459 Conclusion Atrial fibrillation...V-rate 51- 76, irreg A-activity Probable lateral infarct, age indeterminate...Q >35mS, T neg, V5-V6 I aVL Suspect limb lead reversal - will repeat
--- NOTE | 2021-01-26 23:00 | DI.RAD_ITS ---
Exam(s) XR PORTABLE CHEST AP EXAM: XR PORTABLE CHEST AP CLINICAL HISTORY: SOB, PUI. TECHNIQUE: 2D digital imaging was performed. COMPARISON: CR,XR XR CHEST 1V IN DI DEPT from 06/09/2020 FINDINGS: Heart size is upper normal. The mediastinum is not widened. Lungs are clear. No infiltrates nor obvious pleural effusions. IMPRESSION: No acute pulmonary findings on this single AP portable view of the chest. DATA REPOSITORY: RADIATION DOSE DELIVERED: All CT scans at this facility use at least one of these dose optimization techniques: automated exposure control; mA and/or kV adjustment per patient size (includes targeted e xams where dose is matched to clinical indication); or iterative reconstruction.
--- NOTE | 2021-01-26 23:13 | W.ED.GENAD ---
Discharge Plan Disposition Patient Disposition: [facility] INPATIENT Discharge Details Clinical Impression: Hypomagnesemia, Weakness Admit Date/Time: 01/27/21 10:34 Admit Provider: Lamin Barnes Attending Provider: Lamin Barnes Primary Care Provider: Brady Kate ED Provider: Micki Combs Medical Decision Making <Sorayadimas Carmona - Last Filed: 01/27/21 17:12> 75-year-old male with past medical history of chronic kidney disease, hyponatremia, UTI, depression, weakness, DNR/DNI presents to the ER after calling 911 and using his medic alert after falling out of bed. EMS found him to be too weak to leave home alone so they transported him to the ER. Patient reports that he thought they were just cannot help him get back into bed. He does have home health that comes. He does have a dry cough noted complaining of shortness of breath. Denies any pain anywhere. Cardiac work-up ordered including a Covid test and chest x-ray. Imaging protocol: XR of the chest. Views: 1 view. COMPARISON: CT CHEST/ABD/PEL WO 07/07/2020 10:43 PM FINDINGS: Lungs: Unremarkable. No consolidation. Pleural spaces: Unremarkable. No pleural effusion. No pneumothorax. Heart/Mediastinum: Unremarkable. No cardiomegaly. Bones/joints: Degenerative change of the shoulders and spine. IMPRESSION: No acute findings. CBC shows white blood cell count 10.9 hemoglobin 12.3, hematocrit 37.1 sodium is 134, BUN is 34 creatinine is 1.6 GFR is 42.46 magnesium is 1.3. Covid is pending at this time. Gram of magnesium IV ordered and a liter of normal saline. Care is to be handed off to ER attending Lionel Valero MD pending serial troponin, disposition with care management consultation, consultation with palliative care and disposition in the a.m. <Adama Valero MD - Last Filed: 01/27/21 06:55> Patient had been brought in by EMS after medical alarm at his home last night. EMS felt uncomfortable leaving him home as he was unable to even stand. Evaluation here is notable for low magnesium and probably some dehydration. He has been given both IV fluids and IV magnesium. Continues to request to go home but is unable to stand on his own without two-person assist. Will have care management and PT see as well as consider palliative care consult as patient has been seen by Dr. Chauhan in the past. Medical Records Medical records reviewed: Yes I reviewed the patient's medical records. Lab Data Lab results reviewed: Yes I reviewed the patient's lab results. <Micki Combs MD - Last Filed: 01/27/21 13:18> Denton Cisneros is a 75-year-old man with multiple medical problems presented to the emergency department with generalized weakness, inability to stand; patient signed out to me at time of shift change by Dr. Valero with evaluation by care management, physical therapy pending. I assessed patient with physical therapy present, patient required assistance from myself and to other team members in order to stand at all and still had difficulty with standing. Patient is not able to be discharged home secondary to inability to walk. This does appear to be a chronic and intermittent issue for the patient. Patient to be admitted for hypomagnesemia, weakness. Medical Records Medical records reviewed: Yes I reviewed the patient's medical records. Lab Data Lab results reviewed: Yes I reviewed the patient's lab results. HPI <Soraya Carmona - Last Filed: 01/27/21 17:12> General Mode of arrival: EMS. Date/Time Provider Initiated Documentation: 01/26/21 22:51. Limitations to Documentation: physical limitation ([place]). Information obtained by: EMS, RN notes reviewed and old records reviewed. HPI Narrative: 75-year-old male with past medical history of chronic kidney disease, hyponatremia, UTI, depression, weakness, DNR/DNI presents to the ER after calling 911 and using his medic alert after falling out of bed. EMS found him to be too weak to leave home alone so they transported him to the ER. Patient reports that he thought they were just cannot help him get back into bed. He does have home health that comes. He does have a dry cough noted complaining of shortness of breath. Denies any pain anywhere. Related Data Home Medications Medication Instructions Recorded Confirmed pramipexole 0.25 mg tablet 0.25 mg PO HS #90 tab 04/01/20 01/27/21 allopurinol 300 mg tablet 300 mg PO DAILY #90 tab 04/05/20 01/27/21 acetaminophen [Tylenol] 650 mg PO Q6H PRN PRN #0 tab 07/11/20 10/17/20 nystatin 0 g TOPICAL TID #0 g 07/11/20 10/17/20 aspirin 81 mg tablet,delayed 81 mg PO DAILY #90 tab-cap 09/26/20 01/27/21 release cetirizine 10 mg capsule 10 mg PO DAILY #90 cap 09/26/20 01/27/21 finasteride 5 mg tablet 5 mg PO DAILY #90 tab 09/26/20 01/27/21 mecobalamin (vitamin B12) 1,000 1,000 mcg PO DAILY #90 tab 09/26/20 01/26/21 mcg chewable tablet losartan 25 mg tablet 25 mg PO DAILY #90 tab 10/17/20 01/26/21 magnesium gluconate 27 mg 500 mg PO BID #180 tab 10/17/20 01/26/21 magnesium (500 mg) tablet metoprolol succinate 100 mg 100 mg PO BID #180 tab-cap 10/17/20 01/26/21 tablet,extended release 24 hr metoprolol succinate 25 mg 25 mg PO BID #180 tab 10/17/20 01/26/21 tablet,extended release 24 hr pantoprazole 40 mg tablet,delayed 40 mg PO DAILY #90 tab 10/17/20 01/26/21 release pramipexole 1 mg tablet 1 mg PO HS tab 10/17/20 01/26/21 tamsulosin 0.4 mg capsule 0.8 mg PO DAILY #180 tab-cap 10/17/20 01/26/21 furosemide 20 mg tablet 20 mg PO DAILY #30 tab 11/25/20 01/27/21 Previous Rx's Medication Instructions Recorded pramipexole 0.25 mg tablet 0.25 mg PO HS #90 tab 04/01/20 allopurinol 300 mg tablet 300 mg PO DAILY #90 tab 04/05/20 acetaminophen [Tylenol] 650 mg PO Q6H PRN PRN #0 tab 07/11/20 nystatin 0 g TOPICAL TID #0 g 07/11/20 aspirin 81 mg tablet,delayed 81 mg PO DAILY #90 tab-cap 09/26/20 release cetirizine 10 mg capsule 10 mg PO DAILY #90 cap 09/26/20 finasteride 5 mg tablet 5 mg PO DAILY #90 tab 09/26/20 mecobalamin (vitamin B12) 1,000 1,000 mcg PO DAILY #90 tab 09/26/20 mcg chewable tablet losartan 25 mg tablet 25 mg PO DAILY #90 tab 10/17/20 magnesium gluconate 27 mg 500 mg PO BID #180 tab 10/17/20 magnesium (500 mg) tablet metoprolol succinate 100 mg 100 mg PO BID #180 tab-cap 10/17/20 tablet,extended release 24 hr metoprolol succinate 25 mg 25 mg PO BID #180 tab 10/17/20 tablet,extended release 24 hr pantoprazole 40 mg tablet,delayed 40 mg PO DAILY #90 tab 10/17/20 release tamsulosin 0.4 mg capsule 0.8 mg PO DAILY #180 tab-cap 10/17/20 furosemide 20 mg tablet 20 mg PO DAILY #30 tab 11/25/20 Allergies Allergy/AdvReac Type Severity Reaction Status Date / Time pravastatin AdvReac Severe MUSCLE Unverified 09/08/20 12:50 PAIN AND WEAKNESS lisinopril AdvReac HYPERKALEMI Unverified 09/08/20 12:50 A General Stated Complaint: GenMedical TOMEKA: 2 Review of Systems <Sorayachrissy Carmona - Last Filed: 01/27/21 17:12> All systems reviewed & are unremarkable except as noted in HPI and below Constitutional Constitutional: Reports as per HPI, Denies fever(s), Reports lethargy and Reports weakness Gastrointestinal Gastrointestinal: Denies diarrhea, Denies nausea and Denies vomiting Neurologic Neurologic: Reports weakness PFS <Soraya Carmona - Last Filed: 01/27/21 17:12> All Active Problems (Updated 01/27/21 @ 10:55 by Micki Combs MD) Chronic kidney disease (Chronic) Hyponatremia (Acute) Adjustment disorder (Chronic) Suicidal thoughts (Acute) UTI (urinary tract infection) (Acute) Depression (Chronic) Cervical myelopathy (Acute) Flexion contractures (Chronic) Ptosis of both upper eyelids (Acute) Frequent falls (Acute) Palliative care patient (Acute) Discharge planning issues (Acute) Hypomagnesemia (Acute) Physician orders for life-sustaining treatment (POLST) form indicates patient wish for [id number] status (Acute) DNR (do not resuscitate) (Acute) Palliative care encounter (Acute) Elevated troponin (Acute) Weakness (Acute) Fall (Acute) Elevated brain natriuretic peptide (BNP) level (Acute) Adult failure to thrive (Acute) Skin breakdown (Acute) Skin yeast infection (Acute) REYNA (acute kidney injury) (Acute) Acute dehydration (Acute) Alcohol intake above recommended sensible limits (Acute) Benign prostatic hyperplasia with lower urinary tract symptoms (Acute) Essential hypertension (Acute 11/16/12) Gastroesophageal reflux disease (Acute) Gout (Acute) Hyperlipidemia (Acute) Paroxysmal atrial fibrillation (Acute) 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) Restless leg syndrome, uncontrolled (Acute) Vitamin D deficiency (Acute 09/06/13) History of surgical procedure (Acute) Chronic back pain (Acute) Medical History 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) left great toe transmetatarsal amputation 05-02-2017 by - 05-12-2017 [facility] [place] Vas.Sx.: site with large necrotic/scabbed area: tx above knee amputation but pt declines - fup with wound care until pt decides to proceed ( - 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 PHILOSOPHY AND RELIGION INSTRUCTOR) Critical lower limb ischemia RIGHT [facility] [place] SHAUNA Parsons/ status post right iliofemoral endarterectomy and patch angioplasty/right EIA stenting/ stent graft to distal SFA and popliteal/ COMPLICATED BY INFECTION: # debridements - w LEFT ILIOFEMORAL ENDATERECTOMY WITH [place] [facility] [place] Hypomagnesemia (01/01/15) Hypomagnesemia (01/01/15) Hyponatremia (09/06/13) serum electrophoresis normal 2009/ cortisol level normal: 2010 Osteomyelitis of right lower extremity 08/13/15- GREAT RIGHT TOE S/P AMPUTAION Osteomyelitis of toe Peripheral vascular disease critical lower limb ischemia - [facility] [place]- Sciatica Weakness Surgical History Amputation 08/13/15-GREAT RIGHT TOE Status post amputation of great toe (08/13/15) (post osteomyelitis) Family History Son No problems noted. Daughter No problems noted. Daughter No problems noted. 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 Current gender identity: male What is your relationship status?: How often do you talk on the phone with friends or family?: three or more times per week How often do you get together with friends or relatives?: three or more times per week Panel score (0-1 are the most socially isolated patients): 1 What type of physical activity do you participate in: assisted ambulation Duration: < 15 minutes/day Frequency: daily Special annemarie needs: No Seatbelt use: sometimes Working smoke detector in home: Yes Fire extinguisher in home: Yes Do you feel safe at home: Yes Do you feel safe in your relationship?: Yes Additional Social history: Denton lives [facility] the [facility]. his daughter Hilda lives in [place]. Exam <Soraya Carmona - Last Filed: 01/27/21 17:12> Narrative Exam Narrative: Constitutional: Alert and oriented x3. Appears older than stated age. Patient appears frail. Does not appear acutely ill or septic. Normal body habitus. Head: Normocephalic, no trauma. Eyes: , Red reflex noted, EOM's intact. Eyelids symmetrical without lesions, discharge, or swelling. ENT: Bilateral TM's WNL, External ear normal to inspection, no mastoid TTP, swelling, or erythema, Nasal turbinates WNL, no nasal discharge. Normal dentition, Posterior pharynx WNL, no exudate. Dry mucous membranes. Chest: Tachycardic at a rate of 115, Normal S1, S2, distal pulses intact. Resp: Lungs diminished to auscultation bilaterally, no wheezes, rales, or rhonchi. Abdomen: Soft, non-distended, Normoactive bowel sounds all 4 quads. Musculoskeletal: Unable to assess gait, Skin: Capillary refill less than 2 sec. Neurologic: Cranial nerves II-XII intact. Alert and oriented x 3. Motor: No deficits noted. Sensory: Intact bilaterally all 4 extremities. Reflexes: DTR's intact bilaterally.. Hematologic/Lymphatic: No ecchymosis, no lymphadenopathy. Course <Soraya Carmona - Last Filed: 01/27/21 17:12> Vital Signs Vital signs: Vital Signs Temperature 36.3 C L 01/26/21 23:04 Pulse 81 01/26/21 23:04 Respiratory Rate 12 01/26/21 23:04 Blood Pressure 184/93 H 01/26/21 23:04 Pulse Oximetry 97 01/26/21 23:04 Temperature 36.3 C L 01/26/21 23:04 Temperature Source Rectal 01/26/21 23:04 Pulse 81 01/26/21 23:04 Respiratory Rate 12 01/26/21 23:04 Blood Pressure 184/93 H 01/26/21 23:04 Blood Pressure Position Supine 01/26/21 23:04 Pulse Oximetry 97 01/26/21 23:04 Oxygen Delivery Method Room Air 01/26/21 23:04 Oxygen Flow Rate 0 01/26/21 23:04 Pain Level 0 01/26/21 23:04 Sign Out <Soraya Carmona - Last Filed: 01/27/21 17:12> Sign Out Data: Sign Out Comment: Weakness, Lives alone, Does have home health. Fell out of bed, EMS transported due to weakness. DNR/DNI. Mild dry cough, SOB. No signs of trauma. Last updated by Soraya Carmona at 01/26/21 23:53 Sign Out Comment: Not safe to go home but insist on going home. Care management and PT consult requested. Last updated by Adama Valero MD at 01/27/21 07:50
[2021-01-26 23:39] LABS: Abs Immature Grans 0.05 10^3/uL (0.0-0.06); Absolute Basophil Count 0.03 10^3/uL (0.0-0.2); Absolute Eosinophil Count 0.35 10^3/uL (0.0-0.7); Absolute Lymphocyte Count 1.23 10^3/uL (1.2-3.4); Absolute Monocyte Count 0.74 10^3/uL (0.1-0.8); Basophils % 0.3; Eosinophils % 3.2; HCT 37.1 % (40.0-50.0); HGB 12.3 g/dL (13.5-17.5); Immature Grans % 0.5; Lymphocytes % 11.3; MCH 32.3 pg (27.0-33.0); MCHC 33.2 % (32.0-36.0); MCV 97.4 fL (80-95); MPV 11.7 fL (8.0-11.0); Monocytes % 6.8; Neutrophils % 77.9; Nucleated RBC 0 %; Platelet Count 164 10^3/uL (130-400); RBC 3.81 10^6/uL (4.36-5.78); RDW 13.7 % (11.8-14.1); WBC 10.89 10^3/uL (4.4-10.8)
[2021-01-26 23:40] LABS: Absolute Neutrophil Count 8.48 10^3/uL (1.2-6.7)
[2021-01-26 23:41] LABS: Source Nasal/Nares
--- NOTE | 2021-01-26 23:45 | RT.EKG_ITS ---
APPROVED REPORT Exam: Resting ECG Reason for Exam: sob Patient Location: E HR:86 bpm ECG Measurements Heart Rate 86 AXIS HI 145 P 0 QRSd 91 QRS 47 QT 426 T 33 QTc 511 Conclusion Unknown rhythm, irregular rate...V-rate 67-121, variation>10% Prolonged QT interval...QTc >500mS Atrial Fibrillation Unchanged from EKG done 05/[address] changes
[2021-01-26 23:55] LABS: ALT 17 U/L (16-63); AST 17 U/L (15-37); Albumin 3.5 g/dL (3.4-5.0); Alkaline Phosphatase 146 U/L (46-116); Anion Gap 10.8 mmol/L (3-11); BUN 34 mg/dL (7-18); Bilirubin, Total 0.5 mg/dL (0.2-1.0); CO2 23.2 mmol/L (21.0-32.0); CREATININE 1.6 mg/dL (0.70-1.30); Calcium 8.5 mg/dL (8.5-10.1); Chloride 100 mmol/L (98-107); Estimated GFR 42.46 (mL/min/1.73m2); Glucose 92 mg/dL (74-106); Magnesium 1.3 mg/dL (1.8-2.4); Potassium 3.8 mmol/L (3.5-5.1); Sodium 134 mmol/L (136-145); Total Protein 7.6 g/dL (6.4-8.2)
[2021-01-26 23:56] LABS: Troponin I < 0.05 ng/mL (<0.06)
[2021-01-27] VITALS (18 sets, daily range): BP systolic 133–184; BP diastolic 69–91; PULSE 69–91; RESP 12–22; TEMP 36.4–36.9; O2SAT 95–97
--- NOTE | 2021-01-27 00:03 | DI.VRAD_ITS ---
PROCEDURE INFORMATION: Exam: XR Chest Exam date and time: 01/26/2021 11:13 PM Age: 75 years old Clinical indication: Other: SOB TECHNIQUE: Imaging protocol: XR of the chest. Views: 1 view. COMPARISON: CT CHEST/ABD/PEL WO 07/07/2020 10:43 PM FINDINGS: Lungs: Unremarkable. No consolidation. Pleural spaces: Unremarkable. No pleural effusion. No pneumothorax. Heart/Mediastinum: Unremarkable. No cardiomegaly. Bones/joints: Degenerative change of the shoulders and spine. IMPRESSION: No acute findings. Dictated and Authenticated by: Deion Hernandez MD. Ordering:MATT Lira MD
[2021-01-27 00:20] LABS: COVID-19 PCR Negative (Negative)
[2021-01-27] MEDS: Normal Saline 1,000 ML 1000 ML IV (00:30)
[2021-01-27 00:49] LABS: Bilirubin Negative (Negative); Blood Negative (Negative); Clarity Clear (Clear); Glucose Negative (Negative); Ketones Negative (Negative); Leukocyte Esterase Negative (Negative); Nitrite Negative (Negative); Urobilinogen 0.2 EU/dL (Up TO 0.2)
[2021-01-27] MEDS: MAGNESIUM SULFATE 1 GM/100 ML BAG IVPB (01:05)
[2021-01-27] MEDS: Normal Saline 1,000 ML 125 ML IV (04:00)
[2021-01-27] MEDS: MAGNESIUM SULFATE 1 GM/100 ML BAG 100 GM (07:19)
--- NOTE | 2021-01-27 08:55 | PT.INIE ---
Date of service: 01/27/21 Time of Service: 08:55 PT Notes Visit Reasons: AMI Physical Therapy Inpatient Initial Evaluation Date: 01/27/2021 Referring Doctor: Adama Valero MD PT Orders: PT CONSULT: Safety consult for D/C Precautions: Fall. Standard. Activity as tolerated. TOHONO O'ODHAM. Patient Profile/Admitting Diagnosis: Denton is a 75-year-old male who presented to the ED on 01/27/2021 as patient was found on floor by EMS and found him to be too weak. He also has dry cough and shortness of breath. Patient is diagnosed with generalized weakness, ambulatory dysfunction, and failure to thrive. Referral was sent in to determine safest discharge destination for patient. PMHX: All Active Problems Chronic kidney disease (Chronic) Hyponatremia (Acute) Adjustment disorder (Chronic) Suicidal thoughts (Acute) UTI (urinary tract infection) (Acute) Depression (Chronic) Cervical myelopathy (Acute) Flexion contractures (Chronic) Ptosis of both upper eyelids (Acute) Frequent falls (Acute) Palliative care patient (Acute) Discharge planning issues (Acute) Hypomagnesemia (Acute) Physician orders for life-sustaining treatment (POLST) form indicates patient wish for [id number] status (Acute) DNR (do not resuscitate) (Acute) Palliative care encounter (Acute) Elevated troponin (Acute) Weakness (Acute) Fall (Acute) Elevated brain natriuretic peptide (BNP) level (Acute) Adult failure to thrive (Acute) Skin breakdown (Acute) Skin yeast infection (Acute) REYNA (acute kidney injury) (Acute) Acute dehydration (Acute) Alcohol intake above recommended sensible limits (Acute) Benign prostatic hyperplasia with lower urinary tract symptoms (Acute) Essential hypertension (Acute 11/16/12) Gastroesophageal reflux disease (Acute) Gout (Acute) Hyperlipidemia (Acute) Paroxysmal atrial fibrillation (Acute) 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) Restless leg syndrome, uncontrolled (Acute) Vitamin D deficiency (Acute 09/06/13) History of surgical procedure (Acute) Chronic back pain (Acute) Medical History 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) left great toe transmetatarsal amputation 05-02-2017 by - 05-12-2017 [facility] [place] [facility] [place] Vasc.Sx.: site with large necrotic/scabbed area: tx above knee amputation but pt declines - fup with wound care until pt decides to proceed ( - 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 ELECTRONICS INSPECTOR) Critical lower limb ischemia RIGHT [facility] [place] [facility] [place] SHAUNA Parsons/ status post right iliofemoral endarterectomy and patch angioplasty/right EIA stenting/ stent graft to distal SFA and popliteal/ COMPLICATED BY INFECTION: # debridements - w LEFT ILIOFEMORAL ENDATERECTOMY WITH LEFT [place]TERNAL [place]AC [place] [facility] [place]okalemia Hypomagnesemia (01/01/15) Hypomagnesemia (01/01/15) Hyponatremia (09/06/13) serum electrophoresis normal 2009/ cortisol level normal: 2009 Osteomyelitis of right lower extremity 08/13/15- GREAT RIGHT TOE S/P AMPUTAION Osteomyelitis of toe Peripheral vascular disease critical lower limb ischemia - [facility] [place] Sciatica Weakness Surgical History Amputation 08/13/15-GREAT RIGHT TOE Status post amputation of great toe (08/13/15) (post osteomyelitis) Social History/Home Situation: Lives alone in a private home. Has been receiving support from family and home health personnel. States that he has two HH aide who comes in and helps him with anything he needs. Equipment Owned/DME: Front-wheeled walker, wheelchair Subjective: Agreeable to PT session. Denies pain and lightheadedness. Complains of being weak. Explains that he only has a cold but a rest at home will make him better again. Firm about not falling at home that led him to get admitted to the ED. Became mildly agitated towards the end of this session as he wanted to go home desperately to finish some urgent home issues. States that people are trying to undo what he has worked so hard for. Objective: General Observation: IV access in the left UE. Bilateral amputation of great toes. Seated on wheelchair appearing to be in need of assistance with pulling up diaper and pants. Mental Status: Alert. Able to pay attention, focus, and respond appropriately but speech not fully discernible. Pain: Denies ROM: Right Upper Extremity: Unable to flex at the shoulder beyond 90 degrees with empty end feel. Unable to abduct beyond 80 degrees due to discomfort. Elbows flexion WFL. Elbow extension WFL. Wrist flexion about 10 degrees. Wrist extension 10 degrees. Fixed wrist flexion contracture in the IP joints. Left Upper Extremity: Unable to flex at the shoulder beyond 80 degrees with empty end feel. Unable to abduct beyond 60 degrees due to discomfort. Elbows flexion WFL. Elbow extension WFL. Wrist flexion about 20 degrees. Finger flexion Right Lower Extremity: Hip flexion lacking the last 45 degrees. Hip abduction limited to 10 degrees. Knee flexion WFL. Knee extension. Ankle dorsiflexion/eversion to neutral only. Ankle plantarflexion/inversion WFL. Left Lower Extremity: Hip flexion lacking the last 45 degrees. Hip abduction limited to 10 degrees. Knee flexion WFL. Knee extension. Ankle dorsiflexion/eversion to neutral only. Ankle plantarflexion/inversion WFL. Strength: Right Upper Extremity: Shoulder flexors 3-/5. Shoulder abductors 3-/5. Shoulder ER 3-/5. Elbow flexors 4-/5. Elbow extensors 4-/5. Stave And Bolt Equalizer weakn but functional. Left Upper Extremity: Shoulder flexors 3-/5. Shoulder abductors 3-/5. Shoulder ER 3-/5. Elbow flexors 4-/5. Elbow extensors 4-/5. Stave And Bolt Equalizer absent. Right Lower Extremity: Hip flexors 2-/5. Hip abductors 2-/5. Hip external rotators 2-/5. Knee flexors 2-/5. Knee extensors 2-/5. Ankle dorsiflexors/evertors 2-/5. Ankle plantarflexors/invertors 2-/5. Left Lower Extremity: Hip flexors 2-/5. Hip abductors 2-/5. Hip external rotators 2-/5. Knee flexors 2-/5. Knee extensors 2-/5. Ankle dorsiflexors/evertors 2-/5. Ankle plantarflexors/invertors 2-/5. Bed Mobility/Transfers: Sit to stand unable, required assist of 3 with maximal verbal cueing Stand to sit unable, required assist of 3 with maximal verbal cueing Bed to chair unable to test Gait: Tolerated a distance of up to 20 feet +15 feet +10 feet using front wheeled walker with moderate to maximal verbal cueing for walker management, overall safety, and hand placement. Wheelchair follow needed for safety. Mild S OB after activity. Left thumb able to latch onto walker handle on the left due to flexion contracture of the left fingers. Right hand has poor grasp but is able to hold onto walker handle however frequently slides down and requires moderate verbal cueing for hand repositioning. Balance: Static Sitting: Normal. Patient is unable to assume full standing due to fatigue and weakness. L foot was sliding forward causing patient's inability to safely maintain standing. Required assistance of 3 people. Dynamic Sitting: Good Static Standing: Fair Dynamic Standing: Poor Assessment: Unable to assume standing position despite assist of [address] Combs, this PT, and an TEST MAN had difficulty with cleaning patient after a bowel movement due to inability to safely assume and maintain the standing position. Patient demonstrates significant functional mobility decline requiring the assistance of three people for all mobility ADL performance and will have increased risk for falls and rehospitaization if he returns home. Patient presents instability, generalized weakness, and impairment of motor control as demonstrated by the following impairment level findings: 1. Decreased strength to B UE/LE major muscle groups 2. Impaired sitting/standing balance 3. Impaired activity tolerance 4. Limitation of joint range of motion in B shoulders and B ankles Impairments are continuing to contribute to the following functional limitations: 1. Dependent bed mobility skills 2. Increased dependence with transfers 3. Inability to ambulate 4. Increased completion time for mobility ADL performance 5. Increased fall risk 6. Inability to negotiate steps alone safely 7. Inability to return to prior living environment at this time Goals: N/A. PT evalaution only. Plan of Care/Treatment Plan: N/A. PT evalaution only. DISCHARGE RECOMMENDATIONS: [] Home with no services [] [] Home with services [specify] [] Home with outpatient PT [] [X] SNF for continued rehabilitation. Patient will benefit from group home facility placement for continued skilled physical therapy services in order to progress mobility level, strength, and balance. [] [facility] Care [] [] SNF versus LTC based on ability to participate and progress [] TREATMENT CODE/TIME: [id number] x 20 minutes beginning at 8:55 AM. Thank you for the opportunity to participate in the care of this patient. Mariann Murray PT, DPT, CLT [facility] [place], [place]
--- NOTE | 2021-01-27 09:44 | PDOC.ERCMIN ---
- If Service Date Differs Date of service: 01/27/21 Time of Service: 09:44 Care Management Initial Assess REASON FOR HOSPITALIZATION:: Failure to thrive, global weakness. PAST MEDICAL HISTORY/PAST SURGICAL HISTORY:: All Active Problems: Chronic kidney disease (Chronic), Hyponatremia (Acute), Adjustment disorder (Chronic), Suicidal thoughts (Acute), UTI (urinary tract infection) (Acute), Depression (Chronic), Cervical myelopathy (Acute), Flexion contractures (Chronic), Ptosis of both upper eyelids (Acute), Frequent falls (Acute), Palliative care patient (Acute), Discharge planning issues (Acute), Hypomagnesemia (Acute), Physician orders for life-sustaining treatment (POLST) form indicates patient wish for kd-vth-yjllyxkjbke status (Acute), DNR (do not resuscitate) (Acute), Palliative care encounter (Acute), Elevated troponin (Acute), Weakness (Acute), Fall (Acute), Elevated brain natriuretic peptide (BNP) level (Acute), Adult failure to thrive (Acute), Skin breakdown (Acute), Skin yeast infection (Acute), REYNA (acute kidney injury) (Acute), Acute dehydration (Acute), Alcohol intake above recommended sensible limits (Acute),. Benign prostatic hyperplasia with lower urinary tract symptoms (Acute),. 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 History of surgical procedure (Acute), and Chronic back pain (Acute). Medical History: 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), left great [place] transmetatarsal [place] 05-02-2017 [place] [facility] [place] site with large necrotic/scabbed area: tx above knee amputation but pt declines - fup with wound care until pt decides to proceed (Dr. Austin Chiang DOORS PREFITTER), Critical lower limb ischemia - RIGHT [place] [facility] [place]AUNA Parsons/ status post right iliofemoral endarterectomy and patch angioplasty/right EIA stenting/ stent graft to distal SFA and popliteal/ COMPLICATED BY INFECTION: # debridements - w - LEFT. [place]FEMORAL [place] [facility] [place], Hypomagnesemia (01/01/15), Hyponatremia (09/06/13), serum electrophoresis normal 2009/cortisol level normal: 2009, Osteomyelitis of right lower extremity - 08/13/15- GREAT RIGHT TOE S/P AMPUTATION, Osteomyelitis of toe, Peripheral vascular disease - Critical lower limb ischemia [place] [facility] [place] , Sciatica, and Weakness. Surgical History: Amputation - 08/13/15-GREAT RIGHT TOE, Status post amputation of great toe (08/13/15) - (post osteomyelitis). PREVIOUS FUNCTIONAL STATUS/SOCIAL/FAMILY SUPPORTS:: Denton is and lives alone in [place], [place]. His son, Cristofer, and his two daughters, Yolanda and Hilda, reside locally and are supportive of him. Ed currently has private caregivers twice a day at home. 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 CURRENT FUNCTIONAL STATUS:: Ed is sitting in a wheelchair in a room in the ED when CM meets with him. He at first doesn't speak and uses hand gestures to answer questions but does eventually engage in conversation. He tells CM the ambulance just showed up at his home and brought him to [facility]. He is unable to say why the ambulance came to his home and denies having called for help. He reports he was doing really well at home but then caught a cold. He reportedly was recently at [facility] (12/26/20 - 01/22/21) before being discharged home last Wednesday. ADVANCE DIRECTIVES:: Advance Directive on file; daughter Yolanda Branch is appointed as Health Care Agent and son Cristofer Cisneros as alternate agent. Also has a COLST/DNR on file; Cristofer Cisneros is appointed as agent on the COLST. Has patient been provided with info about the portal/API?: Yes Did the patient sign up for the portal?: No CODE STATUS:: DNR/DNI INSURANCE COVERAGE / FINANCIAL ISSUES:: Medicare. CURRENT HOME/COMMUNITY SERVICES/EQUIPMENT:: Ed has private caregivers twice a day. He owns a FWW and a wheelchair. PRIMARY CARE PHYSICIAN:: Brady Kate MD ([facility]). POTENTIAL DISCHARGE NEEDS:: PT/OT, Palliative Care, and potential SNF placement. PATIENT/FAMILY EDUCATION NEEDS:: Review of discharge instructions and discussion central to self care needs. ANTICIPATED BARRIERS TO DISCHARGE:: Patient's refusal to discharge to SNF and his inability to maintain at home. TRANSPORTATION:: To be determined by disposition. PLAN:: Ed will be evaluated by PT/OT and Palliative Care. Anticipate he will require either SNF or SWB1. Transport will be determined by disposition. CM will continue to follow and support discharge planning needs.
--- NOTE | 2021-01-27 12:54 | IN_ITS ---
Date of service: 01/27/21 Time of Service: 12:54 PT Notes Visit Reasons: Failure to thrive, global weakness Physical Therapy Inpatient Initial Evaluation Date: 01/27/2021 Referring Doctor: Lamin Barnes MD PT Orders: PT CONSULT: Eval/Treat Precautions: Fall. Standard. Activity as tolerated. EAGLE. Patient Profile/Admitting Diagnosis: Denton endedn up needing to be admitted to the medical surgical unit for failure to thrive alone at home. He is a 75-year-old male who presented to the ED on 01/27/2021 as patient was found on floor by EMS and found him to be too weak. He also has dry cough and shortness of breath. Patient is diagnosed with generalized weakness, ambulatory dysfunction, and failure to thrive. Referral was sent in to determine safest discharge destination for patient. PMHX: All Active Problems Chronic kidney disease (Chronic) Hyponatremia (Acute) Adjustment disorder (Chronic) Suicidal thoughts (Acute) UTI (urinary tract infection) (Acute) Depression (Chronic) Cervical myelopathy (Acute) Flexion contractures (Chronic) Ptosis of both upper eyelids (Acute) Frequent falls (Acute) Palliative care patient (Acute) Discharge planning issues (Acute) Hypomagnesemia (Acute) Physician orders for life-sustaining treatment (POLST) form indicates patient wish for ql-ikj-zbdfzokywfv status (Acute) DNR (do not resuscitate) (Acute) Palliative care encounter (Acute) Elevated troponin (Acute) Weakness (Acute) Fall (Acute) Elevated brain natriuretic peptide (BNP) level (Acute) Adult failure to thrive (Acute) Skin breakdown (Acute) Skin yeast infection (Acute) REYNA (acute kidney injury) (Acute) Acute dehydration (Acute) Alcohol intake above recommended sensible limits (Acute) Benign prostatic hyperplasia with lower urinary tract symptoms (Acute) Essential hypertension (Acute 11/16/12) Gastroesophageal reflux disease (Acute) Gout (Acute) Hyperlipidemia (Acute) Paroxysmal atrial fibrillation (Acute) 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) Restless leg syndrome, uncontrolled (Acute) Vitamin D deficiency (Acute 09/06/13) History of surgical procedure (Acute) Chronic back pain (Acute) Medical History 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) left great toe transmetatarsal [place] 05-02-2017 [place] [facility] [place] site with large necrotic/scabbed area: tx above knee amputation but pt declines - fup with wound care until pt decides to proceed ( - 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 SERVER ADMINISTRATOR) Critical lower limb ischemia [place] [facility] [place]NA Parsons/ status post right iliofemoral endarterectomy and patch angioplasty/right EIA stenting/ stent graft to distal SFA and popliteal/ COMPLICATED BY INFECTION: # debridements - w LEFT ILIOFEMORAL ENDATERECTOMY WITH LEFT EXTERNAL ILIAC STENT [place] [facility] [place] Hypokalemia Hypomagnesemia (01/01/15) Hypomagnesemia (01/01/15) Hyponatremia (09/06/13) serum electrophoresis normal 2009/ cortisol level normal: 2009 Osteomyelitis of right lower extremity 08/13/15- GREAT RIGHT TOE S/P AMPUTAION Osteomyelitis of toe Peripheral vascular disease critical lower [place] [facility] [place] Sciatica Weakness Surgical History Amputation 08/13/15-GREAT RIGHT TOE Status post amputation of great toe (08/13/15) (post osteomyelitis) Social History/Home Situation: Lives alone in a private home. Has been receiving support from family and home health personnel. States that he has two HH aide who comes in and helps him with anything he needs. Equipment Owned/DME: Front-wheeled walker, wheelchair Subjective: Agreeable to PT session. Reports being chilly. Denies pain and lig htheadedness. Complains of being weak. Explains that he only has a cold but a rest at home will make him better again. Firm about not falling at home that led him to get admitted to the ED. Became mildly agitated towards the end of this session as he wanted to go home desperately to finish some urgent home issues. States that people are trying to undo what he has worked so hard for. Objective: General Observation: IV access in the left UE. Bilateral amputation of great toes. Seated on bedside chair with blankets over himself. Mental Status: Alert. Able to pay attention, focus, and respond appropriately but speech not fully discernible. Pain: Denies ROM: Right Upper Extremity: Unable to flex at the shoulder beyond 90 degrees with empty end feel. Unable to abduct beyond 80 degrees due to discomfort. Elbows flexion WFL. Elbow extension WFL. Wrist flexion about 10 degrees. Wrist extension 10 degrees. Fixed wrist flexion contracture in the IP joints. Left Upper Extremity: Unable to flex at the shoulder beyond 80 degrees with empty end feel. Unable to abduct beyond 60 degrees due to discomfort. Elbows flexion WFL. Elbow extension WFL. Wrist flexion about 20 degrees. Finger flexion Right Lower Extremity: Hip flexion lacking the last 45 degrees. Hip abduction limited to 10 degrees. Knee flexion WFL. Knee extension. Ankle dorsiflexion/eversion to neutral only. Ankle plantarflexion/inversion WFL. Left Lower Extremity: Hip flexion lacking the last 45 degrees. Hip abduction limited to 10 degrees. Knee flexion WFL. Knee extension. Ankle dorsiflexion/eversion to neutral only. Ankle plantarflexion/inversion WFL. Strength: Right Upper Extremity: Shoulder flexors 3-/5. Shoulder abductors 3-/5. Shoulder ER 3-/5. Elbow flexors 4-/5. Elbow extensors 4-/5. Tool/Die Maker weakn but functional. Left Upper Extremity: Shoulder flexors 3-/5. Shoulder abductors 3-/5. Shoulder ER 3-/5. Elbow flexors 4-/5. Elbow extensors 4-/5. Tool/Die Maker absent. Right Lower Extremity: Hip flexors 2-/5. Hip abductors 2-/5. Hip external rotators 2-/5. Knee flexors 2-/5. Knee extensors 2-/5. Ankle dorsiflexors/evertors 2-/5. Ankle plantarflexors/invertors 2-/5. Left Lower Extremity: Hip flexors 2-/5. Hip abductors 2-/5. Hip external rotators 2-/5. Knee flexors 2-/5. Knee extensors 2-/5. Ankle dorsiflexors/evertors 2-/5. Ankle plantarflexors/invertors 2-/5. Bed Mobility/Transfers: Sit to stand unable, required assist of 3 with maximal verbal cueing Stand to sit unable, required assist of 3 with maximal verbal cueing Bed to chair unable to test Gait: Tolerated a distance of up to 20 feet +15 feet +10 feet using front wheeled walker with moderate to maximal verbal cueing for walker management, overall safety, and hand placement. Wheelchair follow needed for safety. Mild S OB after activity. Left thumb able to latch onto walker handle on the left due to flexion contracture of the left fingers. Right hand has poor grasp but is able to hold onto walker handle however frequently slides down and requires moderate verbal cueing for hand repositioning. Balance: Static Sitting: Normal. Patient is unable to assume full standing due to fatigue and weakness. L foot was sliding forward causing patient's inability to safely maintain standing. Required assistance of 3 people. Dynamic Sitting: Good Static Standing: Fair Dynamic Standing: Poor Assessment: Assist of 2 using STEDY lift to ensure patient and staff safety while still allowing weight bearing in B LE. Unable to assume standing position despite assist of 3 people earlier at the ED. Patient demonstrates significant functional mobility decline requiring the assistance of three people for just sit<>stand transfer all mobility ADL performance and will have increased risk for falls and re-hospitaization if he returns home. Patient presents with instability, generalized weakness, and impairment of motor control as demonstrated by the following impairment level findings: 1. Decreased strength to B UE/LE major muscle groups 2. Impaired sitting/standing balance 3. Impaired activity tolerance 4. Limitation of joint range of motion in B shoulders and B ankles Impairments are continuing to contribute to the following functional limitations: 1. Dependent bed mobility skills 2. Increased dependence with transfers 3. Inability to ambulate 4. Increased completion time for mobility ADL performance 5. Increased fall risk 6. Inability to negotiate steps alone safely 7. Inability to return to prior living environment at this time Goals: Goals X1 week 1. Supine-Sit independent 2. Sit-Supine independent 3. Sit-Stand independent 4. Stand-Sit minimal assist 5. Bed-Chair minimal assist 6. Chair-Bed minimal assist 7. Minimal assist gait on level surface with use of least restrictive device for at least 15 feet without report of pain nor dyspnea 8. Minimal assist stair negotiation while holding onto bilateral rails for at least 10 steps without report of pain nor dyspnea 9. Fair static and dynamic standing balance/tolerance Plan of Care/Treatment Plan: Plan of care has been reviewed with the MINISTER HELPER providing the service under Physical Therapy direction. Initiate Physical Therapy intervention for pain management as needed, strengthening, bed mobility, transfers, gait, stairs, balance training, and use of assistive device. DISCHARGE RECOMMENDATIONS: [] Home with no services [] [] Home with services [specify] [] Home with outpatient PT [] [X] SNF for continued rehabilitation. Patient will benefit from [facility] facility placement for continued skilled physical therapy services in order to progress mobility level, strength, and balance. [] Supply Crib Attendant Care [] [] SNF versus LTC based on ability to participate and progress [] TREATMENT CODE/TIME: 27034 x 22 minutes beginning at 12:54 PM. Thank you for the opportunity to participate in the care of this patient. Mariann Murray PT, DPT, CLT [facility] [place], [place]
--- NOTE | 2021-01-27 16:51 | W.PM.HP.N ---
Date of service: 01/27/21 Time of Service: 16:51 Assessment and Plan Assessment and plan (1) Weakness: Start date: 01/27/21 Start time: 16:51 Status: Acute Assessment and plan: Patient was brought for weakness after falling out of bed. He was going to be discharged home by ED after insisting on being; however he required max assist with 2 people and was unable to stand on his own. he was too weak. he was given a bolus and admitted for further management PT conuslted. He is followed by palliative. (2) Hypomagnesemia: Start date: 01/27/21 Start time: 16:51 Status: Acute Assessment and plan: replete with IV supplementation and repeat labs in am (3) Chronic kidney disease: Start date: 01/27/21 Start time: 16:51 Status: Chronic Assessment and plan: Given bolus in ED, monitor labs, stable at baseline Qualifiers: Chronic kidney disease stage: unspecified stage Qualified Code(s): N18.9 - Chronic kidney disease, unspecified (4) Hyponatremia: Start date: 01/27/21 Start time: 16:51 Status: Chronic Assessment and plan: stable monitor (5) Palliative care patient: Start date: 01/27/21 Start time: 16:51 Status: Acute Assessment and plan: Followed in the community Will consult for continuity of care (6) Discharge planning issues: Start date: 01/27/21 Start time: 16:51 Status: Acute Assessment and plan: PT eval, snif vs home, he would benefit from SNIF placement discussed with Dr. Barnes History of Present Illness History of Present Illness Chief Complaint: FTT, depression, weakness Narrative: 75 y.o male with PMH of CKD, Depression, Alcohol abuse, HLD, GERD, neoplasm of glottis, RLS presented to [facility] for FTT and weakness. He was unable to stand on his own in the ED without 2 person assist. He wanted to go home but was not safe for discharge. Labs in the ED significant for WBC 10.89, na 134, mag 1.3. He was asked to be admitted to m/s for further management. Mag repleted, PT eval, palliative care consulted. He will likely need SNIF. 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 (Acute) Frequent falls (Acute) Palliative care patient (Acute) Discharge planning issues (Acute) Hypomagnesemia (Acute) Physician orders for life-sustaining treatment (POLST) form indicates patient wish for mu-swy-cjezqddouaw status (Acute) DNR (do not resuscitate) (Acute) Palliative care encounter (Acute) Elevated troponin (Acute) Weakness (Acute) Fall (Acute) Elevated brain natriuretic peptide (BNP) level (Acute) Adult failure to thrive (Acute) Skin breakdown (Acute) Skin yeast infection (Acute) REYNA (acute kidney injury) (Acute) Acute dehydration (Acute) Alcohol intake above recommended sensible limits (Acute) Benign prostatic hyperplasia with lower urinary tract symptoms (Acute) Essential hypertension (Acute 11/16/12) Gastroesophageal reflux disease (Acute) Gout (Acute) Hyperlipidemia (Acute) Paroxysmal atrial fibrillation (Acute) 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) Restless leg syndrome, uncontrolled (Acute) Vitamin D deficiency (Acute 09/06/13) History of surgical procedure (Acute) Chronic back pain (Acute) Medical History 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) left great toe transmetatarsal amputation 05-02-2017 by - 05-12-2017 [facility] [place] Vasc.Sx.: site with large necrotic/scabbed area: tx above knee amputation but pt declines - fup with wound care until pt decides to proceed (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) Critical lower limb ischemia RIGHT [facility] [place] SHAUNA Parsons/ status post right iliofemoral endarterectomy and patch angioplasty/right EIA stenting/ stent graft to distal SFA and popliteal/ COMPLICATED BY INFECTION: # debridements - w LEFT ILIOFEMORAL ENDATERECTOMY WITH LEFT EXTERNAL ILIAC STENT - [facility] [place] Hypokalemia Hypomagnesemia (01/01/15) Hypomagnesemia (01/01/15) Hyponatremia (09/06/13) serum electrophoresis normal 2010/ cortisol level normal: 2010 Osteomyelitis of right lower extremity 08/13/15- GREAT RIGHT TOE S/P AMPUTAION Osteomyelitis of toe Peripheral vascular disease critical lower limb ischemia - [facility] [place]- -2015 Sciatica Weakness Surgical History Amputation 08/13/15-GREAT RIGHT TOE Status post amputation of great toe (08/13/15) (post osteomyelitis) Family History Son No problems noted. Daughter No problems noted. Daughter No problems noted. 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 Current gender identity: male What is your relationship status?: How often do you talk on the phone with friends or family?: three or more times per week How often do you get together with friends or relatives?: three or more times per week Panel score (0-1 are the most socially isolated patients): 1 What type of physical activity do you participate in: assisted ambulation Duration: < 15 minutes/day Frequency: daily Special annemarie needs: No Seatbelt use: sometimes Working smoke detector in home: Yes Fire extinguisher in home: Yes Do you feel safe at home: Yes Do you feel safe in your relationship?: Yes Additional Social history: Denton lives at the [facility]. his daughter Hilda lives in [place]. Meds Allergies and Home Medications Allergies Allergy/AdvReac Type Severity Reaction Status Date / Time pravastatin AdvReac Severe MUSCLE Unverified 09/08/20 12:50 PAIN AND WEAKNESS lisinopril AdvReac HYPERKALEMI Unverified 09/08/20 12:50 A Home Medications Medication Instructions Recorded Confirmed Type pramipexole 0.25 mg tablet 0.25 mg PO HS #90 tab 04/01/20 01/27/21 Rx allopurinol 300 mg tablet 300 mg PO DAILY #90 tab 04/05/20 01/27/21 Rx acetaminophen [Tylenol] 650 mg PO Q6H PRN PRN #0 tab 07/11/20 10/17/20 Rx nystatin 0 g TOPICAL TID #0 g 07/11/20 10/17/20 Rx aspirin 81 mg tablet,delayed 81 mg PO DAILY #90 tab-cap 09/26/20 01/27/21 Rx release cetirizine 10 mg capsule 10 mg PO DAILY #90 cap 09/26/20 01/27/21 Rx finasteride 5 mg tablet 5 mg PO DAILY #90 tab 09/26/20 01/27/21 Rx mecobalamin (vitamin B12) 1,000 1,000 mcg PO DAILY #90 tab 09/26/20 01/26/21 Rx mcg chewable tablet losartan 25 mg tablet 25 mg PO DAILY #90 tab 10/17/20 01/26/21 Rx magnesium gluconate 27 mg 500 mg PO BID #180 tab 10/17/20 01/26/21 Rx magnesium (500 mg) tablet metoprolol succinate 100 mg 100 mg PO BID #180 tab-cap 10/17/20 01/26/21 Rx tablet,extended release 24 hr metoprolol succinate 25 mg 25 mg PO BID #180 tab 10/17/20 01/26/21 Rx tablet,extended release 24 hr pantoprazole 40 mg tablet,delayed 40 mg PO DAILY #90 tab 10/17/20 01/26/21 Rx release pramipexole 1 mg tablet 1 mg PO HS tab 10/17/20 01/26/21 History tamsulosin 0.4 mg capsule 0.8 mg PO DAILY #180 tab-cap 10/17/20 01/26/21 Rx furosemide 20 mg tablet 20 mg PO DAILY #30 tab 11/25/20 01/27/21 Rx Exam Const General: cooperative, comfortable, no acute distress, disheveled, frail appearing and ill appearing chronically Nutritional Appearance: thin Orientation: alert, awake and oriented x3 Eyes Eyelids: eyelids normal Pupils: PERRL EOM: EOM intact bilaterally Neck Neck: normal visual inspection and no JVD Lymphatic: no lymphadenopathy noted Resp Effort & Inspection: normal respiratory effort Auscultation: clear to auscultation bilaterally Cardio Jugular venous pressure: no JVD Rhythm: regular rhythm Heart Sounds: S1 normal GI Auscultation: normal bowel sounds General: No CVA tenderness and deferred Skin General skin exam: no rashes or lesions noted Neuro General: patient alert, patient awake and patient oriented x3 Cognition: normal cognition Speech: speech normal Extrem General: normal to inspection and full ROM Other: missing toes with wounds to left lower extremity, missing toes from dropping block on foot, Right foot with bunions, toes are derranged. Results Labs Result diagrams: 01/28/21 06:30 01/28/21 06:30 Labs: Laboratory Results - last 24 hr 01/26/21 01/26/21 01/26/21 23:20 23:20 23:35 WBC 10.89 H RBC 3.81 L Hgb 12.3 L Hct 37.1 L MCV 97.4 H MCH 32.3 MCHC 33.2 RDW 13.7 Plt Count 164 MPV 11.7 H Immature Gran % 0.5 Neutrophils % 77.9 Lymphocytes % 11.3 Monocytes % 6.8 Eosinophils % 3.2 Basophils % 0.3 Nucleated RBC % 0 Absolute Neutrophils 8.48 H Absolute Lymphocytes 1.23 Absolute Monocytes 0.74 Absolute Eosinophils 0.35 Absolute Basophils 0.03 Sodium 134 L Potassium 3.8 Chloride 100 Carbon Dioxide 23.2 Anion Gap 10.8 BUN 34 H Creatinine 1.6 H Estimated GFR/1.73 m2 42.46 Glucose 92 Calcium 8.5 Magnesium 1.3 L Total Bilirubin 0.5 AST 17 ALT 17 Alkaline Phosphatase 146 H Troponin I < 0.05 Total Protein 7.6 Albumin 3.5 Urine Color Urine Clarity Urine pH Ur Specific [place] Urine Protein Urine Ketones Urine Blood Urine Nitrite Urine Bilirubin Urine Urobilinogen Ur Leukocyte Esterase Urine Glucose COVID-19 Source Nasal/Nares SARS-CoV-2 (PCR) Negative 01/27/21 01/27/21 00:10 01:44 WBC RBC Hgb Hct MCV MCH MCHC RDW Plt Count MPV Immature Gran % Neutrophils % Lymphocytes % Monocytes % Eosinophils % Basophils % Nucleated RBC % Absolute Neutrophils Absolute Lymphocytes Absolute Monocytes Absolute Eosinophils Absolute Basophils Sodium Potassium Chloride Carbon Dioxide Anion Gap BUN Creatinine Estimated GFR/1.73 m2 Glucose Calcium Magnesium Total Bilirubin AST ALT Alkaline Phosphatase Troponin I Cancelled Total Protein Albumin Urine Color Yellow Urine Clarity Clear Urine pH 6.0 Ur Specific [place] 1.010 Urine Protein Negative Urine Ketones Negative Urine Blood Negative Urine Nitrite Negative Urine Bilirubin Negative Urine Urobilinogen 0.2 Ur Leukocyte Esterase Negative Urine Glucose Negative COVID-19 Source SARS-CoV-2 (PCR) Last Vital Signs Temp 36.7 C 01/27/21 15:30 Pulse 72 01/27/21 15:30 Resp 19 01/27/21 15:30 BP 168/89 H 01/27/21 15:30 Pulse Ox 97 01/27/21 15:30 PAWSS Have you Been Recently Intoxicated or Drunk Within the Last 30 days?: No Have you Ever Experienced Previous Episodes of Alcohol Withdrawal?: No Have you ever Experienced Withdrawal Seizures?: No Have you ever Experienced Delirium Tremens(DT)s?: No Have you ever undergone Alcohol Rehabilitation Treatment (i.e, inpt ot outpatient treatment programs)?: No Have you ever Experienced Blackouts?: No Have you ever Combined Alcohol with other Downers within the last 90 days?: No Have you ever Combined Alcohol with any other Substance of Abuse during the last 90 days?: No Positive Blood Alcohol level on Presentation? [PCS.BAL]: No Evidence of Increased Autonomic Activity (i.e. HR>120, tremor, sweating, agitation, nausea)?: No Result: 0
[2021-01-27] MEDS: MAGNESIUM SULFATE 4 GM/100 ML BAG IVPB (17:23)
[2021-01-27] MEDS: Metoprolol CR 100 MG TABCR PO (20:09)
[2021-01-27] MEDS: Magnesium Gluconate 500 MG TAB PO (20:09)
[2021-01-27] MEDS: Metoprolol CR 25 MG TABCR PO (20:09)
[2021-01-27] MEDS: Normal Saline Flush 10 ML SYR IVP (20:09)
[2021-01-27] MEDS: Pramipexole 0.25 MG TAB PO (21:45)
[2021-01-28 06:40] VITALS: BP 178/75; PULSE 75; RESP 19; TEMP 37.1; O2SAT 95
[2021-01-28 07:10] LABS: Abs Immature Grans 0.02 10^3/uL (0.0-0.06); Absolute Basophil Count 0.03 10^3/uL (0.0-0.2); Absolute Lymphocyte Count 0.93 10^3/uL (1.2-3.4); Absolute Monocyte Count 0.65 10^3/uL (0.1-0.8); Absolute Neutrophil Count 6.19 10^3/uL (1.2-6.7); Basophils % 0.4; Eosinophils % 3.7; HCT 35.8 % (40.0-50.0); HGB 11.8 g/dL (13.5-17.5); Immature Grans % 0.2; Lymphocytes % 11.5; MCH 32.5 pg (27.0-33.0); MCV 98.6 fL (80-95); MPV 11.5 fL (8.0-11.0); Neutrophils % 76.2; Nucleated RBC 0 %; Platelet Count 154 10^3/uL (130-400); RBC 3.63 10^6/uL (4.36-5.78); RDW 13.4 % (11.8-14.1); RDW-SD 48.7 fL; WBC 8.12 10^3/uL (4.4-10.8)
[2021-01-28 07:23] LABS: BUN 20 mg/dL (7-18); Chloride 102 mmol/L (98-107); Glucose 89 mg/dL (74-106); Magnesium 2.5 mg/dL (1.8-2.4); Potassium 3.7 mmol/L (3.5-5.1); Sodium 136 mmol/L (136-145)
[2021-01-28 07:29] VITALS: BP 168/80; PULSE 74; RESP 18; TEMP 36.6; O2SAT 96
[2021-01-28] MEDS: Metoprolol CR 100 MG TABCR PO ×2 (08:46→20:09)
[2021-01-28] MEDS: Allopurinol 300 MG TAB PO (08:46)
[2021-01-28] MEDS: Finasteride 5 MG TAB PO (08:46)
[2021-01-28] MEDS: Cyanocobalamin 500 MCG TAB 1000 MCG PO (08:46)
[2021-01-28] MEDS: Pantoprazole 40 MG TABCR PO (08:47)
[2021-01-28] MEDS: Aspirin E.C. 81 MG TABEC PO (08:47)
[2021-01-28] MEDS: Tamsulosin 0.4 MG CAPCR 0.8 MG PO (08:47)
[2021-01-28] MEDS: Losartan 25 MG TAB PO (08:47)
[2021-01-28] MEDS: Metoprolol CR 25 MG TABCR PO ×2 (08:47→20:09)
--- NOTE | 2021-01-28 10:15 | CMPROGNOTE_ITS ---
- If Service Date Differs Date of service: 01/28/21 Time of Service: 10:15 Care Management Progress Note S/O: Denton was sitting in his chair talking with Dr. Rodriguez when CM met with him. After a lengthy conversation about placement options, Denton wants to be discharged home and refuses SNF or community residential placement. He would not budge. He reported that his independence is important to him and he would like to give it one more try. During the conversation Denton retrieved his life line necklace from his bedside table, puts it on and says this is all I need. CM spoke with patient's son Cristofer who feels that Denton should go to a SNF or assisted living facility, however he is not surprised that Denton declined the offers. Cristofer is aware that Denton will likely be discharged home tomorrow with new [facility] services. Cristofer will work on getting his caregivers back and will be available to transport him home first thing in the morning or tomorrow after 5pm. A: 75 year old male admitted to [facility] on 01/27/21 for failure to thrive, global weakness P: Anticipate Ed will discharge home tomorrow via private vehicle with son. He refuses SNF or help with placement to a community residential. He is agreeable to New [facility] RN/PT/OT/[facility] services. Palliative care will continue to follow patient. CM will continue to support his discharge planning needs.
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
--- NOTE | 2021-01-28 11:46 | PT.INTREAT ---
Date of service: 01/28/21 Time of Service: 11:46 PT Notes Visit Reasons: Failure to Thrive,Global Weakness Physical Therapy Inpatient Treatment Note Date: 01/28/2021 Precautions: Fall. Standard. Activity as tolerated. [employer] [place]. Subjective: Agreeable to PT session. Forgot about yesterday's session with this PT at the ED where he had a hard time stading up from the chair and needed assist of 3 people. Objective: General Observation: IV access in the left UE. Bilateral amputation of great toes. Seated on bedside chair with blankets over himself. Mental Status: Alert. Able to pay attention, focus, and respond appropriately but speech not fully discernible. Pain: Denies Bed Mobility/Transfers: Sit to stand unable, required assist of 2 with maximal verbal cueing using STEDY lift Stand to sit unable, required assist of 2 with maximal verbal cueing using STEDY lift Bed to chair unable, required assist of 2 with maximal verbal cueing using STEDY lift Gait: Unable Balance: Static Sitting: Fair Dynamic Sitting: Poor Static Standing: Unable Dynamic Standing: Unable Assessment: Needs assist of 2 using STEDY lift to ensure patient and staff safety while still allowing weight bearing in B LE. Unable to assume standing position despite assist of 3 people yesterday at the ED. Patient demonstrates significant functional mobility decline requiring the assistance of three people for just sit<>stand transfer all mobility ADL performance and will have increased risk for falls and re-hospitaization if he returns home. Patient presents with instability, generalized weakness, and impairment of motor control as demonstrated by the following impairment level findings: 1. Decreased strength to B UE/LE major muscle groups 2. Impaired sitting/standing balance 3. Impaired activity tolerance 4. Limitation of joint range of motion in B shoulders and B ankles Impairments are continuing to contribute to the following functional limitations: 1. Dependent bed mobility skills 2. Increased dependence with transfers 3. Inability to ambulate 4. Increased completion time for mobility ADL performance 5. Increased fall risk 6. Inability to negotiate steps alone safely 7. Inability to return to prior living environment at this time Goals: Goals X1 week 1. Supine-Sit independent NOT MET 2. Sit-Supine independent NOT MET 3. Sit-Stand independent NOT MET 4. Stand-Sit minimal assist NOT MET 5. Bed-Chair minimal assist NOT MET 6. Chair-Bed minimal assist NOT MET 7. Minimal assist gait on level surface with use of least restrictive device for at least 15 feet without report of pain nor dyspnea NOT MET 8. Minimal assist stair negotiation while holding onto bilateral rails for at least 10 steps without report of pain nor dyspnea NOT MET 9. Fair static and dynamic standing balance/tolerance DISCHARGE RECOMMENDATIONS: [] Home with no services [] [] Home with services [specify] [] Home with outpatient PT [] [X] SNF for continued rehabilitation. Patient will benefit from prison facility placement for continued skilled physical therapy services in order to progress mobility level, strength, and balance. [] [facility] [] [] SNF versus LTC based on ability to participate and progress [] TREATMENT CODE/TIME: 03913 x 19 minutes beginning at 11:46 AM.
--- NOTE | 2021-01-28 14:48 | PGE_ITS ---
Date of Service Date of service: 01/28/21 Time of Service: Assessment and Plan Assessment and plan (1) Weakness: Start date: 01/28/21 Start time: Status: Acute Assessment and plan: Continue PT, Patient refusing any SNIF or community group home placement He wants services and to go home. He will likely fail. However he will be discharged home with services likely tomorrow. (2) Hypomagnesemia: Start date: 01/28/21 Start time: Status: Resolved Assessment and plan: replete with IV supplementation and repeat labs in am (3) Chronic kidney disease: Start date: 01/28/21 Start time: Status: Chronic Assessment and plan: Normal better than baseline Qualifiers: Chronic kidney disease stage: unspecified stage Qualified Code(s): N18.9 - Chronic kidney disease, unspecified (4) Hyponatremia: Start date: 01/28/21 Start time: Status: Chronic Assessment and plan: above baseline, normal today (5) Palliative care patient: Start date: 01/28/21 Start time: Status: Acute Assessment and plan: Followed in the community Seen by Dr. Rodriguez today (6) Discharge planning issues: Start date: 01/28/21 Start time: Status: Acute Assessment and plan: Home with services as above. He will likely fail at home. discussed with Dr. Barnes Subjective Subjective Patient reports: no new complaints Interval history since last seen: lying in bed getting washed up . No complaints. BM today Exam Const General: cooperative, comfortable, no acute distress, disheveled, frail appearing and ill appearing chronically Nutritional Appearance: thin Orientation: alert, awake and oriented x3 Eyes Eyelids: eyelids normal Pupils: PERRL EOM: EOM intact bilaterally Neck Neck: normal visual inspection and no JVD Lymphatic: no lymphadenopathy noted Resp Effort & Inspection: normal respiratory effort Auscultation: clear to auscultation bilaterally Cardio Jugular venous pressure: no JVD Rhythm: regular rhythm Heart Sounds: S1 normal GI Auscultation: normal bowel sounds General: No CVA tenderness and deferred Skin General skin exam: no rashes or lesions noted Neuro General: patient alert, patient awake and patient oriented x3 Cognition: normal cognition Speech: speech normal Extrem General: normal to inspection and full ROM Objective Last Vital Signs Temp 36.6 C 01/28/21 07:29 Pulse 74 01/28/21 07:29 Resp 18 01/28/21 07:29 BP 168/80 H 01/28/21 07:29 Pulse Ox 96 01/28/21 07:29 Laboratory Results - last 24 hr 01/28/21 01/28/21 06:30 06:30 WBC 8.12 RBC 3.63 L Hgb 11.8 L Hct 35.8 L MCV 98.6 H MCH 32.5 MCHC 33.0 RDW 13.4 Plt Count 154 MPV 11.5 H Immature Gran % 0.2 Neutrophils % 76.2 Lymphocytes % 11.5 Monocytes % 8.0 Eosinophils % 3.7 Basophils % 0.4 Nucleated RBC % 0 Absolute Neutrophils 6.19 Absolute Lymphocytes 0.93 L Absolute Monocytes 0.65 Absolute Eosinophils 0.30 Absolute Basophils 0.03 Sodium 136 Potassium 3.7 Chloride 102 Carbon Dioxide 24.0 Anion Gap 10.0 BUN 20 H D Creatinine 1.0 D Estimated GFR/1.73 m2 >= 60.00 Glucose 89 Calcium 9.0 Magnesium 2.5 H PAWSS Have you Been Recently Intoxicated or Drunk Within the Last 30 days?: No Have you Ever Experienced Previous Episodes of Alcohol Withdrawal?: No Have you ever Experienced Withdrawal Seizures?: No Have you ever Experienced Delirium Tremens(DT)s?: No Have you ever undergone Alcohol Rehabilitation Treatment (i.e, inpt ot outpatient treatment programs)?: No Have you ever Experienced Blackouts?: No Have you ever Combined Alcohol with other Downers within the last 90 days?: No Have you ever Combined Alcohol with any other Substance of Abuse during the last 90 days?: No Positive Blood Alcohol level on Presentation? [PCS.BAL]: No Evidence of Increased Autonomic Activity (i.e. HR>120, tremor, sweating, agitation, nausea)?: No Result: 0
[2021-01-28 16:52] VITALS: BP 167/87; PULSE 80; RESP 18; TEMP 36.8; O2SAT 99
--- NOTE | 2021-01-28 17:05 | PHA.REVIEW ---
Pharmacy Admission Review - Admission Clinical Review (Last Reviewed 01/28/21 @ 08:42 by Tory Negro NP) Palliative care patient (Acute) Discharge planning issues (Acute) Weakness (Acute) pravastatin Adverse Reaction (Severe, Unverified 09/08/20 12:50) MUSCLE PAIN AND WEAKNESS lisinopril Adverse Reaction (Unverified 09/08/20 12:50) HYPERKALEMIA Resuscitation Status DNR/DNI Height 5 ft 10 in Weight 77 kg - Renal Dosing Renal Dosing: BUN 20 mg/dL (7-18) H D 01/28/21 06:30 Creatinine 1.0 mg/dL (0.70-1.30) D 01/28/21 06:30 Medications needing adjustments: Reviewed - Anticoagulation Anticoagulation: Hgb 11.8 g/dL (13.5-17.5) L 01/28/21 06:30 Hct 35.8 % (40.0-50.0) L 01/28/21 06:30 Plt Count 154 10^3/uL (130-400) 01/28/21 06:30 Creatinine 1.0 mg/dL (0.70-1.30) D 01/28/21 06:30 DVT Prophylaxis: Reviewed Medications: Aspirin Therapeutic Anticoagulation: N/A - Opiate Usage Evaluate Pain Scale/Pains Meds: N/A - Relevant Labs Sodium 136 mmol/L (136-145) 01/28/21 06:30 Potassium 3.7 mmol/L (3.5-5.1) 01/28/21 06:30 Chloride 102 mmol/L (98-107) 01/28/21 06:30 Magnesium 2.5 mg/dL (1.8-2.4) H 01/28/21 06:30 Electrolytes, C-Reactive P, ESR: Reviewed - DM Control DM Control: Glucose 89 mg/dL (74-106) 01/28/21 06:30 Insulin Dosing: Reviewed - Heart Failure/SC Heart Failure/SC: Troponin I Cancelled 01/27/21 01:44 EF%, SANDRO's, B-Blockers, Diuretics: N/A - BP Control BP Control: Blood Pressure 167/87 Blood Pressure 168/80 Blood Pressure 178/75 If elevated: Reviewed (LOSARTAN 25MG DAILY) - Qtc Review If Elevated: Reviewed List meds needing interventions: QTc 511 on admission -- monitor add of more qt prolonging meds - IV to PO Switch IV Medications: Reviewed - Home Meds Home Med List reviewed: Reviewed Relevent Home Meds Not ordered & why?: all ordered
[2021-01-28 20:03] VITALS: BP 145/66; PULSE 69; RESP 19; TEMP 36.8; O2SAT 96
[2021-01-28] MEDS: Acetaminophen 325 MG TAB PO (20:15)
[2021-01-28] MEDS: Pramipexole 0.25 MG TAB PO (21:03)
[2021-01-28 23:45] VITALS: BP 126/71; PULSE 68; RESP 19; TEMP 36.3; O2SAT 97
[2021-01-29 07:47] VITALS: BP 155/75; PULSE 55; RESP 18; TEMP 36.4; O2SAT 93
[2021-01-29 07:55] LABS: Abs Immature Grans 0.02 10^3/uL (0.0-0.06); Absolute Basophil Count 0.04 10^3/uL (0.0-0.2); Absolute Eosinophil Count 0.27 10^3/uL (0.0-0.7); Absolute Lymphocyte Count 0.92 10^3/uL (1.2-3.4); Absolute Monocyte Count 0.64 10^3/uL (0.1-0.8); Absolute Neutrophil Count 5.31 10^3/uL (1.2-6.7); Basophils % 0.6; Eosinophils % 3.8; HCT 34.7 % (40.0-50.0); HGB 11.2 g/dL (13.5-17.5); Immature Grans % 0.3; Lymphocytes % 12.8; MCH 32.1 pg (27.0-33.0); MCHC 32.3 % (32.0-36.0); MCV 99.4 fL (80-95); MPV 11.6 fL (8.0-11.0); Monocytes % 8.9; Neutrophils % 73.6; Nucleated RBC 0 %; Platelet Count 143 10^3/uL (130-400); RBC 3.49 10^6/uL (4.36-5.78); RDW 13.5 % (11.8-14.1); RDW-SD 49.5 fL
[2021-01-29] MEDS: Allopurinol 300 MG TAB PO (07:55)
[2021-01-29] MEDS: Cyanocobalamin 500 MCG TAB 1000 MCG PO (07:55)
[2021-01-29] MEDS: Metoprolol CR 100 MG TABCR PO (07:55)
[2021-01-29] MEDS: Tamsulosin 0.4 MG CAPCR 0.8 MG PO (07:55)
[2021-01-29] MEDS: Finasteride 5 MG TAB PO (07:55)
[2021-01-29] MEDS: Aspirin E.C. 81 MG TABEC PO (07:55)
[2021-01-29] MEDS: Metoprolol CR 25 MG TABCR PO (07:55)
[2021-01-29] MEDS: Pantoprazole 40 MG TABCR PO (07:55)
[2021-01-29] MEDS: Losartan 25 MG TAB PO (07:55)
[2021-01-29 08:08] LABS: Anion Gap 8.2 mmol/L (3-11); BUN 32 mg/dL (7-18); CO2 24.8 mmol/L (21.0-32.0); CREATININE 1.3 mg/dL (0.70-1.30); Calcium 8.8 mg/dL (8.5-10.1); Chloride 103 mmol/L (98-107); Estimated GFR 53.96 (mL/min/1.73m2); Glucose 89 mg/dL (74-106); Potassium 3.7 mmol/L (3.5-5.1); Sodium 136 mmol/L (136-145)
[2021-01-29 08:34] LABS: Hemoglobin A1C 5.6 % (<5.7)
--- NOTE | 2021-01-29 09:10 | W.PM.DS.N ---
Date of service: 01/29/21 Time of Service: 09:10 DS: Diagnosis Discharge Diagnosis (1) Depression: Status: Chronic (2) Flexion contractures: Status: Chronic (3) Ptosis of both upper eyelids: Status: Acute (4) Frequent falls: Status: Acute (5) Hypomagnesemia: Status: Resolved (6) Weakness: Status: Acute (7) Hyponatremia: Status: Chronic (8) Chronic kidney disease: Status: Chronic Discharge Plan Disposition Patient Disposition: HOME W/HOME HEALTH SERVICE Condition: Stable Discharge Details Reason For Visit: Failure to Thrive,Global Weakness Admit Date/Time: 01/27/21 10:34 Admit Provider: Lamin Barnes Attending Provider: Lamin Barnes Primary Care Provider: Brady Kate Hospital Course Hospital Course: This is a 75 y.o male with history of chronic kidney disease, Depression, Alcohol abuse, HLD, GERD, neoplasm of glottis, RLS presented to the emergency department for failure to thrive and weakness. He was unable to stand on his own in the ED without 2 person assist. He wanted to go home but was not safe for discharge. Labs in the ED significant for WBC 10.89, na 134, mag 1.3. He was referred to observation on to med.surg. His magnesium was repleted, PT eval, palliative care consulted. He was recommended to be referred for rehabilitation with possible exterminator termite placement but he adamantly refused and wished for discharge to home. He remained medically stable. He is being discharged to home. Anticipate ongoing decline and failed discharge. discharge discussed with Dr Barnes Home Meds and New Rx's Prescriptions: Continued losartan 25 mg tablet 25 mg PO DAILY Qty: 90 RF: 4 magnesium gluconate 27 mg magnesium (500 mg) tablet 500 mg PO BID Qty: 180 RF: 4 metoprolol succinate 25 mg tablet extended release 24 hr 25 mg PO BID Qty: 180 RF: 12 metoprolol succinate 100 mg tablet extended release 24 hr 100 mg PO BID Qty: 180 RF: 12 pantoprazole 40 mg tablet,delayed release (DR/EC) 40 mg PO DAILY Qty: 90 RF: 4 tamsulosin 0.4 mg capsule 0.8 mg PO DAILY Qty: 180 RF: 6 pramipexole [Mirapex] 0.25 mg tablet 0.25 mg PO HS Qty: 90 RF: 4 allopurinol [Zyloprim] 300 mg tablet 300 mg PO DAILY Qty: 90 RF: 4 aspirin [Tyler Aspirin] 81 mg tablet,delayed release (DR/EC) 81 mg PO DAILY Qty: 90 RF: 1 Allergy Relief (cetirizine) 10 mg capsule 10 mg PO DAILY Qty: 90 RF: 4 finasteride 5 mg tablet 5 mg PO DAILY Qty: 90 RF: 4 B12 Active 1,000 mcg tablet,chewable 1,000 mcg PO DAILY Qty: 90 RF: 4 furosemide 20 mg tablet 20 mg PO DAILY Qty: 30 RF: 2 acetaminophen [Tylenol] 325 mg Tablet 650 mg PO Q6H PRN PRNQty: 0 RF: 0 Discharge Instructions Instructions: Weakness (DC) Stand Alone Forms: Nursing Discharge Form Referrals: Brady Kate MD [Primary Care Provider] - 02/03/21 2:00 pm Activity:: Activity as Tolerated Equipment/Supplies:: No Equipment Needed Diet:: As Tolerated Discharge Orders Discharge Orders: Discharge Order (Routine); Ordered 01/29/21 Ordered By: Katherine Worthy Discharge Data Discharge Date/Time-TO BE ENTERED AT DEPARTURE: 01/29/21 10:10 DS: Summary Time Spent with Patient providing and/or coordinating discharge services: Greater than 30 minutes Status at Discharge Functional status at discharge: uses cane/walker Overall status at discharge: patient is not back to baseline Mental Status: mental status grossly normal Speech and Movement: speech and movement normal Mood: irritable mood Affect: sad and irritable affect Exam Const Nutritional Appearance: average body habitus Eyes Eyelids: eyelid abnormality (ptosis) and other (ptosis of both eyes) General: No CVA tenderness Neuro Speech: abnormal speech (dysarthric) Psych Appearance: disheveled Mental Status: mental status grossly normal Speech and Movement: speech and movement normal Mood: irritable mood Affect: sad and irritable affect Insight: poor Judgment: poor DS: Data Vitals/I&O Vitals and I&O: Vital Signs Temperature 36.4 C L 01/29/21 07:47 Temperature Source Tympanic 01/29/21 07:47 Pulse 55 L 01/29/21 07:47 Pulse Rhythm Regular 01/29/21 05:38 Pulse 79 01/27/21 01:30 Respiratory Rate 18 01/29/21 07:47 Respiratory Effort Non-Labored 01/29/21 05:38 Respiratory Depth Normal 01/29/21 05:38 Respiratory Pattern Normal 01/29/21 05:38 Blood Pressure 155/75 H 01/29/21 07:47 Blood Pressure Mean 89 01/27/21 00:46 Blood Pressure Position Supine 01/26/21 23:04 Pulse Oximetry 93 01/29/21 07:47 Oxygen Delivery Method Room Air 01/29/21 07:47 Oxygen Flow Rate 0 01/29/21 07:47 Pain Level 0 01/28/21 23:45 Intake & Output 01/28/21 01/28/21 01/29/21 11:59 23:59 11:59 Intake Total 690 / 1250 560 / 1250 100 / 100 Output Total 225 / 225 275 / 275 Balance 465 / 1025 560 / 1025 -175 / -175 Weight 77 kg 77.2 kg Intake: Oral 690 / 1250 560 / 1250 100 / 100 Output: Urine 225 / 225 275 / 275 Other: Urine Color Yellow Yellow Yellow Urine Appearance Clear Cloudy Clear Urine Odor Normal Normal Normal Comment pT was incontinent, small amount. Stool Size Moderate Smear Smear Stool Characteristics Soft Soft Soft Brown Brown Brown Voiding Methods Diaper Diaper Diaper Incontinent Incontinent Incontinent Data Completed and Pending Labs on day of discharge: Labs from last 24 hours 01/29/21 01/29/21 01/29/21 07:05 07:05 07:05 WBC 7.20 RBC 3.49 L Hgb 11.2 L Hct 34.7 L MCV 99.4 H MCH 32.1 MCHC 32.3 RDW 13.5 Plt Count 143 MPV 11.6 H Immature Gran % 0.3 Neutrophils % 73.6 Lymphocytes % 12.8 Monocytes % 8.9 Eosinophils % 3.8 Basophils % 0.6 Nucleated RBC % 0 Absolute Neutrophils 5.31 Absolute Lymphocytes 0.92 L Absolute Monocytes 0.64 Absolute Eosinophils 0.27 Absolute Basophils 0.04 Sodium 136 Potassium 3.7 Chloride 103 Carbon Dioxide 24.8 Anion Gap 8.2 BUN 32 H D Creatinine 1.3 Estimated GFR/1.73 m2 53.96 Glucose 89 Hemoglobin A1c 5.6 Calcium 8.8 PFSH All Active Problems (Updated 01/28/21 @ 21:32 by Precious Rodriguez MD) Goals of care, counseling/discussion (Acute) Lives alone without help available (Acute) Chronic kidney disease (Chronic) Hyponatremia (Chronic) Adjustment disorder (Chronic) Suicidal thoughts (Acute) UTI (urinary tract infection) (Acute) Depression (Chronic) Cervical myelopathy (Acute) Flexion contractures (Chronic) Ptosis of both upper eyelids (Acute) Frequent falls (Acute) Palliative care patient (Acute) Discharge planning issues (Acute) Physician orders for life-sustaining treatment (POLST) form indicates patient wish for [id number] status (Acute) DNR (do not resuscitate) (Acute) Palliative care encounter (Acute) Elevated troponin (Acute) Weakness (Acute) Fall (Acute) Elevated brain natriuretic peptide (BNP) level (Acute) Adult failure to thrive (Acute) Skin breakdown (Acute) Skin yeast infection (Acute) REYNA (acute kidney injury) (Acute) Acute dehydration (Acute) Alcohol intake above recommended sensible limits (Acute) Benign prostatic hyperplasia with lower urinary tract symptoms (Acute) Essential hypertension (Acute 11/16/12) Gastroesophageal reflux disease (Acute) Gout (Acute) Hyperlipidemia (Acute) Paroxysmal atrial fibrillation (Acute) 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) Restless leg syndrome, uncontrolled (Acute) Vitamin D deficiency (Acute 09/06/13) History of surgical procedure (Acute) Chronic back pain (Acute) Medical History 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) left great toe transmetatarsal amputation 05-02-2017 by - 05-12-2017 [facility] [place] Vasc.Sx.: site with large necrotic/scabbed area: tx above knee amputation but pt declines - fup with wound care until pt decides to proceed (Dr.Goodney Cisco Chiang [employer]) Critical lower limb ischemia RIGHT [facility] [place] SHAUNA Parsons/ status post right iliofemoral endarterectomy and patch angioplasty/right EIA stenting/ stent graft to distal SFA and popliteal/ COMPLICATED BY INFECTION: # debridements - w LEFT ILIOFEMORAL ENDATERECTOMY WITH LEFT EXTERNAL [place]IAC STENT [place] [facility] [place] Hypokalemia Hypomagnesemia (01/01/15) Hypomagnesemia (01/01/15) Hyponatremia (09/06/13) serum electrophoresis normal 2009/ cortisol level normal: 2010 Osteomyelitis of right lower extremity 08/13/15- GREAT RIGHT TOE S/P AMPUTAION Osteomyelitis of toe Peripheral vascular disease critical lower limb ischemia - [facility] [place]- -2015 Sciatica Weakness Surgical History Amputation 08/13/15-GREAT RIGHT TOE Status post amputation of great toe (08/13/15) (post osteomyelitis) Family History Son No problems noted. Daughter Parent-child estrangement nec Daughter Parent-child estrangement nec Social History (Updated 01/28/21 @ 21:36 by Precious Rodriguez MD) Smoking/Tobacco Use Status: Former Tobacco Use Tobacco: How many years used: 50 Smoking risk assessment performed?: Yes Alcohol Intake: current Alcohol Intake frequency: 0-2 drinks per day Alcohol type: beer Drug use: Never Caregiver/Support person: No (son Cristofer is named as caregiver, but not easy to reach) Household members: none Housing: house Number of Children: 3 Communication Needs: Hard of Hearing and Corrective Lenses Education Level: high school Do you need help understanding health information?: Always 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 Current gender identity: male What is your relationship status?: How often do you talk on the phone with friends or family?: once per week How often do you get together with friends or relatives?: never Panel score (0-1 are the most socially isolated patients): 0 What type of physical activity do you participate in: assisted ambulation Duration: < 15 minutes/day Frequency: daily Special annemarie needs: No Seatbelt use: sometimes Working smoke detector in home: Yes Fire extinguisher in home: Yes Do you feel safe at home: Yes Do you feel safe in your relationship?: Yes Additional Social history: Denton recently had a trial of living alone at home after 20 days at a SNF. Within a week, he fell and could not get up. Eli Stevens came to his house to give him a lift assist, but when they saw how weak he was, how he could not stand on his own, (he was a 3 person assist in the ER), they took him to the hospital instead of returning him to his bed as requested. He is adamantly opposed to returning to a SNF after this admission. He is somewhat opposed to a community mcc. Working on safe discharge plan.
--- NOTE | 2021-01-29 10:56 | PDOC.CMDIS ---
- If Service Date Differs Date of service: 01/29/21 Time of Service: 10:56 LACE Index Scoring Tool - Questions: Length of Stay (in days): 2 Acuity (Admit via E.D.?): Yes Comorbidities: Metastatic Solid Tumor E.D. Visits: 5 - Answers: Total Score: 14 Risk of Readmission: High Risk Care Management Discharge Reason for Hospitalization: Failure to thrive, global weakness. Discharge Plan: Denton will discharge home via private vehicle with son with New [facility] RN/PT/OT/FLUORESCENT LIGHTING MODEL MAKER and Aids (1 hour per day). Dneton has a lifeline and personal caregivers, arranged by sawyer [place]. Denton will follow up with community providers and discharge plan of care as prescribed. Denton agrees to consider SNF placement vs. community usp at his next admission.
--- NOTE | 2021-02-03 11:45 | INDS_ITS ---
Date of service: 01/28/21 Time of Service: 11:46 PT Notes Visit Reasons: Failure to Thrive,Global Weakness [place] Physical Therapy Inpatient Discharge Summary Date: 02/03/2021 Date of service: 01/27/2021 through 01/28/2021 This is a clinical summary of care provided for the duration of dates listed above. No charge was made in the completion of this documentation. Referring Doctor: Lamin Barnes MD PT Orders: PT CONSULT: Eval/Treat Precautions: Fall. Standard. Activity as tolerated. [place]. Patient Profile/Admitting Diagnosis: [place] endedn up needing to be admitted to the medical surgical unit for failure to thrive alone at home. He is a 75-year-old male who presented to the ED on 01/27/2021 as patient was found on floor by EMS and found him to be too weak. He also has dry cough and shortness of breath. Patient is diagnosed with generalized weakness, ambulatory dysfunction, and failure to thrive. Referral was sent in to determine safest discharge destination for patient. PMHX: All Active Problems Chronic kidney disease (Chronic) Hyponatremia (Acute) Adjustment disorder (Chronic) Suicidal thoughts (Acute) UTI (urinary tract infection) (Acute) Depression (Chronic) Cervical myelopathy (Acute) Flexion contractures (Chronic) Ptosis of both upper eyelids (Acute) Frequent falls (Acute) Palliative care patient (Acute) Discharge planning issues (Acute) Hypomagnesemia (Acute) Physician orders for life-sustaining treatment (POLST) form indicates patient wish for [id number] status (Acute) DNR (do not resuscitate) (Acute) Palliative care encounter (Acute) Elevated troponin (Acute) Weakness (Acute) Fall (Acute) Elevated brain natriuretic peptide (BNP) level (Acute) Adult failure to thrive (Acute) Skin breakdown (Acute) Skin yeast infection (Acute) REYNA (acute kidney injury) (Acute) Acute dehydration (Acute) Alcohol intake above recommended sensible limits (Acute) Benign prostatic hyperplasia with lower urinary tract symptoms (Acute) Essential hypertension (Acute 11/16/12) Gastroesophageal reflux disease (Acute) Gout (Acute) Hyperlipidemia (Acute) Paroxysmal atrial fibrillation (Acute) 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) Restless leg syndrome, uncontrolled (Acute) Vitamin D deficiency (Acute 09/06/13) History of surgical procedure (Acute) Chronic back pain (Acute) Medical History 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) left great toe transmetatarsal amputation 05-02-2017 by - 05-12-2017 [facility] [place] Vasc.Sx.: site with large necrotic/scabbed area: tx above knee amputation but pt declines - fup with wound care until pt decides to proceed ( - 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) Critical lower limb ischemia RIGHT [facility] [place] SHAUNA Parsons/ status post right iliofemoral endarterectomy and patch angioplasty/right EIA stenting/ stent graft to distal SFA and popliteal/ COMPLICATED BY INFECTION: # debridements - w LEFT ILIOFEMORAL ENDATERECTOMY WITH LEFT EXTERNAL ILIAC STENT - [facility] [place] Hypokalemia Hypomagnesemia (01/01/15) Hypomagnesemia (01/01/15) Hyponatremia (09/06/13) serum electrophoresis normal 2009/ cortisol level normal: 2009 Osteomyelitis of right lower extremity 08/13/15- GREAT RIGHT TOE S/P AMPUTAION Osteomyelitis of toe Peripheral vascular disease critical lower limb ischemia - [facility] [place]- Sciatica Weakness Surgical History Amputation 08/13/15-GREAT RIGHT TOE Status post amputation of great toe (08/13/15) (post osteomyelitis) Social History/Home Situation: Lives alone in a private home. Has been receiving support from family and home health personnel. States that he has two HH aide who comes in and helps him with anything he needs. Equipment Owned/DME: Front-wheeled walker, wheelchair Subjective: NT. See most recent METER CHANGES RECORDS CLERK notes. Objective: General Observation: NT. See most recent METER CHANGES RECORDS CLERK notes. Mental Status: Alert. Able to pay attention, focus, and respond appropriately but speech is not fully discernible. Pain: NT. See most recent METER CHANGES RECORDS CLERK notes. ROM: Right Upper Extremity: Unable to flex at the shoulder beyond 90 degrees with empty end feel. Unable to abduct beyond 80 degrees due to discomfort. Elbows flexion WFL. Elbow extension WFL. Wrist flexion about 10 degrees. Wrist extension 10 degrees. Fixed wrist flexion contracture in the IP joints. Left Upper Extremity: Unable to flex at the shoulder beyond 80 degrees with empty end feel. Unable to abduct beyond 60 degrees due to discomfort. Elbows flexion WFL. Elbow extension WFL. Wrist flexion about 20 degrees. Finger flexion Right Lower Extremity: Hip flexion lacking the last 45 degrees. Hip abduction limited to 10 degrees. Knee flexion WFL. Knee extension. Ankle dorsiflexion/eversion to neutral only. Ankle plantarflexion/inversion WFL. Left Lower Extremity: Hip flexion lacking the last 45 degrees. Hip abduction limited to 10 degrees. Knee flexion WFL. Knee extension. Ankle dorsiflexion/eversion to neutral only. Ankle plantarflexion/inversion WFL. Strength: Right Upper Extremity: Shoulder flexors 3-/5. Shoulder abductors 3-/5. Shoulder ER 3-/5. Elbow flexors 4-/5. Elbow extensors 4-/5. Occupational Psychologist weakn but functional. Left Upper Extremity: Shoulder flexors 3-/5. Shoulder abductors 3-/5. Shoulder ER 3-/5. Elbow flexors 4-/5. Elbow extensors 4-/5. Occupational Psychologist absent. Right Lower Extremity: Hip flexors 2-/5. Hip abductors 2-/5. Hip external rotators 2-/5. Knee flexors 2-/5. Knee extensors 2-/5. Ankle dorsifl exors/evertors 2-/5. Ankle plantarflexors/invertors 2-/5. Left Lower Extremity: Hip flexors 2-/5. Hip abductors 2-/5. Hip external rotators 2-/5. Knee flexors 2-/5. Knee extensors 2-/5. Ankle dorsifl exors/evertors 2-/5. Ankle plantarflexors/invertors 2-/5. Bed Mobility/Transfers: Sit to stand unable, required assist of 3 with maximal verbal cueing Stand to sit unable, required assist of 3 with maximal verbal cueing Bed to chair unable to test Gait: Unable Balance: Static Sitting: Normal. Patient is unable to assume full standing due to fatigue and weakness. L foot was sliding forward causing patient's inability to safely maintain standing. Required assistance of 3 people. Dynamic Sitting: Good Static Standing: Fair Dynamic Standing: Poor Assessment: Continues to be assist of 2 using STEDY lift to ensure patient and staff safety while still allowing weight bearing in B LE. Unable to assume standing position despite assist of 3 people earlier at the ED. Patient demonstrates significant functional mobility decline requiring the assistance of three people for just sit<>stand transfer all mobility ADL performance and will have increased risk for falls and re-hospitaization if he returns home. Patient presents with instability, generalized weakness, and impairment of motor control as demonstrated by the following impairment level findings: 1. Decreased strength to B UE/LE major muscle groups 2. Impaired sitting/standing balance 3. Impaired activity tolerance 4. Limitation of joint range of motion in B shoulders and B ankles Impairments are continuing to contribute to the following functional limitations: 1. Dependent bed mobility skills 2. Increased dependence with transfers 3. Inability to ambulate 4. Increased completion time for mobility ADL performance 5. Increased fall risk 6. Inability to negotiate steps alone safely 7. Inability to return to prior living environment at this time Goals: Goals X1 week 1. Supine-Sit independent NOT MET 2. Sit-Supine independent NOT MET 3. Sit-Stand independent NOT MET 4. Stand-Sit minimal assist NOT MET 5. Bed-Chair minimal assist NOT MET 6. Chair-Bed minimal assist NOT MET 7. Minimal assist gait on level surface with use of least restrictive device for at least 15 feet without report of pain nor dyspnea NOT MET 8. Minimal assist stair negotiation while holding onto bilateral rails for at least 10 steps without report of pain nor dyspnea NOT MET 9. Fair static and dynamic standing balance/tolerance DISCHARGE RECOMMENDATIONS: [] Home with no services [] [] Home with services [specify] [] Home with outpatient PT [] [X] SNF for continued rehabilitation. Patient will benefit from [facility] facility placement for continued skilled physical therapy services in order to progress mobility level, strength, and balance. [] Group Home Care [] [] SNF versus LTC based on ability to participate and progress [] TREATMENT CODE/TIME: PA Thank you for the opportunity to participate in the care of this patient. Mariann Murray PT, DPT, CLT [facility] [place], [place]
== END 2021-01-29 10:10 | disposition home health service (06) | DRG 948 ==
LOC: ER 01-27 10:51 → MS 01-27 11:53
PROVIDERS: Nurse Practitioner Family; Registered Nurse Emergency; Admitting Provider Family Medicine; Emergency Provider Student in an Organized Health Care Education/Training Program; PCP Family Medicine; Visit Provider Family Medicine
DX: R53.1 Weakness (principal); E87.1 Hypo-osmolality and hyponatremia; G95.89 Other specified diseases of spinal cord; R62.7 Adult failure to thrive; W06.XXXA Fall from bed, initial encounter; E83.42 Hypomagnesemia; N18.9 Chronic kidney disease, unspecified; F32.A Depression, unspecified; F10.10 Alcohol abuse, uncomplicated; E78.5 Hyperlipidemia, unspecified; K21.9 Gastro-esophageal reflux disease without esophagitis; G25.81 Restless legs syndrome; Z68.24 Body mass index [BMI] 24.0-24.9, adult; R29.6 Repeated falls; Z91.81 History of falling; Z66 Do not resuscitate; I48.0 Paroxysmal atrial fibrillation; E55.9 Vitamin D deficiency, unspecified; G89.29 Other chronic pain; M54.9 Dorsalgia, unspecified; Z89.411 Acquired absence of right great toe; Z87.891 Personal history of nicotine dependence; H02.403 Unspecified ptosis of bilateral eyelids; M24.50 Contracture, unspecified joint
CPT/HCPCS: 36415; 80048; 80053; 87635; 93005; 96361; 96365; 97163; 97530; 99285; 71045; 81003; 83036; 83735; 84484; 85025; 93010; 99222; 99232; 99239; J3475

== ENCOUNTER 2021-02-16 12:54 | Inpatient (IN) | payer MEDICARE, MEDICAID, SELFPAY ==
[2021-02-16] VITALS (41 sets, daily range): BP systolic 142–213; BP diastolic 53–179; PULSE 63–230; RESP 10–19; TEMP 36.4–36.5; O2SAT 72–99
--- NOTE | 2021-02-16 13:13 | NUR.NOTE ---
medications verified through [facility] medical Nursing Note:
--- NOTE | 2021-02-16 13:15 | DI.RAD_ITS ---
Exam(s) XR PORTABLE CHEST AP EXAM: XR PORTABLE CHEST AP CLINICAL HISTORY: fever, cough TECHNIQUE: COMPARISON: CR,XR XR PORTABLE CHEST AP from 01/26/2021 CR,XR XR PORTABLE CHEST AP from 01/26/[address] NECK W from 02/16/[address] NECK W from 02/16/2021 FINDINGS: The heart does not appear enlarged. There are minimal linear radiodensities in right perihilar regio n, probable atelectasis. Mild patchy pulmonary consolidation could be present. These findings were not present on prior examination of January 26, 2021. No gross pleural effusion on this frontal shalonda m. IMPRESSION: Right mid lung atelectasis versus pneumonia, please correlate clinically. RADIATION DOSE DELIVERED: Total DLP
--- NOTE | 2021-02-16 13:15 | RT.EKG_ITS ---
APPROVED REPORT Exam: Resting ECG Reason for Exam: weakness Patient Location: E HR:72 bpm ECG Measurements Heart Rate 72 AXIS MO [id number] P [id number] QRSd 97 QRS 47 QT 422 T 22 QTc 462 Conclusion Atrial fibrillation...V-rate 61- 92, irreg A-activity. Afib. No STEMI. I have reviewed and interpreted ECG and agree with software generated interpretation.
[2021-02-16 13:28] LABS: Bilirubin Negative (Negative); Blood Trace-intact (Negative); Clarity Sl Cloudy (Clear); Glucose Negative (Negative); Ketones Negative (Negative); Leukocyte Esterase Small (Negative); Nitrite Negative (Negative); Specific Gravity 1.015 (1.005-1.025); pH 5.5 (5-8)
--- NOTE | 2021-02-16 13:30 | DI.CT_ITS ---
Exam(s) CT NECK W EXAM: CT NECK W CLINICAL HISTORY: hx of cancer, uvula inflamed, voice change TECHNIQUE: COMPARISON: CT CT HEAD NECK WO from 07/07/2020 FINDINGS: CT examination of the cervical region was performed with intravenous infusion of 99 cc of Omnipaque 3 50. There is marked motion artifact which limits this examination. Vascular structures are poorly seen. Lung apices appear grossly clear. Patient reportedly has an inflamed uvula and the uvula in fact appears mildly enlarged. There is no evidence of airway obstruction at this time. Tracheolaryngeal structures appear intact as visualized . No gross cervical mass or adenopathy seen. No superior mediastinal adenopathy. IMPRESSION: No gross tracheal laryngeal abnormality. No evidence of airway obstruction. Please see above discus flori. RADIATION DOSE DELIVERED: 373.64mGy.cm Total DLP 11.75mGy CTDIvol RADIATION OPTIMIZATION: All CT scans at this facility use at least one of these dose optimization te chniques: automated exposure control; mA and/or kV adjustment per patient size (includes targeted exa ms where dose is matched to clinical indication); or iterative reconstruction.
[2021-02-16 13:34] LABS: Bacteria Rare HPF (Negative); Casts 0-2 Hyaline LPF (Negative); Crystals Negative HPF (Negative); Epithelial Cells Few HPF (Negative); Mucus Trace (Negative); Other Cells Few Yeast (Negative)
[2021-02-16 13:35] LABS: C & S Indicated? Yes
[2021-02-16 13:37] LABS: Lactate 1.1 mmol/L (0.6-1.4)
[2021-02-16 13:54] LABS: ALT 21 U/L (16-63); AST 20 U/L (15-37); Albumin 2.9 g/dL (3.4-5.0); Alkaline Phosphatase 115 U/L (46-116); BUN 32 mg/dL (7-18); CREATININE 1.2 mg/dL (0.70-1.30); Chloride 103 mmol/L (98-107); Estimated GFR 59.18 (mL/min/1.73m2); Glucose 97 mg/dL (74-106); Potassium 3.9 mmol/L (3.5-5.1); Sodium 139 mmol/L (136-145); Total Protein 6.9 g/dL (6.4-8.2); Troponin I < 50 ng/L (<or=60)
[2021-02-16] MEDS: Normal Saline 500 ML IV (14:12)
[2021-02-16] MEDS: methylPREDNISolone SUCC 125 MG VIAL IVP (14:15)
[2021-02-16] MEDS: diphenhydrAMINE 50 MG/ML VIAL 25 MG IVP (14:16)
[2021-02-16] MEDS: FAMOTIDINE 20 MG/50 ML BAG 200 MG IVPB (14:17)
[2021-02-16] MEDS: Normal Saline Flush 10 ML SYR IVP (14:41)
[2021-02-16 14:52] LABS: Abs Immature Grans 0.05 10^3/uL (0.0-0.06); Absolute Basophil Count 0.04 10^3/uL (0.0-0.2); Absolute Eosinophil Count 0.27 10^3/uL (0.0-0.7); Absolute Lymphocyte Count 0.57 10^3/uL (1.2-3.4); Absolute Monocyte Count 0.69 10^3/uL (0.1-0.8); Absolute Neutrophil Count 8.32 10^3/uL (1.2-6.7); Basophils % 0.4; Eosinophils % 2.7; HCT 33.3 % (40.0-50.0); HGB 11.1 g/dL (13.5-17.5); Immature Grans % 0.5; Lymphocytes % 5.7; MCH 33.4 pg (27.0-33.0); MCHC 33.3 % (32.0-36.0); MCV 100.3 fL (80-95); MPV 11.4 fL (8.0-11.0); Monocytes % 6.9; Neutrophils % 83.8; Nucleated RBC 0 %; Platelet Count 206 10^3/uL (130-400); RBC 3.32 10^6/uL (4.36-5.78); RDW 14.4 % (11.8-14.1); RDW-SD 52.4 fL; WBC 9.94 10^3/uL (4.4-10.8)
--- NOTE | 2021-02-16 15:01 | W.ED.GENAD ---
Discharge Plan Discharge Details Chief Complaint: GenMedical Admit Date/Time: 02/16/21 16:00 Admit Provider: Dann Tucker Attending Provider: Dann Tucker Primary Care Provider: Brady Kate ED Provider: Marium Matthews Discharge Data Discharge Date/Time-TO BE ENTERED AT DEPARTURE: 02/16/21 16:54 Medical Decision Making Patient with uvulitis, hoarse voice, maintaining airway, no drooling CT ordered given history of reported cancer to his throat CT shows evidence of uvulitis but no airway obstruction Given Decadron, Pepcid, and Benadryl with improvement of symptoms and voice EKG shows atrial fibrillation, atrial fibrillation present on prior EKG, I do not feel it is anticoagulated He is alert, oriented, with a nonfocal neurological exam, he tells me that he wishes to be full CODE STATUS although he is listed as DNR in the system, his son states but patient was previously requested to be DNR, however the patient tells me now that he prefers full code and he is of decisional capacity He has a significant tinea curious. Draining, he has extension up to the umbilicus, I am concerned for a possible secondary cellulitis although I will leave this to the discretion of the oncoming provider after their assessment He does have evidence of urinary tract infection, I will give him a dose of ceftriaxone His lactate is negative, he has no leukocytosis Chest x-ray does not show acute abnormality per radiology interpretation in my review He has been hemodynamically stable throughout this encounter and maintaining his airway He has been sick with an upper respiratory infection, this reportedly started 2 days after previous discharge from the hospital It sounds like during this admission there was an attempt made for long-term placement and patient is amenable to this plan at this time I did discuss with Adelaida, care management and she said that unlikely the patient would be able to be placed from the emergency room but will plan to follow this admission Care discussed with Dr. Maxwell who is willing to admit the patient In the emergency room, patient received Solu-Medrol for acute uvulitis, Benadryl, and Pepcid which is improved his symptoms Maintaining airway Run dose of ceftriaxone for urinary tract infection, have not applied any antifungal at this time, will leave management to the admitting provider Patient agreeable to admission at this time HPI General Mode of arrival: ambulatory. Date/Time Provider Initiated Documentation: 02/16/21 13:09. Limitations to Documentation: no limitations. Information obtained by: patient. HPI Narrative: This 75-year-old male presents with report difficulty speaking. He feels very weak reportedly. He denies any chest pain or shortness of breath. He has had chills and a cough. He denies any known sick contacts. He denies any vomiting. Has had a rash to his lower extremity. He denies any new medications. Denies any urinary symptoms. States that he has had difficulty speaking for the past few weeks. He states he is able to drink fluids without drooling. He feels as though his uvula is swollen. He states his weakness is generalized. He denies any falls or injuries. Related Data Home Medications Medication Instructions Recorded Confirmed pramipexole 0.25 mg tablet 0.25 mg PO HS #90 tab 04/01/20 02/16/21 allopurinol 300 mg tablet 300 mg PO DAILY #90 tab 04/05/20 02/16/21 acetaminophen [Tylenol] 650 mg PO Q6H PRN PRN #0 tab 07/11/20 02/16/21 aspirin 81 mg tablet,delayed 81 mg PO DAILY #90 tab-cap 09/26/20 02/16/21 release cetirizine 10 mg capsule 10 mg PO DAILY #90 cap 09/26/20 02/16/21 finasteride 5 mg tablet 5 mg PO DAILY #90 tab 09/26/20 02/16/21 mecobalamin (vitamin B12) 1,000 1,000 mcg PO DAILY #90 tab 09/26/20 02/16/21 mcg chewable tablet losartan 25 mg tablet 25 mg PO DAILY #90 tab 10/17/20 02/16/21 magnesium gluconate 27 mg 500 mg PO BID #180 tab 10/17/20 02/16/21 magnesium (500 mg) tablet metoprolol succinate 100 mg 100 mg PO BID #180 tab-cap 10/17/20 02/16/21 tablet,extended release 24 hr metoprolol succinate 25 mg 25 mg PO BID #180 tab 10/17/20 02/16/21 tablet,extended release 24 hr pantoprazole 40 mg tablet,delayed 40 mg PO DAILY #90 tab 10/17/20 02/16/21 release tamsulosin 0.4 mg capsule 0.8 mg PO DAILY #180 tab-cap 10/17/20 02/16/21 furosemide 20 mg tablet 20 mg PO DAILY #30 tab 02/10/21 02/16/21 Previous Rx's Medication Instructions Recorded pramipexole 0.25 mg tablet 0.25 mg PO HS #90 tab 04/01/20 allopurinol 300 mg tablet 300 mg PO DAILY #90 tab 04/05/20 acetaminophen [Tylenol] 650 mg PO Q6H PRN PRN #0 tab 07/11/20 aspirin 81 mg tablet,delayed 81 mg PO DAILY #90 tab-cap 09/26/20 release cetirizine 10 mg capsule 10 mg PO DAILY #90 cap 09/26/20 finasteride 5 mg tablet 5 mg PO DAILY #90 tab 09/26/20 mecobalamin (vitamin B12) 1,000 1,000 mcg PO DAILY #90 tab 09/26/20 mcg chewable tablet losartan 25 mg tablet 25 mg PO DAILY #90 tab 10/17/20 magnesium gluconate 27 mg 500 mg PO BID #180 tab 10/17/20 magnesium (500 mg) tablet metoprolol succinate 100 mg 100 mg PO BID #180 tab-cap 10/17/20 tablet,extended release 24 hr metoprolol succinate 25 mg 25 mg PO BID #180 tab 10/17/20 tablet,extended release 24 hr pantoprazole 40 mg tablet,delayed 40 mg PO DAILY #90 tab 10/17/20 release tamsulosin 0.4 mg capsule 0.8 mg PO DAILY #180 tab-cap 10/17/20 furosemide 20 mg tablet 20 mg PO DAILY #30 tab 02/10/21 Allergies Allergy/AdvReac Type Severity Reaction Status Date / Time pravastatin AdvReac Severe MUSCLE Unverified 02/16/21 13:12 PAIN AND WEAKNESS lisinopril AdvReac HYPERKALEMI Unverified 02/16/21 13:12 A General Stated Complaint: GenMedical TOMEKA: 3 Review of Systems All systems reviewed & are unremarkable except as noted in HPI and below PFSH All Active Problems (Updated 02/16/21 @ 17:25 by Tory Negro NP) DVT prophylaxis (Acute) Anemia (Chronic) UTI (urinary tract infection) (Acute) Discharge planning issues (Acute) Weakness (Acute) Adult failure to thrive (Acute) Skin breakdown (Acute) Essential hypertension (Chronic 11/16/12) Gastroesophageal reflux disease (Chronic) Restless leg syndrome, uncontrolled (Chronic) Medical History (Updated 02/16/21 @ 17:25 by Tory Negro NP) Acute dehydration Adjustment disorder REYNA (acute kidney injury) Alcohol intake above recommended sensible limits 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) left great toe transmetatarsal [place] 05-02-2017 [place] [facility] [place] site with large necrotic/scabbed area: tx above knee amputation but pt declines - fup with wound care until pt decides to proceed (Dr.Goodney Cisco Chiang [employer]) Benign prostatic hyperplasia with lower urinary tract symptoms PSA: 1.5 in Cervical myelopathy Chronic back pain moderate to severe lumbar pain; status post neck surgery 20 years ago Chronic kidney disease Critical lower limb ischemia [place] [facility] [place]/ status post right iliofemoral endarterectomy and patch angioplasty/right EIA stenting/ stent graft to distal SFA and popliteal/ COMPLICATED BY INFECTION: # debridements - w LEFT ILIOFEMORAL ENDATERECTOMY WITH [place] [facility] [place] DNR (do not resuscitate) Elevated brain natriuretic peptide (BNP) level Elevated troponin Fall Flexion contractures both hands, all fingers, thumbs somewhat spared Frequent falls Goals of care, counseling/discussion Gout Hyperlipidemia Hypokalemia Hypomagnesemia Hypomagnesemia (01/01/15) Hypomagnesemia (01/01/15) Hyponatremia (09/06/13) serum electrophoresis normal 2009/ cortisol level normal: 2009 Hyponatremia Lives alone without help available Osteomyelitis of right lower extremity 08/13/15- GREAT RIGHT TOE S/P AMPUTAION Osteomyelitis of toe Palliative care encounter Palliative care patient Paroxysmal atrial fibrillation ADONIS score: 1/ on asa Peripheral vascular disease critical lower limb ischemia [place] [facility] [place] Physician orders for life-sustaining treatment (POLST) form indicates patient wish for [id number] status 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 Daughter Parent-child estrangement nec Daughter Parent-child estrangement nec Social History Smoking/Tobacco Use Status: Former Tobacco Use Tobacco: How many years used: 50 Smoking risk assessment performed?: Yes Alcohol Intake: current Alcohol Intake frequency: 0-2 drinks per day Alcohol type: beer Drug use: Never Details: pt states that he had 1 beer yesterday Caregiver/Support person: No (son Cristofer is named as caregiver, but not easy to reach) Household members: none Housing: house Number of Children: 3 Communication Needs: Hard of Hearing and Corrective Lenses Education Level: high school Do you need help understanding health information?: Always current occupation: retired [employer] Current gender identity: male What is your relationship status?: How often do you talk on the phone with friends or family?: once per week How often do you get together with friends or relatives?: never Panel score (0-1 are the most socially isolated patients): 0 What type of physical activity do you participate in: assisted ambulation Duration: < 15 minutes/day Frequency: daily Special annemarie needs: No Seatbelt use: sometimes Working smoke detector in home: Yes Fire extinguisher in home: Yes Do you feel safe at home: Yes Do you feel safe in your relationship?: Yes Additional Social history: [place] recently had a trial of living alone at home after 20 days at a SNF. Within a week, he fell and could not get up. Eli Stevens came to his house to give him a lift assist, but when they saw how weak he was, how he could not stand on his own, (he was a 3 person assist in the ER), they took him to the hospital instead of returning him to his bed as requested. He is adamantly opposed to returning to a SNF after this admission. He is somewhat opposed to a community snf. Working on safe discharge plan. Exam Const General: disheveled and frail appearing Orientation: alert and oriented x3 HENMT Other: Uvula edematous, tongue midline, no drooling, no evidence of abscess Eyes Pupils: PERRL Neck Other: No stridor Resp Effort & Inspection: normal respiratory effort Auscultation: clear to auscultation bilaterally Cardio Rate: regular rate Rhythm: abnormal rhythm GI Other: Erythema extending up to the umbilicus, tenderness with palpation, appears to be thickened skin, no crepitus Male genitals images: 1. Erythema, serosanguineous No phimosis or paraphimosis, no necrosis Neuro General: patient alert and patient oriented x3 Extrem Other: Distal pulses obtained with Doppler Course Vital Signs Vital signs: Vital Signs Pulse 91 H 02/16/21 13:02 Blood Pressure 171/100 H 02/16/21 13:02 Temperature 36.4 C L 02/16/21 13:04 Temperature Source Oral 02/16/21 13:04 Pulse 72 02/16/21 14:16 Pulse 77 02/16/21 14:16 Respiratory Rate 17 02/16/21 14:16 Respiratory Effort 02/16/21 13:09 Respiratory Depth Normal 02/16/21 13:14 Respiratory Pattern Normal 02/16/21 13:14 Blood Pressure 197/90 H 02/16/21 14:16 Blood Pressure Mean 116 02/16/21 14:16 Blood Pressure Position Supine 02/16/21 13:04 Pulse Oximetry 96 02/16/21 14:02 Oxygen Delivery Method Room Air 02/16/21 13:04 Oxygen Flow Rate 0 02/16/21 13:04 Pain Level 0 02/16/21 13:04 Lab/Test Results Lab/Test Results: 02/16/21 13:23 Urine - Reflex from Ua Urine Culture - Pending 02/16/21 13:27 Blood Blood Culture - Pending 02/16/21 13:27 Blood Blood Culture - Pending Laboratory Tests Range/Units 02/16/21 02/16/21 02/16/21 13:23 13:25 13:25 WBC (4.4-10.8) 10^3/uL RBC (4.36-5.78) 10^6/uL Hgb (13.5-17.5) g/dL Hct (40.0-50.0) % MCV (80-95) fL MCH (27.0-33.0) pg MCHC (32.0-36.0) % RDW (11.8-14.1) % Plt Count (130-400) 10^3/uL MPV (8.0-11.0) fL Immature Gran % Neutrophils % Lymphocytes % Monocytes % Eosinophils % Basophils % Nucleated RBC % % Absolute Neutrophils (1.2-6.7) 10^3/uL Absolute Lymphocytes (1.2-3.4) 10^3/uL Absolute Monocytes (0.1-0.8) 10^3/uL Absolute Eosinophils (0.0-0.7) 10^3/uL Absolute Basophils (0.0-0.2) 10^3/uL VBG Lactate (0.6-1.4) mmol/L 1.1 Sodium (136-145) mmol/L 139 Potassium (3.5-5.1) mmol/L 3.9 Chloride (98-107) mmol/L 103 Carbon Dioxide (21.0-32.0) mmol/L 24.0 Anion Gap (3-11) mmol/L 12.0 H BUN (7-18) mg/dL 32 H Creatinine (0.70-1.30) mg/dL 1.2 Estimated GFR/1.73 m2 (mL/min/1.73m2) 59.18 Glucose (74-106) mg/dL 97 Calcium (8.5-10.1) mg/dL 9.0 Total Bilirubin (0.2-1.0) mg/dL 1.0 AST (15-37) U/L 20 ALT (16-63) U/L 21 Alkaline Phosphatase (46-116) U/L 115 Troponin I (<or=60) ng/L < 50 Total Protein (6.4-8.2) g/dL 6.9 Albumin (3.4-5.0) g/dL 2.9 L Urine Color (Yellow) Yellow Urine Clarity (Clear) Sl Cloudy Urine pH (5-8) 5.5 Ur Specific Grant (1.005-1.025) 1.015 Urine Protein (Negative) mg/dL Negative Urine Ketones (Negative) mg/dL Negative Urine Blood (Negative) Trace-intact H Urine Nitrite (Negative) Negative Urine Bilirubin (Negative) Negative Urine Urobilinogen (Up TO 0.2) EU/dL 2.0 H Ur Leukocyte Esterase (Negative) Small H Urine RBC (0-2) HPF 3-5 H Urine WBC (0-5) HPF 10-20 H Ur Epithelial Cells (Negative) HPF Few Urine Crystals (Negative) HPF Negative Urine Bacteria (Negative) HPF Rare Urine Casts (Negative) LPF 0-2 Hyaline Urine Mucus (Negative) Trace Urine Other (Negative) Few Yeast Ur Culture Indicated? Yes Urine Glucose (Negative) mg/dL Negative Range/Units 02/16/21 13:25 WBC (4.4-10.8) 10^3/uL 9.94 RBC (4.36-5.78) 10^6/uL 3.32 L Hgb (13.5-17.5) g/dL 11.1 L Hct (40.0-50.0) % 33.3 L MCV (80-95) fL 100.3 H MCH (27.0-33.0) pg 33.4 H MCHC (32.0-36.0) % 33.3 RDW (11.8-14.1) % 14.4 H Plt Count (130-400) 10^3/uL 206 MPV (8.0-11.0) fL 11.4 H Immature Gran % 0.5 Neutrophils % 83.8 Lymphocytes % 5.7 Monocytes % 6.9 Eosinophils % 2.7 Basophils % 0.4 Nucleated RBC % % 0 Absolute Neutrophils (1.2-6.7) 10^3/uL 8.32 H Absolute Lymphocytes (1.2-3.4) 10^3/uL 0.57 L Absolute Monocytes (0.1-0.8) 10^3/uL 0.69 Absolute Eosinophils (0.0-0.7) 10^3/uL 0.27 Absolute Basophils (0.0-0.2) 10^3/uL 0.04 VBG Lactate (0.6-1.4) mmol/L Sodium (136-145) mmol/L Potassium (3.5-5.1) mmol/L Chloride (98-107) mmol/L Carbon Dioxide (21.0-32.0) mmol/L Anion Gap (3-11) mmol/L BUN (7-18) mg/dL Creatinine (0.70-1.30) mg/dL Estimated GFR/1.73 m2 (mL/min/1.73m2) Glucose (74-106) mg/dL Calcium (8.5-10.1) mg/dL Total Bilirubin (0.2-1.0) mg/dL AST (15-37) U/L ALT (16-63) U/L Alkaline Phosphatase (46-116) U/L Troponin I (<or=60) ng/L Total Protein (6.4-8.2) g/dL Albumin (3.4-5.0) g/dL Urine Color (Yellow) Urine Clarity (Clear) Urine pH (5-8) Ur Specific Grant (1.005-1.025) Urine Protein (Negative) mg/dL Urine Ketones (Negative) mg/dL Urine Blood (Negative) Urine Nitrite (Negative) Urine Bilirubin (Negative) Urine Urobilinogen (Up TO 0.2) EU/dL Ur Leukocyte Esterase (Negative) Urine RBC (0-2) HPF Urine WBC (0-5) HPF Ur Epithelial Cells (Negative) HPF Urine Crystals (Negative) HPF Urine Bacteria (Negative) HPF Urine Casts (Negative) LPF Urine Mucus (Negative) Urine Other (Negative) Ur Culture Indicated? Urine Glucose (Negative) mg/dL PAWSS Have you Been Recently Intoxicated or Drunk Within the Last 30 days?: No Have you Ever Experienced Previous Episodes of Alcohol Withdrawal?: No Have you ever Experienced Withdrawal Seizures?: No Have you ever Experienced Delirium Tremens(DT)s?: No Have you ever undergone Alcohol Rehabilitation Treatment (i.e, inpt ot outpatient treatment programs)?: No Result: 0
--- NOTE | 2021-02-16 15:06 | DI.VRAD_ITS ---
PROCEDURE INFORMATION: Exam: XR Chest Exam date and time: 02/16/2021 1:29 PM Age: 75 years old Clinical indication: Other: Fever, cough TECHNIQUE: Imaging protocol: XR of the chest. Views: 1 view. COMPARISON: XR PORTABLE CHEST AP 01/26/2021 11:27 PM FINDINGS: Lungs: Linear like likely atelectasis right perihilar region. No convincing consolidation. Pleural spaces: No pneumothorax. No sizable pleural effusion. Heart/Mediastinum: Cardiomediastinal silhouette within normal limits. Bones/joints: No acute displaced fracture. Bony degenerative changes. IMPRESSION: Mild atelectasis right lung without other acute cardiopulmonary findings. Dictated and Authenticated by: Christ Banerjee MD. Ordering:DAVIDA Causey MD
[2021-02-16] MEDS: cefTRIAXone 2 GM/50 ML BAG IVPB (15:13)
[2021-02-16 15:43] LABS: Source Nasal/Nares
[2021-02-16 16:23] LABS: COVID-19 PCR Negative (Negative)
[2021-02-16 16:36] LABS: C-Reactive Protein 12.53 mg/dL (0.0-0.3)
--- NOTE | 2021-02-16 16:41 | W.PM.HP.N ---
Date of service: 02/16/21 Time of Service: 16:42 Assessment and Plan Assessment and plan (1) UTI (urinary tract infection): Start date: 02/16/21 Start time: 17:16 Status: Acute Assessment and plan: No wbc, though he was symptomatic, with urgency and frequency. Placed on cefpodoxime, 200 mg BID. He does have a CRP of 12 Lactate normal. Afebrile. BC pending, urine cx pending. Qualifiers: Urinary tract infection type: acute cystitis Hematuria presence: with hematuria Qualified Code(s): N30.01 - Acute cystitis with hematuria (2) Cellulitis: Start date: 02/16/21 Start time: 17:19 Status: Suspected Assessment and plan: Does not appear to be cellulitis. Low suspicision however with CRP. Appears to be more skin break down from sitting in urine in wheelchair and not getting up or out of bed. Cefpodoxime, diflucan trend CRP, as above Qualifiers: Site of cellulitis of trunk: abdominal wall Site of cellulitis: trunk Qualified Code(s): L03.311 - Cellulitis of abdominal wall (3) Weakness: Start date: 02/16/21 Start time: 17:20 Status: Acute Assessment and plan: Last admission, SNIF was recommend patient refused. He failed outpatient He would benefit from SNIF. PT, OT and palliative consulted (4) Adult failure to thrive: Start date: 02/16/21 Start time: 17:21 Status: Acute Assessment and plan: as above (5) Skin breakdown: Start date: 02/16/21 Start time: 17:21 Status: Acute Assessment and plan: yanira compund: clotriazole, zinc, vitamin a (6) Anemia: Start date: 02/16/21 Start time: 17:23 Status: Chronic Assessment and plan: Will order anemia panel for am Qualifiers: Anemia type: unspecified type Qualified Code(s): D64.9 - Anemia, unspecified (7) Essential hypertension: Start date: 02/16/21 Start time: 17:24 Status: Chronic Assessment and plan: Will continue metoprolol (8) Gastroesophageal reflux disease: Start date: 02/16/21 Start time: 17:24 Status: Chronic Assessment and plan: Continue protonix Qualifiers: Esophagitis presence: esophagitis presence not specified Qualified Code(s): K21.9 - Gastro-esophageal reflux disease without esophagitis (9) Restless leg syndrome, uncontrolled: Start date: 02/16/21 Start time: 17:25 Status: Chronic Assessment and plan: continue pramipexole (10) DVT prophylaxis: Start date: 02/16/21 Start time: 17:25 Status: Acute Assessment and plan: heparin subcut (11) Discharge planning issues: Start date: 02/16/21 Start time: 17:23 Status: Acute Assessment and plan: Will have PT evaluate he would benefit from SNIF discussed with Dr. Tucker History of Present Illness History of Present Illness Chief Complaint: Weakness, skin breakdown, FTT Narrative: 75 y.o male with PMH GERD, HTN, HLD, BPH, RLS presented to [facility] ED after failing at home with weakness. He was recently hospitalized and discharged on 02/01/2020. At that time he did not want to go to rehab, his family brings him in due to weakness and inability to move. He also presents with erythema to his groin up to his abd. He also has a large pannus with a what appears to be fungal under. Will order yanira compound, oral diflucan until then and calmoseptine until yanira compound ready. Labs in the ED revealing CRP 12.53, no elevated wbc no fever. procal pending. BUN elevated. ESR elevated at 46. He did receive a dose of ceftriaxone in the ED. Anemia at 11.1 and 33.3. Macrocytic. Will admit to m/s. Urine did reveal pyuria, leuk estrase, while examining patient he did have to urinate several times. Placed on cefpodoxime and diflucan. PT and OT consulted. Palliative consulted. Review of Systems All systems reviewed & are unremarkable except as noted in HPI and below PFSH All Active Problems (Updated 02/16/21 @ 17:25 by Tory Negro NP) DVT prophylaxis (Acute) Anemia (Chronic) UTI (urinary tract infection) (Acute) Discharge planning issues (Acute) Weakness (Acute) Adult failure to thrive (Acute) Skin breakdown (Acute) Essential hypertension (Chronic 11/16/12) Gastroesophageal reflux disease (Chronic) Restless leg syndrome, uncontrolled (Chronic) Medical History (Updated 02/16/21 @ 17:25 by Tory Negro NP) Acute dehydration Adjustment disorder REYNA (acute kidney injury) Alcohol intake above recommended sensible limits 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) left great toe transmetatarsal amputation 05-02-2017 by - 05-12-2017 [facility] Vasc.Sx.: site with large necrotic/scabbed area: tx above knee amputation but pt declines - fup with wound care until pt decides to proceed ( - 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 [employer]) Benign prostatic hyperplasia with lower urinary tract symptoms PSA: 1.5 in Cervical myelopathy Chronic back pain moderate to severe lumbar pain; status post neck surgery 20 years ago Chronic kidney disease Critical lower limb ischemia RIGHT [facility] SHAUNA Parsons/ status post right iliofemoral endarterectomy and patch angioplasty/right EIA stenting/ stent graft to distal SFA and popliteal/ COMPLICATED BY INFECTION: # debridements - w LEFT ILIOFEMORAL ENDATERECTOMY WITH LEFT EXTERNAL ILIAC STENT - [facility] [place] Depression DNR (do not resuscitate) Elevated brain natriuretic peptide (BNP) level Elevated troponin Fall Flexion contractures both hands, all fingers, thumbs somewhat spared Frequent falls Goals of care, counseling/discussion Gout Hyperlipidemia Hypokalemia Hypomagnesemia Hypomagnesemia (01/01/15) Hypomagnesemia (01/01/15) Hyponatremia (09/06/13) serum electrophoresis normal 2009/ cortisol level normal: 2009 Hyponatremia Lives alone without help available Osteomyelitis of right lower extremity 08/13/15- GREAT RIGHT TOE S/P AMPUTAION Osteomyelitis of toe Palliative care encounter Palliative care patient Paroxysmal atrial fibrillation ADONIS score: 1/ on asa Peripheral vascular disease critical lower limb ischemia - [facility]- Physician orders for life-sustaining treatment (POLST) form indicates patient wish for me-[id number]-[id number] status 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 Daughter Parent-child estrangement nec Daughter Parent-child estrangement nec Social History Smoking/Tobacco Use Status: Former Tobacco Use Tobacco: How many years used: 50 Smoking risk assessment performed?: Yes Alcohol Intake: current Alcohol Intake frequency: 0-2 drinks per day Alcohol type: beer Drug use: Never Details: pt states that he had 1 beer yesterday Caregiver/Support person: No (son Cristofer is named as caregiver, but not easy to reach) Household members: none Housing: house Number of Children: 3 Communication Needs: Hard of Hearing and Corrective Lenses Education Level: high school Do you need help understanding health information?: Always 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[employer] Current gender identity: male What is your relationship status?: How often do you talk on the phone with friends or family?: once per week How often do you get together with friends or relatives?: never Panel score (0-1 are the most socially isolated patients): 0 What type of physical activity do you participate in: assisted ambulation Duration: < 15 minutes/day Frequency: daily Special annemarie needs: No Seatbelt use: sometimes Working smoke detector in home: Yes Fire extinguisher in home: Yes Do you feel safe at home: Yes Do you feel safe in your relationship?: Yes Additional Social history: [place] recently had a trial of living alone at home after 20 days at a SNF. Within a week, he fell and could not get up. Eli Stevens came to his house to give him a lift assist, but when they saw how weak he was, how he could not stand on his own, (he was a 3 person assist in the ER), they took him to the hospital instead of returning him to his bed as requested. He is adamantly opposed to returning to a SNF after this admission. He is somewhat opposed to a community halfway. Working on safe discharge plan. Meds Allergies and Home Medications Allergies Allergy/AdvReac Type Severity Reaction Status Date / Time pravastatin AdvReac Severe MUSCLE Unverified 02/16/21 13:12 PAIN AND WEAKNESS lisinopril AdvReac HYPERKALEMI Unverified 02/16/21 13:12 A Home Medications Medication Instructions Recorded Confirmed Type pramipexole 0.25 mg tablet 0.25 mg PO HS #90 tab 04/01/20 02/16/21 Rx allopurinol 300 mg tablet 300 mg PO DAILY #90 tab 04/05/20 02/16/21 Rx acetaminophen [Tylenol] 650 mg PO Q6H PRN PRN #0 tab 07/11/20 02/16/21 Rx aspirin 81 mg tablet,delayed 81 mg PO DAILY #90 tab-cap 09/26/20 02/16/21 Rx release cetirizine 10 mg capsule 10 mg PO DAILY #90 cap 09/26/20 02/16/21 Rx finasteride 5 mg tablet 5 mg PO DAILY #90 tab 09/26/20 02/16/21 Rx mecobalamin (vitamin B12) 1,000 1,000 mcg PO DAILY #90 tab 09/26/20 02/16/21 Rx mcg chewable tablet losartan 25 mg tablet 25 mg PO DAILY #90 tab 10/17/20 02/16/21 Rx magnesium gluconate 27 mg 500 mg PO BID #180 tab 10/17/20 02/16/21 Rx magnesium (500 mg) tablet metoprolol succinate 100 mg 100 mg PO BID #180 tab-cap 10/17/20 02/16/21 Rx tablet,extended release 24 hr metoprolol succinate 25 mg 25 mg PO BID #180 tab 10/17/20 02/16/21 Rx tablet,extended release 24 hr pantoprazole 40 mg tablet,delayed 40 mg PO DAILY #90 tab 10/17/20 02/16/21 Rx release tamsulosin 0.4 mg capsule 0.8 mg PO DAILY #180 tab-cap 10/17/20 02/16/21 Rx furosemide 20 mg tablet 20 mg PO DAILY #30 tab 02/10/21 02/16/21 Rx Exam Const General: cooperative, comfortable and no acute distress Nutritional Appearance: obese Orientation: alert, awake and oriented x3 Eyes Eyelids: eyelids normal Pupils: PERRL EOM: EOM intact bilaterally Neck Neck: normal visual inspection and no JVD Lymphatic: no lymphadenopathy noted Resp Effort & Inspection: normal respiratory effort Auscultation: clear to auscultation bilaterally Cardio Jugular venous pressure: no JVD Rhythm: regular rhythm Heart Sounds: S1 normal GI Auscultation: normal bowel sounds General: No CVA tenderness and deferred Skin General skin exam: rashes and/or lesions noted and erythema (groin, abd, penile area.) Neuro General: patient alert, patient awake and patient oriented x3 Cognition: normal cognition Speech: speech normal Gait: normal gait Extrem General: normal to inspection, full ROM and no clubbing, cyanosis or edema Results Labs Result diagrams: 02/16/21 13:25 02/16/21 13:25 Labs: Laboratory Results - last 24 hr 02/16/21 02/16/21 02/16/21 13:23 13:25 13:25 WBC RBC Hgb Hct MCV MCH MCHC RDW Plt Count MPV Immature Gran % Neutrophils % Lymphocytes % Monocytes % Eosinophils % Basophils % Nucleated RBC % Absolute Neutrophils Absolute Lymphocytes Absolute Monocytes Absolute Eosinophils Absolute Basophils VBG Lactate 1.1 Sodium 139 Potassium 3.9 Chloride 103 Carbon Dioxide 24.0 Anion Gap 12.0 H BUN 32 H Creatinine 1.2 Estimated GFR/1.73 m2 59.18 Glucose 97 Calcium 9.0 Total Bilirubin 1.0 AST 20 ALT 21 Alkaline Phosphatase 115 Troponin I < 50 C-Reactive Protein Total Protein 6.9 Albumin 2.9 L Urine Color Yellow Urine Clarity Sl Cloudy Urine pH 5.5 Ur Specific [place] 1.015 Urine Protein Negative Urine Ketones Negative Urine Blood Trace-intact H Urine Nitrite Negative Urine Bilirubin Negative Urine Urobilinogen 2.0 H Ur Leukocyte Esterase Small H Urine RBC 3-5 H Urine WBC 10-20 H Ur Epithelial Cells Few Urine Crystals Negative Urine Bacteria Rare Urine Casts 0-2 Hyaline Urine Mucus Trace Urine Other Few Yeast Ur Culture Indicated? Yes Urine Glucose Negative COVID-19 Source SARS-CoV-2 (PCR) 02/16/21 02/16/21 02/16/21 13:25 13:28 15:30 WBC 9.94 RBC 3.32 L Hgb 11.1 L Hct 33.3 L MCV 100.3 H MCH 33.4 H MCHC 33.3 RDW 14.4 H Plt Count 206 MPV 11.4 H Immature Gran % 0.5 Neutrophils % 83.8 Lymphocytes % 5.7 Monocytes % 6.9 Eosinophils % 2.7 Basophils % 0.4 Nucleated RBC % 0 Absolute Neutrophils 8.32 H Absolute Lymphocytes 0.57 L Absolute Monocytes 0.69 Absolute Eosinophils 0.27 Absolute Basophils 0.04 VBG Lactate Sodium Potassium Chloride Carbon Dioxide Anion Gap BUN Creatinine Estimated GFR/1.73 m2 Glucose Calcium Total Bilirubin AST ALT Alkaline Phosphatase Troponin I C-Reactive Protein Cancelled Total Protein Albumin Urine Color Urine Clarity Urine pH Ur Specific [place] Urine Protein Urine Ketones Urine Blood Urine Nitrite Urine Bilirubin Urine Urobilinogen Ur Leukocyte Esterase Urine RBC Urine WBC Ur Epithelial Cells Urine Crystals Urine Bacteria Urine Casts Urine Mucus Urine Other Ur Culture Indicated? Urine Glucose COVID-19 Source Nasal/Nares SARS-CoV-2 (PCR) Negative Last Vital Signs Temp 36.4 C L 02/16/21 13:04 Pulse 64 02/16/21 16:31 Resp 14 02/16/21 16:32 BP 182/77 H 02/16/21 16:31 Pulse Ox 94 02/16/21 15:50 PAWSS Have you Been Recently Intoxicated or Drunk Within the Last 30 days?: No Have you Ever Experienced Previous Episodes of Alcohol Withdrawal?: No Have you ever Experienced Withdrawal Seizures?: No Have you ever Experienced Delirium Tremens(DT)s?: No Have you ever undergone Alcohol Rehabilitation Treatment (i.e, inpt ot outpatient treatment programs)?: No Result: 0
[2021-02-16 16:44] LABS: ESR 46 mm/hr (0-20)
[2021-02-16 17:37] LABS: Procalcitonin < 0.1 ng/mL
[2021-02-16] MEDS: Heparin 5,000 UNITS/ML VIAL 5000 UNITS SC (18:19)
[2021-02-16] MEDS: Fluconazole 100 MG TAB 200 MG PO (18:19)
[2021-02-16] MEDS: Magnesium Gluconate 500 MG TAB PO (19:40)
[2021-02-16] MEDS: Metoprolol CR 25 MG TABCR PO (19:40)
[2021-02-16] MEDS: Cefpodoxime 200 MG TAB PO (19:40)
[2021-02-16] MEDS: Metoprolol CR 100 MG TABCR PO (19:40)
[2021-02-16] MEDS: Pramipexole 0.25 MG TAB PO (21:18)
[2021-02-16] MEDS: LORazepam 0.5 MG TAB PO (21:18)
[2021-02-17] VITALS (8 sets, daily range): BP systolic 150–187; BP diastolic 78–96; PULSE 61–100; RESP 18; TEMP 36.1–36.5; O2SAT 96–99
[2021-02-17] MEDS: Heparin 5,000 UNITS/ML VIAL 5000 UNITS SC ×3 (01:59→18:34)
[2021-02-17] MEDS: Nystatin POWDER 60 GM JAR TP (03:55)
[2021-02-17 06:56] LABS: HCT 32.5 % (40.0-50.0); HGB 10.8 g/dL (13.5-17.5); MCH 32.6 pg (27.0-33.0); MCHC 33.2 % (32.0-36.0); MCV 98.2 fL (80-95); MPV 11.2 fL (8.0-11.0); Platelet Count 229 10^3/uL (130-400); RBC 3.31 10^6/uL (4.36-5.78); RDW 14.1 % (11.8-14.1); RDW-SD 50.7 fL; WBC 4.81 10^3/uL (4.4-10.8)
[2021-02-17 07:26] LABS: Anion Gap 10.8 mmol/L (3-11); BUN 24 mg/dL (7-18); CO2 26.2 mmol/L (21.0-32.0); Calcium 9.3 mg/dL (8.5-10.1); Chloride 101 mmol/L (98-107); Ferritin 835 ng/mL (26-388); Glucose 156 mg/dL (74-106); Potassium 3.8 mmol/L (3.5-5.1); Sodium 138 mmol/L (136-145)
[2021-02-17 07:40] LABS: Folate 5.3 ng/mL (8.6-20.0)
[2021-02-17 07:41] LABS: Vitamin B12 > 2000 pg/mL (193-986)
[2021-02-17 08:01] LABS: Iron 28 ug/dL (65-175); Total Iron Binding Capacity 170 ug/dL (250-450); Transferrin Sat 16 % (20-55)
--- NOTE | 2021-02-17 08:04 | PCNE_ITS ---
Date of service: 02/17/21 Time of Service: 08:04 History of Present Illness History of Present Illness Chief Complaint: excoriation of legs and testicles/penis Narrative: From H and P: istory of Present Illness Chief Complaint: Weakness, skin breakdown, FTT Narrative: 75 y.o male with PMH GERD, HTN, HLD, BPH, RLS presented to [facility] ED after failing at home with weakness. He was recently hospitalized and discharged on 02/01/2020. At that time he did not want to go to rehab, his family brings him in due to weakness and inability to move. He also presents with erythema to his groin up to his abd. He also has a large pannus with a what appears to be fungal under. Will order yanira compound, oral diflucan until then and calmoseptine until yanira compound ready. Labs in the ED revealing CRP 12.53, no elevated wbc no fever. procal pending. BUN elevated. ESR elevated at 46. He did receive a dose of ceftriaxone in the ED. Anemia at 11.1 and 33.3. Macrocytic. Will admit to m/s. Urine did reveal pyuria, leuk estrase, while examining pat ient he did have to urinate several times. Placed on cefpodoxime and diflucan. PT and OT consulted. Palliative consulted. Interim Hx: Initially admitted said that he was leaving today. I saw him first thing in the morning. He said that he has everything in place to be able to take care of himself at home. He said home health comes, aides come, Meals on Wheels comes. He also stated that home health was going to work on getting more people in to help him. He states that he has his commode near his recliner and food is brought in. I have been in his home and he seemed to have plenty of food within hands reach When I saw him this evening he stated that he was still having problems with weakness. Per report he walked with minimal assist about 10 feet. He feels that he is getting stronger but knows he needs. He also stated that his cellulitis in his groin region had improved. He did feel that it was important for him to have the creams 5 which made a difference. He stated he did not want to go to rehab as he felt strongly that he could do what he needed to at home. He said he often would just sit there for most of the day and have very little physical therapy. He was happiest at home and wants to go home he understands the safety issues but still wants to go have as soon as I have spoken with the [id number] who feels that it is overwhelming to care for [place] Assessment and Plan Assessment and plan (1) Flexion contractures: Status: Acute (2) Frequent falls: Status: Acute (3) Goals of care, counseling/discussion: Status: Acute (4) Cellulitis: Status: Suspected Qualifiers: Site of cellulitis: trunk Site of cellulitis of trunk: abdominal wall Qualified Code(s): L03.311 - Cellulitis of abdominal wall (5) Palliative care patient: Status: Acute Assessment and plan: Denton is a 75-year-old man. I have seen him at home and also in the hospital. He is very clear he does not want to go back to a rehab center. He did not feel it was worth his time. He states he got very little physical therapy and spent a lot of time waiting. He would rather go home and have home health with physical therapy work with him. He loves being at home. He also stated that he would rather be home and than go back to a rehab and sit around all day. He understands that he may not be safe. He just feels that he has enough support to help him along the way. Flexion contractures I would recommend leaving them open for some time to air out. Again there was a distinct yeasty smell to the palms CODE STATUS remains DNR/DNI After some time added did soften and realizes that he may in fact need some time to regain his strength. Plan is to follow-up with him either during hospitalization or when he is back home Thank you for this consult. Review of Systems Constitutional Constitutional: Reports frequent falls, Reports lethargy and Reports weakness ENT Ears, Nose, Mouth, and Throat: Reports dysphagia Cardiovascular Cardiovascular: Reports dyspnea and Reports dyspnea on exertion Respiratory Respiratory: Reports chest congestion, Reports dyspnea and Reports dyspnea on exertion Gastrointestinal Gastrointestinal: Reports dysphagia Genitourinary Genitourinary: Reports urinary incontinence Comments: cellulitis Neurologic Neurologic: Reports frequent falls and Reports weakness PFSH All Active Problems (Updated 02/18/21 @ 20:04 by Precious Rodriguez MD) Encounter for assessment of healthcare decision-making capacity (Acute) PRELIMINARY VISIT 02/18/21 NEEDS FULL CAPACITY EVAL Self neglect (Acute) Flexion contractures (Acute) both hands, all fingers, thumbs somewhat spared Frequent falls (Acute) Goals of care, counseling/discussion (Acute) Palliative care patient (Acute) DVT prophylaxis (Acute) Anemia (Chronic) UTI (urinary tract infection) (Acute) Discharge planning issues (Acute) Weakness (Acute) Adult failure to thrive (Acute) Skin breakdown (Acute) Essential hypertension (Chronic 11/16/12) Gastroesophageal reflux disease (Chronic) Restless leg syndrome, uncontrolled (Chronic) Medical History (Updated 02/18/21 @ 20:04 by Precious Rodriguez MD) Acute dehydration Adjustment disorder REYNA (acute kidney injury) Alcohol intake above recommended sensible limits 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) left great toe transmetatarsal amputation 05-02-2017 [place] - 05[place]12-[place] [facility] [place]x.: site with large necrotic/scabbed area: tx above knee amputation but pt declines - fup with wound care until pt decides to proceed ( - 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 FURNITURE INSPECTOR) Benign prostatic hyperplasia with lower urinary tract symptoms PSA: 1.5 in Cervical myelopathy Chronic back pain moderate to severe lumbar pain; status post neck surgery 20 years ago Chronic kidney disease Critical lower limb ischemia RIGHT [facility] Parsons/ status post right iliofemoral endarterectomy and patch angioplasty/right EIA stenting/ stent graft to distal SFA and popliteal/ COMPLICATED BY INFECTION: # debridements - w LEFT ILIOFEMORAL ENDATERECTOMY WITH LEFT EXTERNAL ILIAC STENT - [facility] [place] Depression DNR (do not resuscitate) Elevated brain natriuretic peptide (BNP) level Elevated troponin Fall Gout Hyperlipidemia Hypokalemia Hypomagnesemia Hypomagnesemia (01/01/15) Hypomagnesemia (01/01/15) Hyponatremia (09/06/13) serum electrophoresis normal 2009/ cortisol level normal: 2009 Hyponatremia Lives alone without help available Osteomyelitis of right lower extremity 08/13/15- GREAT RIGHT TOE S/P AMPUTAION Osteomyelitis of toe Palliative care encounter Paroxysmal atrial fibrillation ADONIS score: 1/ on asa Peripheral vascular disease critical lower limb ischemia - [facility] Physician orders for life-sustaining treatment (POLST) form indicates patient wish for [id number] status 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 Daughter Parent-child estrangement nec Daughter Parent-child estrangement nec Social History Smoking/Tobacco Use Status: Former Tobacco Use Tobacco: How many years used: 50 Smoking risk assessment performed?: Yes Alcohol Intake: current Alcohol Intake frequency: 0-2 drinks per day Alcohol type: beer Drug use: Never Details: pt states that he had 1 beer yesterday Caregiver/Support person: No (son Cristofer is named as caregiver, but not easy to reach) Household members: none Housing: house Number of Children: 3 Communication Needs: Hard of Hearing and Corrective Lenses Education Level: high school Do you need help understanding health information?: Always 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 Current gender identity: male What is your relationship status?: How often do you talk on the phone with friends or family?: once per week How often do you get together with friends or relatives?: never Panel score (0-1 are the most socially isolated patients): 0 What type of physical activity do you participate in: assisted ambulation Duration: < 15 minutes/day Frequency: daily Special annemarie needs: No Seatbelt use: sometimes Working smoke detector in home: Yes Fire extinguisher in home: Yes Do you feel safe at home: Yes Do you feel safe in your relationship?: Yes Additional Social history: [place] recently had a trial of living alone at home after 20 days at a SNF. Within a week, he fell and could not get up. [facility] came to his house to give him a lift assist, but when they saw how weak he was, how he could not stand on his own, (he was a 3 person assist in the ER), they took him to the hospital instead of returning him to his bed as requested. He is adamantly opposed to returning to a SNF after this admission. He is somewhat opposed to a community longterm. Working on safe discharge plan. Exam Narrative Exam Narrative: Ed is sitting on his bed. He looks at me sometimes but many times looks down at the floor. His hands are deformed and there is flexure contracture more so on the left than on the right. His heart is regular. His lungs have some scattered rales and diminished sounds. His abdomen is nontender. He does have swelling and edema in both legs. Skin left hand when I removed the bandage there was a distinct yeast smell to the hand. There are 2 open areas that did not look infected On his buttocks there is a large Mepilex border bandage?I could not find any skin breakdown but he was getting wobbly while standing as I was examining this area Results Last Vital Signs Temp 97.0 F L 02/17/21 07:44 Pulse 85 02/17/21 07:44 Resp 18 02/17/21 07:44 BP 187/96 H 02/17/21 07:44 Pulse Ox 97 02/17/21 07:44 Labs Result diagrams: 02/18/21 06:22 02/18/21 06:22 Labs: Laboratory Results - last 24 hr 02/16/21 02/16/21 02/16/21 13:23 13:25 13:25 WBC RBC Hgb Hct MCV MCH MCHC RDW Plt Count MPV Immature Gran % Neutrophils % Lymphocytes % Monocytes % Eosinophils % Basophils % Nucleated RBC % Absolute Neutrophils Absolute Lymphocytes Absolute Monocytes Absolute Eosinophils Absolute Basophils ESR VBG Lactate 1.1 Sodium 139 Potassium 3.9 Chloride 103 Carbon Dioxide 24.0 Anion Gap 12.0 H BUN 32 H Creatinine 1.2 Estimated GFR/1.73 m2 59.18 Glucose 97 Calcium 9.0 Iron TIBC Transferrin % Sat Ferritin Total Bilirubin 1.0 AST 20 ALT 21 Alkaline Phosphatase 115 Troponin I < 50 C-Reactive Protein Total Protein 6.9 Albumin 2.9 L Vitamin B12 Folate Procalcitonin Urine Color Yellow Urine Clarity Sl Cloudy Urine pH 5.5 Ur Specific Amma 1.015 Urine Protein Negative Urine Ketones Negative Urine Blood Trace-intact H Urine Nitrite Negative Urine Bilirubin Negative Urine Urobilinogen 2.0 H Ur Leukocyte Esterase Small H Urine RBC 3-5 H Urine WBC 10-20 H Ur Epithelial Cells Few Urine Crystals Negative Urine Bacteria Rare Urine Casts 0-2 Hyaline Urine Mucus Trace Urine Other Few Yeast Ur Culture Indicated? Yes Urine Glucose Negative COVID-19 Source SARS-CoV-2 (PCR) 02/16/21 02/16/21 02/16/21 13:25 13:28 13:28 WBC 9.94 RBC 3.32 L Hgb 11.1 L Hct 33.3 L MCV 100.3 H MCH 33.4 H MCHC 33.3 RDW 14.4 H Plt Count 206 MPV 11.4 H Immature Gran % 0.5 Neutrophils % 83.8 Lymphocytes % 5.7 Monocytes % 6.9 Eosinophils % 2.7 Basophils % 0.4 Nucleated RBC % 0 Absolute Neutrophils 8.32 H Absolute Lymphocytes 0.57 L Absolute Monocytes 0.69 Absolute Eosinophils 0.27 Absolute Basophils 0.04 ESR VBG Lactate Sodium Potassium Chloride Carbon Dioxide Anion Gap BUN Creatinine Estimated GFR/1.73 m2 Glucose Calcium Iron TIBC Transferrin % Sat Ferritin Total Bilirubin AST ALT Alkaline Phosphatase Troponin I C-Reactive Protein 12.53 H Total Protein Albumin Vitamin B12 Folate Procalcitonin < 0.1 Urine Color Urine Clarity Urine pH Ur Specific Amma Urine Protein Urine Ketones Urine Blood Urine Nitrite Urine Bilirubin Urine Urobilinogen Ur Leukocyte Esterase Urine RBC Urine WBC Ur Epithelial Cells Urine Crystals Urine Bacteria Urine Casts Urine Mucus Urine Other Ur Culture Indicated? Urine Glucose COVID-19 Source SARS-CoV-2 (PCR) 02/16/21 02/16/21 02/16/21 13:28 13:28 15:30 WBC RBC Hgb Hct MCV MCH MCHC RDW Plt Count MPV Immature Gran % Neutrophils % Lymphocytes % Monocytes % Eosinophils % Basophils % Nucleated RBC % Absolute Neutrophils Absolute Lymphocytes Absolute Monocytes Absolute Eosinophils Absolute Basophils ESR 46 H VBG Lactate Sodium Potassium Chloride Carbon Dioxide Anion Gap BUN Creatinine Estimated GFR/1.73 m2 Glucose Calcium Iron TIBC Transferrin % Sat Ferritin Total Bilirubin AST ALT Alkaline Phosphatase Troponin I C-Reactive Protein Cancelled Total Protein Albumin Vitamin B12 Folate Procalcitonin Urine Color Urine Clarity Urine pH Ur Specific Amma Urine Protein Urine Ketones Urine Blood Urine Nitrite Urine Bilirubin Urine Urobilinogen Ur Leukocyte Esterase Urine RBC Urine WBC Ur Epithelial Cells Urine Crystals Urine Bacteria Urine Casts Urine Mucus Urine Other Ur Culture Indicated? Urine Glucose COVID-19 Source Nasal/Nares SARS-CoV-2 (PCR) Negative 02/17/21 02/17/21 02/17/21 06:20 06:20 06:20 WBC 4.81 D RBC 3.31 L Hgb 10.8 L Hct 32.5 L MCV 98.2 H MCH 32.6 MCHC 33.2 RDW 14.1 Plt Count 229 MPV 11.2 H Immature Gran % Neutrophils % Lymphocytes % Monocytes % Eosinophils % Basophils % Nucleated RBC % Absolute Neutrophils Absolute Lymphocytes Absolute Monocytes Absolute Eosinophils Absolute Basophils ESR VBG Lactate Sodium 138 Potassium 3.8 Chloride 101 Carbon Dioxide 26.2 Anion Gap 10.8 BUN 24 H Creatinine 1.0 Estimated GFR/1.73 m2 >= 60.00 Glucose 156 H Calcium 9.3 Iron 28 L TIBC 170 L Transferrin % Sat 16 L Ferritin 835 H Total Bilirubin AST ALT Alkaline Phosphatase Troponin I C-Reactive Protein Total Protein Albumin Vitamin B12 Folate Procalcitonin Urine Color Urine Clarity Urine pH Ur Specific Amma Urine Protein Urine Ketones Urine Blood Urine Nitrite Urine Bilirubin Urine Urobilinogen Ur Leukocyte Esterase Urine RBC Urine WBC Ur Epithelial Cells Urine Crystals Urine Bacteria Urine Casts Urine Mucus Urine Other Ur Culture Indicated? Urine Glucose COVID-19 Source SARS-CoV-2 (PCR) 02/17/21 06:20 WBC RBC Hgb Hct MCV MCH MCHC RDW Plt Count MPV Immature Gran % Neutrophils % Lymphocytes % Monocytes % Eosinophils % Basophils % Nucleated RBC % Absolute Neutrophils Absolute Lymphocytes Absolute Monocytes Absolute Eosinophils Absolute Basophils ESR VBG Lactate Sodium Potassium Chloride Carbon Dioxide Anion Gap BUN Creatinine Estimated GFR/1.73 m2 Glucose Calcium Iron TIBC Transferrin % Sat Ferritin Total Bilirubin AST ALT Alkaline Phosphatase Troponin I C-Reactive Protein Total Protein Albumin Vitamin B12 > 2000 H Folate 5.3 L Procalcitonin Urine Color Urine Clarity Urine pH Ur Specific Amma Urine Protein Urine Ketones Urine Blood Urine Nitrite Urine Bilirubin Urine Urobilinogen Ur Leukocyte Esterase Urine RBC Urine WBC Ur Epithelial Cells Urine Crystals Urine Bacteria Urine Casts Urine Mucus Urine Other Ur Culture Indicated? Urine Glucose COVID-19 Source SARS-CoV-2 (PCR)
--- NOTE | 2021-02-17 08:13 | OT.INIE ---
Occupational Therapy Notes Inpatient Occupational Therapy Evaluation Date: 02/17/21 Referring Doctor: Tory Negro NP OT Orders: Non Urgent Precautions: Fall, standard, DNR/DNI PATIENT PROFILE/ADMITTING DIAGNOSIS: Pt is a 75 year old male who presented to the ED on 02/16/21 for the following dx of cellulitis,anemia, UTI, weakness, adult failure to thrive, skin breakdown, essential HTN, gastroesophageal reflux disease, restless leg syndrome. Past Medical History: All Active Problems (Updated 02/16/21 @ 17:25 by Tory Negro NP) DVT prophylaxis (Acute) Anemia (Chronic) UTI (urinary tract infection) (Acute) Discharge planning issues (Acute) Weakness (Acute) Adult failure to thrive (Acute) Skin breakdown (Acute) Essential hypertension (Chronic 11/16/12) Gastroesophageal reflux disease (Chronic) Restless leg syndrome, uncontrolled (Chronic) Medical History (Updated 02/16/21 @ 17:25 by Tory Negro NP) Acute dehydration Adjustment disorder REYNA (acute kidney injury) Alcohol intake above recommended sensible limits 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) left great toe transmetatarsal amputation 05-02-2017 by - 05-12-2017 [facility] [place] Vasc.Sx.: site with large necrotic/scabbed area: tx above knee amputation but pt declines - fup with wound care until pt decides to proceed (Dr.Goodney Cisco Chiang DIRECTOR OF EDUCATION AND TRAINING) Benign prostatic hyperplasia with lower urinary tract symptoms PSA: 1.5 in Cervical myelopathy Chronic back pain moderate to severe lumbar pain; status post neck surgery 20 years ago Chronic kidney disease Critical lower limb ischemia RIGHT [facility] [place] SHAUNA Parsons/ status post right iliofemoral endarterectomy and patch angioplasty/right EIA stenting/ stent graft to distal SFA and popliteal/ COMPLICATED BY INFECTION: # debridements - w LEFT ILIOFEMORAL ENDATERECTOMY WITH LEFT EXTERNAL ILIAC STENT - [facility] [place] Depression DNR (do not resuscitate) Elevated brain natriuretic peptide (BNP) level Elevated troponin Fall Flexion contractures both hands, all fingers, thumbs somewhat spared Frequent falls Goals of care, counseling/discussion Gout Hyperlipidemia Hypokalemia Hypomagnesemia Hypomagnesemia (01/01/15) Hypomagnesemia (01/01/15) Hyponatremia (09/06/13) serum electrophoresis normal 2009/ cortisol level normal: 2009 Hyponatremia Lives alone without help available Osteomyelitis of right lower extremity 08/13/15- GREAT RIGHT TOE S/P AMPUTAION Osteomyelitis of toe Palliative care encounter Palliative care patient Paroxysmal atrial fibrillation ADONIS score: 1/ on asa Peripheral vascular disease critical lower limb ischemia - [facility] [place]- Physician orders for life-sustaining treatment (POLST) form indicates patient wish for [id number] status 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 Ptosis of both upper eyelids Sciatica Skin yeast infection Suicidal thoughts Vitamin D deficiency (09/06/13) Weakness Surgical History (Updated 02/16/21 @ 17:15 by Tory Negro NP) Amputation 08/13/15-GREAT RIGHT TOE History of surgical procedure Status post amputation of great toe (08/13/15) (post osteomyelitis) Social History/Home Situation: Pt reported that he lives alone, he does not that he has services come in to (A) With laundry and grocery shopping. He reports that prior he was (I) with his ADLs and reports that he has family that checks in on him every once in a while. Per CM note [place] has a lifeline and personal caregivers, arranged by son Cristofer. SUBJECTIVE: Pt was sitting in bed when OT arrived, he notes that he is agreeable to OT consult. OBJECTIVE: General Observation: Pt is pleasant and agreeable to OT session, skin breakdown on pannus, buttock, (B) LE, sores on toes, rash on his (R) side Mental Status: A&Ox3 Pain: pain in pannus and nba area due to wounds pt reports a 6/10 ROM: RUE digits decreased ROM, elbow WNL, shoulder limitations L UE digits decreased ROM, elbow WNL, shoulder limitations STRENGTH: RUE 3-/5 throughout LUE 2+/5 throughout FUNCTIONAL MOBILITY/ADLS: BATHING sitting in bed with mod vc Bathing UE Able to wash face with (A), (B) UE and abdomen mod-max (A), requires (A) as he has decreased strength with minimal control of digits. Bathing LE Max (A) DRESSING sitting in bed Dressing UE Max (A) [facility] gown Dressing LE pt will require Max (A) GROOMING Pt is able to perform ROM enough to touch top of head but with decreased strength is unable to perform his hair (I). He has limited mobility in digits and is unable to hold a toothbrush (I). TOILETING NT at this time. EATING NT BALANCE: Static sitting Good Dynamic Sitting Good SPECIAL TESTS: Daily Activity Limitations Standardized Measure [facility] AM -PAC ?6 clicks? Daily Activity Inpatient Short Form: Raw score: 11 Standardized score: 29.04 CMS score: 70.42% INFORMED CONSENT/EDUCATION: Pt instructed in purpose of OT Consult and plan of care. ASSESSMENT: Patient is a 75-year-old male referred to occupational therapy services with diagnosis of cellulitis, anemia, UTI, weakness, adult failure to thrive, skin breakdown, essential HTN, gastroesophageal reflux disease, restless leg syndrome . Patient presents with clinical signs and symptoms consistent with dx with contracted (B) UE, as demonstrated by the following impairment level findings/functional limitations: Impairment in ADL/IADL and leisure activities, decreased gross motor ROM, decreased fine motor ROM, infection to nba area, pannus, and skin breakdown on LE, decreased (I) in hygiene, decreased UE hygiene, decreased functional activity tolerance, decreased (B) UE use, inability to perform LE dressing and bathing. AMPAC score 11 Patient is assessed as a High 64791 complexity based on the following: History: see above Examination: see functional limitations as noted above Presentation: evolving Decision Making: AMPAC score 11 GOALS Goals x1 week 1. Grooming- sitting in chair mod (I) brushing hair, min (A) brushing teeth 2. Dressing- sitting in chair mod (A) UE and mod (I) LE 3. Bathing- sitting in chair (I) UE and mod (A) LE 4. Toileting- on commode mod (A) 5. Eating- mod (A) PLAN OF CARE/TREATMENT PLAN: 1x/day, 5 days/ week x 1week Initiate Occupational Therapy Services for bathing, dressing, grooming, toileting, eating, transfer training. DISCHARGE RECOMMENDATIONS Based on pts functional impairments and limitations, OT recommends that go SNF when medically cleared by MD. TREATMENT TIME/MINUTES/CODES 80527, [id number], 37 minutes (07:30) Veronique Almaguer, OTR/L [facility]
--- NOTE | 2021-02-17 09:11 | PDOC.CMIN ---
- If Service Date Differs Date of service: 02/17/21 Time of Service: 09:12 Care Management Initial Assess REASON FOR HOSPITALIZATION:: Weakness, tinea infection PAST MEDICAL HISTORY/PAST SURGICAL HISTORY:: Acute dehydration. Adjustment disorder. REYNA (acute kidney injury). Alcohol intake above recommended sensible limits. 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). left great toe transmetatarsal [place] 05[place]02-2017 [place] [facility] [place] site with large necrotic/scabbed area: tx above knee amputation but pt declines - fup with wound care until pt decides to proceed ( - 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 LEATHER FINISHER). Benign prostatic hyperplasia with lower urinary tract symptoms. PSA: 1.5 in . Cervical myelopathy. Chronic back pain. moderate to severe lumbar pain;. status post neck surgery 20 years ago. Chronic kidney disease. Critical lower limb ischemia. [place] [facility] [place]/ status post right iliofemoral endarterectomy and patch angioplasty/right EIA stenting/ stent graft to distal SFA and popliteal/ COMPLICATED BY INFECTION: # debridements - w. LEFT. ILIOFEMORAL ENDATERECTOMY WITH LEFT EXTERNAL ILIAC STENT - [facility] [place] PREVIOUS FUNCTIONAL STATUS/SOCIAL/FAMILY SUPPORTS:: Denton is and lives alone in [place], [place]. His son, Cristofer, and his two daughters, Yolanda and Hilda, reside locally and are supportive of him. Ed currently has private caregivers twice a day at home. A alf care Medicaid application is in the works and once [employer] - Hig[employer] Needs has been approved, it will allow for Ed to receive additional support to meet his needs. CURRENT FUNCTIONAL STATUS:: Ed is sitting in a wheelchair in a room in the ED when CM meets with him. He at first doesn't speak and uses hand gestures to answer questions but does eventually engage in conversation. He tells CM the ambulance just showed up at his home and brought him to [facility]. He is unable to say why the ambulance came to his home and denies having called for help. He reports he was doing really well at home but then caught a cold. He reportedly was recently at [facility] (12/26/20 - 01/22/21) before being discharged home last Wednesday. He was admitted to [facility] from 01/27/21-01/29/21. ADVANCE DIRECTIVES:: Advance Directive on file; daughter Yolanda Branch is appointed as Health Care Agent and son Cristofer Cisneros as alternate agent. Also has a COLST/DNR on file; Cristofer Cisneros is appointed as agent on the COLST. Has patient been provided with info about the portal/API?: Yes Did the patient sign up for the portal?: No CODE STATUS:: DNR/DNI INSURANCE COVERAGE / FINANCIAL ISSUES:: Medicare CURRENT HOME/COMMUNITY SERVICES/EQUIPMENT:: Ed has private caregivers twice a day. He owns a FWW and a wheelchair. PRIMARY CARE PHYSICIAN:: Brady Kate MD ([facility]). POTENTIAL DISCHARGE NEEDS:: Resume: SN/PT/OT, Palliative Care, CFC Mod, MOW PATIENT/FAMILY EDUCATION NEEDS:: Review of discharge instructions and discussion central to self care needs. ANTICIPATED BARRIERS TO DISCHARGE:: Patient's refusal to discharge to SNF and his inability to maintain at home. TRANSPORTATION:: To be determined by disposition. PLAN:: Ed will return home and resume SN/PT/OT, Palliative Care, CFC Mod, MOW. He continues to await [employer] Medicaid processing; which is delaying increased service supports in his home. He remains unwilling to discharge to SNF and likely used up his benefit prior to returning home on 01/22/21. CM will continue to follow and support discharge planning needs. Readmission - Within the Past 30 Days Yes or No: Y - Date of First Admission Date of 1st Admission: 01/27/21 - Date of this Admission Date of Admission: 02/16/21 This admission was: Through ED - Office Visit Since 1st Admission Have you seen your PCP in the office since discharge?: No Date of PCP Appointment: 01/29/21 Had an appointment Been Scheduled?: Yes Date of Scheduled Appointment: 01/29/21, 02/03/21 Describe barriers for scheduling or getting an appointment: [facility] received notification that patient was discharged from [facility] on 01/29/21 following admission for falls, failure to thrive, weakness. Noted to be unable to stand on his own without max assist in the ED. Labs mag 1.3 (repleted), Na 134, WBC 10.8 Underwent PT evaluation and palliative care consult during course of admission. Per chart review, patient adamantly refused rehab admission and is anticipated to continue to decline at home with probable result of failed discharge. Home health services to resume--plan to readmit today. CCC attempted to reach [facility] to check on condition but no answer and no answering machine in place. Documentation from CC at PCP-transition of care support person. - ED visits How many ED visits in the past 12 months: 6 - Assessment for Readmission Summary of readmission circumstances, based upon interviews: Awaiting alf medicaid: resulting in barriers to increased support in home setting. DC from SNF 01/22/21. Patient's unwillingness to voluntarily seek placement.
[2021-02-17] MEDS: Finasteride 5 MG TAB PO (09:19)
[2021-02-17] MEDS: Furosemide 20 MG TAB PO (09:19)
[2021-02-17] MEDS: Normal Saline Flush 10 ML SYR IVP ×2 (09:19→22:21)
[2021-02-17] MEDS: Metoprolol CR 100 MG TABCR PO (09:19)
[2021-02-17] MEDS: Aspirin E.C. 81 MG TABEC PO (09:19)
[2021-02-17] MEDS: Cetirizine 10 MG TAB PO (09:20)
[2021-02-17] MEDS: Cefpodoxime 200 MG TAB PO (09:20)
[2021-02-17] MEDS: Pantoprazole 40 MG TABCR PO (09:20)
[2021-02-17] MEDS: Fluconazole 100 MG TAB 200 MG PO (09:20)
[2021-02-17] MEDS: Losartan 25 MG TAB PO (09:21)
[2021-02-17] MEDS: Magnesium Gluconate 500 MG TAB PO (09:21)
[2021-02-17] MEDS: Allopurinol 300 MG TAB PO (09:21)
[2021-02-17] MEDS: Tamsulosin 0.4 MG CAPCR 0.8 MG PO (09:21)
[2021-02-17] MEDS: Metoprolol CR 25 MG TABCR PO (09:21)
--- NOTE | 2021-02-17 10:24 | PGE_ITS ---
Date of Service Date of service: 02/17/21 Time of Service: 10:24 Assessment and Plan Assessment and plan (1) UTI (urinary tract infection): Status: Acute Assessment and plan: No wbc, though he was symptomatic, with urgency and frequency. Placed on cefpodoxime, 200 mg BID. He does have a CRP of 12 Lactate normal. Afebrile. BC pending, urine cx pending. Qualifiers: Hematuria presence: with hematuria Urinary tract infection type: acute cystitis Qualified Code(s): N30.01 - Acute cystitis with hematuria (2) Cellulitis: Status: Suspected Assessment and plan: Does not appear to be cellulitis. Low suspicision however with CRP. Appears to be more skin break down from sitting in urine in wheelchair and not getting up or out of bed. continue Cefpodoxime, diflucan trend CRP, Qualifiers: Site of cellulitis: trunk Site of cellulitis of trunk: abdominal wall Qualified Code(s): L03.311 - Cellulitis of abdominal wall (3) Weakness: Status: Acute Assessment and plan: Last admission, SNIF was recommend patient refused. He failed outpatient He would benefit from SNIF. PT, OT and palliative consulted (4) Adult failure to thrive: Status: Acute Assessment and plan: as above (5) Skin breakdown: Status: Acute Assessment and plan: yanira xie compund: clotriazole, zinc, vitamin a wound care consult with recommendations for left hand pressure wound, arterial ulcer left medial malleolus, and yeast infection pannus (6) Anemia: Status: Chronic Assessment and plan: iron deficient anemia. will add supplementation Qualifiers: Anemia type: unspecified type Qualified Code(s): D64.9 - Anemia, unspecified (7) Essential hypertension: Status: Chronic Assessment and plan: Will continue metoprolol (8) Gastroesophageal reflux disease: Status: Chronic Assessment and plan: Continue protonix Qualifiers: Esophagitis presence: esophagitis presence not specified Qualified Code(s): K21.9 - Gastro-esophageal reflux disease without esophagitis (9) Restless leg syndrome, uncontrolled: Status: Chronic Assessment and plan: continue pramipexole (10) DVT prophylaxis: Status: Acute Assessment and plan: heparin subcut (11) Discharge planning issues: Status: Acute Assessment and plan: Will have PT evaluate he would benefit from SNIF discussed with Dr. Tucker Subjective Subjective Patient reports: tolerating liquids well, tolerating a regular diet and afebrile; denies shortness of breath Exam Const General: cooperative, comfortable, no acute distress, frail appearing and ill appearing (older than stated age) chronically Nutritional Appearance: obese Orientation: alert, awake and oriented x3 Eyes Eyelids: eyelids normal Pupils: PERRL EOM: EOM intact bilaterally Neck Neck: normal visual inspection and no JVD Lymphatic: no lymphadenopathy noted Resp Effort & Inspection: normal respiratory effort Auscultation: clear to auscultation bilaterally Cardio Jugular venous pressure: no JVD Rhythm: regular rhythm Heart Sounds: S1 normal GI Auscultation: normal bowel sounds General: No CVA tenderness and deferred Skin General skin exam: rashes and/or lesions noted and erythema (groin, abd, penile area.) Neuro General: patient alert, patient awake and patient oriented x3 Cognition: normal cognition Speech: speech normal Gait: normal gait Extrem General: normal to inspection and abnormal ROM Right upper extremity: hand Details: abnormal ROM of finger Details: unable to extend (to fully extend) Location: of all digits Left upper extremity: hand Details: abnormal ROM of finger Details: unable to extend (contractures with injury to palm from the pressure) Location: of all digits Left lower extremity: ankle (medial malleolus arterial ulcer. mild erythema surrounding. see wound care ) Objective Last Vital Signs Temp 36.1 C L 02/17/21 07:44 Pulse 85 02/17/21 07:44 Resp 18 02/17/21 07:44 BP 187/96 H 02/17/21 07:44 Pulse Ox 97 02/17/21 07:44 Laboratory Results - last 24 hr 02/16/21 02/16/21 02/16/21 13:23 13:25 13:25 WBC RBC Hgb Hct MCV MCH MCHC RDW Plt Count MPV Immature Gran % Neutrophils % Lymphocytes % Monocytes % Eosinophils % Basophils % Nucleated RBC % Absolute Neutrophils Absolute Lymphocytes Absolute Monocytes Absolute Eosinophils Absolute Basophils ESR VBG Lactate 1.1 Sodium 139 Potassium 3.9 Chloride 103 Carbon Dioxide 24.0 Anion Gap 12.0 H BUN 32 H Creatinine 1.2 Estimated GFR/1.73 m2 59.18 Glucose 97 Calcium 9.0 Iron TIBC Transferrin % Sat Ferritin Total Bilirubin 1.0 AST 20 ALT 21 Alkaline Phosphatase 115 Troponin I < 50 C-Reactive Protein Total Protein 6.9 Albumin 2.9 L Vitamin B12 Folate Procalcitonin Urine Color Yellow Urine Clarity Sl Cloudy Urine pH 5.5 Ur Specific [place] 1.015 Urine Protein Negative Urine Ketones Negative Urine Blood Trace-intact H Urine Nitrite Negative Urine Bilirubin Negative Urine Urobilinogen 2.0 H Ur Leukocyte Esterase Small H Urine RBC 3-5 H Urine WBC 10-20 H Ur Epithelial Cells Few Urine Crystals Negative Urine Bacteria Rare Urine Casts 0-2 Hyaline Urine Mucus Trace Urine Other Few Yeast Ur Culture Indicated? Yes Urine Glucose Negative COVID-19 Source SARS-CoV-2 (PCR) 02/16/21 02/16/21 02/16/21 13:25 13:28 13:28 WBC 9.94 RBC 3.32 L Hgb 11.1 L Hct 33.3 L MCV 100.3 H MCH 33.4 H MCHC 33.3 RDW 14.4 H Plt Count 206 MPV 11.4 H Immature Gran % 0.5 Neutrophils % 83.8 Lymphocytes % 5.7 Monocytes % 6.9 Eosinophils % 2.7 Basophils % 0.4 Nucleated RBC % 0 Absolute Neutrophils 8.32 H Absolute Lymphocytes 0.57 L Absolute Monocytes 0.69 Absolute Eosinophils 0.27 Absolute Basophils 0.04 ESR VBG Lactate Sodium Potassium Chloride Carbon Dioxide Anion Gap BUN Creatinine Estimated GFR/1.73 m2 Glucose Calcium Iron TIBC Transferrin % Sat Ferritin Total Bilirubin AST ALT Alkaline Phosphatase Troponin I C-Reactive Protein 12.53 H Total Protein Albumin Vitamin B12 Folate Procalcitonin < 0.1 Urine Color Urine Clarity Urine pH Ur Specific [place] Urine Protein Urine Ketones Urine Blood Urine Nitrite Urine Bilirubin Urine Urobilinogen Ur Leukocyte Esterase Urine RBC Urine WBC Ur Epithelial Cells Urine Crystals Urine Bacteria Urine Casts Urine Mucus Urine Other Ur Culture Indicated? Urine Glucose COVID-19 Source SARS-CoV-2 (PCR) 02/16/21 02/16/21 02/16/21 13:28 13:28 15:30 WBC RBC Hgb Hct MCV MCH MCHC RDW Plt Count MPV Immature Gran % Neutrophils % Lymphocytes % Monocytes % Eosinophils % Basophils % Nucleated RBC % Absolute Neutrophils Absolute Lymphocytes Absolute Monocytes Absolute Eosinophils Absolute Basophils ESR 46 H VBG Lactate Sodium Potassium Chloride Carbon Dioxide Anion Gap BUN Creatinine Estimated GFR/1.73 m2 Glucose Calcium Iron TIBC Transferrin % Sat Ferritin Total Bilirubin AST ALT Alkaline Phosphatase Troponin I C-Reactive Protein Cancelled Total Protein Albumin Vitamin B12 Folate Procalcitonin Urine Color Urine Clarity Urine pH Ur Specific [place] Urine Protein Urine Ketones Urine Blood Urine Nitrite Urine Bilirubin Urine Urobilinogen Ur Leukocyte Esterase Urine RBC Urine WBC Ur Epithelial Cells Urine Crystals Urine Bacteria Urine Casts Urine Mucus Urine Other Ur Culture Indicated? Urine Glucose COVID-19 Source Nasal/Nares SARS-CoV-2 (PCR) Negative 02/17/21 02/17/21 02/17/21 06:20 06:20 06:20 WBC 4.81 D RBC 3.31 L Hgb 10.8 L Hct 32.5 L MCV 98.2 H MCH 32.6 MCHC 33.2 RDW 14.1 Plt Count 229 MPV 11.2 H Immature Gran % Neutrophils % Lymphocytes % Monocytes % Eosinophils % Basophils % Nucleated RBC % Absolute Neutrophils Absolute Lymphocytes Absolute Monocytes Absolute Eosinophils Absolute Basophils ESR VBG Lactate Sodium 138 Potassium 3.8 Chloride 101 Carbon Dioxide 26.2 Anion Gap 10.8 BUN 24 H Creatinine 1.0 Estimated GFR/1.73 m2 >= 60.00 Glucose 156 H Calcium 9.3 Iron 28 L TIBC 170 L Transferrin % Sat 16 L Ferritin 835 H Total Bilirubin AST ALT Alkaline Phosphatase Troponin I C-Reactive Protein Total Protein Albumin Vitamin B12 Folate Procalcitonin Urine Color Urine Clarity Urine pH Ur Specific [place] Urine Protein Urine Ketones Urine Blood Urine Nitrite Urine Bilirubin Urine Urobilinogen Ur Leukocyte Esterase Urine RBC Urine WBC Ur Epithelial Cells Urine Crystals Urine Bacteria Urine Casts Urine Mucus Urine Other Ur Culture Indicated? Urine Glucose COVID-19 Source SARS-CoV-2 (PCR) 02/17/21 06:20 WBC RBC Hgb Hct MCV MCH MCHC RDW Plt Count MPV Immature Gran % Neutrophils % Lymphocytes % Monocytes % Eosinophils % Basophils % Nucleated RBC % Absolute Neutrophils Absolute Lymphocytes Absolute Monocytes Absolute Eosinophils Absolute Basophils ESR VBG Lactate Sodium Potassium Chloride Carbon Dioxide Anion Gap BUN Creatinine Estimated GFR/1.73 m2 Glucose Calcium Iron TIBC Transferrin % Sat Ferritin Total Bilirubin AST ALT Alkaline Phosphatase Troponin I C-Reactive Protein Total Protein Albumin Vitamin B12 > 2000 H Folate 5.3 L Procalcitonin Urine Color Urine Clarity Urine pH Ur Specific [place] Urine Protein Urine Ketones Urine Blood Urine Nitrite Urine Bilirubin Urine Urobilinogen Ur Leukocyte Esterase Urine RBC Urine WBC Ur Epithelial Cells Urine Crystals Urine Bacteria Urine Casts Urine Mucus Urine Other Ur Culture Indicated? Urine Glucose COVID-19 Source SARS-CoV-2 (PCR) PAWSS Have you Been Recently Intoxicated or Drunk Within the Last 30 days?: No Have you Ever Experienced Previous Episodes of Alcohol Withdrawal?: No Have you ever Experienced Withdrawal Seizures?: No Have you ever Experienced Delirium Tremens(DT)s?: No Have you ever undergone Alcohol Rehabilitation Treatment (i.e, inpt ot outpatient treatment programs)?: No Result: 0
--- NOTE | 2021-02-17 10:43 | PT.INIE ---
Date of service: 02/17/21 Time of Service: 10:43 PT Notes Visit Reasons: Weakness, Tinea Infection Physical Therapy Inpatient Initial Evaluation Date: 02/17/2021 Referring Doctor: Tory Negro NP PT Orders: PT CONSULT: Eval/Treat Precautions: Fall. Standard. Activity as tolerated. INAJA. Patient Profile/Admitting Diagnosis: Denton is a 75-year-old male who presented to the ED on 02/16/2021 due to difficulty with speaking, generalized weakness, chills, and cough. Patient is diagnosed with urinary tract infection, suspected cellulitis, weakness, failure to thrive, and skin breakdown. PMHX: All Active Problems Chronic kidney disease (Chronic) Hyponatremia (Acute) Adjustment disorder (Chronic) Suicidal thoughts (Acute) UTI (urinary tract infection) (Acute) Depression (Chronic) Cervical myelopathy (Acute) Flexion contractures (Chronic) Ptosis of both upper eyelids (Acute) Frequent falls (Acute) Palliative care patient (Acute) Discharge planning issues (Acute) Hypomagnesemia (Acute) Physician orders for life-sustaining treatment (POLST) form indicates patient wish for [id number] status (Acute) DNR (do not resuscitate) (Acute) Palliative care encounter (Acute) Elevated troponin (Acute) Weakness (Acute) Fall (Acute) Elevated brain natriuretic peptide (BNP) level (Acute) Adult failure to thrive (Acute) Skin breakdown (Acute) Skin yeast infection (Acute) REYNA (acute kidney injury) (Acute) Acute dehydration (Acute) Alcohol intake above recommended sensible limits (Acute) Benign prostatic hyperplasia with lower urinary tract symptoms (Acute) Essential hypertension (Acute 11/16/12) Gastroesophageal reflux disease (Acute) Gout (Acute) Hyperlipidemia (Acute) Paroxysmal atrial fibrillation (Acute) 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) Restless leg syndrome, uncontrolled (Acute) Vitamin D deficiency (Acute 09/06/13) History of surgical procedure (Acute) Chronic back pain (Acute) Medical History 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) left great toe transmetatarsal amputation 05-02-2017 by - 05-12-2017 [facility] Vasc.Sx.: site with large necrotic/scabbed area: tx above knee amputation but pt declines - fup with wound care until pt decides to proceed ( - 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 SPARE PERSON) Critical lower limb ischemia RIGHT [facility] [place] SHAUNA Parsons/ status post right iliofemoral endarterectomy and patch angioplasty/right EIA stenting/ stent graft to distal SFA and popliteal/ COMPLICATED BY INFECTION: # debridements - w LEFT ILIOFEMORAL ENDATERECTOMY WITH LEFT EXTERNAL ILIAC STENT - [facility] [place] Hypokalemia Hypomagnesemia (01/01/15) Hypomagnesemia (01/01/15) Hyponatremia (09/06/13) serum electrophoresis normal 2009/ cortisol level normal: 2010 Osteomyelitis of right lower extremity 08/13/15- GREAT RIGHT TOE S/P AMPUTAION Osteomyelitis of toe Peripheral vascular disease critical lower limb ischemia - [facility] [place]- -2015 Sciatica Weakness Surgical History Amputation 08/13/15-GREAT RIGHT TOE Status post amputation of great toe (08/13/15) (post osteomyelitis) Social History/Home Situation: Lives alone in a private home. Has been receiving support from family and home health personnel. States that he has two HH aide who comes in and helps him with anything he needs. Equipment Owned/DME: Front-wheeled walker, wheelchair Subjective: Agreeable to PT session. Denies pain and lightheadedness. Complains of being weak. Objective: General Observation: Supine in bed. Bilateral amputation of great toes. Mental Status: Alert. Able to pay attention, focus, and respond appropriately but speech not fully discernible. Pain: Denies ROM: Right Upper Extremity: Unable to flex at the shoulder beyond 90 degrees with empty end feel. Unable to abduct beyond 80 degrees due to discomfort. Elbows flexion WFL. Elbow extension WFL. Wrist flexion about 10 degrees. Wrist extension 10 degrees. Fixed wrist flexion contracture in the IP joints. Left Upper Extremity: Unable to flex at the shoulder beyond 80 degrees with empty end feel. Unable to abduct beyond 60 degrees due to discomfort. Elbows flexion WFL. Elbow extension WFL. Wrist flexion about 20 degrees. Finger flexion Right Lower Extremity: Hip flexion lacking the last 45 degrees. Hip abduction limited to 10 degrees. Knee flexion WFL. Knee extension. Ankle dorsiflexion/eversion to neutral only. Ankle plantarflexion/inversion WFL. Left Lower Extremity: Hip flexion lacking the last 45 degrees. Hip abduction limited to 10 degrees. Knee flexion WFL. Knee extension. Ankle dorsiflexion/eversion to neutral only. Ankle plantarflexion/inversion WFL. Strength: Right Upper Extremity: Shoulder flexors 3-/5. Shoulder abductors 3-/5. Shoulder ER 3-/5. Elbow flexors 4-/5. Elbow extensors 4-/5. Fish Stringer Assembler weakn but functional. Left Upper Extremity: Shoulder flexors 3-/5. Shoulder abductors 3-/5. Shoulder ER 3-/5. Elbow flexors 4-/5. Elbow extensors 4-/5. Fish Stringer Assembler absent. Right Lower Extremity: Hip flexors 2-/5. Hip abductors 2-/5. Hip external rotators 2-/5. Knee flexors 2-/5. Knee extensors 2-/5. Ankle dorsiflexors/evertors 2-/5. Ankle plantarflexors/invertors 2-/5. Left Lower Extremity: Hip flexors 2-/5. Hip abductors 2-/5. Hip external rotators 2-/5. Knee flexors 2-/5. Knee extensors 2-/5. Ankle dorsiflexors/evertors 2-/5. Ankle plantarflexors/invertors 2-/5. Bed Mobility/Transfers: Sit to stand minimal assist Stand to sit minimal assist Bed to chair minimal assist Gait: Tolerated a distance of 8 steps using front-wheeled walker with moderate to maximal verbal cueing for walker management, overall safety, and hand placement. Mild SOB after activity. Left thumb unable to latch onto walker handledue to flexion contracture of the left fingers. Right hand has poor grasp but is able to hold onto walker handle. Steps unstaedy. Denies pain. Balance: Static Sitting: Normal Dynamic Sitting: Good Static Standing: Fair Dynamic Standing: Poor Assessment: Patient demonstrates functional mobility decline requiring the assistance of three people for just sit<>stand transfer all mobility ADL performance and will have increased risk for falls and re-hospitalization if he returns home. Patient presents with instability, generalized weakness, and impairment of motor control as demonstrated by the following impairment level findings: 1. Decreased strength to B UE/LE major muscle groups 2. Impaired sitting/standing balance 3. Impaired activity tolerance 4. Limitation of joint range of motion in B shoulders and B ankles Impairments are continuing to contribute to the following functional limitations: 1. Dependent bed mobility skills 2. Increased dependence with transfers 3. Inability to ambulate 4. Increased completion time for mobility ADL performance 5. Increased fall risk 6. Inability to negotiate steps alone safely 7. Inability to return to prior living environment at this time Goals: Goals X1 week 1. Supine-Sit independent 2. Sit-Supine independent 3. Sit-Stand independent 4. Stand-Sit independent 5. Bed-Chair independent 6. Chair-Bed independent 7. Supervision t gait on level surface with use of least restrictive device for at least 15 feet without report of pain nor dyspnea 8. Supervision stair negotiation while holding onto bilateral rails for at least 10 steps without report of pain nor dyspnea 9. Fair static and dynamic standing balance/tolerance Plan of Care/Treatment Plan: Plan of care has been reviewed with the [facility] providing the service under Physical Therapy direction. Initiate Physical Therapy intervention for pain management as needed, strengthening, bed mobility, transfers, gait, stairs, balance training, and use of assistive device. DISCHARGE RECOMMENDATIONS: [] Home with no services [] [] Home with services [specify] [] Home with outpatient PT [] [X] SNF for continued rehabilitation. Patient will benefit from [facility] facility placement for continued skilled physical therapy services in order to progress mobility level, strength, and balance. [] Retirement Care [] [] SNF versus LTC based on ability to participate and progress [] TREATMENT CODE/TIME: [id number] x 15, [id number] x 14 minutes beginning at 10:43 AM. Thank you for the opportunity to participate in the care of this patient. Mariann Murray PT, DPT, CLT [facility] [place], [place]
--- NOTE | 2021-02-17 12:47 | WOUNDCONS ---
- If Service Date Differs Date of service: 02/17/21 Time of Service: 12:00 Wound Initial Evaluation Narrative: Patient is a 75 yom , who had recently been a patient here. He was discharged to home. He had a fall and was brought back to the ED with weakness. Once here he was found to have fungal radh in the abdominal folds. Wound consult was placed for this. had ordered the Triple ointment for this. From wound nursing perspective, this is an appropriate treatment for the rash. While assessing patient this morning, I noticed a chronic injury on his left ankle, and a new area of pressure with fungal rash from contracture in his left hand. Goal of treatment was discussed with the patient who agrees to the wound consult. H&P , allergies, and other pertinent information were reviewed prior to the consult. - Wound Left Hand Wound Type: Pressure Ulcer, Other (fungal rash) Pressure Ulcer Stage: III Wound General Appearance: Reddened, Unapproximated Wound Bed Greatest Portion: Pale [place] Wound Surrounding Tissue Appearance: [place], Bright Red Percent of Wound Bed Granulated/Red: 0 Percent of Wound Bed Slough/Yellow: 0 Percent of Wound Bed Eschar/Black: 0 Wound Length: 0.2 cm Wound Width: 0.3 cm Wound Depth: 0.4 cm Wound Drainage Amount: None Wound Drainage Odor: Strong, Foul Odor, Pungent Wound Drainage Description: No drainage Wound Topical Solution/Irrigant: Saline Irrigant Wound Debridement Method: Gauze Wound Debridement Result: Other (no change) Wound Debridement Amount of Tissue Removed: None Left Ankle Wound Type: Other (arterial insuffiency wound) Wound General Appearance: Reddened, Unapproximated Wound Bed Greatest Portion: Yellow (Slough), Other (cannot visualize base) Wound Surrounding Tissue Appearance: [place] Percent of Wound Bed Granulated/Red: 0 Percent of Wound Bed Slough/Yellow: 95 Wound Length: 2.2 cm Wound Width: 2.7 cm Wound Depth: 0.1 cm (unstageable) Wound Drainage Amount: None Wound Drainage Odor: None/Absent Wound Drainage Description: No drainage Wound Topical Solution/Irrigant: Saline Irrigant Wound Debridement Method: Mechanical Wound Debridement Result: Necrotic Remains Wound Debridement Amount of Tissue Removed: None - Circulation, Sensation, Motion Edema Degree: Other (none) Peripheral Pulse Strength: Weak Capillary Refill: Less than 3 seconds Sensation Description: Numbness, Tingling Skin Temperature: Cool Skin Color: Pale - SHELIA Comment:: result was incompressible arteries, or severe PAD - Pain Pain Level: 0 Patient who came from home. He has wounds and skin issues on multiple areas of the body, Patient would benefit from placement to a SNF. Patient has amputated toes, and has other areas of concern with the remaining toes, he would benefit from a podiatry consult - Treatment/Dressing Change Topicals/Ointments: Anasept Gel Cleanse With: Cleanser with Surfactant Dressing Types: Kerlix (Gauze Roll), Mepilex w/Border - Recomendation Recomendation:: Left medial ankle. Cleanse with Equous wound trolley cleaner and Debrisoft sponge. Pat Dry. Apply Anasept gel to the base of the wound. Cover with Mepilex Border. Change every 5 days or PRN. Left Palm. Cleanse with Equous spray and gauze, pat dry. Apply Francesco cream to the area of fungal rash around the wound Cover with Mepilex border. Put small roll of kerlex between fingers and palm to relieve the contracture. change daily or PRN. Physcian/Nurse Practioner Notified: Yes (Katherine Worthy) Referrals: Podiatry (for toe and nail care)
--- NOTE | 2021-02-17 14:00 | W.SPSTE ---
Date of service: 02/17/21 Time of Service: 14:00 Subjective Speech-Language/Swallowing Pathology Clinical Dysphagia Evaluation Medical Diagnosis: UTI, cellulitis, weakness, adult failure to thrive, skin breakdown, anemia, hypertension, GERD, restless leg syndrome, DVT prophylaxis, discharge planning issues. Therapy Diagnosis: Dysphagia, unspecified. Current Level of Care: Inpatient. Ordering Provider: Dann Tucker MD. Type of Consult: Swallow. Subjective: Pt was sitting at bedside when MARKET RESEARCH ASSISTANT arrived. He indicated that he was not hungry, but agreed to PO trials for assessment of swallowing. Pt presented with very low volume and hoarse vocal quality. He communicated well, but could be difficult to understand at times secondary to voice deficits. Pt reported eating a very large breakfast and lunch. Pertinent Medical/Swallowing History & Previous Level of Function: See extensive medical hx listed below. No hx of dysphagia documented within hx, however, pt has required assistance with feeding secondary to reduced hand mobility. Pt does report increased difficulty with speaking and feeling as though his uvula has been swollen for a couple of weeks. Hx of throat cancer per chart. Pt with overall increased difficulty caring for self at home. Medical History (Updated 02/16/21 @ 17:25 by Tory Negro NP) Acute dehydration Adjustment disorder REYNA (acute kidney injury) Alcohol intake above recommended sensible limits 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) left great toe transmetatarsal amputation 05-02-2017 by - 05-12-2017 [facility] [place] Vasc.Sx.: site with large necrotic/scabbed area: tx above knee amputation but pt declines - fup with wound care until pt decides to proceed (Dr.Goodney Cisco Chiang MINING CONSULTANT) Benign prostatic hyperplasia with lower urinary tract symptoms PSA: 1.5 in Cervical myelopathy Chronic back pain moderate to severe lumbar pain; status post neck surgery 20 years ago Chronic kidney disease Critical lower limb ischemia RIGHT [facility] SHAUNA Parsons/ status post right iliofemoral endarterectomy and patch angioplasty/right EIA stenting/ stent graft to distal SFA and popliteal/ COMPLICATED BY INFECTION: # debridements - w LEFT ILIOFEMORAL ENDATERECTOMY WITH LEFT EXTERNAL ILIAC STENT - [facility] Depression DNR (do not resuscitate) Elevated brain natriuretic peptide (BNP) level Elevated troponin Fall Flexion contractures both hands, all fingers, thumbs somewhat spared Frequent falls Goals of care, counseling/discussion Gout Hyperlipidemia Hypokalemia Hypomagnesemia Hypomagnesemia (01/01/15) Hypomagnesemia (01/01/15) Hyponatremia (09/06/13) serum electrophoresis normal 2009/ cortisol level normal: 2009 Hyponatremia Lives alone without help available Osteomyelitis of right lower extremity 08/13/15- GREAT RIGHT TOE S/P AMPUTAION Osteomyelitis of toe Palliative care encounter Palliative care patient Paroxysmal atrial fibrillation ADONIS score: 1/ on asa Peripheral vascular disease critical lower limb ischemia - [facility]- Physician orders for life-sustaining treatment (POLST) form indicates patient wish for [id number] status 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 Ptosis of both upper eyelids Sciatica Skin yeast infection Suicidal thoughts Vitamin D deficiency (09/06/13) Weakness Current Level of Function & Reason for Referral: Per H&P 02/16/21: ?75 y.o male with PMH GERD, HTN, HLD, BPH, RLS presented to [facility] ED after failing at home with weakness. He was recently hospitalized and discharged on 02/01/2020. At that time he did not want to go to rehab, his family brings him in due to weakness and inability to move. He also presents with erythema to his groin up to his abd. He also has a large pannus with a what appears to be fungal under. Will order yanira compound, oral diflucan until then and calmoseptine until yanira compound ready. Labs in the ED revealing CRP 12.53, no elevated wbc no fever. procal pending. BUN elevated. ESR elevated at 46. He did receive a dose of ceftriaxone in the ED. Anemia at 11.1 and 33.3. Macrocytic. Will admit to m/s. Urine did reveal pyuria, leuk estrase, while examining patient he did have to urinate several times. Placed on cefpodoxime and diflucan. PT and OT consulted. Palliative consulted.? Pt was found to have uvulitis in the ED, but no airway obstruction. Chest xray impression was mild atelectasis right lung without other acute cardiopulmonary findings. Chart indicates hx of throat cancer. Neck CT impression was no gross tracheal laryngeal abnormality. No evidence of airway obstruction. Swallow evaluation ordered due to pt having increased difficulty managing thin liquids per nursing. MARKET RESEARCH ASSISTANT consulted with nurse today upon arrival, who stated that pt took pills fine this morning, but had trouble with his drinks at lunch. Living Environment/Support: None, lives alone. Precautions: Fall risk, reflux. Medications: Whole. Allergies: pravastatin, lisinopril. Barriers to Learning: Hx of non-compliance with recommendations. Respiratory Function: Recent upper respiratory infection, mild atelectasis right lung. Supplemental Oxygen: None today. Posture/Positioning: WFL for assessment. Prior Diet: Regular, thin liquids. Current Diet: Regular, thin liquids, heart healthy. ORAL MECHANISM EXAMINATION Dentition: Edentulous, except for single lower right premolar present. Pt declines support for obtaining dentures. Oral Hygiene: Mild. Education delivered regarding proper oral care regimen and recommended enhancement of oral care routine to include daily brushing of oral structures with soft toothbrush and toothpaste. Oral Structures: Uvula enlarged. Pt has dx of uvulitis. Pt able to follow oral-motor instructions and demonstrated WFL lingual, mandibular, and labial strength and ROM. Consistencies Tested: Regular, soft and bite sized, minced and moist, thin liquids. Open cup sips, straw sips, plated food, finger foods. Self-Feeding/Level of Assistance: Pt requires assistance for feeding due to limited hand mobility. Oral Phase: Maladaptive eating behaviors including large sips and bites and fast pace of intake. Pt cleared oral cavity effectively with no substantial residue noted post swallows. Pharyngeal Phase: Suspect reduced airway protection. Suspect residue/stasis. Esophageal Phase: Chronic GERD with symptoms noted during today?s session, including highly audible gurgly swallow, burping, retching, changes to vocal quality including hoarseness. S/S Aspiration: Yes-changes in vocal quality, cough, throat clear, watery eyes, runny nose with suspected aspiration event immediately post swallow of thin liquids x1 when completing bolus hold and delayed s/s of aspiration event at end of PO trials. Pt exhibited an extremely weak and shallow cough and showed extended coughing to attempt to clear airway today. Pt/Caregiver/Staff Education: Outcomes of clinical bedside swallow evaluation, including high aspiration/choking risk and concern for possible GERD symptoms contributing to dysphagia communicated to pt, nurse, and hospitalist today. Recommendation for NPO status pending further work-up, such as EGD/endoscopy and/or a modified barium swallow study discussed. MARKET RESEARCH ASSISTANT advised staff to implement full reflux precautions. MARKET RESEARCH ASSISTANT communicated update to attending MARKET RESEARCH ASSISTANT tomorrow. MARKET RESEARCH ASSISTANT further educated the pt regarding s/s of aspiration and rationales for diet modification. Oral care discussion with pt completed. Assessment: Pt is a 75 y.o. gentleman with extensive medical hx including chronic GERD, adult failure to thrive, and weakness with increased difficulty caring for self at home who was referred for a swallow evaluation due to reported reduced management of current diet. Clinical bedside evaluation this afternoon showed inconsistent, but when occurring, overt s/s of aspiration, including gurgly vocal quality, coughing, throat clearing, watery eyes, and runny nose, which in combination with weakness, uvulitis, and pt presenting with a very weak cough, place him at high risk for aspiration and choking. Pt also demonstrated maladaptive eating behaviors and possible symptoms associated with his chronic GERD, including changes in vocal quality, burping, retching, etc., which further increase his risks of aspiration, such as on refluxed material. Pt is recommended to be placed NPO status pending further work-up which could include esophageal testing, such as EGD/endoscopy and/or objective oral-pharyngeal measurement via MBS with an MARKET RESEARCH ASSISTANT. In addition, given pt's new onset (approximately 2 weeks) of voice changes, additional speech assessment is recommended. While his voice changes may be associated with uvulitis symptoms or GERD, a more comprehensive voice assessment may be beneficial for more information regarding deficits. Follow-up consultation with MARKET RESEARCH ASSISTANT advised. Rehab Potential: TBD pending further diagnostic assessment as noted above. Short-Term Goals: TBD pending further diagnostic assessment as noted above. Long-Term Goals: TBD pending further diagnostic assessment as noted above. Pt Goal: none stated PLAN Planned Treatment Interventions: TBD pending further diagnostic assessment as noted above. Frequency: TBD. Follow-up consultation with MARKET RESEARCH ASSISTANT for re-assessment and/or MBS advised. Intensity: TBD. Duration: TBD. Discharge Plan: TBD. Recommended Referrals/Procedures: Esophageal work-up. Modified barium swallow study to assess the structural/functional integrity of the swallow mechanism. Charge Code: [id number] Evaluation Time In: 2:00 pm Time Out: 3:30 pm Total Time: 1.5 hours Coding
--- NOTE | 2021-02-17 14:40 | PT.INTREAT ---
Date of service: 02/17/21 Time of Service: 13:21 PT Notes Visit Reasons: Weakness, Tinea Infection Inpatient Physical Therapy Treatment Note [facility] Date: 02/18/2020 PRECAUTIONS: Activity as tolerated, Fall SUBJECTIVE: [place] is pleasant and agreeable to participating in PT. He says that he is not ready to lay down in bed, but would like to take a walk. He reports I'm tired of being alone. OBJECTIVE: PAIN: No c/o pain BED MOBILITY/TRANSFERS Supine-sit: I with HOB flat Sit-supine: I with HOB flat Sit-stand: Min A Stand-sit: Min A Chair-bed: Min A GAIT Assistive Device: FWW Weight bearing: Full Assist: Min A Distance: ~10' Deviation: Short step length, minimal step height, slow pacing, thoracic kyphosis, cueing throughout for FWW mechanics for safety THEREX: Patient was instructed in a seated LE strengthening program, as per flow sheet. ASSESSMENT: Patient tolerated session well, without complaint. He continues to demonstrate unsafe gait patterns and requires cueing for FWW mechanics throughout gait training for safety. PLAN: Continue with gait training, global strengthening and general conditioning for improved mobility. TREATMENT CODE/TIME: 23 minutes; [id number], [id number] (13:21)
[2021-02-17] MEDS: Metoprolol 5 MG/5 ML VIAL IVP (22:00)
[2021-02-17] MEDS: ACETAMINOPHEN 1,000 MG/100 ML BTL 400 MG IVPB (22:09)
[2021-02-17] MEDS: Pantoprazole 40 MG VIAL IVP (22:09)
[2021-02-18] VITALS (14 sets, daily range): BP systolic 130–181; BP diastolic 69–102; PULSE 60–105; RESP 17–20; TEMP 36.1–36.5; O2SAT 94–99
[2021-02-18] MEDS: Heparin 5,000 UNITS/ML VIAL 5000 UNITS SC ×3 (02:32→17:00)
[2021-02-18] MEDS: Metoprolol 5 MG/5 ML VIAL IVP ×3 (03:29→17:12)
[2021-02-18] MEDS: Normal Saline Flush 10 ML SYR IVP ×2 (03:34→11:17)
[2021-02-18 07:07] LABS: Abs Immature Grans 0.04 10^3/uL (0.0-0.06); Absolute Basophil Count 0.01 10^3/uL (0.0-0.2); Absolute Lymphocyte Count 0.53 10^3/uL (1.2-3.4); Absolute Monocyte Count 0.54 10^3/uL (0.1-0.8); Basophils % 0.1; HGB 11.3 g/dL (13.5-17.5); Immature Grans % 0.5; Lymphocytes % 6.5; MCH 32.1 pg (27.0-33.0); MCHC 32.3 % (32.0-36.0); MCV 99.4 fL (80-95); Monocytes % 6.6; Neutrophils % 86.3; Nucleated RBC 0 %; Platelet Count 260 10^3/uL (130-400); RBC 3.52 10^6/uL (4.36-5.78); RDW-SD 51.5 fL; WBC 8.13 10^3/uL (4.4-10.8)
[2021-02-18 07:29] LABS: Absolute Neutrophil Count 7.02 10^3/uL (1.2-6.7)
[2021-02-18 08:47] LABS: ALT 18 U/L (16-63); AST 18 U/L (15-37); Albumin 3.1 g/dL (3.4-5.0); Alkaline Phosphatase 110 U/L (46-116); Anion Gap 10.2 mmol/L (3-11); BUN 27 mg/dL (7-18); Bilirubin, Total 0.4 mg/dL (0.2-1.0); CO2 26.8 mmol/L (21.0-32.0); Calcium 9.5 mg/dL (8.5-10.1); Chloride 102 mmol/L (98-107); Glucose 115 mg/dL (74-106); Potassium 3.7 mmol/L (3.5-5.1); Sodium 139 mmol/L (136-145); Total Protein 7.5 g/dL (6.4-8.2)
--- NOTE | 2021-02-18 10:29 | W.PM.PROGNOT ---
Date of Service Date of service: 02/18/21 Time of Service: 10:29 Assessment and Plan Assessment and plan (1) UTI (urinary tract infection): Status: Acute Assessment and plan: No wbc, though he was symptomatic, with urgency and frequency. Placed on cefpodoxime, 200 mg BID. He does have a CRP of 12 Lactate normal. Afebrile. BC pending, urine cx pending. Qualifiers: Hematuria presence: with hematuria Urinary tract infection type: acute cystitis Qualified Code(s): N30.01 - Acute cystitis with hematuria (2) Cellulitis: Status: Suspected Assessment and plan: Does not appear to be cellulitis. Low suspicision however with CRP. Appears to be more skin break down from sitting in urine in wheelchair and not getting up or out of bed. continue Cefpodoxime, diflucan trend CRP, Qualifiers: Site of cellulitis: trunk Site of cellulitis of trunk: abdominal wall Qualified Code(s): L03.311 - Cellulitis of abdominal wall (3) Weakness: Status: Acute Assessment and plan: Last admission, SNIF was recommend patient refused. He failed outpatient He would benefit from SNIF. PT, OT and palliative consulted (4) Adult failure to thrive: Status: Acute Assessment and plan: as above (5) Skin breakdown: Status: Acute Assessment and plan: yanira xie compund: clotriazole, zinc, vitamin a wound care consult with recommendations for left hand pressure wound, arterial ulcer left medial malleolus, and yeast infection pannus (6) Anemia: Status: Chronic Assessment and plan: iron deficient anemia. will add supplementation Qualifiers: Anemia type: unspecified type Qualified Code(s): D64.9 - Anemia, unspecified (7) Essential hypertension: Status: Chronic Assessment and plan: Will continue metoprolol (8) Gastroesophageal reflux disease: Status: Chronic Assessment and plan: Continue protonix Qualifiers: Esophagitis presence: esophagitis presence not specified Qualified Code(s): K21.9 - Gastro-esophageal reflux disease without esophagitis (9) Restless leg syndrome, uncontrolled: Status: Chronic Assessment and plan: continue pramipexole (10) DVT prophylaxis: Status: Acute Assessment and plan: heparin subcut (11) Discharge planning issues: Status: Acute Assessment and plan: Will have PT evaluate he would benefit from SNIF discussed with Dr. Barnes Subjective Subjective Patient reports: no new complaints, tolerating liquids well and afebrile; denies shortness of breath Exam Const General: cooperative, comfortable, no acute distress, frail appearing and ill appearing (older than stated age) chronically Nutritional Appearance: obese Orientation: alert, awake and oriented x3 Eyes Eyelids: eyelids normal Pupils: PERRL EOM: EOM intact bilaterally Neck Neck: normal visual inspection and no JVD Lymphatic: no lymphadenopathy noted Resp Effort & Inspection: normal respiratory effort Auscultation: clear to auscultation bilaterally Cardio Jugular venous pressure: no JVD Rhythm: regular rhythm Heart Sounds: S1 normal GI Auscultation: normal bowel sounds General: No CVA tenderness and deferred Skin General skin exam: rashes and/or lesions noted and erythema (groin, abd, penile area.) Neuro General: patient alert, patient awake and patient oriented x3 Cognition: normal cognition Speech: speech normal Gait: normal gait Extrem General: normal to inspection and abnormal ROM Right upper extremity: hand Details: abnormal ROM of finger Details: unable to extend (to fully extend) Location: of all digits Left upper extremity: hand Details: abnormal ROM of finger Details: unable to extend (contractures with injury to palm from the pressure) Location: of all digits Left lower extremity: ankle (medial malleolus arterial ulcer. mild erythema surrounding. see wound care ) Objective Last Vital Signs Temp 36.1 C L 02/18/21 07:32 Pulse 98 H 02/18/21 08:11 Resp 17 02/18/21 07:32 BP 158/88 H 02/18/21 07:32 Pulse Ox 96 02/18/21 07:32 Laboratory Results - last 24 hr 02/18/21 02/18/21 06:22 06:22 WBC 8.13 D RBC 3.52 L Hgb 11.3 L Hct 35.0 L MCV 99.4 H MCH 32.1 MCHC 32.3 RDW 14.0 Plt Count 260 MPV 11.0 Immature Gran % 0.5 Neutrophils % 86.3 Lymphocytes % 6.5 Monocytes % 6.6 Eosinophils % 0.0 Basophils % 0.1 Nucleated RBC % 0 Absolute Neutrophils 7.02 H Absolute Lymphocytes 0.53 L Absolute Monocytes 0.54 Absolute Eosinophils 0.00 Absolute Basophils 0.01 Sodium 139 Potassium 3.7 Chloride 102 Carbon Dioxide 26.8 Anion Gap 10.2 BUN 27 H Creatinine 1.0 Estimated GFR/1.73 m2 >= 60.00 Glucose 115 H Calcium 9.5 Total Bilirubin 0.4 AST 18 ALT 18 Alkaline Phosphatase 110 Total Protein 7.5 Albumin 3.1 L PAWSS Have you Been Recently Intoxicated or Drunk Within the Last 30 days?: No Have you Ever Experienced Previous Episodes of Alcohol Withdrawal?: No Have you ever Experienced Withdrawal Seizures?: No Have you ever Experienced Delirium Tremens(DT)s?: No Have you ever undergone Alcohol Rehabilitation Treatment (i.e, inpt ot outpatient treatment programs)?: No Result: 0
--- NOTE | 2021-02-18 11:02 | W.SPSTP ---
Date of service: 02/18/21 Time of Service: 09:45 Subjective Patient was contacted at bedside this date for continued re-assessment of swallow function. He was agreeable to participate in session this date, though demonstrated mild frustration throughout. Continues to deny and difficulty with swallowing, though when questioned about yesterday's swallow assessment, he does nod in acknowledgement of summarized findings noted at that time. HOB was positioned in a partially upright reverse trendelenburg/chair position, unable to tolerate bolt-upright position, maintaining ~60 degrees upright. Interim updates: Per MD, patient dose of pantoprazole was increased since initial evaluation Objective/Assessment/Plan Objective Treatment Techniques & Outcomes: Continued re-assessment of swallow function, education, and obtaining patient goals this date: Respiratory status at baseline: Tolerates r/a without s/sx dyspnea. No congested breathing sounds or baseline cough appreciated. Laryngeal function: Patient appears able to clear throat but unable to perform true cough, completely aphonic this date and not stimulable for phonation. Reports he has been aphonic for several weeks. Refuses further workup. Will continue to monitor and offer intervention/assessment if communication becomes frustrating to patient. Food items tested: [ ] None. Further swallow assessment not warranted at this time. [x] Ice: [x] IDDSI 0:x10 sips [ ] IDDSI 1: [x] IDDSI 2: x5 sips [ ] IDDSI 3: [x] IDDSI 4: x4 bites [ ] IDDSI 5: [ ] IDDSI 6: [x] IDDSI 7: x4 bites, latrice cracker [ ] Pill/tablet: Oral phase: [ ] WFL [ ] Leakage from mouth [ ] Difficulty with bolus manipulation [ ] Difficulty with a-p transport [x] Difficulty chewing - mild prolonged mastication with mild reduced rotary pattern in setting of edentulousness. [ ] Pocketing [ ] Residue Pharyngeal phase: [ ] WFL [ ] Delayed swallow initiation [ ] Reduced hyolaryngeal elevation/excursion [ ] Cough after swallow [x] Voice change after swallow - difficult to assess 2/2 aphonia, though appreciating some trace wetness vs mild congestion following several thin liquid trials. [x] Throat clearing - delayed throat clear x3 near end of trials - not appearing in response to a single trial, possibly r/t secretion, [id number]. [x] Endorsed stasis - maybe a little bit with 2x trials latrice howe regular solids Esophageal phase: - noting 2-3x mild belching immediate thin liquid trials Patient/Caregiver/Staff Education: Education provided to: patient, RN. Patient verbalizes understanding of education and recommendations, verbalizes understanding of possible risk of aspiration/choking given current swallow/laryngeal function with his preferred diet of regular solids/thin liquids. Patient states he wishes to accept these risks and commence thin liquid intake. He expresses preference for regular solid diet but is agreeable to trial soft/bite size diet to mitigate risks in setting of edentulousness, weakness/deconditioning, with the goal of getting back to regular diet. [x] Anatomy/physiology of swallowing mechanism [x] Overt s/sx aspiration [x] Rationale for improved oral care and instructions [x] Relationship between respiratory fxn and deglutition [x] Rationale for recommended strategies as below [x] Rationale for instrumental swallow assessment to further characterize swallow and laryngeal function [x] Reflux precautions Assessment Patient presents with somewhat improved symptoms over initial evaluation, though continues to present with at least mild, likely moderate pharyngeal-esophageal dysphagia with mild suspected s/sx aspiration noted this date to thin liquids. Suspect impact of reduced laryngeal function, especially given absent cough and aphonia, which will significantly impact patient's airway protection/pulmonary defense, especially when considered in conjunction with patient's low level of activity 2/2 weakness. However, patient does show clear chest imaging upon admit which is reassuring. Continue to suspect likely complicating factors of GI symptoms in setting of chronic GERD vs current dx of uvulitis, vs unclear history of laryngeal/glottic cancer. Hospitalist discussing goals of care with patient who denies further GI/Swallow/ENT workup. Patient does appear to understand education r/t potential risks r/t aspiration, including refluxed material, and clearly voices his diet preferences. Education and rationale provided to patient this date who is agreeable to the following plan of care. Plan Plan: Planned Treatment Interventions: Behavioral swallow intervention. Consider further communication/voice assessment/intervention (e.g., amplification) if patient is interested. Frequency: 1-3x per week until discharged or goals met Discharge Plan: Per OT/PT recommendations. Patient would likely benefit from a facility with BEVELING MACHINE OPERATOR on staff, although this is not within his stated goals of care. Treatment Goals: 1. Patient will tolerate IDDSI level 6 (soft/bite sized) solids and IDDSI level 0 (thin liquids) with caregiver assist and min-mod cues for adherence to swallow precautions. 2. Patient/caregiver will demonstrate/verbalize understanding of education r/t normal vs disordered swallow function, relationship between GI, swallow, and respiratory function, oral care and reflux precautions x1-2 sessions. Diet Texture Modification(s): IDDSI Level(s) 6-Soft & Bite-Sized Solids 0-Thin Liquids Medication Intake: Whole with 4-Extremely Thick Liquids Recommendations Recommendations: RISK MANAGEMENT: Oral hygiene q4h/every 4 hours and before/after PO intake using friction with toothbrush or sponge on all oral structures as tolerated HOB upright as tolerated; upright for all PO intake. Encourage physical mobility as tolerated. Level of Assistance/Supervision: 1:1 close supervision and caregiver assist for all PO intake PO intake only when awake/alert Strategies/Adaptations/Assistive Equipment: Reduce auditory and/or visual distractions when eating Provide verbal and/or visual cues to use recommended strategies Small sips and bites when eating Slow rate of intake Small+frequent meals throughout day Posture/Positioning Needs: Maintain upright position at least 30 minutes after meals, Avoid meals/snacks 2-3 hours prior to reclining/sleeping, Sleep with head of bed elevated to reduce likelihood of nocturnal reflux Time in: 9:45 am Time out: 10:15 am Total time spent: 30 minutes Treat code: 13553 Session #: 2 (incl. initial assessment) Steffanie Downs M.S., [facility]-BEVELING MACHINE OPERATOR [phone] Coding
[2021-02-18] MEDS: Pantoprazole 40 MG VIAL IVP (11:17)
--- NOTE | 2021-02-18 14:22 | CHAPLAIN ---
was up in the chair when I visited. He engaged with me but responded with one work answers. He said he's been in touch with family, I don't know if that's accurate. He was living at home and family members brought him into the ED. He says he does not want to go to a shelter care facility.
--- NOTE | 2021-02-18 15:22 | PT.INTREAT ---
Date of service: 02/18/21 Time of Service: 11:48 PT Notes Visit Reasons: Weakness, Tinea Infection Inpatient Physical Therapy Treatment Note [facility] Date: 02/18/2021 PRECAUTIONS: Fall, Activity as tolerated SUBJECTIVE: Denton states that he is confused this afternoon. He reports in the morning that he is hungry. He also states call Cristofer to come pick us up and that he is leaving today. OBJECTIVE: PAIN: No c/o pain BED MOBILITY/TRANSFERS Supine-sit: I with HOB flat Sit-stand: CGA Stand-sit: CGA Bed-Chair: CGA GAIT Assistive Device: FWW Weight bearing: Full Assist: CGA Distance: 5' Deviation: Cueing for improved posture, short step height and length, cueing for improved FWW mechanics THEREX: Patient was instructed in several LE strengthening exercises, completed in a seated position, as per flow sheet. He appears unable to reach full ROM with exercises due to weakness and potential contractures. ASSESSMENT: Patient tolerated session without complaint. He continues to tolerate only short distance ambulation with FWW support due to global weakness, requiring cueing for improved posture and FWW mechanics for safety. PLAN: Continue with global strengthening and general conditioning for improved mobility and activity tolerance. Recommend d/c to SNF level rehab when medically cleared. TREATMENT CODE/TIME: Session 1: 10 minutes; 22277 (11:48) Session 2: 20 minutes; No charge (14:50)
--- NOTE | 2021-02-18 16:08 | PHA.REVIEW ---
Pharmacy Admission Review - Admission Clinical Review (Last Updated 02/16/21 @ 17:15 by Tory Negro NP) DVT prophylaxis (Acute) UTI (urinary tract infection) (Acute) Discharge planning issues (Acute) Weakness (Acute) Adult failure to thrive (Acute) Skin breakdown (Acute) pravastatin Adverse Reaction (Severe, Unverified 02/16/21 13:12) MUSCLE PAIN AND WEAKNESS lisinopril Adverse Reaction (Unverified 02/16/21 13:12) HYPERKALEMIA Resuscitation Status DNR/DNI Height 5 ft 7 in Weight 76.1 kg - Renal Dosing Renal Dosing: BUN 27 mg/dL (7-18) H 02/18/21 06:22 Creatinine 1.0 mg/dL (0.70-1.30) 02/18/21 06:22 Medications needing adjustments: Reviewed (Crcl ~60 mL/min current meds okay) - Anticoagulation Anticoagulation: Hgb 11.3 g/dL (13.5-17.5) L 02/18/21 06:22 Hct 35.0 % (40.0-50.0) L 02/18/21 06:22 Plt Count 260 10^3/uL (130-400) 02/18/21 06:22 Creatinine 1.0 mg/dL (0.70-1.30) 02/18/21 06:22 DVT Prophylaxis: Reviewed Medications: Heparin Therapeutic Anticoagulation: N/A - Opiate Usage Evaluate Pain Scale/Pains Meds: N/A - Relevant Labs ESR 46 mm/hr (0-20) H 02/16/21 13:28 Sodium 139 mmol/L (136-145) 02/18/21 06:22 Potassium 3.7 mmol/L (3.5-5.1) 02/18/21 06:22 Chloride 102 mmol/L (98-107) 02/18/21 06:22 C-Reactive Protein 12.53 mg/dL (0.0-0.3) H 02/16/21 13:28 C-Reactive Protein Cancelled 02/16/21 13:28 Electrolytes, C-Reactive P, ESR: Reviewed - DM Control DM Control: Glucose 115 mg/dL (74-106) H 02/18/21 06:22 Insulin Dosing: N/A (No DM noted in hed history, previous A1c 5.6 on 01/29/21) - Heart Failure/IN Heart Failure/IN: Troponin I < 50 ng/L (<or=60) 02/16/21 13:25 EF%, SANDRO's, B-Blockers, Diuretics: Reviewed - BP Control BP Control: Blood Pressure 158/88 Blood Pressure 158/88 If elevated: Reviewed (BP has been elevated so far this admission. Did not take PO BP meds this morning, but has had 5 mg IV metoprolol Q6H.) - Qtc Review If Elevated: N/A (QTc 462 on admission) - IV to PO Switch IV Medications: Intervened (Some meds changed to IV due to recommendations from speech therapy yesterday, will try to follow up with provider about some of the other meds.) - Home Meds Home Med List reviewed: Reviewed Relevent Home Meds Not ordered & why?: mecobalamin (cancelled as pts B-12 level was elevated) - Current meds Current Medication Order Review: Intervened (Discontinued DI meds that had already been given.) - Comments Comments/Follow Ups: Watch BP, SCr, labs, for culture results and for med changes (possible renal dose adjusments, possible doage for adjustments). Antibiotic Activity - Pharmacy Antibiotic Review Pharmacy Antibiotic Activity: C/S review (PO cefpodoxime ordered for UTI, pt missed two doses (last night and this morning). Blood culture no growth @24 hours, urine culture growing gram negative rods and gram positive wilmer.)
--- NOTE | 2021-02-18 16:36 | CMPROGNOTE_ITS ---
- If Service Date Differs Date of service: 02/18/21 Time of Service: 16:37 Care Management Progress Note S/O: Denton was sitting in his chair when CM met with him. He shared that he wants to go home (he refuses SNF) and wants his son Cristofer to take him home. Today, Cristofer shared with CM that he will not be bringing Denton home when he is discharged, as he does not feel that Denton is safe to be at home. This has been an ongoing concern for Cristofer and he shares that he's done all he can do. Denton has caregivers two days per week, and he is having a hard time finding anyone to help the other days of the week. Cristofer is planning on coming to the hospital before 6pm to discuss this with Denton and is hopeful that Denton will change his mind and go to SNF. Per Rosario Gongora, Denton's LTM is still pending but they have the financial paperwork that they needed. Dr. Rodriguez also met with Denton today, and suggests a Capacity Evaluation. CM will help set it up tomorrow. A: 75 year old male admitted to [facility] on 02/16/21 for Weakness, Tinea Infection P: Anticipate, Ed will return home and resume SN/PT/OT, Palliative Care, CFC Mod, MOW. Transportation will need to be through [facility]. Denton continues to await Retirement Medicaid processing; which is delaying increased service supports in his home. He remains unwilling to discharge to SNF and likely used up his benefit prior to returning home on 01/22/21. CM will continue to follow and support discharge planning needs.
[2021-02-18] MEDS: cefTRIAXone 1 GM/50 ML BAG IVPB (16:59)
--- NOTE | 2021-02-18 19:48 | W.PALPGNOTE ---
Date of service: 02/18/21 Assessment and Plan Assessment and plan (1) Weakness: Status: Acute Assessment and plan: SEVERE When I entered room, he was looking for a recliner remote. He was trying to use call bed and TV remote. (2) Palliative care patient: Status: Acute Assessment and plan: Seen by Dr Chauhan yesterday. Biggest problems are that his goals of care are not consisten with his safety. Per care management, son Cristofer is not willing to pick him up at the hospital again and deliver him home. IF he is discharged home, he would have to go ty [facility]. (3) Goals of care, counseling/discussion: Status: Acute Assessment and plan: Denton wants to go home and be cared for my his son and [id number]. This is not possible. He is not safe alone. He is refusing SNF. We discussed community care homes again. Stacy Benavides is [place] may be a good match. Denton said he wants to go home. (4) Frequent falls: Status: Acute (5) Flexion contractures: Status: Acute Assessment and plan: Making it impossible to care for his nba-area and feed himself easily. Is losing weight. Very limiting in what he can do. Has unrealistic sense of himself. (6) Self neglect: Status: Acute Assessment and plan: He told hospitalist, she reported, that he has right to come back to hospital repeatedly. We talked about hospital team being guided by first do no harm. He is clearly getting worse. Katherine Worthy reported that she thinks he will in the next six months which would make his hospice eligible. I need to talk to Home Health team about what they see when Denton is at home. He looked the worst today that I have ever seen him. (7) Encounter for assessment of healthcare decision-making capacity: Status: Acute Assessment and plan: This was preliminary assessment today. I am concerned that he lacks capacity to make health care decisions. Will discuss his case at Pall Care team meeting tomorrow and see if one of us can do full assessment. Subjective Subjective Patient reports: shortness of breath Interval history since last seen: Denton is more confused than I have seen him. He could not tell me how he came to the hospital, who called the ambulance, if he did or his life-line did or his son did. 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 I asked In the winter? and he said of course. He also told me that he's been shoveling snow and stacking/chopping wood. He has no sense of himself as disabled. I asked him about the sore in his left palm, which is bandaged and wrapped with gauze. He said he didn't have a sore, and tried to pull off his bandage. He was confused about his urinal, how to use it, how to hold it. His grasp seemed weaker than usual. (He has contracted hands bilaterally). We talked about discharge planning. He said he was going home. He refuses a prison. He seemed to listen when I talked about community care homes (again) but then reverted to talking about going home. Nursing reported that he is a 2 person assist with a walker. He needs help with all ADLs. I asked him what he thought about his health, and he said he was getting better. He said he would be able to do everything he used to do as long we let him go home to get healthy. Very little insight. I did speak to both hospitalist team and childcare director, as well as his primary nurse. I am not sure that he has capacity. It appears during my visit, he did not. He could have some sort of delirium, with waxing and waning of LOC. I suggested he undergo a capacity exam. Exam Const General: no acute distress, disheveled, frail appearing and ill appearing (older than stated age) chronically Nutritional Appearance: overweight Orientation: alert, awake, oriented to person and oriented to place [facility] Head: normocephalic and atraumatic Ears: hearing grossly abnormal bilaterally General nose exam: external nose normal Face and sinus: normal facial exam, face symmetric and dry mucous membranes Mouth: audible dysphonia Eyes Conjunctivae: conjunctivae normal Sclera: sclerae normal Pupils: PERRL EOM: EOM intact bilaterally Neck Neck: normal visual inspection and no JVD Lymphatic: no lymphadenopathy noted Resp Effort & Inspection: normal respiratory effort and tachypneic Auscultation: diminished lung sounds and rhonchi Cardio Jugular venous pressure: no JVD Rhythm: abnormal rhythm irregularly irregular GI Palpation: soft Auscultation: normal bowel sounds General: No CVA tenderness and deferred Skin General skin exam: rashes and/or lesions noted, erythema (groin, abd, penile area.) and pallor Nails: clubbing and discolored Neuro General: patient alert and patient awake Cognition: abnormal cognition (confabulates) Speech: abnormal speech (dysarthric) Gait: normal gait Extrem General: normal to inspection and abnormal ROM Right upper extremity: hand Details: abnormal ROM of finger Details: unable to extend (to fully extend) Location: of all digits Left upper extremity: hand Details: abnormal ROM of finger Details: unable to extend (contractures with injury to palm from the pressure) Location: of all digits Left lower extremity: ankle (medial malleolus arterial ulcer. mild erythema surrounding. see wound care ) Psych Appearance: disheveled Speech and Movement: speech not clear and restless Mood: dysthymic mood and labile mood Affect: anxious affect Attitude: cooperative Thought Process: illogical, impoverished and perseverating Insight: poor Judgment: poor Other: unable to recognize patterns in his behaviors that lead to poor outcomes not a reliable historian requiring significant help with all ADLS Objective Last Vital Signs Temp 97.7 F 02/18/21 15:15 Pulse 105 H 02/18/21 17:14 Resp 18 02/18/21 17:14 BP 177/95 H 02/18/21 17:14 Pulse Ox 94 02/18/21 17:14 Laboratory Results - last 24 hr 02/18/21 02/18/21 06:22 06:22 WBC 8.13 D RBC 3.52 L Hgb 11.3 L Hct 35.0 L MCV 99.4 H MCH 32.1 MCHC 32.3 RDW 14.0 Plt Count 260 MPV 11.0 Immature Gran % 0.5 Neutrophils % 86.3 Lymphocytes % 6.5 Monocytes % 6.6 Eosinophils % 0.0 Basophils % 0.1 Nucleated RBC % 0 Absolute Neutrophils 7.02 H Absolute Lymphocytes 0.53 L Absolute Monocytes 0.54 Absolute Eosinophils 0.00 Absolute Basophils 0.01 Sodium 139 Potassium 3.7 Chloride 102 Carbon Dioxide 26.8 Anion Gap 10.2 BUN 27 H Creatinine 1.0 Estimated GFR/1.73 m2 >= 60.00 Glucose 115 H Calcium 9.5 Total Bilirubin 0.4 AST 18 ALT 18 Alkaline Phosphatase 110 Total Protein 7.5 Albumin 3.1 L
[2021-02-18] MEDS: Magnesium Gluconate 500 MG TAB PO (20:08)
[2021-02-18] MEDS: Pantoprazole 40 MG TABCR PO (20:09)
[2021-02-18] MEDS: Ferrous Sulfate 325 MG TAB PO (20:09)
[2021-02-18] MEDS: Metoprolol CR 25 MG TABCR PO (20:09)
[2021-02-18] MEDS: Metoprolol CR 100 MG TABCR PO (20:09)
[2021-02-18] MEDS: Pramipexole 0.25 MG TAB PO (22:29)
[2021-02-19] VITALS (10 sets, daily range): BP systolic 138–175; BP diastolic 60–92; PULSE 63–99; RESP 17–92; TEMP 36–36.5; O2SAT 92–99
[2021-02-19] MEDS: Heparin 5,000 UNITS/ML VIAL 5000 UNITS SC ×3 (02:02→18:32)
[2021-02-19] MEDS: Pantoprazole 40 MG TABCR PO ×2 (07:51→20:09)
[2021-02-19] MEDS: Tamsulosin 0.4 MG CAPCR 0.8 MG PO (07:51)
[2021-02-19] MEDS: Ferrous Sulfate 325 MG TAB PO ×2 (07:51→20:09)
[2021-02-19] MEDS: Losartan 25 MG TAB PO (07:52)
[2021-02-19] MEDS: Allopurinol 300 MG TAB PO (07:52)
[2021-02-19] MEDS: Furosemide 20 MG TAB PO (07:52)
[2021-02-19] MEDS: Metoprolol CR 100 MG TABCR PO ×2 (07:52→20:08)
[2021-02-19] MEDS: Cetirizine 10 MG TAB PO (07:53)
[2021-02-19] MEDS: Magnesium Gluconate 500 MG TAB PO ×2 (07:53→20:09)
[2021-02-19] MEDS: Finasteride 5 MG TAB PO (07:53)
[2021-02-19] MEDS: Metoprolol CR 25 MG TABCR PO ×2 (07:53→20:08)
[2021-02-19] MEDS: Fluconazole 100 MG TAB 200 MG PO (07:56)
[2021-02-19] MEDS: Aspirin E.C. 81 MG TABEC PO (08:38)
--- NOTE | 2021-02-19 09:38 | SPP_ITS ---
Date of service: 02/19/21 Time of Service: 09:30 Objective/Assessment/Plan Assessment EQUIPMENT SCHEDULER consult with nursing. Pt reported to be managing soft/bite sized diet with no s/s dysphagia. Pt feeding himself with some assist. Pt reported to be managing thin liquids without difficulty. Plan Plan: Continue with current diet and swallow recommendations. EQUIPMENT SCHEDULER will resume treatment if needed Wednesday. Coding
--- NOTE | 2021-02-19 09:38 | W.SPSTP ---
Date of service: 02/19/21 Time of Service: 09:30 Objective/Assessment/Plan Assessment SAFETY DEPOSIT CLERK consult with nursing. Pt reported to be managing soft/bite sized diet with no s/s dysphagia. Pt feeding himself with some assist. Pt reported to be managing thin liquids without difficulty. Plan Plan: Continue with current diet and swallow recommendations. SAFETY DEPOSIT CLERK will resume treatment if needed Wednesday. Coding
--- NOTE | 2021-02-19 10:22 | OT.INTREAT ---
Date of service: 02/19/21 Time of Service: 10: Occupational Therapy Notes Occupational Therapy Inpatient Treatment Note Date: 02/19/21 PRECAUTIONS: Fall, standard, DNR/DNI SUBJECTIVE: Pt states that OBJECTIVE: PAIN:c/o pain in various spots throughout the body rating a 4/10 Manual Therapy [id number]: OT performed PROM to pts digits into extension with low load long duration holds. OT performed progressive extension with passive (A) with distal digits with towel to prevent further contractures from occurring. OT worked on functional grasp and release to (R) UE with and education in extension of digits (I). (L) UE can achieve increased ROM but limited. Chronic contractures is the biggest limiting factor in pts functional (I) at this time. OT will continue to work with pt on digit extension and functional use of his (B) UE. TREATMENT CODES/TIME: [id number], 30 minutes Veronique Almaguer, OTR/L [facility]
--- NOTE | 2021-02-19 10:30 | CMPROGNOTE_ITS ---
- If Service Date Differs Date of service: 02/19/21 Time of Service: 10:30 Care Management Progress Note S/O: Denton was sitting in his chair when CM met with him. He was working with PT. He shared that he is willing to go to the [facility] for SNF. CM faxed referral and spoke with Shikha from the [facility]. They are able to admit him tomorrow afternoon. Covid test ordered, CM contacted patients son. Yesterday, Cristofer shared with CM that he will not be providing Denton's transportation when he is discharged, as he does not feel that Denton is safe to be at home. This has been an ongoing concern for Cristofer and he shares that he's done all he can do. Denton has caregivers two days per week, and he is having a hard time finding anyone to help the other days of the week. Cristofer discussed this with Denton last night and Denton agreed to go to the [facility] for SNF. Per Rosario Gongora, Denton's LTM is still pending but they have the financial paperwork that they needed. A: 75 year old male admitted to [facility] on 02/16/21 for Weakness, Tinea Infection P: Anticipate, Ed will discharge to [facility] for SNF tomorrow via EMS. Denton continues to await [facility] Medicaid processing; which is delaying increased service supports in his home. CM will continue to follow and support discharge planning needs.
--- NOTE | 2021-02-19 10:39 | W.PM.PROGNOT ---
Date of Service Date of service: 02/19/21 Time of Service: 10:39 Assessment and Plan Assessment and plan (1) UTI (urinary tract infection): Status: Acute Assessment and plan: No wbc, though he was symptomatic, with urgency and frequency. Placed on cefpodoxime, 200 mg BID. He does have a CRP of 12 Lactate normal. Afebrile. BC pending, urine cx pending. Qualifiers: Hematuria presence: with hematuria Urinary tract infection type: acute cystitis Qualified Code(s): N30.01 - Acute cystitis with hematuria (2) Cellulitis: Status: Suspected Assessment and plan: Does not appear to be cellulitis. Low suspicision however with CRP. Appears to be more skin break down from sitting in urine in wheelchair and not getting up or out of bed. continue Cefpodoxime, diflucan trend CRP, Qualifiers: Site of cellulitis: trunk Site of cellulitis of trunk: abdominal wall Qualified Code(s): L03.311 - Cellulitis of abdominal wall (3) Weakness: Status: Acute Assessment and plan: Last admission, SNIF was recommend patient refused. He failed outpatient He would benefit from SNIF. PT, OT and palliative consulted (4) Adult failure to thrive: Status: Acute Assessment and plan: as above (5) Skin breakdown: Status: Acute Assessment and plan: yanira xie compund: clotriazole, zinc, vitamin a wound care consult with recommendations for left hand pressure wound, arterial ulcer left medial malleolus, and yeast infection pannus (6) Anemia: Status: Chronic Assessment and plan: iron deficient anemia. will add supplementation Qualifiers: Anemia type: unspecified type Qualified Code(s): D64.9 - Anemia, unspecified (7) Essential hypertension: Status: Chronic Assessment and plan: Will continue metoprolol (8) Gastroesophageal reflux disease: Status: Chronic Assessment and plan: Continue protonix Qualifiers: Esophagitis presence: esophagitis presence not specified Qualified Code(s): K21.9 - Gastro-esophageal reflux disease without esophagitis (9) Restless leg syndrome, uncontrolled: Status: Chronic Assessment and plan: continue pramipexole (10) DVT prophylaxis: Status: Acute Assessment and plan: heparin subcut (11) Discharge planning issues: Status: Acute Assessment and plan: Will have PT evaluate he would benefit from SNIF discussed with Dr. Barnes Subjective Subjective Patient reports: no new complaints, tolerating liquids well, tolerating a regular diet and afebrile; denies shortness of breath Exam Const General: cooperative, comfortable, no acute distress, frail appearing and ill appearing (older than stated age) chronically Nutritional Appearance: obese Orientation: alert, awake and oriented x3 Eyes Eyelids: eyelids normal Pupils: PERRL EOM: EOM intact bilaterally Neck Neck: normal visual inspection and no JVD Lymphatic: no lymphadenopathy noted Resp Effort & Inspection: normal respiratory effort Auscultation: clear to auscultation bilaterally Cardio Jugular venous pressure: no JVD Rhythm: regular rhythm Heart Sounds: S1 normal GI Auscultation: normal bowel sounds General: No CVA tenderness and deferred Skin General skin exam: rashes and/or lesions noted and erythema (groin, abd, penile area.) Neuro General: patient alert, patient awake and patient oriented x3 Cognition: normal cognition Speech: speech normal Gait: normal gait Extrem General: normal to inspection and abnormal ROM Right upper extremity: hand Details: abnormal ROM of finger Details: unable to extend (to fully extend) Location: of all digits Left upper extremity: hand Details: abnormal ROM of finger Details: unable to extend (contractures with injury to palm from the pressure) Location: of all digits Left lower extremity: ankle (medial malleolus arterial ulcer. mild erythema surrounding. see wound care ) Objective Last Vital Signs Temp 36.0 C L 02/19/21 07:52 Pulse 92 H 02/19/21 03:39 Resp 18 02/19/21 07:52 BP 152/72 H 02/19/21 07:52 Pulse Ox 92 02/19/21 07:52 PAWSS Have you Been Recently Intoxicated or Drunk Within the Last 30 days?: No Have you Ever Experienced Previous Episodes of Alcohol Withdrawal?: No Have you ever Experienced Withdrawal Seizures?: No Have you ever Experienced Delirium Tremens(DT)s?: No Have you ever undergone Alcohol Rehabilitation Treatment (i.e, inpt ot outpatient treatment programs)?: No Result: 0
--- NOTE | 2021-02-19 12:02 | RESPIRATORY ---
RECIEVED PT ON ROOM AIR SATURATION 93%. PT STABLE AWAKE AND ALERT WITH NO ACUTE RESPIRATORY DISTRESS NOTED.
[2021-02-19] MEDS: Normal Saline Flush 10 ML SYR IVP ×2 (17:05→18:28)
[2021-02-19] MEDS: cefTRIAXone 1 GM/50 ML BAG IVPB (17:05)
[2021-02-19] MEDS: Pramipexole 0.25 MG TAB PO (21:56)
[2021-02-20] MEDS: Heparin 5,000 UNITS/ML VIAL 5000 UNITS SC ×2 (01:25→09:01)
[2021-02-20 03:40] VITALS: BP 159/79; PULSE 91; RESP 18; TEMP 36.2; O2SAT 99
[2021-02-20 03:42] VITALS: PULSE 77
[2021-02-20 06:36] VITALS: BP 163/90; PULSE 92; RESP 17; TEMP 36.4; O2SAT 96
[2021-02-20 06:49] LABS: HCT 35.2 % (40.0-50.0); HGB 11.4 g/dL (13.5-17.5); MCH 32.3 pg (27.0-33.0); MCHC 32.4 % (32.0-36.0); MCV 99.7 fL (80-95); MPV 10.7 fL (8.0-11.0); Platelet Count 238 10^3/uL (130-400); RBC 3.53 10^6/uL (4.36-5.78); RDW 14.4 % (11.8-14.1); RDW-SD 52.6 fL; WBC 5.96 10^3/uL (4.4-10.8)
[2021-02-20 07:01] LABS: Source Nasal/Nares
[2021-02-20 07:39] LABS: COVID-19 PCR Negative (Negative)
[2021-02-20] MEDS: Finasteride 5 MG TAB PO (07:59)
[2021-02-20] MEDS: Pantoprazole 40 MG TABCR PO (07:59)
[2021-02-20] MEDS: Magnesium Gluconate 500 MG TAB PO (07:59)
[2021-02-20] MEDS: Allopurinol 300 MG TAB PO (07:59)
[2021-02-20] MEDS: Metoprolol CR 100 MG TABCR PO (07:59)
[2021-02-20] MEDS: Furosemide 20 MG TAB PO (07:59)
[2021-02-20] MEDS: Aspirin E.C. 81 MG TABEC PO (07:59)
[2021-02-20] MEDS: Fluconazole 100 MG TAB 200 MG PO (07:59)
[2021-02-20] MEDS: Cetirizine 10 MG TAB PO (07:59)
[2021-02-20] MEDS: Tamsulosin 0.4 MG CAPCR 0.8 MG PO (07:59)
[2021-02-20] MEDS: Metoprolol CR 25 MG TABCR PO (08:00)
[2021-02-20] MEDS: Losartan 25 MG TAB PO (08:00)
[2021-02-20] MEDS: Ferrous Sulfate 325 MG TAB PO (08:00)
--- NOTE | 2021-02-20 08:14 | OTTR_ITS ---
Date of service: 02/20/21 Time of Service: 07:50 Occupational Therapy Notes Occupational Therapy Inpatient Treatment Note Date: 02/20/21 PRECAUTIONS: Fall, standard, DNR/DNI SUBJECTIVE: Pt states that he is doing well, he would like to go home but states that he knows that going to the [facility] will be helpful. OBJECTIVE: PAIN: no c/o pain Manual Therapy [id number]: OT performed PROM to pts digits into extension with low load long duration holds. OT performed progressive extension with passive (A) with distal digits with towel to prevent further contractures from occurring as pts contractures are starting to cause wounds on the inside of his palm due to pressure from pts digits/fingernails. OT worked on functional grasp and release to (R) UE with and education in extension of digits (I). (L) UE can achieve increased ROM but not full extension still at this time. His extension for (L) digits is significantly better. Chronic contractures is the biggest limiting factor in pts functional (I) at this time. OT will continue to work with pt on digit extension and functional use of his (B) UE. TREATMENT CODES/TIME: [id number], 15 minutes Veronique Almaguer OTR/L [facility]
--- NOTE | 2021-02-20 08:47 | CMDISCH_ITS ---
LACE Index Scoring Tool - Questions: Length of Stay (in days): 4 - 6 Acuity (Admit via E.D.?): Yes Comorbidities: Liver or Renal Disease E.D. Visits: 6 - Answers: Total Score: 16 Risk of Readmission: High Risk Care Management Discharge Reason for Hospitalization: Weakness, tinea infection Discharge Plan: Ed will discharge to [facility] for SNF rehab post hospitialization. He continues to await Care Home Medicaid processing; which is delaying increased service supports in his home. He will transport via [employer] W/C van coordinated by this designer/writer. Patient/Family Education Needs: Review discharge instructions, discuss Ask Me Three. Services Needed at Discharge: Group Home Facility ([facility] ), Transportation ([facility] )
[2021-02-20 09:11] VITALS: PULSE 82
--- NOTE | 2021-02-20 10:26 | W.PM.DS.N ---
Date of service: 02/20/21 Time of Service: 10:27 DS: Diagnosis Discharge Diagnosis (1) UTI (urinary tract infection): Status: Acute (2) Cellulitis: Status: Suspected (3) Weakness: Status: Acute (4) Adult failure to thrive: Status: Acute (5) Skin breakdown: Status: Acute (6) Anemia: Status: Chronic (7) Essential hypertension: Status: Chronic (8) Gastroesophageal reflux disease: Status: Chronic (9) Restless leg syndrome, uncontrolled: Status: Chronic Discharge Plan Disposition Patient Disposition: SNF (LEVEL 1) [facility] Condition: Fair Discharge Details Reason For Visit: Weakness, Tinea Infection Admit Date/Time: 02/16/21 16:00 Admit Provider: Dann Tucker Attending Provider: Dann Tucker Primary Care Provider: Brady Kate Hospital Course Hospital Course: This is a chronically ill, frail elder gentleman who presented to the ED with generalized weakness and failure to thrive at home. He was discharged earlier in January with suspicion that he would not succeed but he was adamant about not going to rehab facility. Despite services at home, he is unable to safely remain there. On admission he was found to have extensive rash to groin and pannus, he was started on antifungals and a cephalosporin to cover possible bacterial infection. His cultures remained negative and he remained medically stable and improved with current treatment and personal hygiene. He was seen by wound care with treatment recommendations. He was seen by speech for consult for concern of swallowing difficulty with history of laryngeal cancer. He declined any further work up regarding this. He was seen by palliative as well. speech recommendations were for soft and bite sized food with thin liquids which he was tolerating well. He was feeding himself with some assist. He was seen by physical therapy and was slowly progressing but not safe enough for discharge to home. He has agreed to discharge to the [facility]. discharge discussed with DR Barnes. Home Meds and New Rx's Prescriptions: New zinc oxide 20 % Ointment 60 g topical TID & HS Qty: 0 RF: 0 clotrimazole 1 % Cream 60 g topical TID & HS Qty: 0 RF: 0 vits A and D-white pet-lanolin Ointment 60 g topical TID & HS Qty: 0 RF: 0 Continued losartan 25 mg tablet 25 mg PO DAILY Qty: 90 RF: 4 magnesium gluconate 27 mg magnesium (500 mg) tablet 500 mg PO BID Qty: 180 RF: 4 metoprolol succinate 25 mg tablet extended release 24 hr 25 mg PO BID Qty: 180 RF: 12 metoprolol succinate 100 mg tablet extended release 24 hr 100 mg PO BID Qty: 180 RF: 12 pantoprazole 40 mg tablet,delayed release (DR/EC) 40 mg PO DAILY Qty: 90 RF: 4 tamsulosin 0.4 mg capsule 0.8 mg PO DAILY Qty: 180 RF: 6 pramipexole [Mirapex] 0.25 mg tablet 0.25 mg PO HS Qty: 90 RF: 4 allopurinol [Zyloprim] 300 mg tablet 300 mg PO DAILY Qty: 90 RF: 4 aspirin [Yolo Aspirin] 81 mg tablet,delayed release (DR/EC) 81 mg PO DAILY Qty: 90 RF: 1 Allergy Relief (cetirizine) 10 mg capsule 10 mg PO DAILY Qty: 90 RF: 4 finasteride 5 mg tablet 5 mg PO DAILY Qty: 90 RF: 4 B12 Active 1,000 mcg tablet,chewable 1,000 mcg PO DAILY Qty: 90 RF: 4 furosemide 20 mg tablet 20 mg PO DAILY Qty: 30 RF: 2 acetaminophen [Tylenol] 325 mg Tablet 650 mg PO Q6H PRN PRNQty: 0 RF: 0 Discharge Instructions Instructions: Skin Yeast Infection (ED), Contracture (GEN) Additional Instructions: Sacral Mepilex- Change every 1-3 days and PRN. compound cream to pannus and groins, all affected areas, BID and prn Left medial ankle. Cleanse with Equous wound water filter cleaner and Debrisoft sponge. Pat Dry. Apply Anasept gel to the base of the wound. Cover with Mepilex Border. Change every 5 days or PRN. Left Palm. Cleanse with Equous spray and gauze, pat dry. Apply compound cream to the area of fungal rash around the wound Cover with Mepilex border. Put small roll of kerlex between fingers and palm to relieve the contracture. change daily or PRN. Speech Recommendations: RISK MANAGEMENT: Oral hygiene q4h/every 4 hours and before/after PO intake using friction with toothbrush or sponge on all oral structures as tolerated HOB upright as tolerated; upright for all PO intake. Encourage physical mobility as tolerated. Level of Assistance/Supervision: 1:1 close supervision and caregiver assist for all PO intake PO intake only when awake/alert Strategies/Adaptations/Assistive Equipment: Reduce auditory and/or visual distractions when eating Provide verbal and/or visual cues to use recommended strategies Small sips and bites when eating Slow rate of intake Small+frequent meals throughout day Posture/Positioning Needs: Maintain upright position at least 30 minutes after meals, Avoid meals/snacks 2-3 hours prior to reclining/sleeping, Sleep with head of bed elevated to reduce likelihood of nocturnal reflux Activity:: Activity as Tolerated Equipment/Supplies:: No Equipment Needed Diet:: As Tolerated Discharge Orders Discharge Orders: Discharge Order (Routine); Ordered 02/20/21 Ordered By: Katherine Worthy DS: Summary Time Spent with Patient providing and/or coordinating discharge services: Greater than 30 minutes Status at Discharge Functional status at discharge: uses cane/walker Overall status at discharge: patient is not back to baseline Mental Status: mental status grossly normal Speech and Movement: other Mood: congruent mood Affect: normal affect Exam Const General: cooperative, comfortable, no acute distress, frail appearing and ill appearing (older than stated age) chronically Nutritional Appearance: obese Orientation: alert, awake and oriented x3 Eyes Eyelids: eyelids normal Pupils: PERRL EOM: EOM intact bilaterally Neck Neck: normal visual inspection and no JVD Lymphatic: no lymphadenopathy noted Resp Effort & Inspection: normal respiratory effort Auscultation: clear to auscultation bilaterally Cardio Jugular venous pressure: no JVD Rhythm: regular rhythm Heart Sounds: S1 normal GI Auscultation: normal bowel sounds General: No CVA tenderness and deferred Skin General skin exam: rashes and/or lesions noted and erythema (groin, abd, penile area.) Neuro General: patient alert, patient awake and patient oriented x3 Cognition: normal cognition Speech: speech normal Gait: normal gait Extrem General: normal to inspection and abnormal ROM Right upper extremity: hand Details: abnormal ROM of finger Details: unable to extend (to fully extend) Location: of all digits Left upper extremity: hand Details: abnormal ROM of finger Details: unable to extend (contractures with injury to palm from the pressure) Location: of all digits Left lower extremity: ankle (medial malleolus arterial ulcer. mild erythema surrounding. see wound care ) Psych Mental Status: mental status grossly normal Speech and Movement: other Mood: congruent mood Affect: normal affect DS: Data Vitals/I&O Vitals and I&O: Vital Signs Temperature 36.4 C L 02/20/21 06:36 Temperature Source Skin 02/20/21 06:36 Pulse 82 02/20/21 09:11 Pulse Rhythm Irregular 02/20/21 02:42 Pulse 66 02/16/21 16:32 Respiratory Rate 17 02/20/21 06:36 Respiratory Effort Non-Labored 02/20/21 02:42 Respiratory Depth Normal 02/20/21 02:42 Respiratory Pattern Normal 02/20/21 02:42 Blood Pressure 163/90 H 02/20/21 06:36 Blood Pressure Mean 106 02/16/21 16:31 Blood Pressure Position Supine 02/16/21 13:04 Pulse Oximetry 96 02/20/21 06:36 Oxygen Delivery Method Room Air 02/20/21 06:36 Oxygen Flow Rate 0 02/20/21 06:36 Pain Level 0 02/20/21 03:40 Comment 02/19/21 23:49 Intake & Output 02/19/21 02/19/21 02/20/21 11:59 23:59 11:59 Intake Total 480 / 675 195 / 675 420 / 420 Output Total 300 / 800 500 / 800 550 / 550 Balance 180 / -125 -305 / -125 -130 / -130 Weight 75.6 kg 76 kg Intake: Oral 480 / 675 195 / 675 420 / 420 Output: Urine 300 / 800 500 / 800 550 / 550 Other: Urine Color Straw Yellow Yellow Urine Appearance Clear Clear Clear Urine Odor Normal Normal Voiding Methods Urinal Urinal Data Completed and Pending Labs on day of discharge: Labs from last 24 hours 02/20/21 02/20/21 06:30 06:15 WBC 5.96 RBC 3.53 L Hgb 11.4 L Hct 35.2 L MCV 99.7 H MCH 32.3 MCHC 32.4 RDW 14.4 H Plt Count 238 MPV 10.7 COVID-19 Source Nasal/Nares SARS-CoV-2 (PCR) Negative Preliminary micro results at discharge 02/16/21 15:40 Blood Culture - Preliminary Blood NO GROWTH 72 HOURS 02/16/21 15:30 Blood Culture - Preliminary Blood NO GROWTH 72 HOURS PFSH All Active Problems (Updated 02/18/21 @ 20:04 by Precious Rodriguez MD) Encounter for assessment of healthcare decision-making capacity (Acute) PRELIMINARY VISIT 02/18/21 NEEDS FULL CAPACITY EVAL Self neglect (Acute) Flexion contractures (Acute) both hands, all fingers, thumbs somewhat spared Frequent falls (Acute) Goals of care, counseling/discussion (Acute) Palliative care patient (Acute) DVT prophylaxis (Acute) Anemia (Chronic) UTI (urinary tract infection) (Acute) Discharge planning issues (Acute) Weakness (Acute) Adult failure to thrive (Acute) Skin breakdown (Acute) Essential hypertension (Chronic 11/16/12) Gastroesophageal reflux disease (Chronic) Restless leg syndrome, uncontrolled (Chronic) Medical History (Updated 02/18/21 @ 20:04 by Precious Rodriguez MD) Acute dehydration Adjustment disorder REYNA (acute kidney injury) Alcohol intake above recommended sensible limits 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) left great [place] transmetatarsal [place] 05[place]02-2017 [place] [facility] [place] site with large necrotic/scabbed area: tx above knee amputation but pt declines - fup with wound care until pt decides to proceed (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) Benign prostatic hyperplasia with lower urinary tract symptoms PSA: 1.5 in Cervical myelopathy Chronic back pain moderate to severe lumbar pain; status post neck surgery 20 years ago Chronic kidney disease Critical lower limb ischemia RIGHT [facility] [place]/ status post right iliofemoral endarterectomy and patch angioplasty/right EIA stenting/ stent graft to distal SFA and popliteal/ COMPLICATED BY INFECTION: # debridements - w LEFT ILIOFEMORAL ENDATERECTOMY WITH LEFT EXTERNAL ILIAC STENT - [facility] [place] Depression DNR (do not resuscitate) Elevated brain natriuretic peptide (BNP) level Elevated troponin Fall Gout Hyperlipidemia Hypokalemia Hypomagnesemia Hypomagnesemia (01/01/15) Hypomagnesemia (01/01/15) Hyponatremia (09/06/13) serum electrophoresis normal 2009/ cortisol level normal: 2009 Hyponatremia Lives alone without help available Osteomyelitis of right lower extremity 08/13/15- GREAT RIGHT TOE S/P AMPUTAION Osteomyelitis of toe Palliative care encounter Paroxysmal atrial fibrillation ADONIS score: 1/ on asa Peripheral vascular disease critical lower limb ischemia [place] [facility] [place] Physician orders for life-sustaining treatment (POLST) form indicates patient wish for [id number] status 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 Daughter Parent-child estrangement nec Daughter Parent-child estrangement nec Social History Smoking/Tobacco Use Status: Former Tobacco Use Tobacco: How many years used: 50 Smoking risk assessment performed?: Yes Alcohol Intake: current Alcohol Intake frequency: 0-2 drinks per day Alcohol type: beer Drug use: Never Details: pt states that he had 1 beer yesterday Caregiver/Support person: No (son Cristofer is named as caregiver, but not easy to reach) Household members: none Housing: house Number of Children: 3 Communication Needs: Hard of Hearing and Corrective Lenses Education Level: high school Do you need help understanding health information?: Always 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 Current gender identity: male What is your relationship status?: How often do you talk on the phone with friends or family?: once per week How often do you get together with friends or relatives?: never Panel score (0-1 are the most socially isolated patients): 0 What type of physical activity do you participate in: assisted ambulation Duration: < 15 minutes/day Frequency: daily Special annemarie needs: No Seatbelt use: sometimes Working smoke detector in home: Yes Fire extinguisher in home: Yes Do you feel safe at home: Yes Do you feel safe in your relationship?: Yes Additional Social history: [place] recently had a trial of living alone at home after 20 days at a SNF. Within a week, he fell and could not get up. [facility] came to his house to give him a lift assist, but when they saw how weak he was, how he could not stand on his own, (he was a 3 person assist in the ER), they took him to the hospital instead of returning him to his bed as requested. He is adamantly opposed to returning to a SNF after this admission. He is somewhat opposed to a community correction. Working on safe discharge plan.
[2021-02-20 11:23] VITALS: BP 154/91; PULSE 97; RESP 16; TEMP 36.1; O2SAT 96
--- NOTE | 2021-02-21 09:23 | PT.INDS ---
Date of service: 02/21/21 Time of Service: 10:43 PT Notes Visit Reasons: Weakness, Tinea Infection Physical Therapy Inpatient Initial Evaluation Date: 02/21/2021 Dates of Service: 02/17/2021 through 02/19/2021 This is a clinical summary of care provided for the duration of dates listed above. No charge was made in the completion of this documentation. Referring Doctor: Tory Negro NP PT Orders: PT CONSULT: Eval/Treat Precautions: Fall. Standard. Activity as tolerated. SAMISH. Patient Profile/Admitting Diagnosis: Denton is a 75-year-old male who presented to the ED on 02/16/2021 due to difficulty with speaking, generalized weakness, chills, and cough. Patient is diagnosed with urinary tract infection, suspected cellulitis, weakness, failure to thrive, and skin breakdown. PMHX: All Active Problems Chronic kidney disease (Chronic) Hyponatremia (Acute) Adjustment disorder (Chronic) Suicidal thoughts (Acute) UTI (urinary tract infection) (Acute) Depression (Chronic) Cervical myelopathy (Acute) Flexion contractures (Chronic) Ptosis of both upper eyelids (Acute) Frequent falls (Acute) Palliative care patient (Acute) Discharge planning issues (Acute) Hypomagnesemia (Acute) Physician orders for life-sustaining treatment (POLST) form indicates patient wish for [id number] status (Acute) DNR (do not resuscitate) (Acute) Palliative care encounter (Acute) Elevated troponin (Acute) Weakness (Acute) Fall (Acute) Elevated brain natriuretic peptide (BNP) level (Acute) Adult failure to thrive (Acute) Skin breakdown (Acute) Skin yeast infection (Acute) REYNA (acute kidney injury) (Acute) Acute dehydration (Acute) Alcohol intake above recommended sensible limits (Acute) Benign prostatic hyperplasia with lower urinary tract symptoms (Acute) Essential hypertension (Acute 11/16/12) Gastroesophageal reflux disease (Acute) Gout (Acute) Hyperlipidemia (Acute) Paroxysmal atrial fibrillation (Acute) 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) Restless leg syndrome, uncontrolled (Acute) Vitamin D deficiency (Acute 09/06/13) History of surgical procedure (Acute) Chronic back pain (Acute) Medical History 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) left great toe transmetatarsal [place] 05-02-2017 [place] [facility] [place] with large necrotic/scabbed area: tx above knee amputation but pt declines - fup with wound care until pt decides to proceed ( - 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 E BUSINESS CONSULTANT) Critical lower limb ischemia RIGHT [facility] [place]AUNA Parsons/ status post right iliofemoral endarterectomy and patch angioplasty/right EIA stenting/ stent graft to distal SFA and popliteal/ COMPLICATED BY INFECTION: # debridements - w LEFT ILIOFEMORAL [place]ATERECTOMY [place] [facility] [place]alemia Hypomagnesemia (01/01/15) Hypomagnesemia (01/01/15) Hyponatremia (09/06/13) serum electrophoresis normal 2009/ cortisol level normal: 2009 Osteomyelitis of right lower extremity 08/13/15- GREAT RIGHT TOE S/P AMPUTAION Osteomyelitis of toe Peripheral vascular disease critical lower limb ischemia [place] [facility] [place] Sciatica Weakness Surgical History Amputation 08/13/15-GREAT RIGHT TOE Status post amputation of great toe (08/13/15) (post osteomyelitis) Social History/Home Situation: Lives alone in a private home. Has been receiving support from family and home health personnel. States that he has two HH aide who comes in and helps him with anything he needs. Equipment Owned/DME: Front-wheeled walker, wheelchair Subjective: NT. See most recent CHEMICAL TEST ENGINEER notes. Objective: General Observation: NT. See most recent CHEMICAL TEST ENGINEER notes. Mental Status: NT. See most recent CHEMICAL TEST ENGINEER notes. Pain: NT. See most recent CHEMICAL TEST ENGINEER notes. ROM: Right Upper Extremity: Unable to flex at the shoulder beyond 90 degrees with empty end feel. Unable to abduct beyond 80 degrees due to discomfort. Elbows flexion WFL. Elbow extension WFL. Wrist flexion about 10 degrees. Wrist extension 10 degrees. Fixed wrist flexion contracture in the IP joints. Left Upper Extremity: Unable to flex at the shoulder beyond 80 degrees with empty end feel. Unable to abduct beyond 60 degrees due to discomfort. Elbows flexion WFL. Elbow extension WFL. Wrist flexion about 20 degrees. Finger flexion Right Lower Extremity: Hip flexion lacking the last 45 degrees. Hip abduction limited to 10 degrees. Knee flexion WFL. Knee extension. Ankle dorsiflexion/eversion to neutral only. Ankle plantarflexion/inversion WFL. Left Lower Extremity: Hip flexion lacking the last 45 degrees. Hip abduction limited to 10 degrees. Knee flexion WFL. Knee extension. Ankle dorsiflexion/eversion to neutral only. Ankle plantarflexion/inversion WFL. Strength: Right Upper Extremity: Shoulder flexors 3-/5. Shoulder abductors 3-/5. Shoulder ER 3-/5. Elbow flexors 4-/5. Elbow extensors 4-/5. Offender Job Retention Specialist weakn but functional. Left Upper Extremity: Shoulder flexors 3-/5. Shoulder abductors 3-/5. Shoulder ER 3-/5. Elbow flexors 4-/5. Elbow extensors 4-/5. Offender Job Retention Specialist absent. Right Lower Extremity: Hip flexors 2-/5. Hip abductors 2-/5. Hip external rotators 2-/5. Knee flexors 2-/5. Knee extensors 2-/5. Ankle dorsiflexors/evertors 2-/5. Ankle plantarflexors/invertors 2-/5. Left Lower Extremity: Hip flexors 2-/5. Hip abductors 2-/5. Hip external rotators 2-/5. Knee flexors 2-/5. Knee extensors 2-/5. Ankle dorsiflexors/evertors 2-/5. Ankle plantarflexors/invertors 2-/5. Bed Mobility/Transfers: Sit to stand contact guard assist Stand to sit contact guard assist Bed to chair contact guard assist Gait: Up to 20 steps using FWW with contact guard assist. Steps continues to be unsteady and shaky. Balance: Static Sitting: Normal Dynamic Sitting: Good Static Standing: Fair Dynamic Standing: Poor Assessment: Patient demonstrates functional mobility decline requiring the assistance of three people for just sit<>stand transfer all mobility ADL performance and will have increased risk for falls and re-hospitalization if he returns home. Patient presents with instability, generalized weakness, and impairment of motor control as demonstrated by the following impairment level findings: 1. Decreased strength to B UE/LE major muscle groups 2. Impaired sitting/standing balance 3. Impaired activity tolerance 4. Limitation of joint range of motion in B shoulders and B ankles Impairments are continuing to contribute to the following functional limitations: 1. Dependent bed mobility skills 2. Increased dependence with transfers 3. Inability to ambulate 4. Increased completion time for mobility ADL performance 5. Increased fall risk 6. Inability to negotiate steps alone safely 7. Inability to return to prior living environment at this time Goals: Goals X1 week 1. Supine-Sit independent NOT MET 2. Sit-Supine independent NOT MET 3. Sit-Stand independent NOT MET 4. Stand-Sit independent NOT MET 5. Bed-Chair independent NOT MET 6. Chair-Bed independent NOT MET 7. Supervision t gait on level surface with use of least restrictive device for at least 15 feet without report of pain nor dyspnea NOT MET 8. Supervision stair negotiation while holding onto bilateral rails for at least 10 steps without report of pain nor dyspnea NOT MET 9. Fair static and dynamic standing balance/tolerance DISCHARGE RECOMMENDATIONS: [] Home with no services [] [] Home with services [specify] [] Home with outpatient PT [] [X] SNF for continued rehabilitation. Patient will benefit from half-way facility placement for continued skilled physical therapy services in order to progress mobility level, strength, and balance. [] [facility] [] [] SNF versus LTC based on ability to participate and progress [] TREATMENT CODE/TIME: NV Thank you for the opportunity to participate in the care of this patient. Mariann Murray PT, DPT, CLT [facility] [place], [place]
== END 2021-02-20 13:27 | disposition skilled nursing facility (03) | DRG 689 ==
LOC: ER 16:29 → MS 16:59
PROVIDERS: Family Medicine; Internal Medicine; Nurse Practitioner Acute Care; Nurse Practitioner Family; Admitting Provider Internal Medicine; Emergency Provider Physician Assistant; PCP Family Medicine; Visit Provider Internal Medicine
DX: N30.01 Acute cystitis with hematuria (principal); L89.893 Pressure ulcer of other site, stage 3; L03.311 Cellulitis of abdominal wall; L97.321 Non-pressure chronic ulcer of left ankle limited to breakdown of skin; R53.1 Weakness; R62.7 Adult failure to thrive; D64.9 Anemia, unspecified; G25.81 Restless legs syndrome; K21.9 Gastro-esophageal reflux disease without esophagitis; E78.5 Hyperlipidemia, unspecified; N40.1 Benign prostatic hyperplasia with lower urinary tract symptoms; N18.9 Chronic kidney disease, unspecified; I12.9 Hypertensive chronic kidney disease with stage 1 through stage 4 chronic kidney disease, or unspecified chronic kidney disease; G89.29 Other chronic pain; M54.50 Low back pain, unspecified; I48.0 Paroxysmal atrial fibrillation; E55.9 Vitamin D deficiency, unspecified; Z66 Do not resuscitate; R29.6 Repeated falls; Z91.81 History of falling; Z85.21 Personal history of malignant neoplasm of larynx; R21 Rash and other nonspecific skin eruption
CPT/HCPCS: 36415; 70491; 80048; 80053; 84145; 85027; 85652; 87040; 87635; 92610; 93005; 96361; 96365; 96367; 96375; 97110; 97140; 97162; 97167; 97530; 97535; 99285; 71045; 81003; 81015; 82607; 82728; 82746; 83540; 83550; 83605; 84484; 85025; 86140; 87086; 93010; 99223; 99233; 99239; J0131; J0696; J1200; J1644; J2930

== ENCOUNTER 2021-02-24 16:36 | Outpatient (REF) | payer SELFPAY ==
[2021-02-24 17:41] LABS: Abs Immature Grans 0.06 10^3/uL (0.0-0.06); Absolute Basophil Count 0.06 10^3/uL (0.0-0.2); Absolute Eosinophil Count 0.44 10^3/uL (0.0-0.7); Absolute Lymphocyte Count 1.06 10^3/uL (1.2-3.4); Absolute Monocyte Count 0.72 10^3/uL (0.1-0.8); Absolute Neutrophil Count 6.07 10^3/uL (1.2-6.7); Basophils % 0.7; Eosinophils % 5.2; HCT 35.9 % (40.0-50.0); HGB 11.1 g/dL (13.5-17.5); Immature Grans % 0.7; Lymphocytes % 12.6; MCH 32.3 pg (27.0-33.0); MCHC 30.9 % (32.0-36.0); MCV 104.4 fL (80-95); MPV 11.6 fL (8.0-11.0); Monocytes % 8.6; Neutrophils % 72.2; Nucleated RBC 0 %; Platelet Count 263 10^3/uL (130-400); RBC 3.44 10^6/uL (4.36-5.78); RDW 14.7 % (11.8-14.1); RDW-SD 56.2 fL; WBC 8.41 10^3/uL (4.4-10.8)
[2021-02-24 18:11] LABS: Iron 79 ug/dL (65-175)
[2021-02-24 18:29] LABS: Vitamin D 25 Total 61.1 ng/mL (30-100)
[2021-02-24 18:36] LABS: ALT 25 U/L (16-63); AST 22 U/L (15-37); Albumin 3.4 g/dL (3.4-5.0); Alkaline Phosphatase 114 U/L (46-116); Anion Gap 8.1 mmol/L (3-11); BUN 31 mg/dL (7-18); Bilirubin, Total 0.4 mg/dL (0.2-1.0); CO2 26.9 mmol/L (21.0-32.0); CREATININE 1.5 mg/dL (0.70-1.30); Chloride 103 mmol/L (98-107); Estimated GFR 45.75 (mL/min/1.73m2); Ferritin 664 ng/mL (26-388); Folate 4.9 ng/mL (8.6-20.0); Glucose 109 mg/dL (74-106); Magnesium 1.9 mg/dL (1.8-2.4); Potassium 5.1 mmol/L (3.5-5.1); Sodium 138 mmol/L (136-145); TSH (W/Ref FT4) 2.22 uIU/mL (0.36-3.74); Total Protein 6.7 g/dL (6.4-8.2); Vitamin B12 1642 pg/mL (193-986)
== END 2021-02-24 16:37 | disposition home or self-care (01) ==
LOC: LBN 16:36
PROVIDERS: PCP Family Medicine; Visit Provider Nurse Practitioner Gerontology
DX: D64.9 Anemia, unspecified (principal); I10 Essential (primary) hypertension; G95.9 Disease of spinal cord, unspecified; I50.9 Heart failure, unspecified; B96.1 Klebsiella pneumoniae [K. pneumoniae] as the cause of diseases classified elsewhere; E55.9 Vitamin D deficiency, unspecified
CPT/HCPCS: 80053; 82306; 82607; 82728; 82746; 83540; 83735; 84443; 85025

== ENCOUNTER 2021-03-10 16:40 | Outpatient (REF) | payer SELFPAY ==
[2021-03-10 20:01] LABS: Anion Gap 11.9 mmol/L (3-11); BUN 27 mg/dL (7-18); CO2 23.1 mmol/L (21.0-32.0); CREATININE 1.3 mg/dL (0.70-1.30); Calcium 8.8 mg/dL (8.5-10.1); Chloride 104 mmol/L (98-107); Estimated GFR 53.96 (mL/min/1.73m2); Glucose 120 mg/dL (74-106); Potassium 3.8 mmol/L (3.5-5.1); Sodium 139 mmol/L (136-145)
== END 2021-03-10 16:41 | disposition home or self-care (01) ==
LOC: LBN 16:40
PROVIDERS: PCP Family Medicine; Visit Provider Nurse Practitioner Gerontology
DX: J44.9 Chronic obstructive pulmonary disease, unspecified (principal); I73.9 Peripheral vascular disease, unspecified; R53.1 Weakness; M10.9 Gout, unspecified
CPT/HCPCS: 80048

== ENCOUNTER 2021-03-18 17:20 | Outpatient (REF) | payer SELFPAY ==
[2021-03-18 16:31] LABS: Abs Immature Grans 0.02 10^3/uL (0.0-0.06); Absolute Basophil Count 0.02 10^3/uL (0.0-0.2); Absolute Eosinophil Count 0.13 10^3/uL (0.0-0.7); Absolute Lymphocyte Count 0.96 10^3/uL (1.2-3.4); Absolute Monocyte Count 0.58 10^3/uL (0.1-0.8); Absolute Neutrophil Count 5.47 10^3/uL (1.2-6.7); Basophils % 0.3; Eosinophils % 1.8; HCT 34.8 % (40.0-50.0); HGB 10.9 g/dL (13.5-17.5); Immature Grans % 0.3; Lymphocytes % 13.4; MCH 32.6 pg (27.0-33.0); MCHC 31.3 % (32.0-36.0); MCV 104.2 fL (80-95); MPV 11.6 fL (8.0-11.0); Monocytes % 8.1; Neutrophils % 76.1; Nucleated RBC 0 %; Platelet Count 154 10^3/uL (130-400); RBC 3.34 10^6/uL (4.36-5.78); RDW 14.6 % (11.8-14.1); WBC 7.18 10^3/uL (4.4-10.8)
[2021-03-18 16:42] LABS: ALT 25 U/L (16-63); AST 20 U/L (15-37); Albumin 3.2 g/dL (3.4-5.0); Alkaline Phosphatase 116 U/L (46-116); Anion Gap 11.4 mmol/L (3-11); BUN 24 mg/dL (7-18); Bilirubin, Total 0.4 mg/dL (0.2-1.0); C-Reactive Protein 2.62 mg/dL (0.0-0.3); CO2 23.6 mmol/L (21.0-32.0); CREATININE 1.3 mg/dL (0.70-1.30); Calcium 8.5 mg/dL (8.5-10.1); Chloride 107 mmol/L (98-107); Estimated GFR 53.96 (mL/min/1.73m2); Glucose 108 mg/dL (74-106); Potassium 4.2 mmol/L (3.5-5.1); Sodium 142 mmol/L (136-145); Total Protein 6.3 g/dL (6.4-8.2)
[2021-03-18 16:48] LABS: ESR 40 mm/hr (0-20)
[2021-03-19 09:08] LABS: Uric Acid 6.8 mg/dL (3.5-7.2)
== END 2021-03-18 17:21 | disposition home or self-care (01) ==
LOC: LBN 17:20
PROVIDERS: Visit Provider Nurse Practitioner Gerontology
DX: U07.1 COVID-19 (principal); R62.7 Adult failure to thrive; M10.9 Gout, unspecified; L98.499 Non-pressure chronic ulcer of skin of other sites with unspecified severity; I73.89 Other specified peripheral vascular diseases; M62.81 Muscle weakness (generalized); I10 Essential (primary) hypertension; E11.9 Type 2 diabetes mellitus without complications
CPT/HCPCS: 80053; 85652; 84550; 85025; 86140

== ENCOUNTER 2021-03-25 15:10 | Outpatient (REF) | payer SELFPAY ==
[2021-03-25 10:34] LABS: Source Nasal/Nares
[2021-03-25 19:15] LABS: COVID-19 PCR Negative (Negative)
== END 2021-03-25 15:11 | disposition home or self-care (01) ==
LOC: LBN 15:10
PROVIDERS: Podiatrist; PCP Family Medicine; Visit Provider Nurse Practitioner Gerontology
DX: M86.9 Osteomyelitis, unspecified (principal); Z20.822 Contact with and (suspected) exposure to COVID-19; Z01.818 Encounter for other preprocedural examination
CPT/HCPCS: 87635

== ENCOUNTER 2021-03-26 07:11 | Day surgery (SDC) | payer MEDICARE, MEDICAID, SELFPAY ==
--- NOTE | 2021-03-25 18:01 | W.PM.HP.N ---
Date of service: 03/26/21 Time of Service: 09:00 History of Present Illness History of Present Illness Chief Complaint: open joint right 3rd toe/ osteomyelitis Narrative: 75 YO male with an open right third PIPJ. The proximal phalangeal head is sticking out of the wound and is necrotic in appearance. PFSH All Active Problems COVID (Acute) Osteomyelitis (Acute) Medical History Acute dehydration Adjustment disorder Adult failure to thrive REYNA (acute kidney injury) Alcohol intake above recommended sensible limits 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) left great toe transmetatarsal amputation 05-02-2017 by - 05-12-2017 [facility] [place]x.: site with large necrotic/scabbed area: tx above knee amputation but pt declines - fup with wound care until pt decides to proceed ( - 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 FLATWORK FOLDER) Anemia Benign prostatic hyperplasia with lower urinary tract symptoms PSA: 1.5 in Cellulitis Cervical myelopathy Chronic back pain moderate to severe lumbar pain; status post neck surgery 20 years ago Chronic kidney disease COVID-19 02/24/21 asymptomatic per the Ted Critical lower limb ischemia RIGHT [facility] [place]AUNA Parsons/ status post right iliofemoral endarterectomy and patch angioplasty/right EIA stenting/ stent graft to distal SFA and popliteal/ COMPLICATED BY INFECTION: # debridements - w LEFT ILIOFEMORAL [place]ATERECTOMY [place] [facility] [place] DNR (do not resuscitate) Elevated brain natriuretic peptide (BNP) level Elevated troponin Essential hypertension (11/16/12) Fall Flexion contractures both hands, all fingers, thumbs somewhat spared Frequent falls Gastroesophageal reflux disease Gout Hyperlipidemia Hypokalemia Hypomagnesemia Hypomagnesemia (01/01/15) Hypomagnesemia (01/01/15) Hyponatremia (09/06/13) serum electrophoresis normal 2009/ cortisol level normal: 2009 Hyponatremia Osteomyelitis of right lower extremity 08/13/15- GREAT RIGHT TOE S/P AMPUTAION Osteomyelitis of toe Palliative care encounter Palliative care patient Paroxysmal atrial fibrillation ADONIS score: 1/ on asa Peripheral vascular disease critical lower limb ischemia [place] [facility] [place] Physician orders for life-sustaining treatment (POLST) form indicates patient wish for [id number] status 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 Ptosis of both upper eyelids Restless leg syndrome, uncontrolled Sciatica Skin breakdown (L) Mallelous ankle <5cm opening being treated, being treated with aquacell Skin yeast infection Suicidal thoughts UTI (urinary tract infection) Vitamin D deficiency (09/06/13) Weakness Surgical History Amputation 08/13/15-GREAT RIGHT TOE History of surgical procedure Status post amputation of great toe (08/13/15) (post osteomyelitis) Family History Son No problems noted. Daughter Parent-child estrangement nec Daughter Parent-child estrangement nec Social History Smoking/Tobacco Use Status: Former Tobacco Use Tobacco: How many years used: 50 Smoking risk assessment performed?: Yes Alcohol Intake: current Drug use: Never Details: pt states that he had 1 beer yesterday Caregiver/Support person: No (son Cristofer is named as caregiver, but not easy to reach) Household members: none Housing: house Number of Children: 3 Communication Needs: Hard of Hearing and Corrective Lenses Education Level: high school Do you need help understanding health information?: Always 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 Current gender identity: male What is your relationship status?: How often do you talk on the phone with friends or family?: once per week How often do you get together with friends or relatives?: never Panel score (0-1 are the most socially isolated patients): 0 What type of physical activity do you participate in: assisted ambulation Duration: < 15 minutes/day Frequency: daily Special annemarie needs: No Seatbelt use: sometimes Working smoke detector in home: Yes Fire extinguisher in home: Yes Additional Social history: Unable to assess privatley Meds Allergies and Home Medications Allergies Allergy/AdvReac Type Severity Reaction Status Date / Time pravastatin AdvReac Severe MUSCLE Unverified 03/25/21 09:17 PAIN AND WEAKNESS lisinopril AdvReac HYPERKALEMI Unverified 03/25/21 09:17 A Home Medications Medication Instructions Recorded Confirmed Type acetaminophen [Tylenol] 650 mg PO Q6H PRN PRN #0 tab 07/11/20 03/25/21 Rx cetirizine 10 mg capsule 10 mg PO DAILY #90 cap 09/26/20 03/25/21 Rx finasteride 5 mg tablet 5 mg PO DAILY #90 tab 09/26/20 03/25/21 Rx mecobalamin (vitamin B12) 1,000 1,000 mcg PO DAILY #90 tab 09/26/20 03/25/21 Rx mcg chewable tablet losartan 25 mg tablet 25 mg PO DAILY #90 tab 10/17/20 03/25/21 Rx pantoprazole 40 mg tablet,delayed 40 mg PO DAILY #90 tab 10/17/20 03/25/21 Rx release tamsulosin 0.4 mg capsule 0.8 mg PO DAILY #180 tab-cap 10/17/20 03/25/21 Rx clotrimazole 60 g TOPICAL TID & HS #0 g 02/20/21 03/25/21 Rx aspirin 81 mg tablet,delayed 81 mg PO DAILY 03/12/21 03/25/21 History release dextromethorphan-guaifenesin 10 10 ml PO Q4H PRN 03/12/21 03/25/21 History mg-100 mg/5 mL oral syrup furosemide 20 mg tablet 20 mg PO DAILY 03/12/21 03/25/21 History pramipexole 0.25 mg tablet 0.25 mg PO QHS 03/12/21 03/25/21 History sertraline 50 mg tablet 50 mg PO DAILY 03/12/21 03/25/21 History doxycycline hyclate 100 mg tablet 100 mg PO BID #14 tab 03/21/21 03/25/21 Rx Exam Narrative Exam Narrative: Ed is in no acute distress. Looks older than his stated age. Heads normo cephalic hearing is diminished Uvula is midline Heart had RRR, I detected no murmur Lung mcclelland are clear abdomen is soft Feet are warm to the touch. Pulses are diminished. Multiple toes are missing The right 3rd toe is hammered with bone sticking out through the PIPJ level and is dessicated. Local erythema, no cellulites. Impression: Right 3rd hammertoe with open joint, likely osteomyelitis Plan: Ed will be brought to the OR for amputation of the right 3rd toe. He understands the permancey of the procedure and risks of surgery including the potential for ongoing pain, infection, failure to thrive, nerve injury, vascular insufficiency requiring referral and intervention if he fails to thrive. All questions wee answered in detail. Informed consent obtained.
[2021-03-26 07:20] VITALS: BP 114/96; PULSE 105; RESP 16; TEMP 36.7; O2SAT 92
[2021-03-26] MEDS: Lactated Ringers 1,000 ML 80 ML IV (08:10)
--- NOTE | 2021-03-26 08:45 | W.ANESPRE ---
General Info Date of Service Date Performed: 03/26/21 Height: 5 ft 7 in Weight: 74.843 kg Body Mass Index (BMI): 25.8 Surgical Procedure: Operation Date: 03/26/21 09:10 Proposed Procedures Side Surgeon p Toe Amputation Rt 3rd Right Renato Chávez DPM Actual Procedures Side Surgeon p Toe Amputation Rt 3rd Right Renato Chávez DPM Meds Allergies and Home Medications Allergies Allergy/AdvReac Type Severity Reaction Status Date / Time pravastatin AdvReac Severe MUSCLE Unverified 03/26/21 07:36 PAIN AND WEAKNESS lisinopril AdvReac HYPERKALEMI Unverified 03/26/21 07:36 A Home Medication Medication Instructions Recorded acetaminophen [Tylenol] 650 mg PO Q6H PRN PRN #0 tab 07/11/20 cetirizine 10 mg capsule 10 mg PO DAILY #90 cap 09/26/20 finasteride 5 mg tablet 5 mg PO DAILY #90 tab 09/26/20 mecobalamin (vitamin B12) 1,000 1,000 mcg PO DAILY #90 tab 09/26/20 mcg chewable tablet losartan 25 mg tablet 25 mg PO DAILY #90 tab 10/17/20 pantoprazole 40 mg tablet,delayed 40 mg PO DAILY #90 tab 10/17/20 release tamsulosin 0.4 mg capsule 0.8 mg PO DAILY #180 tab-cap 10/17/20 clotrimazole 60 g TOPICAL TID & HS #0 g 02/20/21 aspirin 81 mg tablet,delayed 81 mg PO DAILY 03/12/21 release dextromethorphan-guaifenesin 10 10 ml PO Q4H PRN 03/12/21 mg-100 mg/5 mL oral syrup furosemide 20 mg tablet 20 mg PO DAILY 03/12/21 pramipexole 0.25 mg tablet 0.25 mg PO QHS 03/12/21 sertraline 50 mg tablet 50 mg PO DAILY 03/12/21 doxycycline hyclate 100 mg tablet 100 mg PO BID #14 tab 03/21/21 naproxen 03/26/21 Current Visit Medications: Current Medications Generic Name Dose Route Start Last Admin Trade Name Freq PRN Reason Stop Dose Admin Sodium Chloride 500 mls @ 0 mls/hr 03/26/21 06:00 Saline 500ml Bag IV PRN PRN As Directed Cefazolin Sodium/Dextrose 1 gm in 50 mls @ 100 mls/hr 03/26/21 06:00 Ancef Duplex IVPB 03/26/21 16:00 PREOP LAURI Ringer's Solution 1,000 mls @ 80 mls/hr 03/26/21 06:00 03/26/21 08:10 IV 04/14/21 23:59 80 mls/hr INFUSION LAURI Administration IV Miscellaneous Supplies 1 each 03/26/21 06:00 Iv Access IV 04/14/21 23:59 DIRECTED LAURI Sodium Chloride 0 ml 03/26/21 06:00 Normal Saline Flush 10 Ml Syr IV 04/14/21 23:59 PRN PRN Sodium Chloride 0 ml 03/26/21 06:00 Normal Saline 10 Ml Vial IJ 04/14/21 23:59 DIRECTED PRN Sterile Water 0 ml 03/26/21 06:00 Water,Injection,Sterile 10 Ml Vial IJ 04/14/21 23:59 DIRECTED PRN PFSH Active Problems Active Problems: Problem Status Onset Code COVID U07.1 Osteomyelitis M86.9 Medical History Medical History Acute dehydration Adjustment disorder Adult failure to thrive REYNA (acute kidney injury) Alcohol intake above recommended sensible limits 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) left great toe transmetatarsal amputation 05-02-2017 by - 05-12-2017 [facility] [place] [facility] [place]asc.Sx.: site with large necrotic/scabbed area: tx above knee amputation but pt declines - fup with wound care until pt decides to proceed (Dr.Goodney Cisco Chiang [employer] DE[employer]PER[employer]) Anemia Benign prostatic hyperplasia with lower urinary tract symptoms PSA: 1.5 in Cellulitis Cervical myelopathy Chronic back pain moderate to severe lumbar pain; status post neck surgery 20 years ago Chronic kidney disease COVID-19 02/24/21 asymptomatic per the [place] Critical lower limb ischemia RIGHT [facility] [place] SHAUNA Parsons/ status post right iliofemoral endarterectomy and patch angioplasty/right EIA stenting/ stent graft to distal SFA and popliteal/ COMPLICATED BY INFECTION: # debridements - w LEFT ILIOFEMORAL ENDATERECTOMY WITH LEFT EXTERNAL ILIAC STENT - dhmc Depression DNR (do not resuscitate) Elevated brain natriuretic peptide (BNP) level Elevated troponin Essential hypertension (11/16/12) Fall Flexion contractures both hands, all fingers, thumbs somewhat spared Frequent falls Gastroesophageal reflux disease Gout Hyperlipidemia Hypokalemia Hypomagnesemia Hypomagnesemia (01/01/15) Hypomagnesemia (01/01/15) Hyponatremia (09/06/13) serum electrophoresis normal 2010/ cortisol level normal: 2009 Hyponatremia Osteomyelitis of right lower extremity 08/13/15- GREAT RIGHT TOE S/P AMPUTAION Osteomyelitis of toe Palliative care encounter Palliative care patient Paroxysmal atrial fibrillation ADONIS score: 1/ on asa Peripheral vascular disease critical lower limb ischemia - [facility] [place]- Physician orders for life-sustaining treatment (POLST) form indicates patient wish for ex-qad-[id number] status 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 Ptosis of both upper eyelids Restless leg syndrome, uncontrolled Sciatica Skin breakdown (L) Mallelous ankle <5cm opening being treated, being treated with aquacell Skin yeast infection Suicidal thoughts UTI (urinary tract infection) Vitamin D deficiency (09/06/13) Weakness Surgical History Surgical History (Updated 03/26/21 @ 07:36 by Sol Patrick RN) Amputation 08/13/15-GREAT RIGHT TOE History of surgical procedure S/P cervical spinal fusion Status post amputation of great toe (08/13/15) (post osteomyelitis) Tobacco Smoking/Tobacco Use Status: Former Tobacco Use Tobacco: How many years used: 50 Alcohol Alcohol Intake: former Substance Use Substance use: Never Substance use type: does not use Details: no alcohol use currently Vital Signs and Lab Results Vital Signs Most Recent Vital Signs in EMR: Most Recent Vital Signs Temp Pulse Resp BP Pulse Ox 36.7 C 105 H 16 114/96 H 92 03/26/21 07:20 03/26/21 07:20 03/26/21 07:20 03/26/21 07:20 03/26/21 07:20 Lab Results Blood Type / Crossmatch: No Data to Display Complete Blood Count: White Blood Count 7.18 10^3/uL (4.4-10.8) 03/18/21 11:25 03/18/21 Red Blood Count 3.34 10^6/uL (4.36-5.78) L 03/18/21 11:03/18/21 Hemoglobin 10.9 g/dL (13.5-17.5) L 03/18/21:03/18/21 Hematocrit 34.8 % (40.0-50.0) L 03/18/21 11:03/18/21 Platelet Count 154 10^3/uL (130-400) 03/18/21 11:03/18/21 Complete Metabolic Panel: Sodium Level 142 mmol/L (136-145) 03/18/21:03/18/21 Potassium Level 4.2 mmol/L (3.5-5.1) 03/18/21:03/18/21 Chloride Level 107 mmol/L (98-107) 03/18/21:03/18/21 Carbon Dioxide Level 23.6 mmol/L (21.0-32.0) 03/18/21:03/18/21 Blood Urea Nitrogen 24 mg/dL (7-18) H 03/18/21:03/18/21 Creatinine 1.3 mg/dL (0.70-1.30) 03/18/21:03/18/21 Estimated GFR/1.73 m2 53.96 (mL/min/1.73m2) 03/18/21:03/18/21 Magnesium Level 1.9 mg/dL (1.8-2.4) 02/24/21 12:45 02/24/21 Calcium Level 8.5 mg/dL (8.5-10.1) 03/18/21:03/18/21 Albumin 3.2 g/dL (3.4-5.0) L 03/18/21:03/18/21 Glucose Level 108 mg/dL (74-106) H 03/18/21:03/18/21 C-Reactive Protein 2.62 mg/dL (0.0-0.3) H 03/18/21:03/18/21 Liver Function Panel: Alanine Aminotransferase (ALT/SGPT) 25 U/L (16-63) 03/18/21 11:03/18/21 Aspartate Amino Transf (AST/SGOT) 20 U/L (15-37) 03/18/21 11:25 03/18/21 Coagulation Panel: No Data to Display Cardiac Panel: No Data to Display Arterial Blood Gas: No Data to Display Venous Blood Gas: No Data to Display Pancreas Panel: No Data to Display Thyroid Panel: Thyroid Stimulating Hormone (TSH) 2.22 uIU/mL (0.36-3.74) 02/24/21 12:45 02/24/21 Infectious Disease: Coronavirus (COVID-19)(PCR) Negative (Negative) 03/25/21 09:30 03/25/21 Coronavirus 2019 Source Nasal/Nares 03/25/21 09:30 03/25/21 Blood Cultures: No Data to Display Toxicology Panel: No Data to Display Imaging and Studies Imaging and Studies Study information below may be from another EMR and interpreted by another provider. Please see original notes in EMR for more complete details. EKG Summary: 02/16/2021: EKG PATIENT NAME: Denton Cisneros #: [id number] ORDERING PROVIDER: Marium Matthews #: [id number] PRIMARY CARE PROVIDER:NUSRAT ALAMO MD DATE/TIME OF SERVICE: 02/16/21 1417 : 1945PERFORMING LOCATION: [place] APPROVED REPORT Exam: Resting ECG Reason for Exam: weakness Patient Location: E HR:72 bpm ECG Measurements Heart Rate 72 AXIS WV [id number] P [id number] QRSd 97 QRS 47 QT 422 T22 QTc 462 Conclusion Atrial fibrillation...V-rate 61- 92, irreg A-activity. Afib. No STEMI. I have reviewed and interpreted ECG and agree with software generated interpretation. Echocardiogram Summary: 04/2016: *STUDY CONCLUSIONS* Impressions: The patient was in atrial fibrillation throughout study. This rhythm can interfere with accurate global and segmental wall motion analysis. Summary: 1. Left ventricle: The cavity size was normal. Wall thickness was increased in a pattern of mild LVH. Systolic function was normal. The estimated ejection fraction was 55-60%. Wall motion was normal; there were no regional wall motion abnormalities. 2. Aortic valve: There was mild stenosis. There was trivial regurgitation. Peak velocity (S): 2.4m/sec. Valve area (VTI): 1.8cm^2. 3. Mitral valve: There was mild regurgitation. 4. Left atrium: The atrium was dilated. 5. Right ventricle: The cavity size was normal. Systolic function was reduced. 6. Right atrium: The atrium was dilated. 7. Atrial septum: There was a small patent foramen ovale. Doppler showed a [id number] atrial level shunt. Anesthesia Assessment and Plan Anesthesia History Personal History: No History of Anesthesia Complications Family History: No Family History of Anesthesia Complications Exercise Tolerance Exercise Tolerance: Metabolic Equivalents<4 Cardiac & Pulmonary Exam Cardiac Exam: Heart Murmur Present Pulmonary Exam: Clear Bilateral Breath Sounds Implantable Cardiac Device Does patient have a Pacemaker or an ICD?: No Airway Exam Known Difficult Airway: No Mallampati Class: 2 Mouth Opening: Narrow (< 3cm) Thyromental Distance: Greater than 3 cm Neck Range of Motion: Limited ROM Neck Circumference: Normal Teeth Condition: Edentulous (1 tooth, bottom right) ASA Classification ASA Score: ASA 3 Emergency Case?: No NPO Status NPO Status: NPO Clears >2 hours, Solids >8 hours Anesthesia Plan Resuscitation Status: Full Code Anesthesia Technique: MAC Anesthesia Airway Planned: Natural Airway Monitors Used: Standard Monitors
[2021-03-26 08:51] VITALS: BMI 25.8
[2021-03-26] MEDS: ceFAZolin 1 GM/50 ML BAG IVPB (09:00)
[2021-03-26] MEDS: Bupivacaine 0.5% Pres-Free 30 ML VIAL (09:18)
[2021-03-26] MEDS: Lidocaine 1% Multi-Dose 50 ML VIAL (09:18)
--- NOTE | 2021-03-26 09:26 | AMP_PTH ---
PATIENT: Denton Cisneros LOC: [facility] U#:[id number] AGE/SX: 75/M ROOM: RE03/26/[address]: Renato Chávez : 1945 BED: DIS: 03/26/2021 SPEC #: [id number] RECD: 03/26/21 12:50 STATUS: LUIS E REUma #: [id number] JULIET: 03/26/21 09:[address]: Renato Chávez DEPT: Surgical Specimen RECD BY: Marium Wolff ENTERED: 03/26/21 12:51 SP TYPE: Amputation OTHR DR: Brady Kate Tissues: 1 - AMPUTATION FINGERS/TOES(NOT TRAUMA) Procedures: GROSS AND MICRO LEVEL 4 DECALCIFICATION Comments: [id number]
[2021-03-26 09:40] VITALS: BP 151/93; PULSE 124; RESP 16; TEMP 36.2; O2SAT 96
--- NOTE | 2021-03-26 09:41 | W.PM.DSUDISC ---
Discharge Plan Disposition Patient Disposition: HOME Condition: Good Discharge Details Reason For Visit: amputation right 3 toe Attending Provider: Renato Chávez Primary Care Provider: Brady Kate Home Meds and New Rx's Prescriptions: Continued losartan 25 mg tablet 25 mg PO DAILY Qty: 90 RF: 4 pantoprazole 40 mg tablet,delayed release (DR/EC) 40 mg PO DAILY Qty: 90 RF: 4 tamsulosin 0.4 mg capsule 0.8 mg PO DAILY Qty: 180 RF: 6 furosemide 20 mg tablet 20 mg PO DAILY RF: 0 sertraline [Zoloft] 50 mg tablet 50 mg PO DAILY RF: 0 aspirin [Adult Low Dose Aspirin] 81 mg tablet,delayed release (DR/EC) 81 mg PO DAILY RF: 0 pramipexole 0.25 mg tablet 0.25 mg PO QHS RF: 0 dextromethorphan-guaifenesin [Adult Tussin DM] 10-100 mg/5 mL syrup 10 ml PO Q4H PRNRF: 0 doxycycline hyclate 100 mg tablet 100 mg PO BID Qty: 14 RF: 0 Allergy Relief (cetirizine) 10 mg capsule 10 mg PO DAILY Qty: 90 RF: 4 finasteride 5 mg tablet 5 mg PO DAILY Qty: 90 RF: 4 B12 Active 1,000 mcg tablet,chewable 1,000 mcg PO DAILY Qty: 90 RF: 4 acetaminophen [Tylenol] 325 mg Tablet 650 mg PO Q6H PRN PRNQty: 0 RF: 0 clotrimazole 1 % Cream 60 g topical TID & HS Qty: 0 RF: 0 naproxen 250 mg Tablet RF: 0 Discharge Instructions Activity:: Elevate Remove Dressings/Wound Care:: Do Not Remove Diet:: Carb Counting Discharge Orders Discharge Orders: Discharge Order (Routine); Ordered 03/26/21 Ordered By: Renato Chávez DS: Diagnosis Discharge Diagnosis (1) Osteomyelitis of toe of right foot: Status: Acute
--- NOTE | 2021-03-26 09:44 | W.PM.OP ---
Date of service: 03/26/21 Time of Service: 09:44 Operative Note Operative Note DATE OF PROCEDURE: 03/26/21 PRE-OP DIAGNOSIS: Osteomyelitis open joint bone exposed right third toe PROCEDURE: Amputation right third toe through the MPJ SURGEON: Renato Chávez ANESTHESIA TYPE: General:No Airway Refer to Anesthesia Record ESTIMATED BLOOD LOSS: 1 PATHOLOGY: other TOURNIQUET TIME: 0 COMPLICATIONS: None Patient was transported to: same day Patient's condition: stable Indications: 75-year-old white male, type 2 diabetes with neuropathy and peripheral arterial disease, open joint at the right third PIPJ with local necrosis for surgical intervention. Procedure Description: Ed was brought to the operative suite placed in the supine position with the right foot prepped and draped in the usual sterile podiatric fashion. Timeout was performed for safe surgery. Anesthesia was obtained with local blockade right third toe 10 cc 50: 50 mixture 1% lidocaine plain, 0.5% Marcaine plain. The right third toe is ulcerated dorsally over the PIPJ with the head of the proximal phalanx taken out of the wound. The bone is dark and desiccated in appearance. No cellulitis is observed. No purulence noted. Attention was directed to the base of the toe with 2 converging elliptical incisions were placed so as to afford an amputation at the thick thin skin margin at the base of the third toe. The incisions were deepened with controlled depth utilizing a #15 scalpel. Minimal bleeding was encountered electrocautery although available was not required. Dissection was carried down through the extensor tendon and the dorsal joint capsule released. Incisions were then carried medially and laterally to the plantar aspect of the foot with the flexor tendons were released and the plantar component of the joint capsule released. The third toe was removed from the wound and sent to pathology. No purulent material observed there were no active signs of bacterial infection at this level. Copious irrigation was performed with normal saline. The wound was closed with simple interrupted suture 3-0 nylon taking large sweep so as to close the space. I left nothing deep within the foot as he is at high risk for infection and failure to thrive. Xeroform fluff compression dressings were applied. As left the OR vital signs stable vascular status intact sharp and sponge counts were correct. Will be followed by myself in the office.
--- NOTE | 2021-03-26 09:55 | W.ANESPOSTOP ---
Postoperative Evaluation Date, Time and Location Date Performed: 03/26/21 Time Performed: 09:55 Patient Location: Day Surgery Unit Vital Signs Most Recent Imported Vital Signs: Most Recent Vital Signs Temp Pulse Resp BP Pulse Ox 36.2 C L 124 H 16 151/93 H 96 03/26/21 09:40 03/26/21 09:40 03/26/21 09:40 03/26/21 09:40 03/26/21 09:40 Pain Score Most Recent Pain Score: Most Recent Pain Score Pain Level 0 03/26/21 09:40 Assessment Mental Status: Awake (Alert & Oriented to Patient Baseline) Airway and Respiratory Function: Patent airway with normal (patient baseline) respiratory exam Cardiovascular Function: Hemodynamically Stable Hydration Status: Adequately Hydrated Nausea & Vomiting: No Nausea or Vomiting Pain: Pt. Denies Any Pain Peripheral Nerve Block: Regional nerve block not resolved at time of post operative discharge
[2021-03-26 10:10] VITALS: BP 178/99; PULSE 145; RESP 16; TEMP 36.6; O2SAT 99
== END 2021-03-26 11:00 | disposition home or self-care (01) ==
PROVIDERS: PCP Family Medicine; Visit Provider Podiatrist
PROC: (CPT 28820; principal; 2021-03-26 09:00)
DX: M86.171 Other acute osteomyelitis, right ankle and foot (principal); D64.9 Anemia, unspecified; N40.1 Benign prostatic hyperplasia with lower urinary tract symptoms; N18.9 Chronic kidney disease, unspecified; I73.9 Peripheral vascular disease, unspecified
CPT/HCPCS: 28820; 88300; 88305; 88311; J0690; J2001

== ENCOUNTER 2021-06-10 17:57 | Outpatient (REF) | payer MEDICARE, MEDICAID, SELFPAY ==
[2021-06-10 18:55] LABS: ALT 19 U/L (16-63); AST 16 U/L (15-37); Alkaline Phosphatase 111 U/L (46-116); Anion Gap 9.7 mmol/L (3-11); BUN 39 mg/dL (7-18); Bilirubin, Total 0.5 mg/dL (0.2-1.0); CO2 23.3 mmol/L (21.0-32.0); CREATININE 1.4 mg/dL (0.70-1.30); Calcium 8.7 mg/dL (8.5-10.1); Chloride 108 mmol/L (98-107); Estimated GFR 49.54 (mL/min/1.73m2); Glucose 115 mg/dL (74-106); Potassium 4.7 mmol/L (3.5-5.1); Sodium 141 mmol/L (136-145); Total Protein 6.8 g/dL (6.4-8.2)
== END 2021-06-10 17:58 | disposition home or self-care (01) ==
LOC: LBN 17:57
PROVIDERS: PCP Internal Medicine; Visit Provider Nurse Practitioner Gerontology
DX: I73.9 Peripheral vascular disease, unspecified (principal); R62.7 Adult failure to thrive; I48.0 Paroxysmal atrial fibrillation; N40.1 Benign prostatic hyperplasia with lower urinary tract symptoms; J44.9 Chronic obstructive pulmonary disease, unspecified; I10 Essential (primary) hypertension; M62.81 Muscle weakness (generalized)
CPT/HCPCS: 80053

== ENCOUNTER 2021-06-17 19:32 | Outpatient (REF) | payer MEDICARE, MEDICAID, SELFPAY ==
[2021-06-17 13:45] LABS: Abs Immature Grans 0.03 10^3/uL (0.0-0.06); Absolute Basophil Count 0.04 10^3/uL (0.0-0.2); Absolute Lymphocyte Count 1.13 10^3/uL (1.2-3.4); Absolute Monocyte Count 0.78 10^3/uL (0.1-0.8); Absolute Neutrophil Count 5.63 10^3/uL (1.2-6.7); Basophils % 0.5; HCT 36.5 % (40.0-50.0); HGB 11.8 g/dL (13.5-17.5); Immature Grans % 0.4; Lymphocytes % 14.1; MCH 31.1 pg (27.0-33.0); MCHC 32.3 % (32.0-36.0); MCV 96 fL (80-95); MPV 11.6 fL (8.0-11.0); Monocytes % 9.7; Neutrophils % 70.3; Platelet Count 171 10^3/uL (130-400); RBC 3.79 10^6/uL (4.36-5.78); RDW 13.2 % (11.8-14.1); WBC 8.01 10^3/uL (4.4-10.8)
[2021-06-17 14:04] LABS: ESR 23 mm/hr (0-20)
[2021-06-17 14:15] LABS: ALT 20 U/L (16-63); AST 18 U/L (15-37); Alkaline Phosphatase 119 U/L (46-116); Anion Gap 7.5 mmol/L (3-11); BUN 36 mg/dL (7-18); Bilirubin, Total 0.5 mg/dL (0.2-1.0); C-Reactive Protein 1.13 mg/dL (0.0-0.3); CO2 25.5 mmol/L (21.0-32.0); CREATININE 1.5 mg/dL (0.70-1.30); Calcium 8.8 mg/dL (8.5-10.1); Chloride 107 mmol/L (98-107); Estimated GFR 45.75 (mL/min/1.73m2); Glucose 84 mg/dL (74-106); Potassium 5.2 mmol/L (3.5-5.1); Sodium 140 mmol/L (136-145); Total Protein 7.1 g/dL (6.4-8.2)
== END 2021-06-17 19:33 | disposition home or self-care (01) ==
LOC: LBN 19:32
PROVIDERS: PCP Internal Medicine; Visit Provider Nurse Practitioner Gerontology
DX: E78.5 Hyperlipidemia, unspecified (principal); I73.9 Peripheral vascular disease, unspecified; R62.7 Adult failure to thrive; R68.89 Other general symptoms and signs
CPT/HCPCS: 80053; 85652; 85025; 86140

== ENCOUNTER 2021-07-01 09:44 | Outpatient (REF) | payer MEDICARE, MEDICAID, SELFPAY ==
[2021-07-01 18:17] LABS: Abs Immature Grans 0.02 10^3/uL (0.0-0.06); Absolute Basophil Count 0.03 10^3/uL (0.0-0.2); Absolute Eosinophil Count 0.36 10^3/uL (0.0-0.7); Absolute Lymphocyte Count 1.27 10^3/uL (1.2-3.4); Absolute Monocyte Count 0.85 10^3/uL (0.1-0.8); Absolute Neutrophil Count 3.66 10^3/uL (1.2-6.7); Basophils % 0.5; Eosinophils % 5.8; HCT 38.7 % (40.0-50.0); Immature Grans % 0.3; Lymphocytes % 20.5; MCH 30.5 pg (27.0-33.0); MCV 98 fL (80-95); MPV 11.7 fL (8.0-11.0); Monocytes % 13.7; Neutrophils % 59.2; Platelet Count 153 10^3/uL (130-400); RBC 3.94 10^6/uL (4.36-5.78); RDW 13.6 % (11.8-14.1); RDW-SD 49.5 fL; WBC 6.19 10^3/uL (4.4-10.8)
[2021-07-01 18:22] LABS: C-Reactive Protein 1.81 mg/dL (0.0-0.3)
== END 2021-07-01 09:45 | disposition home or self-care (01) ==
LOC: LBN 09:44
PROVIDERS: PCP Internal Medicine; Visit Provider Nurse Practitioner Gerontology
DX: I10 Essential (primary) hypertension (principal); E78.5 Hyperlipidemia, unspecified; M10.9 Gout, unspecified; J44.9 Chronic obstructive pulmonary disease, unspecified
CPT/HCPCS: 85025; 86140

== ENCOUNTER 2021-09-10 15:20 | Outpatient (REF) | payer MEDICARE, MEDICAID, SELFPAY ==
[2021-09-10 17:12] LABS: Abs Immature Grans 0.01 10^3/uL (0.0-0.06); Absolute Basophil Count 0.05 10^3/uL (0.0-0.2); Absolute Eosinophil Count 0.18 10^3/uL (0.0-0.7); Absolute Lymphocyte Count 0.86 10^3/uL (1.2-3.4); Absolute Monocyte Count 0.69 10^3/uL (0.1-0.8); Basophils % 0.7; Eosinophils % 2.6; HCT 36.6 % (40.0-50.0); HGB 12.5 g/dL (13.5-17.5); Immature Grans % 0.1; Lymphocytes % 12.5; MCH 31.5 pg (27.0-33.0); MCHC 34.2 % (32.0-36.0); MCV 92 fL (80-95); MPV 12.2 fL (8.0-11.0); Neutrophils % 74.1; Platelet Count 170 10^3/uL (130-400); RBC 3.97 10^6/uL (4.36-5.78); RDW 13.5 % (11.8-14.1); RDW-SD 46.1 fL; WBC 6.89 10^3/uL (4.4-10.8)
[2021-09-10 17:49] LABS: ALT 20 U/L (16-63); AST 17 U/L (15-37); Albumin 4.2 g/dL (3.4-5.0); Alkaline Phosphatase 101 U/L (46-116); Anion Gap 11.3 mmol/L (3-11); BUN 35 mg/dL (7-18); Bilirubin, Total 0.5 mg/dL (0.2-1.0); CO2 22.7 mmol/L (21.0-32.0); CREATININE 1.3 mg/dL (0.70-1.30); Calcium 8.8 mg/dL (8.5-10.1); Chloride 101 mmol/L (98-107); Estimated GFR 53.82 (mL/min/1.73m2); Glucose 110 mg/dL (74-106); NT-proBNP 4131 pg/mL (<300); Potassium 4.9 mmol/L (3.5-5.1); Sodium 135 mmol/L (136-145); TSH (W/Ref FT4) 0.97 uIU/mL (0.36-3.74); Total Protein 6.8 g/dL (6.4-8.2)
[2021-09-10 18:00] LABS: Bilirubin Negative (Negative); Blood Negative (Negative); Clarity Clear (Clear); Glucose Negative (Negative); Ketones Negative (Negative); Leukocyte Esterase Trace (Negative); Nitrite Negative (Negative); Urobilinogen 0.2 EU/dL (Up TO 0.2); pH 5.5 (5-8)
[2021-09-10 18:25] LABS: WBC 0-2 HPF (0-5)
[2021-09-10 18:26] LABS: Bacteria Rare HPF (Negative); C & S Indicated? C&S Done As Ordered; Epithelial Cells Rare HPF (Negative); Mucus Negative (Negative); Other Cells Rare Renal (Negative); RBC Negative HPF (0-2)
== END 2021-09-10 15:21 | disposition home or self-care (01) ==
LOC: LBN 15:20
PROVIDERS: PCP Internal Medicine; Visit Provider Nurse Practitioner Gerontology
DX: I48.0 Paroxysmal atrial fibrillation (principal); R42 Dizziness and giddiness; N40.1 Benign prostatic hyperplasia with lower urinary tract symptoms; I10 Essential (primary) hypertension; R53.83 Other fatigue; R68.89 Other general symptoms and signs
CPT/HCPCS: 80053; 87077; 81003; 81015; 83880; 84443; 85025; 87086; 87186

== ENCOUNTER 2021-09-17 15:19 | Outpatient (REF) | payer MEDICARE, MEDICAID, SELFPAY ==
[2021-09-17 16:22] LABS: Anion Gap 7.8 mmol/L (3-11); BUN 40 mg/dL (7-18); CO2 26.2 mmol/L (21.0-32.0); CREATININE 1.8 mg/dL (0.70-1.30); Calcium 9.2 mg/dL (8.5-10.1); Chloride 102 mmol/L (98-107); Estimated GFR 36.97 (mL/min/1.73m2); Glucose 103 mg/dL (74-106); NT-proBNP 3933 pg/mL (<300); Potassium 4.5 mmol/L (3.5-5.1); Sodium 136 mmol/L (136-145)
[2021-09-17 17:08] LABS: Vitamin B12 422 pg/mL (193-986)
== END 2021-09-17 15:20 | disposition home or self-care (01) ==
LOC: LBN 15:19
PROVIDERS: PCP Internal Medicine; Visit Provider Nurse Practitioner Gerontology
DX: I10 Essential (primary) hypertension (principal); R68.89 Other general symptoms and signs; I50.9 Heart failure, unspecified; I48.0 Paroxysmal atrial fibrillation; M10.9 Gout, unspecified; J44.9 Chronic obstructive pulmonary disease, unspecified; R53.1 Weakness; N40.1 Benign prostatic hyperplasia with lower urinary tract symptoms
CPT/HCPCS: 80048; 82607; 83880

== ENCOUNTER 2021-09-23 20:49 | Outpatient (REF) | payer MEDICARE, MEDICAID, SELFPAY ==
[2021-09-23 19:24] LABS: Anion Gap 11.5 mmol/L (3-11); BUN 46 mg/dL (7-18); CO2 24.5 mmol/L (21.0-32.0); CREATININE 1.8 mg/dL (0.70-1.30); Calcium 8.8 mg/dL (8.5-10.1); Chloride 103 mmol/L (98-107); Estimated GFR 36.97 (mL/min/1.73m2); Glucose 95 mg/dL (74-106); NT-proBNP 4102 pg/mL (<300); Potassium 5.1 mmol/L (3.5-5.1); Sodium 139 mmol/L (136-145)
== END 2021-09-23 20:50 | disposition home or self-care (01) ==
LOC: LBN 20:49
PROVIDERS: PCP Internal Medicine; Visit Provider Nurse Practitioner Gerontology
DX: R62.7 Adult failure to thrive (principal); E78.5 Hyperlipidemia, unspecified; I10 Essential (primary) hypertension; M10.9 Gout, unspecified; M62.81 Muscle weakness (generalized)
CPT/HCPCS: 80048; 83880

== ENCOUNTER 2021-09-30 18:46 | Outpatient (REF) | payer MEDICARE, MEDICAID, SELFPAY ==
[2021-09-30 19:01] LABS: Abs Immature Grans 0.03 10^3/uL (0.0-0.06); Absolute Basophil Count 0.04 10^3/uL (0.0-0.2); Absolute Eosinophil Count 0.17 10^3/uL (0.0-0.7); Absolute Lymphocyte Count 0.98 10^3/uL (1.2-3.4); Absolute Monocyte Count 0.66 10^3/uL (0.1-0.8); Absolute Neutrophil Count 7.94 10^3/uL (1.2-6.7); Basophils % 0.4; Eosinophils % 1.7; HCT 39.9 % (40.0-50.0); Immature Grans % 0.3; MCH 30.5 pg (27.0-33.0); MCHC 32.6 % (32.0-36.0); MCV 94 fL (80-95); MPV 11.7 fL (8.0-11.0); Monocytes % 6.7; Neutrophils % 80.9; Platelet Count 200 10^3/uL (130-400); RBC 4.26 10^6/uL (4.36-5.78); RDW 13.5 % (11.8-14.1); RDW-SD 46.4 fL; WBC 9.82 10^3/uL (4.4-10.8)
[2021-09-30 19:21] LABS: Anion Gap 8.4 mmol/L (3-11); BUN 52 mg/dL (7-18); CO2 27.6 mmol/L (21.0-32.0); CREATININE 1.7 mg/dL (0.70-1.30); Calcium 9.4 mg/dL (8.5-10.1); Chloride 101 mmol/L (98-107); Estimated GFR 39.49 (mL/min/1.73m2); Glucose 107 mg/dL (74-106); NT-proBNP 2322 pg/mL (<300); Potassium 5.2 mmol/L (3.5-5.1); Sodium 137 mmol/L (136-145)
== END 2021-09-30 18:47 | disposition home or self-care (01) ==
LOC: LBN 18:46
PROVIDERS: PCP Internal Medicine; Visit Provider Nurse Practitioner Gerontology
DX: R52 Pain, unspecified (principal); R50.9 Fever, unspecified; R53.83 Other fatigue; R68.89 Other general symptoms and signs
CPT/HCPCS: 80048; 83880; 85025

== ENCOUNTER → 2021-10-22 03:39 | Outpatient (CLI) | payer MEDICARE, MEDICAID, SELFPAY ==
--- NOTE | 2021-10-22 | DI.CT_ITS ---
Exam(s) CT CERVICAL SPINE WO EXAM: CT CERVICAL SPINE WO CLINICAL HISTORY: HEADACHE, PAIN, CERVICAL HARDWARE, COMPARE TO 2020. TECHNIQUE: Imaging Protocol: Axial computed tomography images with coronal and sagittal reformatted images were created and reviewed COMPARISON: CT CT HEAD NECK WO from 07/07/[address] NECK W from 02/16/2021 FINDINGS: The examination is limited due to patient motion artifact. Bones: There is a fracture of the right aspect of the anterior arch of C1 with 5 mm of widening of th e fracture. This was not present on the CT scan of the neck from 02/16/2021. No other acute fracture is identified. Stable anterior wedging deformities are again seen at C5 and C6. There is again seen mild reversal of the normal cervical lordosis centered at C5 and C6. Multilevel degenerative changes are seen throughout the cervical spine. Findings are most marked from C4-5 through C6-C7. There ag ain seen postsurgical changes with rods to the posterior elements of C2 through C4. Laminectomy defe cts are again seen at C3 and C4. Soft Tissues: The soft tissues of the neck are unremarkable. Lung apices: Clear. IMPRESSION: 1. Fracture of the right aspect of the anterior arch of C1 with 5 mm of distraction. 2. Postsurgical changes in the posterior cervical spine from C2 through C4 which are stable. 3. Multilevel degenerative changes in the cervical spine as described above. 4. The [facility] was contacted with these results at 8 p.m. on 10/22/2021. A-wing nurse brenden Loya cepted the results. The refrigeration repair supervisor physician is to be contacted with these results. I left my contact information with the nurse. RADIATION DOSE DELIVERED: 399.76 mGy.cm Total DLP DATA REPOSITORY: All CT scans at this facility are submitted to the National Radiology Data Registry (NRDR) Dose Index Registry (DIR) with the [employer] (A[employer]). RADIATION OPTIMIZATION: All CT scans at this facility use at least one of these dose optimization te chniques: automated exposure control; mA and/or kV adjustment per patient size (includes targeted exa ms where dose is matched to clinical indication); or iterative reconstruction.
== END ==
PROVIDERS: PCP Internal Medicine; Visit Provider Nurse Practitioner Gerontology
DX: M48.52XA Collapsed vertebra, not elsewhere classified, cervical region, initial encounter for fracture (principal); M47.812 Spondylosis without myelopathy or radiculopathy, cervical region
CPT/HCPCS: 72125

== ENCOUNTER 2021-10-22 21:51 | Emergency (ER) | payer MEDICARE, MEDICAID, SELFPAY ==
[2021-10-22] VITALS (22 sets, daily range): BP systolic 128–180; BP diastolic 63–113; PULSE 59–91; RESP 8–21; TEMP 37.1; O2SAT 96–99
[2021-10-22] MEDS: fentaNYL 100 MCG/2 ML VIAL 50 MCG IVP (22:10)
--- NOTE | 2021-10-22 23:20 | W.ED.GENAD ---
Discharge Plan Disposition Patient Disposition: STILL A PATIENT Discharge Details Clinical Impression: C1 cervical fracture Primary Care Provider: VANIA HIGGINS ED Provider: Marium Matthews Home Meds and New Rx's Prescriptions: No Action pantoprazole 40 mg tablet,delayed release (DR/EC) 40 mg PO DAILY Qty: 90 4RF tamsulosin 0.4 mg capsule 0.8 mg PO DAILY Qty: 180 6RF Rx Instructions: take 2 capsules daily furosemide 20 mg tablet 20 mg PO DAILY aspirin [Adult Low Dose Aspirin] 81 mg tablet,delayed release (DR/EC) 81 mg PO DAILY pramipexole 0.25 mg tablet 0.25 mg PO QHS sertraline [Zoloft] 50 mg tablet 75 mg PO DAILY losartan 25 mg tablet 75 mg PO DAILY metoprolol tartrate 25 mg tablet 25 mg PO BID polyethylene glycol 3350 [Miralax] 17 gram/dose powder 17 g PO DAILY Allergy Relief (cetirizine) 10 mg capsule 10 mg PO DAILY Qty: 90 4RF finasteride 5 mg tablet 5 mg PO DAILY Qty: 90 4RF B12 Active 1,000 mcg tablet,chewable 1,000 mcg PO DAILY Qty: 90 4RF acetaminophen [Tylenol] 325 mg Tablet 650 mg PO Q6H PRN PRNQty: 0 0RF naproxen 250 mg Tablet Medical Decision Making Patient has c1 fracture with 5 mm of distracting, placed in aspen collar with cspine maintained Call to [facility] at approximately 2230 Patient is reportedly at neurological baseline is alert and oriented Spoke with on-call neurosurgeon at [facility], patient placed in a collar and she has been reviewing all films and will return call with disposition recommendations Dr. Perez, neurosurgeon reviewed films and they do not have capacity to take this patient but she feels that this patient should have dedicated neurosurgical evaluation and assessment and recommends transferring the patient to a facility that has capacity to review this case Patient remains at his reported neurological baseline DNR/DNI, COLST form, of decisional capacity, hemodynamically stable Rosaline transitioned to Dr. Ben Combs at 0025, Medical Records Medical records reviewed: Yes I reviewed the patient's medical records. Lab Data Lab results reviewed: Yes I reviewed the patient's lab results. HPI General Date/Time Provider Initiated Documentation: 10/22/21 21:56. HPI Narrative: This 76-year-old gentleman with history of chronic kidney disease hyperlipidemia, hypomagnesemia, hypokalemia, hyponatremia presents with neck pain for the past several months with acute exacerbation in the past several weeks. He states that he underwent CT scan today and is current place of residence Informed him that he had a cervical spine fracture and he was therefore transferred to the emergency department. He states he has pain but denies any new strength or sensation change. He states he has ongoing weakness of the left upper extremity and that this is not new. He is not able to ambulate at baseline reportedly. He denies any new weakness in his legs or numbness or tingling. He denies current headache. He adamantly denies any falls or injuries and rehabilitation center confirmed. He has had prior surgery on the cervical spine approximately 10 years ago per patient. Related Data Home Medications Medication Instructions Recorded Confirmed acetaminophen 325 mg tablet 650 mg PO Q6H PRN PRN #0 tabs 07/11/20 06/03/21 (Tylenol) cetirizine 10 mg capsule (Allergy 10 mg PO DAILY #90 caps 09/26/20 06/03/21 Relief (cetirizine)) finasteride 5 mg tablet 5 mg PO DAILY bph #90 tabs 09/26/20 06/03/21 mecobalamin (vitamin B12) 1,000 1,000 mcg PO DAILY #90 tabs 09/26/20 06/03/21 mcg chewable tablet (B12 Active) pantoprazole 40 mg tablet,delayed 40 mg PO DAILY #90 tabs 10/17/20 06/03/21 release tamsulosin 0.4 mg capsule 0.8 mg PO DAILY #180 tab-caps 10/17/20 06/03/21 aspirin 81 mg tablet,delayed 81 mg PO DAILY 03/12/21 06/03/21 release (Adult Low Dose Aspirin) furosemide 20 mg tablet 20 mg PO DAILY 03/12/21 06/03/21 pramipexole 0.25 mg tablet 0.25 mg PO QHS 03/12/21 06/03/21 naproxen 250 mg tablet 03/26/21 06/03/21 losartan 25 mg tablet 75 mg PO DAILY 06/03/21 metoprolol tartrate 25 mg tablet 25 mg PO BID 06/03/21 06/03/21 polyethylene glycol 3350 17 17 g PO DAILY 06/03/21 06/03/21 gram/dose oral powder (Miralax) sertraline 50 mg tablet (Zoloft) 75 mg PO DAILY 06/03/21 06/03/21 Previous Rx's Medication Instructions Recorded acetaminophen 325 mg tablet 650 mg PO Q6H PRN PRN #0 tabs 07/11/20 (Tylenol) cetirizine 10 mg capsule (Allergy 10 mg PO DAILY #90 caps 09/26/20 Relief (cetirizine)) finasteride 5 mg tablet 5 mg PO DAILY bph #90 tabs 09/26/20 mecobalamin (vitamin B12) 1,000 1,000 mcg PO DAILY #90 tabs 09/26/20 mcg chewable tablet (B12 Active) pantoprazole 40 mg tablet,delayed 40 mg PO DAILY #90 tabs 10/17/20 release tamsulosin 0.4 mg capsule 0.8 mg PO DAILY #180 tab-caps 10/17/20 Allergies Allergy/AdvReac Type Severity Reaction Status Date / Time pravastatin AdvReac Severe MUSCLE Unverified 03/26/21 07:36 PAIN AND WEAKNESS lisinopril AdvReac HYPERKALEMI Unverified 03/26/21 07:36 A General Stated Complaint: Trauma TOMEKA: 3 Review of Systems All systems reviewed & are unremarkable except as noted in HPI and below PFSH All Active Problems (Updated 10/23/21 @ 00:28 by SHAUNA Romero) C1 cervical fracture (Acute) Ambulatory dysfunction (Acute) Palliative care encounter (Acute) Palliative care patient (Acute) Osteomyelitis of toe of right foot (Acute) COVID (Acute) Osteomyelitis (Acute) Medical History Acute dehydration Adjustment disorder Adult failure to thrive REYNA (acute kidney injury) Alcohol intake above recommended sensible limits 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) left great toe transmetatarsal amputation 05-02-2017 by - 05-12-2017 [facility] [place] Vasc.Sx.: site with large necrotic/scabbed area: tx above knee amputation but pt declines - fup with wound care until pt decides to proceed (Dr.Goodney Cisco Chiang [facility]) Anemia Benign prostatic hyperplasia with lower urinary tract symptoms PSA: 1.5 in Cellulitis Cervical myelopathy Chronic back pain moderate to severe lumbar pain; status post neck surgery 20 years ago Chronic kidney disease COVID-19 02/24/21 asymptomatic per the [facility] Critical lower limb ischemia RIGHT [facility] [place] SHAUNA Parsons/ status post right iliofemoral endarterectomy and patch angioplasty/right EIA stenting/ stent graft to distal SFA and popliteal/ COMPLICATED BY INFECTION: # debridements - w LEFT ILIOFEMORAL ENDATERECTOMY [place] [facility] [place] D[place] (do not resuscitate) Elevated brain natriuretic peptide (BNP) level Elevated troponin Essential hypertension (11/16/12) Fall Flexion contractures both hands, all fingers, thumbs somewhat spared Frequent falls Gastroesophageal reflux disease Gout Hyperlipidemia Hypokalemia Hypomagnesemia Hypomagnesemia (01/01/15) Hypomagnesemia (01/01/15) Hyponatremia (09/06/13) serum electrophoresis normal 2009/ cortisol level normal: 2009 Hyponatremia Osteomyelitis of right lower extremity 08/13/15- GREAT RIGHT TOE S/P AMPUTAION Osteomyelitis of toe Paroxysmal atrial fibrillation ADONIS score: 1/ on asa Peripheral vascular disease critical lower limb ischemia - [facility] [place]- Physician orders for life-sustaining treatment (POLST) form indicates patient wish for [id number] status 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 Ptosis of both upper eyelids Restless leg syndrome, uncontrolled Sciatica Skin breakdown (L) Mallelous ankle <5cm opening being treated, being treated with aquacell Skin yeast infection Suicidal thoughts UTI (urinary tract infection) Vitamin D deficiency (09/06/13) Weakness Surgical History Amputation 08/13/15-GREAT RIGHT TOE History of surgical procedure S/P cervical spinal fusion Status post amputation of great toe (08/13/15) (post osteomyelitis) Family History Son No problems noted. Daughter Parent-child estrangement nec Daughter Parent-child estrangement nec Social History Smoking/Tobacco Use Status: Former Tobacco Use Tobacco: How many years used: 50 Smoking risk assessment performed?: Yes Alcohol Intake: former Drug use: Never Substance use type: does not use Details: no alcohol use currently Caregiver/Support person: No (son Cristoefr is named as caregiver, but not easy to reach) Household members: none Housing: house Number of Children: 3 Communication Needs: Hard of Hearing and Corrective Lenses Education Level: high school Do you need help understanding health information?: Always 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 Current gender identity: male What is your relationship status?: How often do you talk on the phone with friends or family?: once per week How often do you get together with friends or relatives?: never Panel score (0-1 are the most socially isolated patients): 0 What type of physical activity do you participate in: assisted ambulation Duration: < 15 minutes/day Frequency: daily Special annemarie needs: No Seatbelt use: sometimes Working smoke detector in home: Yes Fire extinguisher in home: Yes Do you feel safe at home: Yes Do you feel safe in your relationship?: Yes Exam Const General: cooperative Orientation: alert and oriented x3 HENMT Head: normal to inspection Other: No visible evidence of trauma Eyes Pupils: PERRL Neck Other: Tenderness throughout cervical spine with paraspinal tenderness, no visible evidence of trauma knee, no crepitus, no carotid bruit Resp Effort & Inspection: normal respiratory effort Auscultation: clear to auscultation bilaterally Cardio Rate: regular rate Rhythm: regular rhythm Skin General skin exam: no rashes or lesions noted Neuro General: patient alert, patient oriented x3 and no focal motor deficits Cranial Nerves: tongue midline Cognition: normal cognition Speech: speech normal Sensory Exam: no sensory deficits noted Extrem Other: Distal pulses intact Course Vital Signs Vital signs: Vital Signs Pulse Oximetry 98 10/22/21 21:54 Temperature 37.1 C 10/22/21 22:00 Temperature Source Skin 10/22/21 22:00 Pulse 59 L 10/22/21 22:45 Pulse 76 10/22/21 22:50 Respiratory Rate 17 10/22/21 22:50 Respiratory Effort 10/22/21 22:03 Blood Pressure 128/77 10/22/21 22:45 Blood Pressure Mean 83 10/22/21 22:45 Blood Pressure Position Supine 10/22/21 22:00 Pulse Oximetry 96 10/22/21 22:20 Oxygen Delivery Method Room Air 10/22/21 22:00 Oxygen Flow Rate 0 10/22/21 22:00 Pain Level 8 10/22/21 22:09
[2021-10-23] VITALS (51 sets, daily range): BP systolic 149–192; BP diastolic 67–82; PULSE 60–75; RESP 9–22; TEMP 36.6; O2SAT 95–97
[2021-10-23 00:44] LABS: Source Nasal/Nares
[2021-10-23 01:28] LABS: COVID-19 PCR Negative (Negative)
--- NOTE | 2021-10-23 02:05 | W.EDPROG ---
Date of service: 10/23/21 Time of Service: 02:05 Medical Decision Making Care was signed out by SHAUNA Foote, please see her documentation regarding initial ED presentation and course. Plan at signout was to follow-up with consultation with [facility] spinal specialist regarding C1 fracture. I spoke with Dr. Andrade, on-call orthospine, discussed ED presentation and course and reviewed radiologic interpretation, images were sent for review, he recommends discharge with outpatient follow-up in 6-week. He recommends maintaining [place] collar. Plan will be for discharge back to nursing rehab facility with plan for outpatient follow-up as noted above. Medical Records Medical records reviewed: Yes I reviewed the patient's medical records. Medical records narrative: Fall patient CT of the cervical spine as interpreted by radiology: IMPRESSION: 1. Fracture of the right aspect of the anterior arch of C1 with 5 mm of distraction. 2. Postsurgical changes in the posterior cervical spine from C2 through C4 which are stable. 3. Multilevel degenerative changes in the cervical spine as described above. 4. The [facility] facility was contacted with these results at 8 p.m. on 10/22/2021.? A-wing nurse Vincenzo, accepted the results.? The talent acquisition relationship manager physician is to be contacted with these results.? I left my contact information with the nurse. Sign Out Sign Out Data: Sign Out Comment: pending neurosurgical consultation at [facility] regarding c1 fx and dispo Last updated by Marium Matthews PA at 10/23/21 00:29 Discharge Plan Disposition Patient Disposition: SNF (LEVEL 1) [facility] Condition: Stable Discharge Details Clinical Impression: C1 cervical fracture Primary Care Provider: VANIA HIGGINS ED Provider: Ben Combs Home Meds and New Rx's Prescriptions: Continued pantoprazole 40 mg tablet,delayed release (DR/EC) 40 mg PO DAILY Qty: 90 4RF tamsulosin 0.4 mg capsule 0.8 mg PO DAILY Qty: 180 6RF Rx Instructions: take 2 capsules daily furosemide 20 mg tablet 20 mg PO DAILY aspirin [Adult Low Dose Aspirin] 81 mg tablet,delayed release (DR/EC) 81 mg PO DAILY Rx Instructions: chewable tab pramipexole 0.25 mg tablet 0.25 mg PO QHS sertraline [Zoloft] 50 mg tablet 75 mg PO DAILY Allergy Relief (cetirizine) 10 mg capsule 10 mg PO DAILY Qty: 90 4RF finasteride 5 mg tablet 5 mg PO DAILY Qty: 90 4RF B12 Active 1,000 mcg tablet,chewable 1,000 mcg PO DAILY Qty: 90 4RF naproxen 250 mg Tablet 250 mg PO Q12H Discharge Instructions Instructions: Cervical Fracture (ED) Additional Instructions: Please continue to wear cervical collar that was provided. Please follow-up with spinal clinic at [facility] [place] or [facility] in 6 weeks. Call to schedule follow-up. Please contact your primary care physician to arrange follow-up. Return to the ER immediately for any worsening or new concerning symptoms. Referrals: VANIA HIGGINS MD [Primary Care Provider] -
== END 2021-10-23 03:42 | disposition skilled nursing facility (03) ==
PROVIDERS: Physician Assistant; Emergency Provider Student in an Organized Health Care Education/Training Program; PCP Internal Medicine
DX: S12.000A Unspecified displaced fracture of first cervical vertebra, initial encounter for closed fracture (principal); I12.9 Hypertensive chronic kidney disease with stage 1 through stage 4 chronic kidney disease, or unspecified chronic kidney disease; N18.9 Chronic kidney disease, unspecified; X58.XXXA Exposure to other specified factors, initial encounter; Z20.822 Contact with and (suspected) exposure to COVID-19; Z87.891 Personal history of nicotine dependence; Z86.16 Personal history of COVID-19
CPT/HCPCS: 87635; 96374; 99284; 72125; J3010

== ENCOUNTER 2021-12-30 17:50 | Outpatient (REF) | payer MEDICARE, MEDICAID, SELFPAY ==
[2021-12-30 18:07] LABS: Abs Immature Grans 0.04 10^3/uL (0.0-0.06); Absolute Basophil Count 0.05 10^3/uL (0.0-0.2); Absolute Eosinophil Count 0.38 10^3/uL (0.0-0.7); Absolute Lymphocyte Count 0.72 10^3/uL (1.2-3.4); Absolute Monocyte Count 0.53 10^3/uL (0.1-0.8); Absolute Neutrophil Count 7.06 10^3/uL (1.2-6.7); Basophils % 0.6; Eosinophils % 4.3; HCT 35.7 % (40.0-50.0); HGB 11.7 g/dL (13.5-17.5); Immature Grans % 0.5; Lymphocytes % 8.2; MCH 31.5 pg (27.0-33.0); MCHC 32.8 % (32.0-36.0); MCV 96 fL (80-95); MPV 10.8 fL (8.0-11.0); Neutrophils % 80.4; Platelet Count 216 10^3/uL (130-400); RBC 3.71 10^6/uL (4.36-5.78); RDW 14.2 % (11.8-14.1); RDW-SD 50.4 fL; WBC 8.78 10^3/uL (4.4-10.8)
[2021-12-30 18:25] LABS: ALT 21 U/L (16-63); AST 21 U/L (15-37); Alkaline Phosphatase 108 U/L (46-116); Anion Gap 9.3 mmol/L (3-11); BUN 38 mg/dL (7-18); Bilirubin, Total 0.5 mg/dL (0.2-1.0); CO2 27.7 mmol/L (21.0-32.0); CREATININE 1.5 mg/dL (0.70-1.30); Calcium 8.8 mg/dL (8.5-10.1); Chloride 102 mmol/L (98-107); Estimated GFR 48.25 (mL/min/1.73m2); Glucose 131 mg/dL (74-106); NT-proBNP 5277 pg/mL (<300); Sodium 139 mmol/L (136-145)
== END 2021-12-30 17:51 | disposition home or self-care (01) ==
LOC: LBN 17:50
PROVIDERS: PCP Internal Medicine; Visit Provider Nurse Practitioner Gerontology
DX: I50.9 Heart failure, unspecified (principal); R53.1 Weakness; R68.89 Other general symptoms and signs; I25.9 Chronic ischemic heart disease, unspecified; J44.9 Chronic obstructive pulmonary disease, unspecified
CPT/HCPCS: 80053; 83880; 85025

== ENCOUNTER 2022-01-05 20:11 | Outpatient (REF) | payer MEDICARE, MEDICAID, SELFPAY ==
[2022-01-05 22:31] LABS: Anion Gap 8.3 mmol/L (3-11); BUN 38 mg/dL (7-18); CO2 26.7 mmol/L (21.0-32.0); CREATININE 1.5 mg/dL (0.70-1.30); Calcium 9.4 mg/dL (8.5-10.1); Chloride 103 mmol/L (98-107); Estimated GFR 48.25 (mL/min/1.73m2); Glucose 104 mg/dL (74-106); NT-proBNP 4144 pg/mL (<300); Potassium 5.2 mmol/L (3.5-5.1); Sodium 138 mmol/L (136-145)
[2022-01-05 23:41] LABS: Vitamin B12 482 pg/mL (193-986)
== END 2022-01-05 20:12 | disposition home or self-care (01) ==
LOC: LBN 20:11
PROVIDERS: PCP Internal Medicine; Visit Provider Nurse Practitioner Gerontology
DX: I50.9 Heart failure, unspecified (principal); D51.9 Vitamin B12 deficiency anemia, unspecified; R62.7 Adult failure to thrive; R68.89 Other general symptoms and signs; J44.9 Chronic obstructive pulmonary disease, unspecified
CPT/HCPCS: 80048; 82607; 83880

== ENCOUNTER 2022-01-12 18:30 | Outpatient (REF) | payer MEDICARE, MEDICAID, SELFPAY ==
[2022-01-12 19:53] LABS: ALT 18 U/L (16-63); AST 17 U/L (15-37); Alkaline Phosphatase 110 U/L (46-116); Anion Gap 9.9 mmol/L (3-11); BUN 33 mg/dL (7-18); Bilirubin, Total 0.5 mg/dL (0.2-1.0); CO2 24.1 mmol/L (21.0-32.0); CREATININE 1.4 mg/dL (0.70-1.30); Calcium 8.6 mg/dL (8.5-10.1); Chloride 102 mmol/L (98-107); Estimated GFR 52.41 (mL/min/1.73m2); Glucose 126 mg/dL (74-106); NT-proBNP 4519 pg/mL (<300); Potassium 4.9 mmol/L (3.5-5.1); Sodium 136 mmol/L (136-145); Total Protein 6.8 g/dL (6.4-8.2)
== END 2022-01-12 18:31 | disposition home or self-care (01) ==
LOC: LBN 18:30
PROVIDERS: PCP Internal Medicine; Visit Provider Nurse Practitioner Gerontology
DX: I50.9 Heart failure, unspecified (principal); R68.89 Other general symptoms and signs
CPT/HCPCS: 80053; 83880

== ENCOUNTER 2022-01-19 17:56 | Outpatient (REF) | payer MEDICARE, MEDICAID, SELFPAY ==
[2022-01-19 18:37] LABS: ALT 17 U/L (16-63); AST 18 U/L (15-37); Alkaline Phosphatase 96 U/L (46-116); Anion Gap 10.8 mmol/L (3-11); BUN 40 mg/dL (7-18); Bilirubin, Total 0.4 mg/dL (0.2-1.0); CO2 25.2 mmol/L (21.0-32.0); CREATININE 1.6 mg/dL (0.70-1.30); Chloride 103 mmol/L (98-107); Estimated GFR 44.65 (mL/min/1.73m2); Glucose 143 mg/dL (74-106); Potassium 4.4 mmol/L (3.5-5.1); Sodium 139 mmol/L (136-145); Total Protein 7.1 g/dL (6.4-8.2)
[2022-01-20 13:57] LABS: NT-proBNP 3286 pg/mL (<300)
== END 2022-01-19 17:57 | disposition home or self-care (01) ==
LOC: LBN 17:56
PROVIDERS: PCP Internal Medicine; Visit Provider Nurse Practitioner Gerontology
DX: I50.9 Heart failure, unspecified (principal); R68.89 Other general symptoms and signs; J44.9 Chronic obstructive pulmonary disease, unspecified
CPT/HCPCS: 80053; 83880

== ENCOUNTER 2022-02-25 02:24 | Outpatient (CLI) | payer MEDICARE, MEDICAID, SELFPAY ==
--- NOTE | 2022-02-25 13:20 | DI.CT_ITS ---
Exam(s) CT CERVICAL SPINE WO EXAM: CT CERVICAL SPINE WO CLINICAL HISTORY: FU ON FX C SPINE CT 10/22/21. TECHNIQUE: Imaging Protocol: Axial computed tomography images with coronal and sagittal reformatted images were created and reviewed CONTRAST MATERIAL: Noncontrast COMPARISON: CR,XR XR PORTABLE CHEST AP from 02/16/[address] NECK W from 02/16/[address] CERVICAL SPINE WO from 10/22/2021 FINDINGS: Bones: There has been no change in the fracture of the anterior arch C1 to with 5 millimeters of sepa ration. Two fractures are seen of the posterior ring, 1 the right 1 in the posterior midline. There is slightly more separation compared with the previous exam. Again noted is severe narrowing at the anterior arch and dens articulation. There are multiple adjacent soft tissue calcifications, stable from prior exams. Metallic rods are again noted in the posterior elements spanning CT 2 through C 4. There are stable anterior wedging of C5 and C6. There are severe degenerative changes greatest at C5 and C6. There a re facet degenerative changes. The overall cervical alignment is unchanged. No new fractures. Ther e are marked hypertrophic changes at the sternoclavicular joints. Soft Tissues: The soft tissues of the neck are unremarkable. No large disk herniations are identified . The visualized portions of the lung apices are clear. No pneumothorax is seen. IMPRESSION: No change in the degree of separation of the right anterior arch of C1 fracture. Slightly decreased separation of the posterior C1 ring fractures. Stable fusion hardware. Advanced underlying degenera tive changes. RADIATION DOSE DELIVERED: 570.65mGy.cm Total DLP DATA REPOSITORY: All CT scans at this facility are submitted to the National Radiology Data Registry (NRDR) Dose Index Registry (DIR) with the [employer] (ACR). RADIATION OPTIMIZATION: All CT scans at this facility use at least one of these dose optimization te chniques: automated exposure control; mA and/or kV adjustment per patient size (includes targeted exa ms where dose is matched to clinical indication); or iterative reconstruction.
== END 2022-02-25 02:44 ==
LOC: DI 02:25
PROVIDERS: PCP Internal Medicine; Visit Provider Nurse Practitioner Gerontology
DX: S12.000D Unspecified displaced fracture of first cervical vertebra, subsequent encounter for fracture with routine healing (principal); X58.XXXD Exposure to other specified factors, subsequent encounter
CPT/HCPCS: 72125

== ENCOUNTER 2022-05-01 17:34 | Outpatient (REF) | payer MEDICARE, MEDICAID, SELFPAY ==
[2022-05-01 18:08] LABS: Abs Immature Grans 0.03 10^3/uL (0.0-0.06); Absolute Basophil Count 0.03 10^3/uL (0.0-0.2); Absolute Lymphocyte Count 0.65 10^3/uL (1.2-3.4); Absolute Monocyte Count 0.64 10^3/uL (0.1-0.8); Basophils % 0.6; HCT 35.1 % (40.0-50.0); HGB 11.9 g/dL (13.5-17.5); Immature Grans % 0.6; Lymphocytes % 13.1; MCH 31.1 pg (27.0-33.0); MCHC 33.9 % (32.0-36.0); MCV 92 fL (80-95); MPV 11.5 fL (8.0-11.0); Monocytes % 12.9; Neutrophils % 68.8; Platelet Count 131 10^3/uL (130-400); RBC 3.83 10^6/uL (4.36-5.78); RDW-SD 50.4 fL; WBC 4.95 10^3/uL (4.4-10.8)
[2022-05-01 18:09] LABS: Bilirubin Negative (Negative); Blood Negative (Negative); Clarity Clear (Clear); Glucose Negative (Negative); Ketones Negative (Negative); Leukocyte Esterase Small (Negative); Nitrite Negative (Negative); Specific Gravity 1.015 (1.005-1.025); Urobilinogen 0.2 mg/dL (Up to 0.2)
[2022-05-01 18:21] LABS: Bacteria Negative HPF (Negative); C & S Indicated? No; Casts Negative LPF (Negative); Crystals Negative HPF (Negative); Epithelial Cells Few HPF (Negative); Mucus Negative (Negative); Other Cells Negative (Negative); RBC 0-2 HPF (0-2)
[2022-05-01 18:37] LABS: ALT 20 U/L (16-63); AST 19 U/L (15-37); Albumin 3.5 g/dL (3.4-5.0); Alkaline Phosphatase 81 U/L (46-116); Anion Gap 8.3 mmol/L (3-11); BUN 59 mg/dL (7-18); Bilirubin, Total 0.4 mg/dL (0.2-1.0); CO2 22.7 mmol/L (21.0-32.0); CREATININE 1.6 mg/dL (0.70-1.30); Calcium 8.8 mg/dL (8.5-10.1); Chloride 106 mmol/L (98-107); Estimated GFR 44.65 (mL/min/1.73m2); Glucose 119 mg/dL (74-106); NT-proBNP 1909 pg/mL (<300); Potassium 3.9 mmol/L (3.5-5.1); Sodium 137 mmol/L (136-145); Total Protein 6.1 g/dL (6.4-8.2)
== END 2022-05-01 17:35 | disposition home or self-care (01) ==
LOC: LBN 17:34
PROVIDERS: PCP Internal Medicine; Visit Provider Nurse Practitioner Gerontology
DX: D51.9 Vitamin B12 deficiency anemia, unspecified (principal); I50.9 Heart failure, unspecified; I25.9 Chronic ischemic heart disease, unspecified; N39.0 Urinary tract infection, site not specified
CPT/HCPCS: 80053; 81003; 81015; 83880; 85025

== ENCOUNTER → 2022-05-08 09:49 | Outpatient (BNVA) | payer MEDICARE, MEDICAID, SELFPAY | PROVIDERS: PCP Internal Medicine; Referring Provider Internal Medicine; Visit Provider Student in an Organized Health Care Education/Training Program | DX: M65.331 Trigger finger, right middle finger (principal); M72.0 Palmar fascial fibromatosis [Dupuytren]; M54.12 Radiculopathy, cervical region | CPT/HCPCS: 20550; J1030 ==

== ENCOUNTER 2022-06-08 18:54 | Outpatient (REF) | payer MEDICARE, MEDICAID, SELFPAY ==
[2022-06-08 17:32] LABS: Abs Immature Grans 0.03 10^3/uL (0.0-0.06); Absolute Basophil Count 0.03 10^3/uL (0.0-0.2); Absolute Eosinophil Count 0.32 10^3/uL (0.0-0.7); Absolute Lymphocyte Count 0.41 10^3/uL (1.2-3.4); Absolute Monocyte Count 0.56 10^3/uL (0.1-0.8); Absolute Neutrophil Count 7.27 10^3/uL (1.2-6.7); Basophils % 0.3; Eosinophils % 3.7; HCT 36.5 % (40.0-50.0); Immature Grans % 0.3; Lymphocytes % 4.8; MCH 31.5 pg (27.0-33.0); MCHC 32.9 % (32.0-36.0); MCV 96 fL (80-95); Monocytes % 6.5; Neutrophils % 84.4; Platelet Count 190 10^3/uL (130-400); RBC 3.81 10^6/uL (4.36-5.78); RDW-SD 52.2 fL; WBC 8.62 10^3/uL (4.4-10.8)
[2022-06-08 17:55] LABS: Hemoglobin A1C 5.3 % (<5.7)
[2022-06-08 18:03] LABS: ALT 22 U/L (16-63); AST 16 U/L (15-37); Albumin 3.8 g/dL (3.4-5.0); Alkaline Phosphatase 99 U/L (46-116); Anion Gap 8.6 mmol/L (3-11); BUN 73 mg/dL (7-18); Bilirubin, Total 0.5 mg/dL (0.2-1.0); CO2 25.4 mmol/L (21.0-32.0); CREATININE 1.8 mg/dL (0.70-1.30); Calcium 9.5 mg/dL (8.5-10.1); Chloride 104 mmol/L (98-107); Estimated GFR 38.77 (mL/min/1.73m2); Glucose 109 mg/dL (74-106); NT-proBNP 4789 pg/mL (<300); Potassium 5.4 mmol/L (3.5-5.1); Sodium 138 mmol/L (136-145)
== END 2022-06-08 18:55 | disposition home or self-care (01) ==
LOC: LBN 18:54
PROVIDERS: PCP Internal Medicine; Visit Provider Nurse Practitioner Gerontology
DX: E11.9 Type 2 diabetes mellitus without complications (principal); I10 Essential (primary) hypertension; I12.9 Hypertensive chronic kidney disease with stage 1 through stage 4 chronic kidney disease, or unspecified chronic kidney disease; N18.9 Chronic kidney disease, unspecified; R68.89 Other general symptoms and signs; R06.89 Other abnormalities of breathing
CPT/HCPCS: 80053; 83036; 83880; 85025

== ENCOUNTER 2022-06-23 17:20 | Outpatient (REF) | payer MEDICARE, MEDICAID, SELFPAY ==
[2022-06-23 18:00] LABS: ALT 20 U/L (16-63); AST 16 U/L (15-37); Albumin 3.9 g/dL (3.4-5.0); Alkaline Phosphatase 99 U/L (46-116); Anion Gap 8.7 mmol/L (3-11); BUN 57 mg/dL (7-18); Bilirubin, Total 0.4 mg/dL (0.2-1.0); CO2 26.3 mmol/L (21.0-32.0); CREATININE 1.9 mg/dL (0.70-1.30); Calcium 9.3 mg/dL (8.5-10.1); Chloride 105 mmol/L (98-107); Estimated GFR 36.33 (mL/min/1.73m2); Glucose 99 mg/dL (74-106); Magnesium 1.7 mg/dL (1.8-2.4); Potassium 4.6 mmol/L (3.5-5.1); Sodium 140 mmol/L (136-145); Total Protein 7.1 g/dL (6.4-8.2)
== END 2022-06-23 17:21 | disposition home or self-care (01) ==
LOC: LBN 17:20
PROVIDERS: PCP Internal Medicine; Visit Provider Nurse Practitioner Gerontology
DX: E86.0 Dehydration (principal); R25.2 Cramp and spasm; I10 Essential (primary) hypertension; E11.9 Type 2 diabetes mellitus without complications
CPT/HCPCS: 80053; 83735

== ENCOUNTER → 2022-06-30 10:57 | Outpatient (BNVA) | payer MEDICARE, MEDICAID, SELFPAY | PROVIDERS: PCP Internal Medicine; Referring Provider Internal Medicine; Visit Provider Surgery | DX: I99.8 Other disorder of circulatory system (principal) ==

== ENCOUNTER 2022-07-06 18:09 | Outpatient (REF) | payer MEDICARE, MEDICAID, SELFPAY ==
[2022-07-06 18:41] LABS: ALT 19 U/L (16-63); AST 17 U/L (15-37); Albumin 3.9 g/dL (3.4-5.0); Alkaline Phosphatase 103 U/L (46-116); Anion Gap 11.4 mmol/L (3-11); BUN 53 mg/dL (7-18); Bilirubin, Total 0.4 mg/dL (0.2-1.0); CO2 23.6 mmol/L (21.0-32.0); CREATININE 1.7 mg/dL (0.70-1.30); Calcium 9.2 mg/dL (8.5-10.1); Chloride 103 mmol/L (98-107); Estimated GFR 41.52 (mL/min/1.73m2); Glucose 140 mg/dL (74-106); Potassium 4.6 mmol/L (3.5-5.1); Sodium 138 mmol/L (136-145); Total Protein 7.3 g/dL (6.4-8.2)
== END 2022-07-06 18:10 | disposition home or self-care (01) ==
LOC: LBN 18:09
PROVIDERS: PCP Internal Medicine; Visit Provider Nurse Practitioner Gerontology
DX: D51.9 Vitamin B12 deficiency anemia, unspecified (principal); E87.5 Hyperkalemia; I25.9 Chronic ischemic heart disease, unspecified; I50.9 Heart failure, unspecified; E83.42 Hypomagnesemia
CPT/HCPCS: 80053

== ENCOUNTER 2022-07-21 22:33 | Outpatient (REF) | payer MEDICARE, MEDICAID, SELFPAY ==
[2022-07-21 18:56] LABS: ALT 20 U/L (16-63); AST 18 U/L (15-37); Albumin 3.9 g/dL (3.4-5.0); Alkaline Phosphatase 105 U/L (46-116); Anion Gap 10.7 mmol/L (3-11); BUN 42 mg/dL (7-18); Bilirubin, Total 0.4 mg/dL (0.2-1.0); CO2 25.3 mmol/L (21.0-32.0); CREATININE 1.6 mg/dL (0.70-1.30); Calcium 8.8 mg/dL (8.5-10.1); Chloride 102 mmol/L (98-107); Estimated GFR 44.65 (mL/min/1.73m2); Glucose 97 mg/dL (74-106); Magnesium 1.8 mg/dL (1.8-2.4); Potassium 4.3 mmol/L (3.5-5.1); Sodium 138 mmol/L (136-145); Total Protein 6.9 g/dL (6.4-8.2)
== END 2022-07-21 22:34 | disposition home or self-care (01) ==
LOC: LBN 22:33
PROVIDERS: PCP Internal Medicine; Visit Provider Nurse Practitioner Gerontology
DX: E83.42 Hypomagnesemia (principal); I50.9 Heart failure, unspecified; I10 Essential (primary) hypertension; D64.9 Anemia, unspecified
CPT/HCPCS: 80053; 83735

== ENCOUNTER 2022-10-21 18:49 | Outpatient (REF) | payer MEDICARE, MEDICAID, SELFPAY ==
[2022-10-21 19:19] LABS: Abs Immature Grans 0.03 10^3/uL (0.0-0.06); Absolute Basophil Count 0.06 10^3/uL (0.0-0.2); Absolute Eosinophil Count 0.15 10^3/uL (0.0-0.7); Absolute Neutrophil Count 6.21 10^3/uL (1.2-6.7); Basophils % 0.7; Eosinophils % 1.9; HCT 41.6 % (40.0-50.0); Immature Grans % 0.4; Lymphocytes % 12.4; MCH 31.7 pg (27.0-33.0); MCHC 33.7 % (32.0-36.0); MCV 94 fL (80-95); MPV 11.5 fL (8.0-11.0); Monocytes % 7.5; Neutrophils % 77.1; Platelet Count 194 10^3/uL (130-400); RBC 4.42 10^6/uL (4.36-5.78); RDW 13.5 % (11.8-14.1); RDW-SD 47.1 fL; WBC 8.05 10^3/uL (4.4-10.8)
[2022-10-21 19:25] LABS: ALT 22 U/L (16-63); Albumin 3.9 g/dL (3.4-5.0); Alkaline Phosphatase 106 U/L (46-116); Anion Gap 10.9 mmol/L (3-11); BUN 53 mg/dL (7-18); Bilirubin, Total 0.4 mg/dL (0.2-1.0); CO2 23.1 mmol/L (21.0-32.0); CREATININE 2.2 mg/dL (0.70-1.30); Calcium 8.5 mg/dL (8.5-10.1); Chloride 103 mmol/L (98-107); Estimated GFR 30.28 (mL/min/1.73m2); Glucose 153 mg/dL (74-106); Sodium 137 mmol/L (136-145); Total Protein 6.8 g/dL (6.4-8.2)
[2022-10-21 19:52] LABS: Bilirubin Negative (Negative); Blood Small (Negative); Clarity Cloudy (Clear); Glucose Negative (Negative); Ketones Negative (Negative); Leukocyte Esterase Moderate (Negative); Nitrite Negative (Negative); Specific Gravity 1.015 (1.005-1.025); Urobilinogen 0.2 mg/dL (Up to 0.2)
[2022-10-21 20:03] LABS: C & S Indicated? C&S Done As Ordered; WBC >50 HPF (0-5)
[2022-10-21 20:24] LABS: AST 12 U/L (15-37)
[2022-10-22 11:16] LABS: NT-proBNP 3983 pg/mL (<300)
== END 2022-10-21 18:50 | disposition home or self-care (01) ==
LOC: LBO 18:49
PROVIDERS: PCP Internal Medicine; Visit Provider Nurse Practitioner Gerontology
DX: I11.0 Hypertensive heart disease with heart failure (principal); R68.89 Other general symptoms and signs; R82.89 Other abnormal findings on cytological and histological examination of urine
CPT/HCPCS: 80053; 87077; 81003; 81015; 83880; 85025; 87086; 87186

== ENCOUNTER 2022-10-28 16:47 | Outpatient (REF) | payer MEDICARE, MEDICAID, SELFPAY ==
[2022-10-28 17:14] LABS: Abs Immature Grans 0.03 10^3/uL (0.0-0.06); Absolute Basophil Count 0.06 10^3/uL (0.0-0.2); Absolute Eosinophil Count 0.14 10^3/uL (0.0-0.7); Absolute Lymphocyte Count 0.93 10^3/uL (1.2-3.4); Absolute Monocyte Count 0.69 10^3/uL (0.1-0.8); Absolute Neutrophil Count 7.96 10^3/uL (1.2-6.7); Basophils % 0.6; Eosinophils % 1.4; HCT 44.5 % (40.0-50.0); Immature Grans % 0.3; Lymphocytes % 9.5; MCH 31.6 pg (27.0-33.0); MCHC 33.7 % (32.0-36.0); MCV 94 fL (80-95); MPV 11.4 fL (8.0-11.0); Neutrophils % 81.2; Platelet Count 216 10^3/uL (130-400); RBC 4.75 10^6/uL (4.36-5.78); RDW 13.2 % (11.8-14.1); RDW-SD 45.9 fL; WBC 9.81 10^3/uL (4.4-10.8)
[2022-10-28 17:32] LABS: ALT 17 U/L (16-63); AST 19 U/L (15-37); Albumin 4.2 g/dL (3.4-5.0); Alkaline Phosphatase 108 U/L (46-116); Anion Gap 10.9 mmol/L (3-11); BUN 44 mg/dL (7-18); Bilirubin, Total 0.6 mg/dL (0.2-1.0); CO2 26.1 mmol/L (21.0-32.0); Calcium 9.4 mg/dL (8.5-10.1); Chloride 102 mmol/L (98-107); Estimated GFR 33.95 (mL/min/1.73m2); Glucose 79 mg/dL (74-106); NT-proBNP 3359 pg/mL (<300); Potassium 4.7 mmol/L (3.5-5.1); Sodium 139 mmol/L (136-145); Total Protein 7.3 g/dL (6.4-8.2)
== END 2022-10-28 16:48 | disposition home or self-care (01) ==
LOC: LBN 16:47
PROVIDERS: PCP Internal Medicine; Visit Provider Nurse Practitioner Gerontology
DX: I50.42 Chronic combined systolic (congestive) and diastolic (congestive) heart failure (principal); J44.9 Chronic obstructive pulmonary disease, unspecified; R68.89 Other general symptoms and signs; I10 Essential (primary) hypertension; D64.9 Anemia, unspecified
CPT/HCPCS: 80053; 83880; 85025

== ENCOUNTER → 2022-11-09 12:46 | Outpatient (BNVA) | payer MEDICARE, MEDICAID, SELFPAY | PROVIDERS: PCP Internal Medicine; Referring Provider Internal Medicine; Visit Provider Student in an Organized Health Care Education/Training Program | DX: M65.331 Trigger finger, right middle finger (principal); M72.0 Palmar fascial fibromatosis [Dupuytren]; M54.12 Radiculopathy, cervical region | CPT/HCPCS: 99213 ==

== ENCOUNTER 2022-11-24 18:03 | Outpatient (REF) | payer MEDICARE, MEDICAID, SELFPAY ==
[2022-11-24 20:09] LABS: Bilirubin Negative (Negative); Blood Trace-lysed (Negative); Clarity Cloudy (Clear); Glucose Negative (Negative); Ketones Negative (Negative); Leukocyte Esterase Large (Negative); Nitrite Negative (Negative); Specific Gravity 1.015 (1.005-1.025); Urobilinogen 0.2 mg/dL (Up to 0.2); pH 5.5 (5-8)
[2022-11-24 20:24] LABS: Bacteria Moderate HPF (Negative); C & S Indicated? C&S Done As Ordered; Casts Negative LPF (Negative); Crystals Negative HPF (Negative); Epithelial Cells Few HPF (Negative); Mucus Negative (Negative); Other Cells Few Yeast (Negative); RBC 0-2 HPF (0-2); WBC >50 HPF (0-5)
== END 2022-11-24 18:04 | disposition home or self-care (01) ==
LOC: LBN 18:03
PROVIDERS: PCP Internal Medicine; Visit Provider Nurse Practitioner Gerontology
DX: N39.0 Urinary tract infection, site not specified (principal)
CPT/HCPCS: 87077; 81003; 81015; 87086; 87186

== ENCOUNTER 2022-11-25 12:55 | Outpatient (REF) | payer MEDICARE, MEDICAID, SELFPAY ==
[2022-11-25 16:28] LABS: Abs Immature Grans 0.02 10^3/uL (0.0-0.06); Absolute Basophil Count 0.05 10^3/uL (0.0-0.2); Absolute Eosinophil Count 0.26 10^3/uL (0.0-0.7); Absolute Lymphocyte Count 0.84 10^3/uL (1.2-3.4); Absolute Monocyte Count 0.54 10^3/uL (0.1-0.8); Absolute Neutrophil Count 6.28 10^3/uL (1.2-6.7); Basophils % 0.6; Eosinophils % 3.3; HCT 40.5 % (40.0-50.0); HGB 13.7 g/dL (13.5-17.5); Immature Grans % 0.3; Lymphocytes % 10.5; MCH 31.8 pg (27.0-33.0); MCHC 33.8 % (32.0-36.0); MCV 94 fL (80-95); Monocytes % 6.8; Neutrophils % 78.5; Platelet Count 236 10^3/uL (130-400); RBC 4.31 10^6/uL (4.36-5.78); RDW 13.4 % (11.8-14.1); RDW-SD 46.3 fL; WBC 7.99 10^3/uL (4.4-10.8)
[2022-11-25 17:35] LABS: TSH (W/Ref FT4) 0.75 uIU/mL (0.36-3.74); Vitamin B12 550 pg/mL (193-986)
[2022-11-25 17:56] LABS: NT-proBNP 5822 pg/mL (<300)
== END 2022-11-25 12:56 | disposition home or self-care (01) ==
LOC: LBN 12:55
PROVIDERS: Nurse Practitioner Gerontology; PCP Internal Medicine; Visit Provider Podiatrist
DX: I70.223 Atherosclerosis of native arteries of extremities with rest pain, bilateral legs (principal); L97.519 Non-pressure chronic ulcer of other part of right foot with unspecified severity; M86.9 Osteomyelitis, unspecified; J44.9 Chronic obstructive pulmonary disease, unspecified; D51.9 Vitamin B12 deficiency anemia, unspecified; I11.0 Hypertensive heart disease with heart failure; I50.42 Chronic combined systolic (congestive) and diastolic (congestive) heart failure; R63.4 Abnormal weight loss; R53.83 Other fatigue
CPT/HCPCS: 87077; 82607; 83880; 84443; 85025; 87070; 87075; 87186; 87205

== ENCOUNTER → 2022-11-30 03:58 | Outpatient (CLI) | payer MEDICARE, MEDICAID, SELFPAY ==
--- NOTE | 2022-11-30 09:15 | DI.RAD_ITS ---
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 TECHNIQUE: 2D digital imaging was performed of the right ankle and foot. Six images were obtained. AP, oblique and lateral views were obtained. COMPARISON: CR RIGHT FOOT COMPLETE from 04/20/2016 CR XR FOOT LT COMPLETE from 11/30/2022 FINDINGS: BONES: No acute fracture is present. No bony destructive lesion is seen. Since the prior examination there has been amputation of the 2nd toe to the level of the mid 2nd metacarpal bone. There is also been resection of the 3rd toe to the level of the in the TP joint. There has been further resection of the great toe. The base of the 1st metatarsal is now all that is present. There is an old healed fracture deformity of the 3rd metatarsal. The bones are osteopenic. Hammertoe deformities of the 4 th and 5th toes are noted. JOINTS: No dislocation present. There is a lucency seen in the lateral aspect of the head of the jeannie r dome. This may represent osteochondral lesion. SOFT TISSUE: Atherosclerosis. Dystrophic calcifications are seen in the soft tissues inferior to bot h the medial lateral malleoli. IMPRESSION: 1. No radiographic findings to suggest osteomyelitis. 2. Postsurgical changes with varying degrees of amputations of the 1st through 3rd toes. 3. Atherosclerosis. DATA REPOSITORY: RADIATION DOSE DELIVERED:
--- NOTE | 2022-11-30 09:15 | DI.RAD_ITS ---
Exam(s) XR FOOT LT COMPLETE EXAM: XR FOOT LT COMPLETE CLINICAL HISTORY: Pain in left foot,. TECHNIQUE: 2D digital imaging was performed of the left foot. Three images were obtained. AP, obli que and lateral views were obtained. COMPARISON: CR LEFT FOOT COMPLETE from 11/22/2012 FINDINGS: BONES: No acute fracture is present. There has been interval resection of the great toe to the level of the head of the 1st metatarsal bone. The bones are osteopenic. There is a small plantar calcanea l spur. Hammertoe deformities of the 2nd through 4th toes are noted. No destructive changes are see n. JOINTS: No dislocation present. Degenerative changes are seen in the foot particularly at the tarsome tatarsal joints. SOFT TISSUE: There is atherosclerosis present. IMPRESSION: 1. Status post amputation of the great toe as described. 2. Chronic changes in the foot including hammertoe deformities and degenerative changes. 3. No destructive changes are seen to suggest acute osteomyelitis. DATA REPOSITORY: RADIATION DOSE DELIVERED:
== END ==
PROVIDERS: PCP Internal Medicine; Visit Provider Podiatrist
DX: M20.42 Other hammer toe(s) (acquired), left foot (principal); M19.072 Primary osteoarthritis, left ankle and foot; I70.223 Atherosclerosis of native arteries of extremities with rest pain, bilateral legs; Z98.890 Other specified postprocedural states
CPT/HCPCS: 73610; 73630

== ENCOUNTER 2022-12-01 18:01 | Outpatient (REF) | payer MEDICARE, MEDICAID, SELFPAY ==
[2022-12-01 17:37] LABS: ALT 20 U/L (16-63); AST 24 U/L (15-37); Albumin 4.2 g/dL (3.4-5.0); Alkaline Phosphatase 119 U/L (46-116); Anion Gap 10.3 mmol/L (3-11); BUN 49 mg/dL (7-18); Bilirubin, Total 0.6 mg/dL (0.2-1.0); CO2 27.7 mmol/L (21.0-32.0); CREATININE 2.1 mg/dL (0.70-1.30); Calcium 10.1 mg/dL (8.5-10.1); Chloride 101 mmol/L (98-107); Estimated GFR 32.02 (mL/min/1.73m2); Glucose 129 mg/dL (74-106); NT-proBNP 7196 pg/mL (<300); Potassium 3.8 mmol/L (3.5-5.1); Sodium 139 mmol/L (136-145); Total Protein 7.7 g/dL (6.4-8.2)
== END 2022-12-01 18:02 | disposition home or self-care (01) ==
LOC: LBN 18:01
PROVIDERS: PCP Internal Medicine; Visit Provider Nurse Practitioner Gerontology
DX: I50.42 Chronic combined systolic (congestive) and diastolic (congestive) heart failure (principal); I11.0 Hypertensive heart disease with heart failure; E83.42 Hypomagnesemia
CPT/HCPCS: 80053; 83880

== ENCOUNTER 2022-12-07 17:39 | Outpatient (REF) | payer MEDICARE, MEDICAID, SELFPAY ==
[2022-12-07 20:06] LABS: ALT 18 U/L (16-63); AST 22 U/L (15-37); Albumin 4.3 g/dL (3.4-5.0); Alkaline Phosphatase 105 U/L (46-116); Anion Gap 9.7 mmol/L (3-11); BUN 63 mg/dL (7-18); Bilirubin, Total 0.6 mg/dL (0.2-1.0); CO2 30.3 mmol/L (21.0-32.0); CREATININE 2.6 mg/dL (0.70-1.30); Calcium 10.1 mg/dL (8.5-10.1); Chloride 96 mmol/L (98-107); Estimated GFR 24.78 (mL/min/1.73m2); Glucose 124 mg/dL (74-106); NT-proBNP 4868 pg/mL (<300); Potassium 3.3 mmol/L (3.5-5.1); Sodium 136 mmol/L (136-145); Total Protein 7.8 g/dL (6.4-8.2)
== END 2022-12-07 17:40 | disposition home or self-care (01) ==
LOC: LBN 17:39
PROVIDERS: PCP Internal Medicine; Visit Provider Nurse Practitioner Gerontology
DX: I11.0 Hypertensive heart disease with heart failure (principal); I50.42 Chronic combined systolic (congestive) and diastolic (congestive) heart failure; E83.42 Hypomagnesemia; I25.9 Chronic ischemic heart disease, unspecified; M62.81 Muscle weakness (generalized); E78.5 Hyperlipidemia, unspecified
CPT/HCPCS: 80053; 83880

== ENCOUNTER 2022-12-14 17:30 | Outpatient (REF) | payer MEDICARE, MEDICAID, SELFPAY ==
[2022-12-14 18:11] LABS: ALT 21 U/L (16-63); AST 21 U/L (15-37); Alkaline Phosphatase 92 U/L (46-116); Anion Gap 9.8 mmol/L (3-11); BUN 62 mg/dL (7-18); Bilirubin, Total 0.5 mg/dL (0.2-1.0); CO2 31.2 mmol/L (21.0-32.0); CREATININE 2.3 mg/dL (0.70-1.30); Calcium 9.6 mg/dL (8.5-10.1); Chloride 97 mmol/L (98-107); Estimated GFR 28.71 (mL/min/1.73m2); Glucose 93 mg/dL (74-106); NT-proBNP 7164 pg/mL (<300); Potassium 3.3 mmol/L (3.5-5.1); Sodium 138 mmol/L (136-145); Total Protein 7.1 g/dL (6.4-8.2)
== END 2022-12-14 17:31 | disposition home or self-care (01) ==
LOC: LBN 17:30
PROVIDERS: PCP Internal Medicine; Visit Provider Nurse Practitioner Gerontology
DX: E83.42 Hypomagnesemia (principal); I50.9 Heart failure, unspecified; G89.4 Chronic pain syndrome
CPT/HCPCS: 80053; 83880

== ENCOUNTER → 2022-12-24 09:20 | Outpatient (BNVA) | payer MEDICARE, MEDICAID, SELFPAY | PROVIDERS: PCP Internal Medicine; Referring Provider Internal Medicine; Visit Provider Podiatrist | DX: L97.512 Non-pressure chronic ulcer of other part of right foot with fat layer exposed (principal); I70.223 Atherosclerosis of native arteries of extremities with rest pain, bilateral legs; M86.9 Osteomyelitis, unspecified | CPT/HCPCS: 99213 ==

== ENCOUNTER 2022-12-28 18:34 | Outpatient (REF) | payer MEDICARE, MEDICAID, SELFPAY ==
[2022-12-28 18:42] LABS: ALT 17 U/L (16-63); AST 22 U/L (15-37); Albumin 3.7 g/dL (3.4-5.0); Alkaline Phosphatase 85 U/L (46-116); Anion Gap 12.9 mmol/L (3-11); BUN 68 mg/dL (7-18); Bilirubin, Total 1.2 mg/dL (0.2-1.0); CO2 27.1 mmol/L (21.0-32.0); CREATININE 2.4 mg/dL (0.70-1.30); Calcium 9.6 mg/dL (8.5-10.1); Chloride 96 mmol/L (98-107); Estimated GFR 27.28 (mL/min/1.73m2); Glucose 112 mg/dL (74-106); NT-proBNP 23280 pg/mL (<300); Potassium 3.7 mmol/L (3.5-5.1); Sodium 136 mmol/L (136-145)
== END 2022-12-28 18:35 | disposition home or self-care (01) ==
LOC: LBN 18:34
PROVIDERS: PCP Internal Medicine; Visit Provider Nurse Practitioner Gerontology
DX: I50.42 Chronic combined systolic (congestive) and diastolic (congestive) heart failure (principal); E83.42 Hypomagnesemia; I11.0 Hypertensive heart disease with heart failure; E87.6 Hypokalemia; G89.4 Chronic pain syndrome
CPT/HCPCS: 80053; 83880

== ENCOUNTER 2023-01-04 17:59 | Outpatient (REF) | payer MEDICARE, MEDICAID, SELFPAY ==
[2023-01-04 19:15] LABS: ALT 78 U/L (16-63); AST 109 U/L (15-37); Albumin 3.7 g/dL (3.4-5.0); Alkaline Phosphatase 106 U/L (46-116); Anion Gap 13.8 mmol/L (3-11); Bilirubin, Total 1.9 mg/dL (0.2-1.0); CO2 26.2 mmol/L (21.0-32.0); CREATININE 3.2 mg/dL (0.70-1.30); Calcium 10.1 mg/dL (8.5-10.1); Chloride 98 mmol/L (98-107); Estimated GFR 19.32 (mL/min/1.73m2); Glucose 108 mg/dL (74-106); Potassium 3.9 mmol/L (3.5-5.1); Sodium 138 mmol/L (136-145); Total Protein 7.1 g/dL (6.4-8.2)
[2023-01-04 19:16] LABS: NT-proBNP > 35000 pg/mL (<300)
[2023-01-04 19:22] LABS: BUN 81 mg/dL (7-18)
== END 2023-01-04 18:00 | disposition home or self-care (01) ==
LOC: LBN 17:59
PROVIDERS: PCP Internal Medicine; Visit Provider Nurse Practitioner Gerontology
DX: I50.9 Heart failure, unspecified (principal); J44.9 Chronic obstructive pulmonary disease, unspecified; G89.4 Chronic pain syndrome
CPT/HCPCS: 80053; 83880